=== PATIENT | female | born 1950 | race Caucasian/White ===

== ENCOUNTER 2016-07-11 14:41 | Observation (INO) | payer MEDICARE, MEDICAID, OTHER ==
[~2016-07-11] VITALS: Ht 165.1 cm; Wt 47.7 kg
[~2016-07-11 14:41] MED LIST: CALCTAB PO; CELE40TA PO; DOCU1CAP39 PO; DOXE75CA PO; FERR140T PO; NORC7.5T PO; TRAZ100 PO; VITAPOW PO; [UNRECOGNIZED DRUG - CODE] PO; [UNRECOGNIZED DRUG - CODE] XX
[2016-07-11 14:44] VITALS: BP 100/47; PULSE 84; RESP 12; TEMP 98.3; O2SAT 96
[2016-07-11] MEDS ORDERED: SODIUM CHLORIDE 0.9% FLUSH 5 ML FLUSH IVF PRN (18:45)
--- NOTE | 2016-07-11 18:57 | PD ---
HPI Chief Complaint: Fall Time Seen by Provider: 18:30 Travel History International Travel<30 days: No Contact w/Intl Traveler<30days: No Traveled to known affect area: No History of Present Illness HPI Patient is a 65-year-old female presenting with dizziness. She states today at noon she was walking and had been walking for 3 hours to go to the bank which she usually does the beginning of the month and she became dizzy and fell. She states that she did not lose consciousness but she did hit her head on the road. She felt as if she needed to eat so she went to [employer] and had a soda and ate taco and began walking again and within a few minutes she got lightheaded again and fell. She struck her head. She again denies loss of consciousness. She denies any headache, neck pain, dizziness at rest, as well as of breath, chest pain, palpitations, tachycardia, fevers, cough. She denies a history of CAD and CVA. She states that if she attempts to stand up she will get lightheaded. She denies any difficulty forming speech. She denies any facial numbness or weakness. She denies any paresthesias or numbness or weakness in her extremities. She denies any daily aspirin or anticoagulant use. PFSH Past Medical History Arthritis: Yes Blood Disorders: No Bipolar Disorder: Yes Anxiety: Yes Depression: Yes Cancer: No Cardiovascular Problems: No Diabetes: No Diminished Hearing: No Endocrine: No Gastrointestinal Disorders: No Glaucoma: No Genitourinary: Yes (SELF CATH, BLADDER AUGMENTATION) Hepatitis: No Hiatal Hernia: No Hypertension: No Immune Disorder: No Implanted Vascular Access Dvce: No Medical other: Yes (IRON DEFICIENCY, SELF CATHERIZES FOR URINE) Musculoskeletal: Yes (chronic back pain.) Neurologic: No Psychiatric: Yes (DEPRESSION) Reproductive: No Respiratory: No Thyroid Disease: No Tetanus Vaccination: > 5 Years Influenza Vaccination: Yes ?: Not Menopausal: Yes Past Surgical History Genitourinary Surgery: Yes (BLADDER AUGMENTATION AGE 48) Gynecologic Surgery: Yes (HYSTERCTOMY-15 YRS AGO) Hysterectomy: Yes Pacemaker: No Thoracic Surgery: Yes (BREAST AUGMENTATION & BREAST IMPLANT REMOVAL) Tonsillectomy: Yes Other Surgery: Yes (breast aug/MASTECTOMY) Social History Alcohol Use: No Tobacco Use: No Substance Use: No Allergies-Medications (Allergen,Severity, Reaction): Coded Allergies: Sulfa (Verified Allergy, Intermediate, "BLOOD COUNT DROPS", 07/11/16) Codeine (Verified Adverse Reaction, Unknown, ITCHING, 07/11/16) Reported Meds & Prescriptions Reported Meds & Active Scripts Active Cathete1 100 U XX 10 Days Refill catheters. 30 Day supply. Diagnosis 788.30 Review of Systems Except as stated in HPI: all other systems reviewed are Neg Physical Exam Narrative GENERAL: Well-developed and well-nourished adult female in no acute distress. SKIN: Warm and dry. Good turgor without tenting. HEAD: Normocephalic and atraumatic. No abrasions or hematomas. No tenderness, crepitus or step-off to palpation of the skull. EYES: PERRL bilaterally, 5mm. EOMI bilaterally. No injection or icterus present. No proptosis. Lids without edema or erythema. ENT: Buccal mucosa pink and moist. Oropharynx free of erythema, tonsillar hypertrophy, masses, swelling, asymmetry and exudates. Uvula midline and airway patent. NECK: Supple, no midline tenderness, crepitus or step-offs. Trachea midline, no JVD. No cervical or facial lymphadenopathy. CARDIOVASCULAR: Regular rate and rhythm without murmurs, rubs, clicks or gallops. Radial and posterior tibial pulses 2+ bilaterally. No pedal edema. RESPIRATORY: Clear to auscultation bilaterally with symmetrical rise and fall, no distress or use of accessory muscles. GASTROINTESTINAL: Non-tender, non-distended. Normal bowel sounds all 4 quadrants. No masses or organomegaly present. MUSCULOSKELETAL: Left elbow has a subcentimeter laceration with hemostasis achieved on the posterior elbow, no bone or contaminants visible. Elbow has no tenderness or loss of range of motion. Patient freely moving all four extremities spontaneously. Extremities without clubbing, cyanosis, or edema. No obvious deformities. NEUROLOGIC: Patient has some minor deviation of the tongue to the right and facial asymmetry with smiling but not rai facial droop. Awake and alert. Negative pronator drift. Jorgensen and accurate finger to nose testing bilaterally. Strength 5/5 bilateral shoulder flexion, shoulder extension, shoulder abduction, shoulder adduction, elbow flexion, elbow extension. Sensation intact and strength 5/5 over radial, median, and ulnar nerve distributions bilaterally.Sensation intact L2-S2 bilaterally. Strength 5/5 in hip flexion, hip extension, knee flexion, knee extension, plantar flexion, dorsiflexion bilaterally. Bilateral biceps, brachioradialis, patellar and Achilles DTRs 2+. Downgoing Babinskis bilaterally. Normal speech. PSYCHIATRIC: Appropriate mood and affect; insight and judgment normal. Data Data Last Documented VS Vital Signs Date Time Temp Pulse Resp B/P Pulse Ox O2 Delivery O2 Flow Rate FiO2 07/11/16 22:41 78 18 121/58 80 18 123/61 81 18 112/57 07/11/16 22:30 98 Room Air 07/11/16 14:44 98.3 Orders Electrocardiogram (07/11/16 14:51) Ua Includes Microscopic (07/11/16 18:34) Prothrombin Time / Inr (Pt) (07/11/16 18:34) Act Partial Throm Time (Ptt) (07/11/16 18:34) Complete Blood Count With Diff (07/11/16 18:34) Comprehensive Metabolic Panel (07/11/16 18:34) Drug Screen, Random Urine (07/11/16 18:34) Troponin I (07/11/16 18:34) Ct Brain W/O Iv Contrast(Rout) (07/11/16 18:34) Chest, Single Ap (07/11/16 18:34) Ecg Monitoring (07/11/16 18:34) Iv Access Insert/Monitor (07/11/16 18:34) Oximetry (07/11/16 18:34) Blood Glucose (07/11/16 18:34) Sodium Chloride 0.9% Flush (Ns Flush) (07/11/16 18:45) Tetanus/Diphtheria Tox Adult (Tetanus/Di (07/11/16 19:00) Elbow, Complete (4 Vws) (07/11/16 18:57) Lidocai-Epi 1%-1:100,000 Inj (Xylocaine- (07/11/16 19:00) Orthostatic Vital Signs (07/11/16 19:07) Mri Brain W&W/O Contrast (07/11/16 ) Mra Carotids W Contrast (07/11/16 ) Mra Brain W/O Contrast (Cow) (07/11/16 ) Sodium Chlor 0.9% 1000 Ml Inj (Ns 1000 M (07/11/16 20:43) Gadodiamide Pf Inj (Omniscan Pf Inj) (07/11/16 20:58) Clindamycin Inj (Cleocin Inj) (07/11/16 21:30) Admit Order (Ed Use Only) (07/11/16 23:25) Consult Neurology (07/11/16 ) Labs Laboratory Tests Test 07/11/16 20:00 White Blood Count 8.8 TH/MM3 Red Blood Count 4.68 MIL/MM3 Hemoglobin 14.1 GM/DL Hematocrit 41.7 % Mean Corpuscular Volume 89.1 FL Mean Corpuscular Hemoglobin 30.1 PG Mean Corpuscular Hemoglobin 33.8 % Concent Red Cell Distribution Width 13.7 % Platelet Count 137 TH/MM3 Mean Platelet Volume 9.5 FL Neutrophils (%) (Auto) 67.1 % Lymphocytes (%) (Auto) 19.6 % Monocytes (%) (Auto) 12.2 % Eosinophils (%) (Auto) 0.6 % Basophils (%) (Auto) 0.5 % Neutrophils # (Auto) 5.9 TH/MM3 Lymphocytes # (Auto) 1.7 TH/MM3 Monocytes # (Auto) 1.1 TH/MM3 Eosinophils # (Auto) 0.1 TH/MM3 Basophils # (Auto) 0.0 TH/MM3 CBC Comment DIFF FINAL Differential Comment Prothrombin Time 10.4 SEC Prothromb Time International 0.9 RATIO Ratio Activated Partial 24.9 SEC Thromboplast Time Sodium Level 136 MEQ/L Potassium Level 3.6 MEQ/L Chloride Level 98 MEQ/L Carbon Dioxide Level 29.7 MEQ/L Anion Gap 8 MEQ/L Blood Urea Nitrogen 22 MG/DL Creatinine 1.14 MG/DL Estimat Glomerular Filtration 48 ML/MIN Rate Random Glucose 104 MG/DL Calcium Level 9.1 MG/DL Total Bilirubin 0.4 MG/DL Aspartate Amino Transf 10 U/L (AST/SGOT) Alanine Aminotransferase 15 U/L (ALT/SGPT) Alkaline Phosphatase 95 U/L Troponin I LESS THAN 0.02 NG/ML Total Protein 7.5 GM/DL Albumin 3.8 GM/DL MDM Medical Decision Making Medical Screen Exam Complete: Yes Emergency Medical Condition: Yes Interpretation(s) Laboratory Tests Test 07/11/16 20:00 White Blood Count 8.8 TH/MM3 (4.0-11.0) Red Blood Count 4.68 MIL/MM3 (4.00-5.30) Hemoglobin 14.1 GM/DL (11.6-15.3) Hematocrit 41.7 % (35.0-46.0) Mean Corpuscular Volume 89.1 FL (80.0-100.0) Mean Corpuscular Hemoglobin 30.1 PG (27.0-34.0) Mean Corpuscular Hemoglobin 33.8 % Concent (32.0-36.0) Red Cell Distribution Width 13.7 % (11.6-17.2) Platelet Count 137 TH/MM3 (150-450) Mean Platelet Volume 9.5 FL (7.0-11.0) Neutrophils (%) (Auto) 67.1 % (16.0-70.0) Lymphocytes (%) (Auto) 19.6 % (9.0-44.0) Monocytes (%) (Auto) 12.2 % (0.0-8.0) Eosinophils (%) (Auto) 0.6 % (0.0-4.0) Basophils (%) (Auto) 0.5 % (0.0-2.0) Neutrophils # (Auto) 5.9 TH/MM3 (1.8-7.7) Lymphocytes # (Auto) 1.7 TH/MM3 (1.0-4.8) Monocytes # (Auto) 1.1 TH/MM3 (0-0.9) Eosinophils # (Auto) 0.1 TH/MM3 (0-0.4) Basophils # (Auto) 0.0 TH/MM3 (0-0.2) CBC Comment DIFF FINAL Differential Comment Prothrombin Time 10.4 SEC (9.8-11.6) Prothromb Time International 0.9 RATIO Ratio Activated Partial 24.9 SEC Thromboplast Time (24.3-30.1) Sodium Level 136 MEQ/L (136-145) Potassium Level 3.6 MEQ/L (3.5-5.1) Chloride Level 98 MEQ/L (98-107) Carbon Dioxide Level 29.7 MEQ/L (21.0-32.0) Anion Gap 8 MEQ/L (5-15) Blood Urea Nitrogen 22 MG/DL (7-18) Creatinine 1.14 MG/DL (0.50-1.00) Estimat Glomerular Filtration 48 ML/MIN (>89) Rate Random Glucose 104 MG/DL (74-106) Calcium Level 9.1 MG/DL (8.5-10.1) Total Bilirubin 0.4 MG/DL (0.2-1.0) Aspartate Amino Transf 10 U/L (15-37) (AST/SGOT) Alanine Aminotransferase 15 U/L (10-53) (ALT/SGPT) Alkaline Phosphatase 95 U/L (45-117) Troponin I LESS THAN 0.02 NG/ML (0.02-0.05) Total Protein 7.5 GM/DL (6.4-8.2) Albumin 3.8 GM/DL (3.4-5.0) Differential Diagnosis CVA vs TIA versus dehydration versus hypoglycemia versus arrhythmia versus ACS versus vertigo vs orthostatic hypotension Narrative Course Patient is a 65-year-old female presenting with chief complaint of fall and hitting her head twice on the street today while walking and becoming dizzy. She states she is currently asymptomatic but if she attempts to stand she becomes dizzy. The other episodes were not related to positioning but she had been walking for several hours and is concerned that she was dehydrated or hypoglycemic. Other than dizziness she denies any cardiopulmonary or neurologic complaints however on exam she does have some asymmetry with smiling and mild deviation to the right. I spoke with Dr. Chacko who also evaluated the patient and agrees there is some asymmetry but there is no ataxia or other deficit. She is a little unsteady with her gait but more pre-syncopal and lightheaded. Call was placed to Dr. Hines and ordered CT head, cxr, ekg, labs. EKG shows no arrhythmias or signs of ischemia. Chest x-ray and CT head showed no acute process. 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 CBC showed platelet count 137. INR 0.9. Metabolic panel shows BUN 22, creatinine 1.14, minimally from 0.82 previously. Troponin less than 0.02. MRI of the brain shows cranial cyst with no abnormalities. MRI of the brain was normal. MRA of the neck showed only minimal narrowing of the lumens of the bilateral ICA's. Dr. Howard placed call to Dr. Hines who wanted patient admitted with neurology consult in the morning. Orthostatics were negative. Patient was given 1 L normal saline bolus and she had some mild kidney insufficiency likely from being out and walking for several hours when not drinking fluids. Additionally her family arrived during the MRI and discussing the patient her daughter states that she's been having some dental difficulties for the last 2 days in the left lower gums. She didn't having some swelling and tenderness in the region told her daughter she thinks is infected. The patient denies any trauma to the area, bleeding or discharge. On reexam there is mild edema of the gingiva which is tender but there is no induration or fluctuance. She has severe degeneration of the teeth and multiple caries below the gumline in this region I do believe a periapical abscess could be possible, was given clindamycin IV. I do not believe this is the etiology for her neuro symptoms or the facial asymmetry however as the edema is minimal. Laceration repaired per attached procedure narrative. Patient to be admitted with neuro consult tomorrow morning. Dr. Nicole Dubois is her PCP although she has not seen her yet. Report was given to Dr. Ballesteros after the Residents(Dr. Alegria) declined to see this patient given she has no PCP visits since [address] Dubois does not see patients in the office. Procedures Procedure Narrative LACERATION LOCATION: Left elbow LENGTH: 7 mm SHAPE: Linear NUMBER OF STITCHES/PHUONG: 1 REPAIR: The area of the laceration was prepped with Betadine and sterilely draped. The laceration was infiltrated with 0.75 cc of percent lidocaine with epi. The wound was copiously irrigated and explored without evidence of foreign body, tendon injury or neurovascular injury. The wound was closed using 4-0 Ethilon. This was a single layer repair. A sterile dressing was applied. The patient was advised to keep the dressing clean and dry. Patient tolerated the procedure well. Diagnosis Primary Impression: Dizziness Additional Impressions: Falls Qualified Code: W19.XXXA - Falls, initial encounter Dehydration Elbow laceration Qualified Code: S51.012A - Elbow laceration, left, initial encounter Periapical abscess Admitting Information Admitting Physician Requests: Admit Condition: Stable Leonard Monroe III Jul 11, 2016 18:57 Falls Qualified Code: W19.XXXA - Falls, initial encounter Dehydration Elbow laceration Qualified Code: S51.012A - Elbow laceration, left, initial encounter Periapical abscess Admitting Information Admitting Physician Requests: Admit Condition: Stable Leonard Monroe III Jul 11, 2016 18:57
[2016-07-11 19:00] VITALS: BP 122/53; PULSE 78; RESP 18; O2SAT 96
[2016-07-11] MEDS ORDERED: TETANUS/DIPHTHERIA TOXOID ADULT 0.5 ML VIAL IM ONE (19:00)
[2016-07-11] MEDS ORDERED: LIDOCAINE 1%/EPINEPHrine 1:100,000 SOLN 20 ML VIAL INFIL ONE (19:00)
--- NOTE | 2016-07-11 19:27 | RADRPT ---
EXAM DATE/TIME: 07/11/2016 18:46 [facility] COMPARISON: No previous studies available for comparison. INDICATIONS : Short of breath MEDICAL HISTORY : Cardiovascular disease. SURGICAL HISTORY : None. ENCOUNTER: Initial ACUITY: 1 day PAIN SCORE: 0/10 LOCATION: Bilateral chest FINDINGS: A single view of the chest demonstrates the lungs to be symmetrically aerated without evidence of mas s, infiltrate or effusion. The cardiomediastinal contours are unremarkable. Osseous structures are intact. CONCLUSION: No evidence of acute cardiopulmonary disease. Leonard Cespedes MD on July 11, 2016 at 19:25 Board Certified Radiologist. This report was verified electronically.
--- NOTE | 2016-07-11 19:34 | RADRPT ---
EXAM DATE/TIME: 07/11/2016 19:16 [facility] COMPARISON: CT BRAIN W/O CONTRAST, May 12, 2009, 1:29. INDICATIONS : Altered mental status. RADIATION DOSE: 38.73 CTDIvol (mGy) MEDICAL HISTORY : None SURGICAL HISTORY : None. ENCOUNTER: Initial ACUITY: 1 day PAIN SCALE: 1/10 LOCATION: cranial TECHNIQUE: Multiple contiguous axial images were obtained of the head. Using automated exposure control and adj ustment of the mA and/or kV according to patient size, radiation dose was kept as low as reasonably a chievable to obtain optimal diagnostic quality images. FINDINGS: CEREBRUM: The ventricles are normal for age. No evidence of midline shift, mass lesion, hemorrhage or acute in farction. No extra-axial fluid collections are seen. Cortical atrophy again noted. Unchanged pineal cyst, measures about 11 mm in size. POSTERIOR FOSSA: The cerebellum and brainstem are intact. The 4th ventricle is midline. The cerebellopontine angle i s unremarkable. EXTRACRANIAL: The visualized portion of the orbits is intact. SKULL: The calvaria is intact. No evidence of skull fracture. CONCLUSION: No acute intracranial abnormality. Unchanged atrophy and pineal cyst. Leonard Cespedes MD on July 11, 2016 at 19:31 Board Certified Radiologist. This report was verified electronically.
--- NOTE | 2016-07-11 19:45 | PD ---
Data Data Last Documented VS Vital Signs Date Time Temp Pulse Resp B/P Pulse Ox O2 Delivery O2 Flow Rate FiO2 07/11/16 14:44 98.3 84 12 100/47 96 Room Air Orders Electrocardiogram (07/11/16 14:51) Electrocardiogram (07/11/16 20:51) Ua Includes Microscopic (07/11/16 18:34) Prothrombin Time / Inr (Pt) (07/11/16 18:34) Act Partial Throm Time (Ptt) (07/11/16 18:34) Complete Blood Count With Diff (07/11/16 18:34) Comprehensive Metabolic Panel (07/11/16 18:34) Drug Screen, Random Urine (07/11/16 18:34) Troponin I (07/11/16 18:34) Ct Brain W/O Iv Contrast(Rout) (07/11/16 18:34) Chest, Single Ap (07/11/16 18:34) Ecg Monitoring (07/11/16 18:34) Iv Access Insert/Monitor (07/11/16 18:34) Oximetry (07/11/16 18:34) Blood Glucose (07/11/16 18:34) Sodium Chloride 0.9% Flush (Ns Flush) (07/11/16 18:45) Tetanus/Diphtheria Tox Adult (Tetanus/Di (07/11/16 19:00) Elbow, Complete (4 Vws) (07/11/16 18:57) Lidocai-Epi 1%-1:100,000 Inj (Xylocaine- (07/11/16 19:00) Orthostatic Vital Signs (07/11/16 19:07) Mri Brain W&W/O Contrast (07/11/16 ) Mra Carotids W Contrast (07/11/16 ) Mra Brain W/O Contrast (Cow) (07/11/16 ) MDM Supervised Visit with DAVID: Yes Narrative Course The history, exam, and medical decision-making in the associated midlevel provider note were completed with my assistance. I reviewed and agree with the findings presented. I attest that I had a [id number] encounter with the patient on the same day, and personally performed and documented my assessment and findings in the medical record. *My assessment and Findings: Is a 65-year-old female who presents to the emergency department having had 2 discrete episodes of dizziness earlier today with some difficulty walking and falls. On exam the patient has some facial asymmetry and appears to have some tongue deviation to the right. Otherwise I don't appreciate any ataxia. When I walked her she had some gait instability but it seemed more like she was presyncopal. I spoke to Dr. Hines because her symptoms are at least 6 hours in onset, and minimal so I don't think the patient would be at TPA candidate. We agreed to obtain a stat MRI given if she does have a brainstem lesion she may still be a candidate for some intervention. Ruby Chacko MD Jul 11, 2016 19:45
--- NOTE | 2016-07-11 20:10 | RADRPT ---
EXAM DATE/TIME: 07/11/2016 19:21 [facility] COMPARISON: No previous studies available for comparison. INDICATIONS : Left elbow pain after fall today. MEDICAL HISTORY : None. SURGICAL HISTORY : None. ENCOUNTER: Initial ACUITY: 1 day PAIN SCORE: 5/10 LOCATION: Left elbow. FINDINGS: Multiple view examination of the left elbow demonstrates no soft tissue swelling, joint effusion, or fracture. The osseous structures are in normal alignment. Bony mineralization is normal. CONCLUSION: Intact left elbow. Leonard Cespedes MD on July 11, 2016 at 20:09 Board Certified Radiologist. This report was verified electronically.
[2016-07-11 20:20] LABS: AUTOMATED NEUTROPHIL # 5.9 TH/MM3 (1.8-7.7); BASOPHIL % 0.5 % (0.0-2.0); EOSINOPHIL # 0.1 TH/MM3 (0-0.4); EOSINOPHIL % 0.6 % (0.0-4.0); HEMATOCRIT 41.7 % (35.0-46.0); HEMO FLAGS DIFF FINAL; LYMPH % 19.6 % (9.0-44.0); LYMPHOCYTE # 1.7 TH/MM3 (1.0-4.8); MEAN CELL VOLUME 89.1 FL (80.0-100.0); MEAN CORPUSCULAR HEMOGLOBIN 30.1 PG (27.0-34.0); MEAN CORPUSCULAR HGB CONC 33.8 % (32.0-36.0); MONO % 12.2 % (0.0-8.0); NEUT % 67.1 % (16.0-70.0); PLATELET COUNT 137 TH/MM3 (150-450); RED BLOOD COUNT 4.68 MIL/MM3 (4.00-5.30); RED CELL DISTRIBUTION WIDTH 13.7 % (11.6-17.2); WHITE BLOOD COUNT 8.8 TH/MM3 (4.0-11.0)
[2016-07-11 20:21] LABS: APTT (PATIENT) 24.9 SEC (24.3-30.1); INTERNATIONAL NORMALIZED RATIO 0.9 RATIO; PROTHROMBIN TIME - PATIENT 10.4 SEC (9.8-11.6)
[2016-07-11 20:30] LABS: ANION GAP 8 MEQ/L (5-15); AST (GOT) 10 U/L (15-37); BICARBONATE 29.7 MEQ/L (21.0-32.0); BLOOD UREA NITROGEN 22 MG/DL (7-18); CHLORIDE 98 MEQ/L (98-107); GLOMERULAR FILTRATION RATE 48 ML/MIN (>89); POTASSIUM 3.6 MEQ/L (3.5-5.1); SODIUM (NA) 136 MEQ/L (136-145)
[2016-07-11 20:36] LABS: ALKALINE PHOSPHATASE 95 U/L (45-117); ALT (GPT) 15 U/L (10-53); TOTAL BILIRUBIN ADULT 0.4 MG/DL (0.2-1.0)
[2016-07-11] MEDS ORDERED: SODIUM CHLOR 0.9% 1000 ML INJ 1,000 ML IV SCH (20:43)
[2016-07-11] MEDS ORDERED: GADODIAMIDE PF 287 MG/ML 20 ML VIAL (for RAD MRI) IV ONE (20:58)
--- NOTE | 2016-07-11 21:00 | RADRPT ---
EXAM DATE/TIME: 07/11/2016 20:08 [facility] COMPARISON: CT BRAIN W/O CONTRAST, May 12, 2009, 1:29. CT BRAIN W/O CONTRAST, July 11, 2016, 19:16. INDICATIONS : Vertigo. CONTRAST: 20 cc Omniscan (gadodiamide) IV MEDICAL HISTORY : None. SURGICAL HISTORY : Mastectomy, bilateral. Hysterectomy. ENCOUNTER: Initial ACUITY: 1 day PAIN SCORE: 0/10 LOCATION: Head TECHNIQUE: Multiplanar, multisequence MRI of the brain was performed both prior to and following the administrat ion of paramagnetic contrast. FINDINGS: CEREBRUM: The ventricles are normal for age. No evidence of midline shift, solid mass lesion, hemorrhage or ac [place] infarction. 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 No extraaxial fluid collections are seen. The p ituitary gland and suprasellar cistern are normal in configuration. WHITE MATTER: No significant signal abnormalities are seen in the white matter. POSTERIOR FOSSA: The cerebellum and brainstem are intact. The 4th ventricle is midline. The cerebellopontine angle is unremarkable. The cerebellar tonsils are normal in position. DIFFUSION IMAGING: No focal areas of restricted diffusion are seen. No evidence of acute infarction. EXTRACRANIAL: Hyperostosis frontalis incidentally noted. POST-CONTRAST: No abnormal areas of parenchymal or dural enhancement. No evidence of blood-brain barrier breakdown. No enhancing mass. CONCLUSION: 1. No acute intracranial abnormality. 2. 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 Leonard Cespedes MD on July 11, 2016 at 20:58 Board Certified Radiologist. This report was verified electronically.
--- NOTE | 2016-07-11 21:02 | RADRPT ---
EXAM DATE/TIME: 07/11/2016 20:08 [facility] COMPARISON: MRI BRAIN W & W/O CONTRAST, July 11, 2016, 20:08. INDICATIONS : Vertigo. MEDICAL HISTORY : None. SURGICAL HISTORY : Hysterectomy. Mastectomy, bilateral. ENCOUNTER: Initial ACUITY: 1 day PAIN SCORE: 0/10 LOCATION: head Please note a normal MRA of the brain does not entirely exclude the possibility of a small aneurysm, nor the possibility of distal intracranial vessel disease. TECHNIQUE: 3D time of flight MRA was performed. Source images, multiplanar STS MIP, and 3D volume MIP reconstru ctions were reviewed. FINDINGS: There is excellent visualization of the major intracranial arteries out to the second-order branch ve ssels. There is no evidence for aneurysm, vessel truncation or stenosis, and no evidence for vascula r malformation. CONCLUSION: Normal intracranial arteries. Leonard Cespedes MD on July 11, 2016 at 21:00 Board Certified Radiologist. This report was verified electronically.
[2016-07-11] MEDS ORDERED: CLINDAMYCIN INJ 600 MG in SODIUM CHLORIDE 0.9% INJ 100 ML IV ONE (21:30)
--- NOTE | 2016-07-11 21:58 | RADRPT ---
EXAM DATE/TIME: 07/11/2016 20:08 [facility] COMPARISON: No previous studies available for comparison. INDICATIONS : Vertigo. CONTRAST: 20 cc Omniscan (gadodiamide) IV MEDICAL HISTORY : None. SURGICAL HISTORY : Mastectomy, bilateral. Hysterectomy. ENCOUNTER: Initial ACUITY: 1 day PAIN SCORE: 0/10 LOCATION: neck Percent stenosis is calculated using the diameter of the stenotic region over the diameter of the nor mal distal internal carotid artery. TECHNIQUE: Bolus infused MRA of the extracranial circulation was performed using a neurovascular coil. Post pro cessing was performed including rotationg subvolume maximum intensity projections of each carotid art bruce, rotating full volume maximum intensity projections of both carotid arteries, sagittal and will l sliding thin slab reformations of each carotid artery, and left oblique sliding thin slab reformati on through the aortic arch to include the origin of the arch branch vessels. FINDINGS: AORTIC ARCH: There is a three vessel origin of the great vessels from the aorta. No evidence of ostial narrowing. RIGHT CAROTID: The common carotid artery is intact. The carotid bulb has a normal configuration without ulceration or narrowing. There is mild luminal irregularity of the proximal and mid portions of the right technology development intern al carotid artery. The external carotid artery is intact. LEFT CAROTID: The common carotid artery is intact. The carotid bulb has a normal configuration without ulceration or narrowing. There is mild luminal irregularity of the proximal and mid portions of the left interna l carotid artery. The external carotid artery is intact. VERTEBRALS: Smooth narrowing of the upper portions of the right vertebral artery, most likely congenital or devel opmental. Basilar artery fills normally. CONCLUSION: Mild atherosclerosis related luminal irregularity of the bilateral internal carotid arteries. Leonard Cespedes MD on July 11, 2016 at 21:54 Board Certified Radiologist. This report was verified electronically.
[2016-07-11 22:30] VITALS: BP 121/58; PULSE 78; RESP 18; O2SAT 98
[2016-07-11 22:41] VITALS: BP_SYST 112; BP_SYST 121; BP_SYST 123; BP_DIAS 57; BP_DIAS 58; BP_DIAS 61; RESP 18
[2016-07-11] MEDS ORDERED: SODIUM CHLORIDE 0.9% FLUSH 5 ML FLUSH FLUSH PRN (23:30)
[2016-07-11] MEDS ORDERED: NALOXONE HCL 0.4 MG/ML AMP IV PRN (23:30)
[2016-07-12] VITALS (8 sets, daily range): BP systolic 103–135; BP diastolic 50–67; PULSE 67–74; RESP 18–21; TEMP 97.6–98.9; O2SAT 98–99
[2016-07-12] MEDS ORDERED: TRAZ100T5 PO (01:26)
[2016-07-12] MEDS ORDERED: DOXE75CA2 PO (01:27)
[2016-07-12] MEDS ORDERED: VITAMIN PO (01:29)
[2016-07-12] MEDS ORDERED: HYDR-3580 PO (01:30)
[2016-07-12] MEDS ORDERED: FERR325T PO (01:31)
[2016-07-12] MEDS ORDERED: DOCU100C PO (01:32)
[2016-07-12] MEDS ORDERED: CLINDAMYCIN INJ 900 MG in SODIUM CHLORIDE 0.9% INJ 100 ML IV SCH (04:00)
[2016-07-12 04:25] LABS: AUTOMATED NEUTROPHIL # 3.3 TH/MM3 (1.8-7.7); BASOPHIL % 0.6 % (0.0-2.0); EOSINOPHIL # 0.1 TH/MM3 (0-0.4); EOSINOPHIL % 1.4 % (0.0-4.0); HEMATOCRIT 38.1 % (35.0-46.0); HEMO FLAGS DIFF FINAL; LYMPH % 25.5 % (9.0-44.0); LYMPHOCYTE # 1.4 TH/MM3 (1.0-4.8); MEAN CELL VOLUME 89.6 FL (80.0-100.0); MEAN CORPUSCULAR HEMOGLOBIN 30.3 PG (27.0-34.0); MEAN CORPUSCULAR HGB CONC 33.8 % (32.0-36.0); MONO % 14.8 % (0.0-8.0); NEUT % 57.7 % (16.0-70.0); PLATELET COUNT 113 TH/MM3 (150-450); RED BLOOD COUNT 4.26 MIL/MM3 (4.00-5.30); RED CELL DISTRIBUTION WIDTH 13.7 % (11.6-17.2); WHITE BLOOD COUNT 5.7 TH/MM3 (4.0-11.0)
[2016-07-12 04:49] LABS: ALKALINE PHOSPHATASE 78 U/L (45-117); ALT (GPT) 14 U/L (10-53); ANION GAP 8 MEQ/L (5-15); AST (GOT) 9 U/L (15-37); BICARBONATE 27.8 MEQ/L (21.0-32.0); BLOOD UREA NITROGEN 17 MG/DL (7-18); CHLORIDE 104 MEQ/L (98-107); GLOMERULAR FILTRATION RATE 71 ML/MIN (>89); POTASSIUM 3.2 MEQ/L (3.5-5.1); SODIUM (NA) 140 MEQ/L (136-145); TOTAL BILIRUBIN ADULT 0.4 MG/DL (0.2-1.0)
[2016-07-12] MEDS ORDERED: POTASSIUM CHLORIDE 20 MEQ CONTROLLED RELEASE TAB PO ONE (07:30)
[2016-07-12] MEDS: LACTOBACILLUS ACIDOPHILUS TAB PO SCH ×3 (08:37→17:31)
[2016-07-12] MEDS: SODIUM CHLORIDE 0.9% FLUSH 5 ML FLUSH FLUSH SCH ×2 (08:37→23:11)
[2016-07-12] MEDS: ENOXAPARIN SODIUM 40 MG/0.4 ML SYRINGE SQ SCH (08:37)
[2016-07-12] MEDS ORDERED: BUPR150XL PO (08:52)
[2016-07-12] MEDS ORDERED: CELE1CAP8 PO (08:52)
--- NOTE | 2016-07-12 10:30 | HHI.HP ---
[facility] Service [facility] Primary Care Physician Physician [facility] Admission Diagnosis Dizziness, multiple falls Diagnoses: Chief Complaint: Dizziness and fall Travel History International Travel<30 Days: No Contact w/Intl Traveler <30 Da: No Traveled to Known Affected Are: No History of Present Illness 65-year-old female with a past medical history of depression/insomnia and incontinence who presented with dizziness and fall 2 yesterday. The patient states that in the beginning of the month she normally walks 4 miles to the [employer] office to get her check and takes the bus back. Otherwise normally she doesn't do this much activity on a normal basis. She states that during the walk she became dizzy and fell to her knees. It was about noon, so she had lunch at [employer], and then started walking again. About 2 hours after the first fall she had another episode of dizziness and fall. She reports that she felt off balance and unsteady on her feet. She denies any sensation like the room was spinning or lightheadedness. She denies any loss of consciousness. She denies any vision changes or focal weakness. She continues to report feeling dizzy whenever she stands up. She denies any recent medication changes. She denies any nausea, vomiting, chest pain, shortness breath, paresthesias, headache, dysuria, cough, sore throat. She has said she's felt cold recently. She also reports having a sore tooth, and plans to see a dentist. Review of Systems Other 10 point review of systems performed and was negative except as stated in the history of present illness. Past Family Social History Past Medical History Incontinence and bladder reconstruction Insomnia/depression Past history of JESSICA, saw hematology in the past and taken off of iron pills Past Surgical History Bladder reconstruction Hysterectomy Reported Medications Celecoxib 200 Mg Cap 200 Mg PO HS Wellbutrin Xl 24 HR (Bupropion HCl) 150 Mg Tab 150 Mg PO DAILY Doxepin (Doxepin HCl) 75 Mg Cap 75 Mg PO HS Trazodone HCl 100 Mg Tab 50 Mg PO HS Allergies: Coded Allergies: Sulfa (Verified Allergy, Intermediate, "BLOOD COUNT DROPS", 07/11/16) Codeine (Verified Adverse Reaction, Unknown, ITCHING, 07/11/16) Active Ordered Medications Current Medications Medications (Trade) Dose Ordered Sig/Jennifer Route Start Time Stop Time Status Last Admin (NS Flush) 2 ml UNSCH PRN FLUSH 07/11/16 23:30 (NS Flush) 2 ml BID FLUSH 07/12/16 09:00 07/12/16 08:37 (Lovenox Inj) 40 mg Q24H SQ 07/12/16 09:00 07/12/16 08:37 Naloxone HCl 0.4 mg 0.4 mg UNSCH PRN IV 07/11/16 23:30 (Cleocin Inj/NS Inj) 106 ml @ 212 mls/hr Q6H IV 07/12/16 04:00 07/12/16 04:21 (Lactinex) 1 tab TID PO 07/12/16 09:00 07/12/16 08:37 (Wellbutrin Sr) 150 mg DAILY PO 07/13/16 09:00 (CeleBREX) 200 mg HS PO 07/12/16 21:00 (SINEquan) 75 mg HS PO 07/12/16 21:00 (Desyrel) 50 mg HS PO 07/12/16 21:00 (Aspirin Chew) 81 mg DAILY CHEW 07/12/16 10:45 Family History Father at age 56 of lung cancer Social History Quit smoking 15 years ago, 40 pack years prior to that Denies any alcohol or drug use Physical Exam Vital Signs Vital Signs Date Time Temp Pulse Resp B/P Pulse Ox O2 Delivery O2 Flow Rate FiO2 07/12/16 04:35 98.1 67 21 108/67 99 07/12/16 01:07 71 07/12/16 00:56 98.9 74 18 135/58 98 07/11/16 22:41 78 18 121/58 80 18 123/61 81 18 112/57 07/11/16 22:30 78 18 121/58 98 Room Air 07/11/16 19:00 78 18 122/53 96 Room Air 07/11/16 14:44 98.3 84 12 100/47 96 Room Air Physical Exam GENERAL: Well-developed well-nourished. In no acute distress. SKIN: Warm and dry. Abrasion on the left elbow HEENT: Normocephalic. Pupils equal and round. Mucous membranes pink and moist. CARDIOVASCULAR: Regular rate and rhythm. No murmur appreciated. RESPIRATORY: No accessory muscle use. Clear to auscultation. Breath sounds equal bilaterally. GASTROINTESTINAL: Abdomen soft, non-tender, nondistended. Bowel sounds x4. MUSCULOSKELETAL: No obvious deformities. No clubbing or cyanosis. No edema. NEUROLOGICAL: Awake and alert. Slight left lower facial droop noted, but otherwise no focal neurological deficits. Moves upper and lower extremities spontaneously. Normal speech. No pronator drift. PSYCHIATRIC: Appropriate mood and affect; insight and judgment normal. Laboratory Laboratory Tests Test 07/11/16 07/12/16 20:00 04:01 White Blood Count 8.8 5.7 Red Blood Count 4.68 4.26 Hemoglobin 14.1 12.9 Hematocrit 41.7 38.1 Mean Corpuscular Volume 89.1 89.6 Mean Corpuscular Hemoglobin 30.1 30.3 Mean Corpuscular Hemoglobin 33.8 33.8 Concent Red Cell Distribution Width 13.7 13.7 Platelet Count 137 113 Mean Platelet Volume 9.5 9.1 Neutrophils (%) (Auto) 67.1 57.7 Lymphocytes (%) (Auto) 19.6 25.5 Monocytes (%) (Auto) 12.2 14.8 Eosinophils (%) (Auto) 0.6 1.4 Basophils (%) (Auto) 0.5 0.6 Neutrophils # (Auto) 5.9 3.3 Lymphocytes # (Auto) 1.7 1.4 Monocytes # (Auto) 1.1 0.8 Eosinophils # (Auto) 0.1 0.1 Basophils # (Auto) 0.0 0.0 CBC Comment DIFF FINAL DIFF FINAL Differential Comment Prothrombin Time 10.4 Prothromb Time International 0.9 Ratio Activated Partial 24.9 Thromboplast Time Sodium Level 136 140 Potassium Level 3.6 3.2 Chloride Level 98 104 Carbon Dioxide Level 29.7 27.8 Anion Gap 8 8 Blood Urea Nitrogen 22 17 Creatinine 1.14 0.81 Estimat Glomerular Filtration 48 71 Rate Random Glucose 104 92 Calcium Level 9.1 8.2 Total Bilirubin 0.4 0.4 Aspartate Amino Transf 10 9 (AST/SGOT) Alanine Aminotransferase 15 14 (ALT/SGPT) Alkaline Phosphatase 95 78 Troponin I LESS THAN 0.02 Total Protein 7.5 6.5 Albumin 3.8 3.3 Result Diagram: 07/12/16 0401 07/12/16 0401 Imaging Last Impressions Elbow X-Ray 07/11/16 1857 Signed Impressions: Service Date/Time: Monday, July 11, 2016 19:21 - CONCLUSION: Intact left elbow. Leonard Cespedes MD Head CT 07/11/16 1834 Signed Impressions: Service Date/Time: Monday, July 11, 2016 19:16 - CONCLUSION: No acute intracranial abnormality. Unchanged atrophy and pineal cyst. Leonard Cespedes MD Chest X-Ray 07/11/16 1834 Signed Impressions: Service Date/Time: Monday, July 11, 2016 18:46 - CONCLUSION: No evidence of acute cardiopulmonary disease. Leonard Cespedes MD Neck Magnetic Resonance Angiography 07/11/16 0000 Signed Impressions: Service Date/Time: Monday, July 11, 2016 20:08 - CONCLUSION: Mild atherosclerosis related luminal irregularity of the bilateral internal carotid arteries. Leonard Cespedes MD Head Magnetic Resonance Angiography 07/11/16 0000 Signed Impressions: Service Date/Time: Monday, July 11, 2016 20:08 - CONCLUSION: Normal intracranial arteries. Leonard Cespedes MD Brain MRI 07/11/16 0000 Signed Impressions: Service Date/Time: Monday, July 11, 2016 20:08 - CONCLUSION: 1. No acute intracranial abnormality. 2. 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 Leonard Cespedes MD Assessment and Plan Problem List: (1) Dehydration ICD Code: E86.0 Status: Acute (2) Falls ICD Code: W19.XXXA Status: Acute (3) Dizziness ICD Code: R42 Status: Acute Assessment and Plan 65-year-old female with a past medical history of depression/insomnia and incontinence who presented with dizziness and fall 2 Dizziness and fall: Possibly secondary to dehydration, see GER as below. Slight left facial drooping was noted in the ED, and imaging was obtained including head CT, brain MRI, head MRA, neck MRA which showed no acute stroke, and mild atherosclerosis bilaterally in the internal carotids. Non- orthostatic. Check B12 and TSH. Start on baby aspirin. Neurology consulted, discussed with Dr. Rodarte, recommended cardiac workup with echocardiogram and outpatient Holter. Telemetry monitoring. PT eval. Acute kidney injury: Mild. Presented with creatinine 1.14, previously 0.82 on 06/14/16. Creatinine improved to 0.81 with IVF overnight. Monitor BMP. Hypokalemia: Potassium 3.2, replace orally. Check magnesium. Dental caries with possible dental abscess: Started on IV clindamycin. Afebrile with no leukocytosis. Change clindamycin to oral. Follow-up with dentist. Depression/insomnia: Chronic, stable. Continue home medications. DVT prophylaxis: Lovenox Written by Fili Marroquin, acting as scribe for Dr. Pollock on 07/12/16 at 10:29. Discussed Condition With Patient, neurology Attending Statement The documentation accurately reflects the work performed [id number] by me, Dr. Pollock on 07/12/16 at 10:29. Problem Qualifiers (1) Falls: Qualified Code: W19.XXXA - Falls, initial encounter Fili Marroquin Jul 12, 2016 10:30 Brandon Pollock MD Jul 13, 2016 02:30
--- NOTE | 2016-07-12 11:34 | MB ---
cc: SARITHA BERNAL M.D. DATE OF CONSULTATION 07/12/2016 DATE OF 1950 REASON FOR CONSULTATION Dizziness and a fall. HISTORY The patient is a 65-year-old woman in her usual state of health. Yesterday while she was walking to the bank, she usually walks once a month four miles, she became dizzy, lightheaded, fell down. She had two events where she fell, but did not lose consciousness. There was no incontinence or tongue biting, hence a passer by, a earnest carrera, saw this and had EVAC called. She still states she feels dizzy when she sits up, but no spinning sensation. No weakness in her arms or legs. No new medications. ALLERGIES She is ALLERGIC TO SULFA AND CODEINE. MEDICATIONS She is on: 1. Trazodone 200 mg at night 2. Doxepin I believe she stated 50 mg at bedtime for insomnia. SOCIAL HISTORY She used to smoke, quit many years ago a pack a day. No alcohol. FAMILY HISTORY Parents were alcoholics SOCIAL HISTORY Lives alone as stated. She smokes. She does not drink. She has a roommate who is [id number]. Note, by the way yesterday she did go her primary care office just for an eval and she was not feeling lightheaded or dizzy at that point. PHYSICAL EXAM VITAL SIGNS: Temperature is 97.7, pulse 68, respiratory rate 20, blood pressure 110/51 supine. They did orthostatics yesterday evening supine and standing. She had a supine 121/58, standing 112/57. NECK: Supple. No bruits. HEART: Regular. NEUROLOGIC: She is awake, alert, she is oriented and fluent. Pupils reactive. Visual mcclure full. Face symmetrical. Tongue midline. Motor, no drift. No leg lag. Cerebellar testing is normal. Both toes are downgoing. Reflexes intact. Sensory is normal. Gait is withheld for PT. LABS Reviewed. Her platelet count is 113,000. Chemistries, potassium 3.2, a GFR 71, calcium 8.2, albumin 3.3, TSH 0.480, B12 is pending. Coag panel was normal. She did have an MRI of the brain that did not show anything acute, just a stable pineal cyst of 11 mm. MRA [place] was unremarkable. Carotids show mild arthrosclerosis in both carotids, but no high-grade stenosis. IMPRESSION Dizziness and fall. At this point, it is unknown why. Certainly, in a 65-year-old woman cardiac etiology is a possibility. She may have been dehydrated, however, yesterday when she came in her BUN and creatinine were slightly elevated. Also cardiac dysrhythmia can not be disregarded. Would recommend at this point getting an echo and an outpatient Holter, getting her out of bed, hydrating her, seeing how she does with physical therapy. Keep her on telemetry and further recommendations will be made accordingly. MD VALARIE Cavazos/OLGA /10:59 AM /11:25 AM
[2016-07-12] MEDS: ASPIRIN 81 MG CHEW TAB CHEW SCH (11:57)
[2016-07-12] MEDS: CLINDAMYCIN 150 MG CAP PO SCH ×3 (12:01→23:12)
--- NOTE | 2016-07-12 15:50 | EC ---
Study Study Date:07/12/2016 STUDY CONCLUSIONS SUMMARY - Left ventricle: The cavity size was normal. Systolic function was normal. The estimated ejection fraction was in the range of 55% to 60%. - Mitral valve: Normal-sized, mildly calcified annulus. If LV function is below 40, please consider prescribing an ACEI or ARB or document rationale for non-use. PROCEDURE DATA STUDY STATUS: Elective. Procedure: Transthoracic echocardiography. Image quality was good. Scanning was performed from the parasternal, apical, and subcostal acoustic windows. Study completion: The patient tolerated the procedure well. Transthoracic echocardiography. M-mode, complete 2D, complete spectral Doppler, and color Doppler. Patient status: Inpatient. CARDIAC ANATOMY LEFT VENTRICLE: The cavity size was normal. Systolic function was normal. The estimated ejection fraction was in the range of 55% to 60%. AORTIC VALVE: Probably trileaflet. Doppler: There was no stenosis. No significant regurgitation. MITRAL VALVE: Normal-sized, mildly calcified annulus. Doppler: There was no evidence for stenosis. No significant regurgitation. LEFT ATRIUM: The atrium was normal in size. RIGHT VENTRICLE: The cavity size was normal. Wall thickness was normal. Systolic function was normal. PULMONIC VALVE: Not well visualized. Doppler: There was no evidence for stenosis. No significant regurgitation. TRICUSPID VALVE: The valve appears to be grossly normal. Doppler: There was no evidence for stenosis. Trace regurgitation. Prepared and signed by Prakash Enciso [id number]
[2016-07-12] MEDS ORDERED: CLIN150 PO (16:02)
[2016-07-12] MEDS ORDERED: CALCIUM CARBONATE 500 MG CHEWABLE TAB CHEW PRN (21:00)
[2016-07-12] MEDS ORDERED: DOCUSATE SODIUM 100 MG CAP PO PRN (21:00)
[2016-07-12] MEDS ORDERED: traZODone HCL 50 MG TAB PO SCH (21:00)
[2016-07-12] MEDS ORDERED: ONDANSETRON HCL 4 MG/2 ML VIAL IV PRN (21:00)
[2016-07-12] MEDS ORDERED: MAGNESIUM HYDROXIDE SUSP 30 ML CUP PO PRN (21:00)
[2016-07-12] MEDS ORDERED: ACETAMINOPHEN 325 MG TAB PO PRN (21:00)
[2016-07-12] MEDS ORDERED: ALUMINUM/MAGNESIUM/SIMETH 30 ML CUP PO PRN (21:00)
[2016-07-12] MEDS ORDERED: DOCUSATE SODIUM 50 MG/SENNA 8.6 MG TAB PO PRN (21:00)
[2016-07-12] MEDS ORDERED: CELECOXIB 200 MG CAP PO SCH (21:00)
[2016-07-12] MEDS ORDERED: DOXEPIN HCL 25 MG CAP PO SCH (21:00)
[2016-07-12 22:49] LABS: AMPHETAMINE, URINE NEG (NEG); BARBITURATES, URINE NEG (NEG); COCAINE, URINE NEG (NEG)
[2016-07-12 23:10] LABS: BACTERIA, URINE MANY /hpf; BLOOD, URINE MOD (NEG); GLUCOSE,URINE NEG (NEG); HYALINE CAST, URINE 1 /lpf (RARE); KETONE, URINE NEG (NEG); MUCUS URINE FEW /lpf (OCC); NITRITE,URINE NEG (NEG); SQUAMOUS EPITHELIAL CELL URINE 1 /hpf (0-5); URINE COLOR YELLOW (YELLW/STRAW)
--- NOTE | 2016-07-12 23:54 | EKG ---
Date Performed: 07/11/2016 Time Performed: 18:04:24 PTAGE: 65 years EKG: Sinus rhythm MODERATE T-WAVE ABNORMALITY, CONSIDER ANTERIOR ISCHEMIA ABNORMAL ECG PREVIOUS TRACING : 09/22/2014 17.07 DOCTOR: Enoch Cooley Interpretating Date/Time 07/12/2016 23:47:33
[2016-07-13 00:27] VITALS: BP 130/60; PULSE 67; RESP 18; TEMP 98; O2SAT 98
[2016-07-13 03:39] VITALS: BP 107/53; PULSE 67; RESP 17; TEMP 98; O2SAT 97
[2016-07-13] MEDS: CLINDAMYCIN 150 MG CAP PO SCH ×2 (05:08→12:38)
[2016-07-13 05:42] LABS: BICARBONATE 27.8 MEQ/L (21.0-32.0); MAGNESIUM 2.3 MG/DL (1.5-2.5); POTASSIUM 3.8 MEQ/L (3.5-5.1)
[2016-07-13 07:53] VITALS: BP 111/52; PULSE 79; RESP 18; TEMP 97.8; O2SAT 98
[2016-07-13] MEDS: ENOXAPARIN SODIUM 40 MG/0.4 ML SYRINGE SQ SCH (08:32)
[2016-07-13] MEDS: LACTOBACILLUS ACIDOPHILUS TAB PO SCH ×2 (08:32→12:37)
[2016-07-13] MEDS: ASPIRIN 81 MG CHEW TAB CHEW SCH (08:33)
[2016-07-13] MEDS: SODIUM CHLORIDE 0.9% FLUSH 5 ML FLUSH FLUSH SCH (08:33)
[2016-07-13] MEDS ORDERED: buPROPion HCL 150 MG SUSTAINED RELEASE TAB PO SCH (09:00)
[2016-07-13 09:08] VITALS: BP 152/83; PULSE 73; RESP 18; TEMP 97.6; O2SAT 96
[2016-07-13] MEDS ORDERED: THERTAB27 PO (11:30)
[2016-07-13] MEDS ORDERED: VITA10002 PO (11:30)
[2016-07-13 11:35] VITALS: BP 113/62; PULSE 60; TEMP 98; O2SAT 100
--- NOTE | 2016-07-17 17:46 | HM ---
Date Performed: 07/13/2016 Time Performed: 08:19:00 HOOKUP DATE: 07/13/16 08:19:00 AM Wed ANALYSIS START TIME: 07/13/2016 8:24:00 AM ANALYSIS END TIME: 07/14/2016 8:28:00 AM PATIENT AGE: 65 PATIENT HEIGHT: 65 PATIENT WEIGHT: 105 DRUG LIST PATIENT DIAGNOSIS: DIZZINESS MULTIPLE FALLS TEST NARRATIVE: The patient's average heart rate was 73 BPM. No episodes of tachycardia wer e noted. No episodes of bradycardia were noted. No pauses exceeding 2.0 seconds were noted. No ventricular ectopics were noted. No supraventricular ectopics were noted. No episodes of S T depression (defined as -1.0 mm or more) were noted in channel 1. No episodes of ST depression (def ined as -1.0 mm or more) were noted in channel 2. No episodes of ST depression (defined as -1.0 mm o r more) were noted in channel 3. No diary events were reported by the patient. TEST INTERPRETATION: 1) Baseline Sinus rhythm with minimal sinus tachycardia and bradycardia 2) No PVC/PACs 3) No ST depressions/elevations 4) No diary returned 5) Essentially normal holter monitor Signed by : Prakash Enciso
--- NOTE | 2016-07-18 12:11 | HHI.PR ---
Subjective Remarks date of service. 07/13/15. pt says she feels well, is walking all over unit. says she wants to go home. denies ever having any chest pains or palpitations. denies any LOC or near LOC. Objective Objective Remarks GENERAL: walkging in unit. AAOx3. reviewed entire 24 h of telemetry. only a single couplet. some artifactual (false) vtach only in a single lead. SKIN: Warm and dry. HEAD: Normocephalic. EYES: No scleral icterus. No injection or drainage. NECK: Supple, trachea midline. No JVD or lymphadenopathy. CARDIOVASCULAR: Regular rate and rhythm without murmurs, gallops, or rubs. RESPIRATORY: Breath sounds equal bilaterally. No accessory muscle use. GASTROINTESTINAL: Abdomen soft, non-tender, nondistended. MUSCULOSKELETAL: No cyanosis, or edema. BACK: Nontender without obvious deformity. No CVA tenderness. A/P Assessment and Plan 65-year-old female with a past medical history of depression/insomnia and incontinence who presented with dizziness and fall 2 //Dizziness and fall: Possibly secondary to dehydration, see GER as below. Slight left facial drooping was noted in the ED, and imaging was obtained including head CT, brain MRI, head MRA, neck MRA which showed no acute stroke, and mild atherosclerosis bilaterally in the internal carotids. Non- orthostatic. Check B12 and TSH. Start on baby aspirin. Neurology consulted, discussed with Dr. Rodarte, recommended cardiac workup with echocardiogram and outpatient Holter. -Telemetry reviewed. No concerning episodes on telemetry. PT evaluation appreciated. Home with no PT recommended. //B12 deficiency. Borderline low B12. Start on by mouth replacement. //Acute kidney injury: Mild. Resolved. Presented with creatinine 1.14, previously 0.82 on 06/14/16. Creatinine improved to 0.81 with IVF overnight. Monitor BMP. //Hypokalemia: Potassium 3.2, replace orally. Magnesium normal. Resolved after replacement. //Dental caries with possible dental abscess: Started on IV clindamycin. Afebrile with no leukocytosis. Change clindamycin to oral. Follow-up with dentist. Depression/insomnia: Chronic, stable. Continue home medications. DVT prophylaxis: Lovenox Discharge Planning Discharge home. Brandon Pollock MD Jul 18, 2016 12:11
== END 2016-07-13 13:15 | disposition home or self-care (01) ==
LOC: NEPC 14:41 → NEDA 23:27 → INTOOBSV 23:27 → NEPFCDU 07-12 00:52
PROVIDERS: ADMIT Internal Medicine; ATTEND Internal Medicine
DX: R42 Dizziness and giddiness (principal); S51.012A Laceration without foreign body of left elbow, initial encounter; W18.39XA Other fall on same level, initial encounter; E86.0 Dehydration; Z91.81 History of falling; Z23 Encounter for immunization; M19.90 Unspecified osteoarthritis, unspecified site; F31.9 Bipolar disorder, unspecified; E61.1 Iron deficiency; M54.9 Dorsalgia, unspecified; G89.29 Other chronic pain; K04.7 Periapical abscess without sinus; R29.6 Repeated falls; N17.9 Acute kidney failure, unspecified; E87.6 Hypokalemia; K02.9 Dental caries, unspecified; G47.00 Insomnia, unspecified; R94.31 Abnormal electrocardiogram [ECG] [EKG]
CPT/HCPCS: 12002; 70450; 70544; 70548; 70553; 71010; 73080; 80048; 80053; 80307; 81001; 82607; 83735; 84443; 84484; 85025; 85610; 85730; 90471; 90714; 93005; 93225; 93226; 93306; 96374; 97110; 97116; 97162; 99285; A9579; G0378; G8987; G8988; J1650; J7030

== ENCOUNTER 2016-07-20 08:07 | Emergency (ER) | payer MEDICARE, OTHER ==
[~2016-07-20] VITALS: Ht 165.1 cm; Wt 50.0 kg
[~2016-07-20 08:07] MED LIST changes: +BUPR150XL PO; -CALCTAB PO; +CELE1CAP8 PO; -CELE40TA PO; +CLIN150 PO; -DOCU1CAP39 PO; -DOXE75CA PO; +DOXE75CA2 PO; -FERR140T PO; -NORC7.5T PO; +THERTAB27 PO; -TRAZ100 PO; +TRAZ100T5 PO; +VITA10002 PO; -VITAPOW PO; -[UNRECOGNIZED DRUG - CODE] PO
[2016-07-20 08:11] VITALS: BP 136/62; PULSE 90; RESP 18; TEMP 97.8; O2SAT 98
--- NOTE | 2016-07-20 08:21 | PD ---
HPI Chief Complaint: Wound/Suture/Staple Re-Check Time Seen by Provider: 08:19 Travel History International Travel<30 days: No Contact w/Intl Traveler<30days: No Traveled to known affect area: No History of Present Illness HPI 65-year-old woman, here for suture removal 9 days after fall. Looks well. No complaints. PFSH Past Medical History Arthritis: Yes Blood Disorders: No Bipolar Disorder: Yes Anxiety: Yes Depression: Yes Cancer: No Cardiovascular Problems: No Diabetes: No Diminished Hearing: No Endocrine: No Gastrointestinal Disorders: Yes (LGIB) Glaucoma: No Genitourinary: Yes (SELF CATH, BLADDER AUGMENTATION) Hepatitis: No Hiatal Hernia: No Hypertension: No Immune Disorder: No Implanted Vascular Access Dvce: No Medical other: Yes (IRON DEFICIENCY, SELF CATHERIZES FOR URINE) Musculoskeletal: Yes (chronic back pain.) Neurologic: No Psychiatric: Yes (DEPRESSION) Reproductive: No Respiratory: No Thyroid Disease: No Menopausal: Yes Past Surgical History Genitourinary Surgery: Yes (BLADDER AUGMENTATION AGE 48) Gynecologic Surgery: Yes (HYSTERCTOMY-15 YRS AGO) Hysterectomy: Yes Pacemaker: No Thoracic Surgery: Yes (BREAST AUGMENTATION & BREAST IMPLANT REMOVAL) Tonsillectomy: Yes Other Surgery: Yes (breast aug/MASTECTOMY) Social History Alcohol Use: No Tobacco Use: No Substance Use: No Allergies-Medications (Allergen,Severity, Reaction): Coded Allergies: Sulfa (Verified Allergy, Intermediate, "BLOOD COUNT DROPS", 07/11/16) Codeine (Verified Adverse Reaction, Unknown, ITCHING, 07/11/16) Reported Meds & Prescriptions Reported Meds & Active Scripts Active Vitamin B-12 (Cyanocobalamin) 1,000 Mcg Tab 1,000 Mcg PO DAILY Theragran-M (Multiple Vitamins W/ Minerals) 1 Tab 1 Tab PO DAILY 30 Days Cleocin (Clindamycin HCl) 150 Mg Cap 300 Mg PO Q6HR 7 Days Reported Celecoxib 200 Mg Cap 200 Mg PO HS Wellbutrin Xl 24 HR (Bupropion HCl) 150 Mg Tab 150 Mg PO DAILY Doxepin (Doxepin HCl) 75 Mg Cap 75 Mg PO HS Trazodone HCl 100 Mg Tab 50 Mg PO HS Review of Systems Musculoskeletal: No: Myalgias, Arthralgias Skin: No Rash, No Itching Physical Exam Narrative Gen.: Well-appearing 65-year-old woman Muscle skeletal: Left elbow with well-healed laceration. One suture in place. Data Data Last Documented VS Vital Signs Date Time Temp Pulse Resp B/P Pulse Ox O2 Delivery O2 Flow Rate FiO2 07/20/16 08:11 97.8 90 18 136/62 98 MDM Medical Decision Making Medical Screen Exam Complete: Yes Emergency Medical Condition: Yes Differential Diagnosis Laceration Narrative Course 65-year-old with laceration, one suture removed. Diagnosis Primary Impression: Elbow laceration Qualified Code: S51.012D - Elbow laceration, left, subsequent encounter Additional Instructions: Follow-up with her primary doctor in 2-4 days. Return to the emergency department for any new or worsening symptoms. Med/Other Pt SpecificInfo: No Change to Meds Disposition: 01 DISCHARGE HOME Condition: Stable Bony Villa MD Jul 20, 2016 08:21
== END 2016-07-20 08:30 | disposition home or self-care (01) ==
LOC: NED 08:07
DX: Z48.02 Encounter for removal of sutures (principal)
CPT/HCPCS: 99281

== ENCOUNTER 2016-11-28 09:22 | Inpatient (IN) | payer MEDICARE, OTHER ==
[2016-11-28] VITALS (11 sets, daily range): BP systolic 132–147; BP diastolic 60–68; PULSE 77–93; RESP 15–26; TEMP 97.7–98.8; O2SAT 91–100
[~2016-11-28] VITALS: Ht 165.1 cm; Wt 48.6 kg
[~2016-11-28 09:22] MED LIST changes: -[UNRECOGNIZED DRUG - CODE] XX
--- NOTE | 2016-11-28 09:54 | PD ---
HPI Chief Complaint: Syncope/Near-Syncope Time Seen by Provider: 09:53 Travel History International Travel<30 days: No Contact w/Intl Traveler<30days: No Traveled to known affect area: No History of Present Illness HPI 66-year-old female came to the emergency room with history of a fall from being dizzy she said. She denies any loss of consciousness but she fell and hit the back of her head which caused laceration and bleed. Patient says that she has been dizzy on and off in the past but never fallen like this. Her last tetanus shot was last year she said. Patient says she was on her way to [facility] when this happened. She is complaining of some headache. She is otherwise awake and answering questions appropriately. Vital signs were stable in triage. [facility] Past Medical History Narrative Medical List of her past medical, surgical, social and family history was reviewed from the nursing note. Arthritis: Yes Blood Disorders: No Bipolar Disorder: Yes Anxiety: Yes Depression: Yes Cancer: No Cardiovascular Problems: No Diabetes: No Diminished Hearing: No Endocrine: No Gastrointestinal Disorders: Yes (LGIB) Glaucoma: No Genitourinary: Yes (SELF CATH, BLADDER AUGMENTATION) Hepatitis: No Hiatal Hernia: No Hypertension: No Immune Disorder: No Implanted Vascular Access Dvce: No Medical other: Yes (IRON DEFICIENCY, SELF CATHERIZES FOR URINE) Musculoskeletal: Yes (chronic back pain.) Neurologic: No Psychiatric: Yes (DEPRESSION) Reproductive: No Respiratory: No Thyroid Disease: No Menopausal: Yes Past Surgical History Genitourinary Surgery: Yes (BLADDER AUGMENTATION AGE 48) Gynecologic Surgery: Yes (HYSTERCTOMY-15 YRS AGO) Hysterectomy: Yes Pacemaker: No Thoracic Surgery: Yes (BREAST AUGMENTATION & BREAST IMPLANT REMOVAL) Tonsillectomy: Yes Other Surgery: Yes (breast aug/MASTECTOMY) Social History Alcohol Use: No Tobacco Use: No (QUIT) Substance Use: No Allergies-Medications (Allergen,Severity, Reaction): Coded Allergies: Sulfa (Verified Allergy, Intermediate, "BLOOD COUNT DROPS", 07/11/16) Codeine (Verified Adverse Reaction, Unknown, ITCHING, 07/11/16) Comments This of her allergies reviewed from the nursing note. Reported Meds & Prescriptions Reported Meds & Active Scripts Active Theragran-M (Multiple Vitamins W/ Minerals) 1 Tab 1 Tab PO DAILY 30 Days Reported Trazodone HCl 100 Mg Tab 100 Mg PO HS Narrative Medication List of home medications reviewed from the nursing note. Review of Systems Except as stated in HPI: all other systems reviewed are Neg Physical Exam Narrative GENERAL: Awake, alert, anxious, moderate distress SKIN: Focused skin assessment warm/dry. HEAD: Laceration 2.5 cm with bleeding controlled. EYES: Pupils equal and round. No scleral icterus. No injection or drainage. ENT: No nasal bleeding or discharge. Mucous membranes pink and moist. NECK: Trachea midline. No JVD. CARDIOVASCULAR: Regular rate and rhythm. No murmur appreciated. RESPIRATORY: No accessory muscle use. Clear to auscultation. Breath sounds equal bilaterally. GASTROINTESTINAL: Abdomen soft, non-tender, nondistended. Hepatic and splenic margins not palpable. MUSCULOSKELETAL: No obvious deformities. No clubbing. No cyanosis. No edema. NEUROLOGICAL: Awake and alert. No obvious cranial nerve deficits. Motor grossly within normal limits. Normal speech. PSYCHIATRIC: Appropriate mood and affect; insight and judgment normal. Data Data Last Documented VS Vital Signs Date Time Temp Pulse Resp B/P Pulse Ox O2 Delivery O2 Flow Rate FiO2 11/28/16 09:33 95 Nasal Cannula 2 11/28/16 09:33 92 17 11/28/16 09:22 98.6 132/60 Orders Electrocardiogram (11/28/16 09:58) Prothrombin Time / Inr (Pt) (11/28/16 09:58) Complete Blood Count With Diff (11/28/16 09:58) Basic Metabolic Panel (Bmp) (11/28/16 09:58) Creatine Kinase (Cpk) (11/28/16 09:58) Drug Screen, Random Urine (11/28/16 09:58) Troponin I (11/28/16 09:58) Urinalysis - C+S If Indicated (11/28/16 09:58) Ct Brain W/O Iv Contrast(Rout) (11/28/16 09:58) Chest, Single Ap (11/28/16 09:58) Ecg Monitoring (11/28/16 09:58) Iv Access Insert/Monitor (11/28/16 09:58) Oximetry (11/28/16 09:58) Sodium Chloride 0.9% Flush (Ns Flush) (11/28/16 10:00) ^ Irrigate (11/28/16 09:58) Cbc No Diff, Includes Plts (11/29/16 05:00) Cbc No Diff, Includes Plts (11/30/16 05:00) Cbc No Diff, Includes Plts (12/01/16 05:00) Basic Metabolic Panel (Bmp) (11/29/16 05:00) Basic Metabolic Panel (Bmp) (11/30/16 05:00) Basic Metabolic Panel (Bmp) (12/01/16 05:00) Resp Ezpap/Pep Therapy (11/28/16 11:59) Resp Acapella/Pep/Chest Vibra (11/28/16 11:59) Resp Incentive Spirometry (11/28/16 11:59) Inpatient Certification (11/28/16 11:59) Magnesium Oxide (Mag-Ox) (11/28/16 12:00) Magnesium Sulfate Inj (Magnesium Sulfate (11/28/16 12:00) Magnesium Sulfate Inj (Magnesium Sulfate (11/28/16 12:00) Potassium Chlor 20 Meq Premix (Kcl 20 Me (11/28/16 12:00) Potassium Chlor 20 Meq Premix (Kcl 20 Me (11/28/16 12:00) Potassium Chlor 40 Meq Premix (Kcl 40 Me (11/28/16 12:00) Potassium Chlor 40 Meq Premix (Kcl 40 Me (11/28/16 12:00) Potassium Phosphate (K-Phos) (11/28/16 12:00) Potassium Phosphate (K-Phos) (11/28/16 12:00) Sodium Phosphate Inj (Sodium Phosphate I (11/28/16 12:00) ^ Medication Admin Instruction (11/28/16 11:59) Notify Dr: Other (11/28/16 11:59) Nursing Bedside Swallow Assess .ONCE (11/28/16 11:59) ^ Other Nursing Orders (11/28/16 11:59) ^ Other Nursing Orders (11/28/16 11:59) ^ Other Nursing Orders (11/28/16 11:59) Bedside Glucose ROSA ISELA.AC&HS&03 (11/28/16 11:59) Blood Glucose Goal (Criteria) (11/28/16 11:59) Hypoglycemia 51 - 69 Mg/Dl (11/28/16 11:59) Hypoglycemia 50 Mg/Dl Or < (11/28/16 11:59) Notify Dr: Other (11/28/16 11:59) Dextrose 50% In Gasper (Vial) Inj (D50w (Vi (11/28/16 12:00) Insulin Human Reg Supp Scale (Novolin R (11/28/16 16:00) Neuro Checks ROSA ISELA.Q1H (11/28/16 11:59) Ct Brain W/O Iv Contrast(Rout) (11/29/16 06:00) Code Status (11/28/16 12:05) Activity Bed Rest (11/28/16 12:05) ^ Elevate Head Of Bed (11/28/16 12:05) Oxycodone-Acetamin 5-325 Mg (Percocet (11/28/16 12:15) Famotidine (Pepcid) (11/28/16 21:00) Ondansetron Inj (Zofran Inj) (11/28/16 12:15) Docusate Sodium-Senna (Rossy-Colace) (11/28/16 21:00) Albuterol-Ipratropium Neb (Duoneb Neb) (11/28/16 12:15) Scd Bilateral/Knee High ROSA ISELA.BID (11/28/16 12:05) Pharmacologic Contraindication (11/28/16 12:05) ^ Initiate Protocol (11/28/16 12:05) ^ Instruction (11/28/16 12:05) [facility] Nursing Information (11/28/16 12:15) Chlorhexidine 2% Cloth (Chlorhexidine 2% (11/29/16 04:00) Chlorhexidine 2% Cloth (Chlorhexidine 2% (11/28/16 12:15) Admit Order (Ed Use Only) (11/28/16 12:13) Labs Laboratory Tests Test 11/28/16 11/28/16 10:30 12:10 Sodium Level 141 MEQ/L Potassium Level 3.9 MEQ/L Chloride Level 107 MEQ/L Carbon Dioxide Level 28.2 MEQ/L Anion Gap 6 MEQ/L Blood Urea Nitrogen 19 MG/DL Creatinine 1.13 MG/DL Estimat Glomerular Filtration 48 ML/MIN Rate Random Glucose 111 MG/DL Calcium Level 9.1 MG/DL Total Creatine Kinase 48 U/L Troponin I LESS THAN 0.02 NG/ML White Blood Count 10.4 TH/MM3 Red Blood Count 5.16 MIL/MM3 Hemoglobin 15.1 GM/DL Hematocrit 46.6 % Mean Corpuscular Volume 90.3 FL Mean Corpuscular Hemoglobin 29.3 PG Mean Corpuscular Hemoglobin 32.5 % Concent Red Cell Distribution Width 13.5 % Platelet Count 158 TH/MM3 Mean Platelet Volume 8.7 FL Neutrophils (%) (Auto) 87.1 % Lymphocytes (%) (Auto) 5.8 % Monocytes (%) (Auto) 6.6 % Eosinophils (%) (Auto) 0.2 % Basophils (%) (Auto) 0.3 % Neutrophils # (Auto) 9.1 TH/MM3 Lymphocytes # (Auto) 0.6 TH/MM3 Monocytes # (Auto) 0.7 TH/MM3 Eosinophils # (Auto) 0.0 TH/MM3 Basophils # (Auto) 0.0 TH/MM3 CBC Comment DIFF FINAL Differential Comment Prothrombin Time 10.0 SEC Prothromb Time International 0.9 RATIO Ratio MDM Medical Decision Making Medical Screen Exam Complete: Yes Emergency Medical Condition: Yes Medical Record Reviewed: Yes Interpretation(s) Twelve-lead EKG was reviewed by me. Normal sinus rhythm, normal axis, nonspecific ST-T wave changes. Heart rate of 93 bpm. Differential Diagnosis Head injury, intracranial bleed, scalp laceration Narrative Course 11:48 AM blood test results of back and within normal limit. CAT scan of her head a is read as a small subarachnoid hemorrhage in the frontal area. I discussed the case with Abbi who is the PA for Dr. Norris. There recommendation is to admit the patient to [facility] for observation and repeat CAT scan in 24 hours. Awaiting for the cooker pie filling to call back. The wound will be repaired. Please for to my procedure note. Procedures Procedure Narrative LACERATION LOCATION: Scalp on the occipital area LENGTH: 2.5 cm NUMBER OF STITCHES/JENNY: 3 jenny REPAIR: The area of the laceration was prepped with Betadine and sterilely draped. The wound was copiously irrigated and explored without evidence of foreign body, tendon injury or neurovascular injury. The wound was closed using jenny. This was a single layer repair. A sterile dressing was applied. The patient was advised to keep the dressing clean and dry. Patient tolerated the procedure well. EKG Prior to Arrival: No Physician Communication Physician Communication Dr. TavarezDr. Myrna chandler's PA Diagnosis Primary Impression: Head injury Qualified Code: S09.90XA - Head injury, initial encounter Additional Impressions: Fall Qualified Code: W19.XXXA - Fall, initial encounter Intracranial bleed Admitting Information Admitting Physician Requests: Admit Scripts Doxepin 25 Mg Cap25 Mg PO HS #30 CAP Ref 0 Prov:Basilio Ricks MD 12/01/16 Francisco Montiel MD November 28, 2016 09:54 Intracranial bleed Admitting Information Admitting Physician Requests: Admit Francisco Montiel MD November 28, 2016 09:54
[2016-11-28] MEDS ORDERED: SODIUM CHLORIDE 0.9% FLUSH 10 ML FLUSH IVF PRN (10:00)
--- NOTE | 2016-11-28 10:40 | RADRPT ---
EXAM DATE/TIME: 11/28/2016 10:00 [facility] COMPARISON: CHEST SINGLE AP, July 11, 2016, 18:46. INDICATIONS : Fell today, short of breath, possible CVA per request MEDICAL HISTORY : Cardiovascular disease. SURGICAL HISTORY : None. ENCOUNTER: Initial ACUITY: 1 day PAIN SCORE: 2/10 LOCATION: Bilateral chest FINDINGS: A single view of the chest demonstrates the lungs to be symmetrically aerated without evidence of mas s, infiltrate or effusion. The cardiomediastinal contours are unremarkable. Previous ORIF left proxi mal humerus.. CONCLUSION: No acute disease Leonard Gamez MD on November 28, 2016 at 10:37 Board Certified Radiologist. This report was verified electronically.
[2016-11-28 10:48] LABS: AUTOMATED NEUTROPHIL # 9.1 TH/MM3 (1.8-7.7); BASOPHIL % 0.3 % (0.0-2.0); EOSINOPHIL % 0.2 % (0.0-4.0); HEMATOCRIT 46.6 % (35.0-46.0); HEMO FLAGS DIFF FINAL; LYMPH % 5.8 % (9.0-44.0); LYMPHOCYTE # 0.6 TH/MM3 (1.0-4.8); MEAN CELL VOLUME 90.3 FL (80.0-100.0); MEAN CORPUSCULAR HEMOGLOBIN 29.3 PG (27.0-34.0); MEAN CORPUSCULAR HGB CONC 32.5 % (32.0-36.0); MONO % 6.6 % (0.0-8.0); NEUT % 87.1 % (16.0-70.0); PLATELET COUNT 158 TH/MM3 (150-450); RED BLOOD COUNT 5.16 MIL/MM3 (4.00-5.30); RED CELL DISTRIBUTION WIDTH 13.5 % (11.6-17.2); WHITE BLOOD COUNT 10.4 TH/MM3 (4.0-11.0)
[2016-11-28 11:04] LABS: ANION GAP 6 MEQ/L (5-15); BICARBONATE 28.2 MEQ/L (21.0-32.0); BLOOD UREA NITROGEN 19 MG/DL (7-18); CHLORIDE 107 MEQ/L (98-107); GLOMERULAR FILTRATION RATE 48 ML/MIN (>89); POTASSIUM 3.9 MEQ/L (3.5-5.1); SODIUM (NA) 141 MEQ/L (136-145)
[2016-11-28 11:15] LABS: CREATINE KINASE 48 U/L (26-192)
--- NOTE | 2016-11-28 11:22 | RADRPT ---
EXAM DATE/TIME: 11/28/2016 11:09 [facility] COMPARISON: CT BRAIN W/O CONTRAST, July 11, 2016, 19:16. INDICATIONS : Patient dizzy, fell hitting back of head. RADIATION DOSE: 56.35 CTDIvol (mGy) MEDICAL HISTORY : None SURGICAL HISTORY : None. ENCOUNTER: Initial ACUITY: 1 day PAIN SCALE: 5/10 LOCATION: Bilateral cranial TECHNIQUE: Multiple contiguous axial images were obtained of the head. Using automated exposure control and adj ustment of the mA and/or kV according to patient size, radiation dose was kept as low as reasonably a chievable to obtain optimal diagnostic quality images. FINDINGS: There is slight spontaneous hyperdensity along the cortical surface in the left frontopolar region wh ich is likely minimal posttraumatic subarachnoid blood. There is moderate symmetric cortical atrophy noted. The ventricles are symmetric and stable. There is no drainable hemorrhagic collection identifi ed. No evidence of intracranial mass. There is nothing to suggest acute infarction. The extracranial structures are benign and intact. CONCLUSION: Mild cortical surface subarachnoid blood in the left frontopolar region Leonard Gamez MD on November 28, 2016 at 11:17 Board Certified Radiologist. This report was verified electronically.
[2016-11-28] MEDS ORDERED: POTASSIUM CHLOR 40 MEQ PREMIX 100 ML IV PRN ×2 (12:00)
[2016-11-28] MEDS ORDERED: SODIUM PHOSPHATE INJ 30 MMOL in SODIUM CHLOR 0.9% 250 ML INJ 240 ML IV PRN (12:00)
[2016-11-28] MEDS ORDERED: MAGNESIUM SULFATE INJ 4 GM in SODIUM CHLORIDE 0.9% INJ 92 ML IV PRN (12:00)
[2016-11-28] MEDS ORDERED: MAGNESIUM OXIDE 400 MG TAB PO PRN (12:00)
[2016-11-28] MEDS ORDERED: DEXTROSE 50% IN WATER 50 ML VIAL(D50) IV PUSH PRN (12:00)
[2016-11-28] MEDS ORDERED: POTASSIUM PHOSPHATE MONOBASIC 500 MG TAB PO PRN (12:00)
[2016-11-28] MEDS ORDERED: POTASSIUM PHOSPHATE MONOBASIC 500 MG TAB PO/TUBE PRN (12:00)
[2016-11-28] MEDS ORDERED: MAGNESIUM SULFATE INJ 2 GM in SODIUM CHLORIDE 0.9% INJ 96 ML IV PRN (12:00)
[2016-11-28] MEDS ORDERED: POTASSIUM CHLOR 20 MEQ PREMIX 100 ML IV PRN ×2 (12:00)
[2016-11-28] MEDS ORDERED: ONDANSETRON HCL 4 MG/2 ML VIAL IV PRN (12:15)
[2016-11-28] MEDS ORDERED: CHLORHEXIDINE GLUCONATE 2 % 1 PACK (2 CLOTHS) TOP PRN (12:15)
[2016-11-28] MEDS ORDERED: RESP: ALBUTEROL 2.5 MG/IPRATROPIUM 0.5 MG NEB (PRN) INH (12:15)
[2016-11-28] MEDS ORDERED: MISCELLANEOUS NURSING INFORMATION XX SCH (12:15)
[2016-11-28] MEDS ORDERED: oxyCODONE/ACETAMINOPHEN 5 MG/325 MG TAB PO PRN (12:15)
--- NOTE | 2016-11-28 12:16 | HHI.HP ---
[facility] Service Critical Care Medicine Primary Care Physician Danny Zhang M.d. Admission Diagnosis Diagnosis: Chief Complaint: mechanical fall Travel History International Travel<30 Days: No Contact w/Intl Traveler <30 Da: No Traveled to Known Affected Are: No History of Present Illness This is a 66yF with an unremarkable past medical history who presents after mechanical fall where she sustained a laceration to her head and by CT head a very small frontal traumatic intraparenchymal hemorrhage. patient states she stood up quickly, felt a little dizzy, and then fell. denies loss of consciousness. she states she had a similar fall without any complications a few months ago and was worked up thoroughly in the hospital where they didn't find anything. She denies anticoagulation use. she denies any additional symptoms. she only complains of headache around the area of her scalp laceration. Critical care medicine is consulted to evaluate and manage her medical care in the setting of traumatic intraparenchymal hemorrhage. Review of Systems Constitutional: COMPLAINS OF: Dizziness, DENIES: Fatigue, Fever, Chills Eyes: DENIES: Blurred vision, Eye pain, Vision loss, Photosensitivity, Double Vision Ears, nose, mouth, throat: DENIES: Tinnitus, Hearing loss, Vertigo Respiratory: DENIES: Cough, Wheezing, Shortness of breath Cardiovascular: DENIES: Chest pain, Palpitations, Syncope, Dyspnea on Exertion (a) Gastrointestinal: DENIES: Abdominal pain, Constipation, Diarrhea, Nausea, Vomiting Neurologic: COMPLAINS OF: Headache, DENIES: Abnormal gait, Localized weakness , Paresthesias, Seizures Past Family Social History Allergies: Coded Allergies: Sulfa (Verified Allergy, Intermediate, "BLOOD COUNT DROPS", 07/11/16) Codeine (Verified Adverse Reaction, Unknown, ITCHING, 07/11/16) Past Medical History none Past Surgical History hysterectomy mastectomy bladder augmentation Reported Medications tylenol for sleep Active Ordered Medications See MAR Family History no family history of heart or brain problems. both parents with alcohol dependence. Social History quit smoking > 15 years ago. denies etoh. denies other drugs of abuse. Physical Exam Vital Signs Vital Signs Date Time Temp Pulse Resp B/P Pulse Ox O2 Delivery O2 Flow Rate FiO2 11/28/16 09:33 95 Nasal Cannula 2 11/28/16 09:33 92 17 97 Nasal Cannula 11/28/16 09:22 98.6 93 17 132/60 91 Physical Exam gen: elderly female, lying in bed, no acute distress. heent: pupils 3mm, equal, round, conjugate. laceration to posterior cranium. mucous membranes moist. neck: no jvd. trachea midline. chest: unlabored respirations. equal chest rise. cv: normal rate, regular rhythm. sinus by telemetry. abd: soft, nontender, nondistended. no guarding. extr: no peripheral edema. 2+ pulses distally. neuro: RASS 0. CAM -. GCS 15. no gross focal motor/sensory deficits. Laboratory Laboratory Tests Test 11/28/16 10:30 White Blood Count 10.4 Red Blood Count 5.16 Hemoglobin 15.1 Hematocrit 46.6 Mean Corpuscular Volume 90.3 Mean Corpuscular Hemoglobin 29.3 Mean Corpuscular Hemoglobin 32.5 Concent Red Cell Distribution Width 13.5 Platelet Count 158 Mean Platelet Volume 8.7 Neutrophils (%) (Auto) 87.1 Lymphocytes (%) (Auto) 5.8 Monocytes (%) (Auto) 6.6 Eosinophils (%) (Auto) 0.2 Basophils (%) (Auto) 0.3 Neutrophils # (Auto) 9.1 Lymphocytes # (Auto) 0.6 Monocytes # (Auto) 0.7 Eosinophils # (Auto) 0.0 Basophils # (Auto) 0.0 CBC Comment DIFF FINAL Differential Comment Sodium Level 141 Potassium Level 3.9 Chloride Level 107 Carbon Dioxide Level 28.2 Anion Gap 6 Blood Urea Nitrogen 19 Creatinine 1.13 Estimat Glomerular Filtration 48 Rate Random Glucose 111 Calcium Level 9.1 Total Creatine Kinase 48 Troponin I LESS THAN 0.02 Result Diagram: 11/28/16 1030 11/28/16 1030 Imaging Last Impressions Head CT 11/28/16957 Signed Impressions: Service Date/Time: Monday, November 28, 2016 11:09 - CONCLUSION: Mild cortical surface subarachnoid blood in the left frontopolar region Leonard Gamez MD Chest X-Ray 11/28/16957 Signed Impressions: Service Date/Time: Monday, November 28, 2016 10:00 - CONCLUSION: No acute disease Leonard Gamez MD Assessment and Plan Assessment and Plan Assessment: 66yF s/p mechanical fall with small left frontal traumatic intraparenchymal hemorrhage. she will be admitted for frequent neuro checks, repeat imaging. Plan: 1. Left frontal traumatic intraparenchymal hemorrhage -- frequent neuro checks -- repeat head CT in 24h -- no anticoagulation -- nursing bedside swallow eval, advance diet if passes -- bedrest today, liberalize tomorrow if stable -- neurosurgery consult: Dr. Norris -- sbp goal < 160. 2. Dizziness -- full thorough workup on prior admission in july, felt to be secondary to dehydration with slight acute kidney injury. She again has acute kidney injury with elevated Cr above baseline. -- will check to see if patient got halter monitor -- monitor on tele. 3. Acute Kidney Injury -- NS @ 75cc/hr. -- daily BMP advance diet after swallow eval SCDs no anticoagulation. Dispo: admit to ICU. if she remains stable with interval head CT no change, will transfer to floor in the morning. Code Status Full Code Jaime Tavarez MD November 28, 2016 12:16
[2016-11-28 12:36] LABS: INTERNATIONAL NORMALIZED RATIO 0.9 RATIO
--- NOTE | 2016-11-28 13:55 | PD.CONS ---
[facility] Service Neurosurgery Consult Requested By Dr Montiel Reason for Consult Subaracnoid hemorrhage Primary Care Physician Danny Zhang M.d. History of Present Illness This is a 66 female with previously healthy who presents to [place] emergency room after a fall. She sustained a laceration to her head She states she stood up quickly, felt dizzy, and then fell down. She denies loss of consciousness. No seizure activity reported. No tongue biting. No incontinence of stool or urine She states she had a similar fall without any complications a few months ago and was worked up thoroughly in the hospital, and apparently they didn't find anything. She denies anticoagulation use. she denies any additional symptoms. she only complains of headache around the area of her scalp laceration. CT head small frontal traumatic intraparenchymal hemorrhage. Neurosurgical consultation was requested Review of Systems Constitutional: COMPLAINS OF: Dizziness, DENIES: Fatigue, Fever, Chills Eyes: DENIES: Blurred vision, Eye pain, Vision loss, Photosensitivity, Double Vision Ears, nose, mouth, throat: DENIES: Tinnitus, Hearing loss, Vertigo Respiratory: DENIES: Cough, Wheezing, Shortness of breath Cardiovascular: DENIES: Chest pain, Palpitations, Syncope, Dyspnea on Exertion (a) Gastrointestinal: DENIES: Abdominal pain, Constipation, Diarrhea, Nausea, Vomiting Neurologic: COMPLAINS OF: Headache, DENIES: Abnormal gait, Localized weakness , Paresthesias, Seizures Past Family Social History Allergies: Coded Allergies: Sulfa (Verified Allergy, Intermediate, "BLOOD COUNT DROPS", 07/11/16) Codeine (Verified Adverse Reaction, Unknown, ITCHING, 07/11/16) Past Medical History none Past Surgical History hysterectomy mastectomy bladder augmentation Reported Medications tylenol Active Ordered Medications Current Medications Sodium Chloride (NS Flush) 2 ml UNSCH PRN IVF FLUSH AFTER USING IV ACCESS; Start 11/28/16 at 10:00 Magnesium Oxide 800 mg 800 mg UNSCH PRN PO For Magnesium 1.2 - 1.6 mg/dL; Start 11/28/16 at 12:00 Magnesium Sulfate 4 gm/Sodium Chloride 100 ml @ 50 mls/hr UNSCH PRN IV For Magnesium 0.9 - 1.1 mg/dL; Start 11/28/16 at 12:00 Magnesium Sulfate 2 gm/Sodium Chloride 100 ml @ 50 mls/hr UNSCH PRN IV For Magnesium 1.2 - 1.6 mg/dL; Start 11/28/16 at 12:00 Potassium Chloride 100 ml @ 50 mls/hr Q2H PRN IV For Potassium 2.8 - 3.2 mEq/L ; Start 11/28/16 at 12:00 Potassium Chloride 100 ml @ 50 mls/hr Q2H PRN IV For Potassium 3.3 - 3.5 mEq/L ; Start 11/28/16 at 12:00 Potassium Chloride 100 ml @ 50 mls/hr Q2H PRN IV For Potassium 2.8 - 3.2 mEq/L ; Start 11/28/16 at 12:00 Potassium Chloride (KCl 40 Meq Premix Inj) 100 ml @ 25 mls/hr UNSCH PRN IV For Potassium 3.3 - 3.5 mEq/L; Start 11/28/16 at 12:00 Potassium Phosphate (K-Phos) 2,000 mg Q4H PRN PO For Phosphorus < 2.5 mg/dL; Start 11/28/16 at 12:00 Potassium Phosphate 2000 mg 2,000 mg UNSCH PRN PO/TUBE SEE LABEL COMMENTS; Start 11/28/16 at 12:00 Sodium Phosphate/ Sodium Chloride (Sodium Phosphate Inj/NS 250 ml Inj) 250 ml @ 42 mls/hr UNSCH PRN IV For Phosphorus < 2.5 mg/dL; Start 11/28/16 at 12:00 Dextrose (D50w (Vial) Inj) 25 ml UNSCH PRN IV PUSH HYPOGLYCEMIA-SEE COMMENTS; Start 11/28/16 at 12:00 Insulin Human Regular (NovoLIN R SUPPLEMENTAL SCALE) 1 ACHS AND 3AM SQ ; Start 11/28/16 at 16:00 Oxycodone/ Acetaminophen (Percocet 5-325 Mg) 1 tab Q4H PRN PO PAIN SCALE 1 TO 5; Start 11/28/16 at 12:15 Famotidine (Pepcid) 20 mg Q12HR PO ; Start 11/28/16 at 21:00 Ondansetron HCl (Zofran Inj) 4 mg Q6H PRN IV NAUSEA OR VOMITING; Start at 12:15 Senna/Docusate Sodium (Rossy-Colace) 2 tab BID PO ; Start 11/28/16 at 21:00 Albuterol/ Ipratropium (Duoneb Neb) 1 ampule Q2HR NEB PRN INH WHEEZING; Start 11/28/16 at 12:15 Miscellaneous Information 1 Q361D XX ; Start 11/28/16 at 12:15 Chlorhexidine Gluconate (Chlorhexidine 2% Cloth) 3 pack Taper DAILY@04 TOP ; Start 11/29/16 at 04:00; Stop 11/25/17 at 03:59 Chlorhexidine Gluconate (Chlorhexidine 2% Cloth) 3 pack UNSCH PRN TOP HYGIENIC CARE; Start 11/28/16 at 12:15 Levetriacetam (Keppra) 500 mg Q12HR PO ; Start 11/28/16 at 21:00; Stop 12/12/16 at 20:59 Family History no family history of heart or brain problems. both parents with alcohol dependence. Social History She quit smoking 15 years ago. She denies etoh abuse. She denies drugs abuse. Physical Exam Vital Signs Vital Signs Date Time Temp Pulse Resp B/P Pulse Ox O2 Delivery O2 Flow Rate FiO2 11/28/16 12:20 88 15 138/68 99 Room Air 11/28/16 09:33 95 Nasal Cannula 2 11/28/16 09:33 92 17 97 Nasal Cannula 11/28/16 09:22 98.6 93 17 132/60 91 Physical Exam She is alert, awake and oriented to time, place and person. Speech is fluent. There is a moderate laceration to posterior cranium, repaired Cranial nerve examination demonstrates the pupils to be equal, round, and reactive to light. Extra-ocular movements are intact. Facial motor and sensory function are normal and symmetrical. Gross hearing is intact, bilaterally. The uvula is midline and elevates symmetrically with the soft palate. Sternocleidomastoid and trapezius muscles have normal and symmetrical strength. Other cranial nerves are intact. Neck is soft and supple. Cervical spine has a full range of motion in anterior flexion, extension, lateral bending, and rotation without pain. There is no tenderness to palpation to the spinous processes or paraspinal muscles. Muscle testing reveals normal bulk and tone overall without rigidity, spasticity , fasciculations, or atrophy. Muscle strength is 5/5 in all muscle groups of both upper extremities including deltoid, biceps, triceps, brachioradialis, wrist extension and management expert. In the lower extremities, strength is 5/5 in both iliopsoas, quadriceps, hamstrings, plantar flexion, dorsiflexion, and extensor hallicus longus. Sensory examination is intact to light touch and sharp/dull discrimination in both the upper and lower extremities, symmetrically. Deep tendon reflexes are 2+ and symmetrical in the biceps, triceps, and brachioradialis, bilaterally, in the upper extremities. In the lower extremities , the patellar and Achilles are 2+, bilaterally. There is a bilateral plantar flexion response. Hoffmanns sign is negative. There is no clonus or other abnormal reflexes noted. Cerebellar examination is intact to [id number] test, rapid rhythmic alternating motion. There is no dysmetria, dysdiadochokinesia, truncal ataxia, or tremor. Laboratory Laboratory Tests Test 11/28/16 11/28/16 10:30 12:10 White Blood Count 10.4 Red Blood Count 5.16 Hemoglobin 15.1 Hematocrit 46.6 Mean Corpuscular Volume 90.3 Mean Corpuscular Hemoglobin 29.3 Mean Corpuscular Hemoglobin 32.5 Concent Red Cell Distribution Width 13.5 Platelet Count 158 Mean Platelet Volume 8.7 Neutrophils (%) (Auto) 87.1 Lymphocytes (%) (Auto) 5.8 Monocytes (%) (Auto) 6.6 Eosinophils (%) (Auto) 0.2 Basophils (%) (Auto) 0.3 Neutrophils # (Auto) 9.1 Lymphocytes # (Auto) 0.6 Monocytes # (Auto) 0.7 Eosinophils # (Auto) 0.0 Basophils # (Auto) 0.0 CBC Comment DIFF FINAL Differential Comment Sodium Level 141 Potassium Level 3.9 Chloride Level 107 Carbon Dioxide Level 28.2 Anion Gap 6 Blood Urea Nitrogen 19 Creatinine 1.13 Estimat Glomerular Filtration 48 Rate Random Glucose 111 Calcium Level 9.1 Total Creatine Kinase 48 Troponin I LESS THAN 0.02 Prothrombin Time 10.0 Prothromb Time International 0.9 Ratio Result Diagram: 11/28/16 1030 11/28/16 1030 Imaging Last Impressions Head CT 11/28/16 6386 Signed Impressions: Service Date/Time: Monday, November 28, 2016 11:09 - CONCLUSION: Mild cortical surface subarachnoid blood in the left frontopolar region Leonard Gamez MD Chest X-Ray 11/28/16 0958 Signed Impressions: Service Date/Time: Monday, November 28, 2016 10:00 - CONCLUSION: No acute disease Leonard Gamez MD Assessment and Plan Assessment and Plan Assessment: 66yF s/p fall with small left frontal traumatic intraparenchymal hemorrhage. she will be admitted for frequent neuro checks, repeat imaging. Attending Statement Left frontal traumatic intraparenchymal hemorrhage. neuro checks in a serial fashion. A follow-up CT of the head will be obtained in 24 hours. no anticoagulation, please Syncope felt to be secondary to dehydration We will defer full workup to a neurologist. May need echocardiogram, carotid Duplex, EEG, and Holter PT and OT evaluation Nutrition. diet Renal. monitor closely urine output, BUN and creatinine Endocrine. Monitor serial Acu checks and SSI as needed in detail ID monitor for signs of infection Renal. slight acute kidney injury. She again has acute kidney injury with elevated Cr above baseline.. Monitor urine output BUN and creatinine and creatinine Protonix for stress ulcer prophylaxis Roe hosgeraldine and SCD's for DVT prophylaxis Jerman Norris MD November 28, 2016 13:55
[2016-11-28 14:19] LABS: BACTERIA, URINE MOD /hpf; BLOOD, URINE TRACE (NEG); COMMENT (UR) CATH-CULTURE IND; CULTURE IF INDICATED CATH CULTURE IND; GLUCOSE,URINE NEG (NEG); KETONE, URINE NEG (NEG); NITRITE,URINE NEG (NEG); TRANSITIONAL EPI CELLS, URINE <1 /hpf; URINE COLOR YELLOW (YELLW/STRAW)
[2016-11-28 14:31] LABS: AMPHETAMINE, URINE NEG (NEG); BARBITURATES, URINE NEG (NEG); COCAINE, URINE NEG (NEG)
[2016-11-28] MEDS: SODIUM CHLOR 0.9% 1000 ML INJ 1,000 ML IV SCH (15:37)
[2016-11-28] MEDS: INSULIN NovoLIN REGULAR SUPPLEMENTAL SCALE SQ SCH ×2 (16:01→21:00)
[2016-11-28] MEDS: FAMOTIDINE 20 MG TAB PO SCH (22:00)
[2016-11-28] MEDS: DOCUSATE SODIUM 50 MG/SENNA 8.6 MG TAB PO SCH (22:00)
[2016-11-28] MEDS: levETIRAcetam 500 MG TAB PO SCH (22:00)
[2016-11-29] VITALS (12 sets, daily range): BP systolic 109–152; BP diastolic 59–69; PULSE 66–81; RESP 15–22; TEMP 97.6–98; O2SAT 94–98
[2016-11-29] MEDS: INSULIN NovoLIN REGULAR SUPPLEMENTAL SCALE SQ SCH ×5 (03:00→20:27)
[2016-11-29] MEDS: CHLORHEXIDINE GLUCONATE 2 % 1 PACK (2 CLOTHS) TOP SCH (04:00)
[2016-11-29] MEDS: SODIUM CHLOR 0.9% 1000 ML INJ 1,000 ML IV SCH (05:20)
--- NOTE | 2016-11-29 05:36 | RADRPT ---
EXAM DATE/TIME: 11/29/2016 05:25 [facility] COMPARISON: MRI BRAIN W & W/O CONTRAST, July 11, 2016, 20:08. CT BRAIN W/O CONTRAST, November 28, 2016, 11:09. INDICATIONS : Follow up bleed. RADIATION DOSE: 40.58 CTDIvol (mGy) MEDICAL HISTORY : None SURGICAL HISTORY : None. ENCOUNTER: Subsequent ACUITY: 1 day PAIN SCALE: Non-responsive LOCATION: cranial TECHNIQUE: Multiple contiguous axial images were obtained of the head. Using automated exposure control and adj ustment of the mA and/or kV according to patient size, radiation dose was kept as low as reasonably a chievable to obtain optimal diagnostic quality images. FINDINGS: There is no evidence for intracranial hemorrhage, mass effect, mass lesions, edema, or extra-axial fl uid collections. The visualized bony structures appear intact. The ventricles are normal size for t he patient's age. There are no signs of acute infarction for technique. Slight degree of brain atrop hy is seen. CONCLUSION: Previously seen left frontal hemorrhage has resolved. Hilary Woods MD on November 29, 2016 at 5:33 Board Certified Radiologist. This report was verified electronically.
[2016-11-29 05:52] LABS: HEMATOCRIT 39.5 % (35.0-46.0); MEAN CELL VOLUME 89.2 FL (80.0-100.0); MEAN CORPUSCULAR HEMOGLOBIN 30.6 PG (27.0-34.0); MEAN CORPUSCULAR HGB CONC 34.3 % (32.0-36.0); PLATELET COUNT 147 TH/MM3 (150-450); RED BLOOD COUNT 4.43 MIL/MM3 (4.00-5.30); RED CELL DISTRIBUTION WIDTH 13.3 % (11.6-17.2); REVIEW FLAG FINAL; WHITE BLOOD COUNT 8.7 TH/MM3 (4.0-11.0)
[2016-11-29 06:13] LABS: BICARBONATE 27.6 MEQ/L (21.0-32.0); POTASSIUM 3.9 MEQ/L (3.5-5.1)
[2016-11-29] MEDS: DOCUSATE SODIUM 50 MG/SENNA 8.6 MG TAB PO SCH ×2 (09:28→20:20)
[2016-11-29] MEDS: FAMOTIDINE 20 MG TAB PO SCH ×2 (09:28→20:20)
[2016-11-29] MEDS: levETIRAcetam 500 MG TAB PO SCH ×2 (09:28→20:20)
--- NOTE | 2016-11-29 11:25 | HHI.PR ---
Subjective Remarks Patient is requesting to go home. Has not been out of bed yet. Denies dizziness. No chest pain or SOB. Objective Vitals Vital Signs Date Time Temp Pulse Resp B/P Pulse Ox O2 Delivery O2 Flow Rate FiO2 11/29/16 10:00 81 11/29/16 08:00 98.0 71 22 144/64 97 11/29/16 08:00 71 11/29/16 07:00 100 Room Air 11/29/16 06:00 69 11/29/16 04:00 97.8 76 18 152/68 97 11/29/16 04:00 76 11/29/16 02:00 66 11/29/16 00:00 98.0 76 20 145/66 98 11/29/16 00:00 76 11/28/16 22:00 77 11/28/16 21:36 100 21 11/28/16 20:00 85 11/28/16 20:00 97.7 85 22 147/68 98 11/28/16 19:00 Room Air 11/28/16 18:00 82 11/28/16 17:18 100 Nasal Cannula 2.00 11/28/16 16:00 98.8 80 26 145/64 100 11/28/16 16:00 80 11/28/16 14:30 82 11/28/16 14:00 80 21 137/63 100 Room Air 11/28/16 12:20 88 15 138/68 99 Room Air I/O 11/28/16 11/28/16 11/28/16 11/29/16 11/29/16 11/29/16 06:59 14:59 22:59 06:59 14:59 22:59 Intake Total 360 ml 937 ml 1009 ml Output Total 350 ml 425 ml 300 ml Balance 10 ml 512 ml 709 ml Intake Oral 360 ml 360 ml 480 ml IV Total 577 ml 529 ml Output Urine Total 350 ml 425 ml 300 ml Result Diagram: 11/29/1651811/29/16518 Imaging Last Impressions Head CT 11/29/16 06 Signed Impressions: Service Date/Time: Tuesday, November 29, 2016 05:25 - CONCLUSION: Previously seen left frontal hemorrhage has resolved. Hilary Woods MD Chest X-Ray 11/28/16 0958 Signed Impressions: Service Date/Time: Monday, November 28, 2016 10:00 - CONCLUSION: No acute disease Leonard Gamez MD Objective Remarks GENERAL: This is a well-nourished, well-developed patient, in no apparent distress. CARDIOVASCULAR: Normal rate and regular rhythm without murmurs, gallops, or rubs. RESPIRATORY: Good respiratory efforts. Breath sounds equal and clear to auscultation bilaterally. GASTROINTESTINAL: Abdomen soft, non-tender, non-distended. Normal active bowel sounds MUSCULOSKELETAL: Extremities without cyanosis, or edema. NEURO: Alert & Oriented x4 to person, place, time, situation. Moves all ext x4 PSYCH: Appropriate mood and affect. A/P Assessment and Plan 66-year-old female status post fall with left frontal traumatic intraparenchymal hemorrhage. Repeat head CT this morning with resolution of the hemorrhage. Left frontal traumatic intraparenchymal hemorrhage. Resolved --Appreciate neurosurgery consult. No anticoagulation. Repeat head CT shows resolution. Advance activity. Physical therapy consult. Dizziness. Patient reports feeling dizzy after getting up quickly. She attributed that to her fall. --She has had a complete workup in July for the same, She was seen by Neurology and had extensive Cardiac monitoring. Likely vasovagal. -- Advise outpatient follow-up with neurology and PCP. Acute Kidney Injury: Likely secondary to dehydration --Resolved with IV fluid. Discontinue IV fluid Transfer to floor today. PT. Monitor for another 24 hours with plan to DC in AM to follow up outpatient for further workup with PCP. Discharge Planning Plan to discharge in a.m. if remains stable. Basilio Ricks MD November 29, 2016 11:25
--- NOTE | 2016-11-29 15:56 | EKG ---
Date Performed: 11/28/2016 Time Performed: 09:32:43 PTAGE: 66 years EKG: Sinus rhythm When compared to previous tracing, no significant change. NORMAL ECG PREVIOUS TRACING : 07/11/2016 18.04 DOCTOR: Mendoza Braxton Interpretating Date/Time 11/29/2016 15:55:51
--- NOTE | 2016-11-29 16:59 | RADRPT ---
EXAM DATE/TIME: 11/29/2016 16:42 [facility] COMPARISON: MRI BRAIN W & W/O CONTRAST, July 11, 2016, 20:08. CT BRAIN W/O CONTRAST, November 28, 2016, 11:09. C T BRAIN W/O CONTRAST, November 29, 2016, 5:25. INDICATIONS : Altered mental status. RADIATION DOSE: 38.28 CTDIvol (mGy) MEDICAL HISTORY : None SURGICAL HISTORY : None. ENCOUNTER: Initial ACUITY: 1 day PAIN SCALE: 0/10 LOCATION: cranial TECHNIQUE: Multiple contiguous axial images were obtained of the head. Using automated exposure control and adj ustment of the mA and/or kV according to patient size, radiation dose was kept as low as reasonably a chievable to obtain optimal diagnostic quality images. FINDINGS: There is moderate generalized atrophy, most prominent in the frontal lobes bilaterally. Ventricles ar e normal in size and stable given the degree of atrophy present. 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 No midline shift or hernia is present. No blood products or ma ss is seen. There are no findings to indicate infarct. Skin jenny are present on the midline machine hose cutter ior scalp. CONCLUSION: 1. Stable noncontrast head CT. No acute finding is visualized. 2. 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 Leonard Shankar MD on November 29, 2016 at 16:53 Board Certified Radiologist. This report was verified electronically.
--- NOTE | 2016-11-29 17:01 | HHI.NSPN ---
Note Status Status: Progress Note Interval History Interval History This is a 66 female with previously healthy who presents to [place] emergency room after a fall. She sustained a laceration to her head She states she stood up quickly, felt dizzy, and then fell down. She denies loss of consciousness. No seizure activity reported. No tongue biting. No incontinence of stool or urine She states she had a similar fall without any complications a few months ago and was worked up thoroughly in the hospital, and apparently they didn't find anything. She denies anticoagulation use. she denies any additional symptoms. she only complains of headache around the area of her scalp laceration. CT head small frontal traumatic intraparenchymal hemorrhage. Neurosurgical consultation was requested 11/29: pt seen during am rounds. doing well, denies headaches, focal weakness, nausea, vomiting, seizures. f/u CT Head completed. Labs, Micro, & Vital Signs Results Date Time Temp Pulse Resp B/P Pulse Ox O2 Delivery O2 Flow Rate FiO2 11/29/16 16:00 97.9 72 15 141/65 95 11/29/16 16:00 72 11/29/16 14:00 73 11/29/16 12:00 69 11/29/16 12:00 97.6 68 20 139/69 98 11/29/16 10:00 81 11/29/16 08:00 98.0 71 22 144/64 97 11/29/16 08:00 71 11/29/16 07:00 100 Room Air 11/29/16 06:00 69 11/29/16 04:00 97.8 76 18 152/68 97 11/29/16 04:00 76 11/29/16 02:00 66 11/29/16 00:00 98.0 76 20 145/66 98 11/29/16 00:00 76 11/28/16 22:00 77 11/28/16 21:36 100 21 11/28/16 20:00 85 11/28/16 20:00 97.7 85 22 147/68 98 11/28/16 19:00 Room Air 11/28/16 18:00 82 11/28/16 17:18 100 Nasal Cannula 2.00 11/29/16 06:59 Intake Total 2306 ml Output Total 1075 ml Balance 1231 ml Constitutional Vital Signs Date Time Temp Pulse Resp B/P Pulse Ox O2 Delivery O2 Flow Rate FiO2 11/29/16 16:00 97.9 72 15 141/65 95 11/29/16 16:00 72 11/29/16 14:00 73 11/29/16 12:00 69 11/29/16 12:00 97.6 68 20 139/69 98 11/29/16 10:00 81 11/29/16 08:00 98.0 71 22 144/64 97 11/29/16 08:00 71 11/29/16 07:00 100 Room Air 11/29/16 06:00 69 11/29/16 04:00 97.8 76 18 152/68 97 11/29/16 04:00 76 11/29/16 02:00 66 11/29/16 00:00 98.0 76 20 145/66 98 11/29/16 00:00 76 11/28/16 22:00 77 11/28/16 21:36 100 21 11/28/16 20:00 85 11/28/16 20:00 97.7 85 22 147/68 98 11/28/16 19:00 Room Air 11/28/16 18:00 82 11/28/16 17:18 100 Nasal Cannula 2.00 11/29/16 06:59 Intake Total 2306 ml Output Total 1075 ml Balance 1231 ml Review of Systems/Exam Exam Ms. Benito is alert. Speech is fluent. Follows commands well. Cranial nerve examination demonstrates the pupils to be equal, round, and reactive to light. Extra-ocular movements are intact. Facial motor are normal and symmetrical. Neck is soft and supple. Motor: moves all four extremities symmetrically and with good strength Sensory examination is intact to light touch in both the upper and lower extremities, symmetrically. There is a bilateral plantar flexion response. Cerebellar examination is intact to [id number] test Medications Current Medications Current Medications Medications (Trade) Dose Ordered Sig/Jennifer Route PRN Reason Start Time Stop Time Status Last Admin Dose Admin Sodium Chloride (NS Flush) 2 ml UNSCH PRN IVF FLUSH AFTER USING IV ACCESS 11/28/16 10:00 Magnesium Oxide 800 mg 800 mg UNSCH PRN PO For Magnesium 1.2 - 1.6 mg/dL 11/28/16 12:00 Magnesium Sulfate 4 gm/Sodium Chloride 100 ml @ 50 mls/hr UNSCH PRN IV For Magnesium 0.9 - 1.1 mg/dL 11/28/16 12:00 Magnesium Sulfate 2 gm/Sodium Chloride 100 ml @ 50 mls/hr UNSCH PRN IV For Magnesium 1.2 - 1.6 mg/dL 11/28/16 12:00 Potassium Chloride 100 ml @ 50 mls/hr Q2H PRN IV For Potassium 2.8 - 3.2 mEq/L 11/28/16 12:00 Potassium Chloride 100 ml @ 50 mls/hr Q2H PRN IV For Potassium 3.3 - 3.5 mEq/L 11/28/16 12:00 Potassium Chloride 100 ml @ 50 mls/hr Q2H PRN IV For Potassium 2.8 - 3.2 mEq/L 11/28/16 12:00 Potassium Chloride (KCl 40 Meq Premix Inj) 100 ml @ 25 mls/hr UNSCH PRN IV For Potassium 3.3 - 3.5 mEq/L 11/28/16 12:00 Potassium Phosphate (K-Phos) 2,000 mg Q4H PRN PO For Phosphorus < 2.5 mg/dL 11/28/16 12:00 Potassium Phosphate 2000 mg 2,000 mg UNSCH PRN PO/TUBE SEE LABEL COMMENTS 11/28/16 12:00 Sodium Phosphate/ Sodium Chloride (Sodium Phosphate Inj/NS 250 ml Inj) 250 ml @ 42 mls/hr UNSCH PRN IV For Phosphorus < 2.5 mg/dL 11/28/16 12:00 Dextrose (D50w (Vial) Inj) 25 ml UNSCH PRN IV PUSH HYPOGLYCEMIA-SEE COMMENTS 11/28/16 12:00 Oxycodone/ Acetaminophen (Percocet 5-325 Mg) 1 tab Q4H PRN PO PAIN SCALE 1 TO 5 11/28/16 12:15 Famotidine (Pepcid) 20 mg Q12HR PO 11/28/16 21:00 11/29/16 09:28 Ondansetron HCl (Zofran Inj) 4 mg Q6H PRN IV NAUSEA OR VOMITING 11/28/16 12:15 Senna/Docusate Sodium (Rossy-Colace) 2 tab BID PO 11/28/16 21:00 11/29/16 09:28 Miscellaneous Information 1 Q361D XX 11/28/16 12:15 11/28/16 12:15 Chlorhexidine Gluconate (Chlorhexidine 2% Cloth) 3 pack Taper DAILY@04 TOP 11/29/16 04:00 11/25/17 03:59 11/29/16 04:00 Chlorhexidine Gluconate (Chlorhexidine 2% Cloth) 3 pack UNSCH PRN TOP HYGIENIC CARE 11/28/16 12:15 Levetriacetam 500 mg 500 mg Q12HR PO 11/28/16 21:00 12/12/16 20:59 11/29/16 09:28 Sodium Chloride 1,000 ml @ 75 mls/hr [id number] IV 11/28/16 16:00 11/29/16 05:20 Ceftriaxone Sodium/Sodium Chloride (Rocephin Inj/NS Inj) 100 ml @ 200 mls/hr Q24H IV 11/29/16 16:00 Medical Decision Making MDM Remarks 66 y/o female with mild TBI following dizzy spell and fell. repeat CT Head shows resolved ICH. nonfocal exam Plan Plan Remarks f/u CT Head resolved ICH, cont non-op mgt cont medical mgt morel for dizziness ok to transfer out of unit from N[facility] standpoint Nereida Scott November 29, 2016 17:01
[2016-11-29] MEDS: cefTRIAXone INJ 1,000 MG in SODIUM CHLORIDE 0.9% INJ 100 ML IV SCH (17:07)
--- NOTE | 2016-11-29 20:33 | RADRPT ---
EXAM DATE/TIME: 11/29/2016 19:23 [facility] COMPARISON: No previous studies available for comparison. INDICATIONS : Syncope. MEDICAL HISTORY : Arthritis. Renal disease. Bipolar disorder. Measles. SURGICAL HISTORY : Tonsillectomy. Hysterectomy. Breast augmentation. Breast implant removal. Mastectomy. ENCOUNTER: Initial ACUITY: 2 days PAIN SCORE: 0/10 LOCATION: Bilateral neck PEAK SYSTOLIC VELOCITIES (cm/sec): ICA/CCA RATIO: Right: 1.1 Left: 0.9 ICA: Right: 68 Left: 70 CCA: Right: 62 Left: 75 ECA: Right: 53 Left: 93 VERTEBRAL: Right: 60 antegrade Left: 38 antegrade Elevated flow velocities and ICA/CCA ratios have been found to correlate with increased degrees of vessel stenosis, calculated as percentage of diameter relative to a normal segment of distal ICA/CCA FINDINGS: RIGHT CAROTID: No significant stenosis is visualized. Calcified plaque is noted in the right mid common carotid stan ry and bulb. The waveforms are within normal limits. LEFT CAROTID: No significant stenosis is visualized. Ossified plaque is present in The waveforms are within normal limits. VERTEBRAL ARTERIES: Antegrade flow is seen in both vertebral arteries. MISCELLANEOUS: None. CONCLUSION: Bilateral plaquing with no significant stenosis. Vipin Jasso MD on November 29, 2016 at 20:30 Board Certified Radiologist. This report was verified electronically.
[2016-11-30] VITALS (12 sets, daily range): BP systolic 115–167; BP diastolic 57–70; PULSE 68–86; RESP 19–21; TEMP 98–98.6; O2SAT 94–99
[2016-11-30] MEDS: INSULIN NovoLIN REGULAR SUPPLEMENTAL SCALE SQ SCH ×5 (03:00→21:00)
[2016-11-30] MEDS: CHLORHEXIDINE GLUCONATE 2 % 1 PACK (2 CLOTHS) TOP SCH (03:06)
[2016-11-30 04:16] LABS: HEMATOCRIT 39.6 % (35.0-46.0); MEAN CELL VOLUME 88.5 FL (80.0-100.0); MEAN CORPUSCULAR HEMOGLOBIN 30.5 PG (27.0-34.0); MEAN CORPUSCULAR HGB CONC 34.4 % (32.0-36.0); PLATELET COUNT 144 TH/MM3 (150-450); RED BLOOD COUNT 4.48 MIL/MM3 (4.00-5.30); RED CELL DISTRIBUTION WIDTH 13.6 % (11.6-17.2); REVIEW FLAG FINAL; WHITE BLOOD COUNT 6.2 TH/MM3 (4.0-11.0)
[2016-11-30 04:46] LABS: BICARBONATE 26.9 MEQ/L (21.0-32.0); POTASSIUM 3.9 MEQ/L (3.5-5.1)
[2016-11-30] MEDS: levETIRAcetam 500 MG TAB PO SCH ×2 (09:29→21:14)
[2016-11-30] MEDS: DOCUSATE SODIUM 50 MG/SENNA 8.6 MG TAB PO SCH ×2 (09:29→21:00)
[2016-11-30] MEDS: FAMOTIDINE 20 MG TAB PO SCH ×2 (09:29→21:14)
--- NOTE | 2016-11-30 11:01 | HHI.NSPN ---
(Nereida Scott) Note Status Status: Progress Note (Nereida Scott) Interval History Interval History This is a 66 female with previously healthy who presents to [facility] emergency room after a fall. She sustained a laceration to her head She states she stood up quickly, felt dizzy, and then fell down. She denies loss of consciousness. No seizure activity reported. No tongue biting. No incontinence of stool or urine She states she had a similar fall without any complications a few months ago and was worked up thoroughly in the hospital, and apparently they didn't find anything. She denies anticoagulation use. she denies any additional symptoms. she only complains of headache around the area of her scalp laceration. CT head small frontal traumatic intraparenchymal hemorrhage. Neurosurgical consultation was requested 11/29: pt seen during am rounds. doing well, denies headaches, focal weakness, nausea, vomiting, seizures. f/u CT Head completed. 11/30: Alert and oriented x 3, reports ambulated yesterday without episode of dizziness. No new neuro complaints. eager to go home. (Nereida Scott) Labs, Micro, & Vital Signs Results Date Time Temp Pulse Resp B/P Pulse Ox O2 Delivery O2 Flow Rate FiO2 11/30/16 08:00 86 11/30/16 07:00 99 Room Air 11/30/16 06:00 73 11/30/16 04:00 71 11/30/16 04:00 98.2 76 20 149/67 96 11/30/16 02:00 76 11/30/16 00:00 98.0 73 20 115/57 94 11/30/16 00:00 73 11/29/16 22:00 72 11/29/16 20:00 78 11/29/16 20:00 97.9 73 21 109/59 94 11/29/16 19:00 100 Room Air 11/29/16 18:00 79 11/29/16 16:00 97.9 72 15 141/65 95 11/29/16 16:00 72 11/29/16 14:00 73 11/29/16 12:00 69 11/29/16 12:00 97.6 68 20 139/69 98 11/30/16 07:00 Intake Total 1711 ml Output Total 3300 ml Balance -1589 ml Constitutional Vital Signs Date Time Temp Pulse Resp B/P Pulse Ox O2 Delivery O2 Flow Rate FiO2 11/30/16 08:00 86 11/30/16 07:00 99 Room Air 11/30/16 06:00 73 11/30/16 04:00 71 11/30/16 04:00 98.2 76 20 149/67 96 11/30/16 02:00 76 11/30/16 00:00 98.0 73 20 115/57 94 11/30/16 00:00 73 11/29/16 22:00 72 11/29/16 20:00 78 11/29/16 20:00 97.9 73 21 109/59 94 11/29/16 19:00 100 Room Air 11/29/16 18:00 79 11/29/16 16:00 97.9 72 15 141/65 95 11/29/16 16:00 72 11/29/16 14:00 73 11/29/16 12:00 69 11/29/16 12:00 97.6 68 20 139/69 98 11/30/16 07:00 Intake Total 1711 ml Output Total 3300 ml Balance -1589 ml (Neredia Scott) Review of Systems/Exam Exam Ms. Benito is alert. Speech is fluent. Follows commands well. Cranial nerve examination demonstrates the pupils to be equal, round, and reactive to light. Extra-ocular movements are intact. Facial motor are normal and symmetrical. Neck is soft and supple. Motor: moves all four extremities symmetrically and with good strength Sensory examination is intact to light touch in both the upper and lower extremities, symmetrically. There is a bilateral plantar flexion response. Cerebellar examination is intact to [id number] test (Nereida Scott) Medications Current Medications Current Medications Medications (Trade) Dose Ordered Sig/Jennifre Route PRN Reason Start Time Stop Time Status Last Admin Dose Admin Sodium Chloride (NS Flush) 2 ml UNSCH PRN IVF FLUSH AFTER USING IV ACCESS 11/28/16 10:00 Magnesium Oxide 800 mg 800 mg UNSCH PRN PO For Magnesium 1.2 - 1.6 mg/dL 11/28/16 12:00 Magnesium Sulfate 4 gm/Sodium Chloride 100 ml @ 50 mls/hr UNSCH PRN IV For Magnesium 0.9 - 1.1 mg/dL 11/28/16 12:00 Magnesium Sulfate 2 gm/Sodium Chloride 100 ml @ 50 mls/hr UNSCH PRN IV For Magnesium 1.2 - 1.6 mg/dL 11/28/16 12:00 Potassium Chloride 100 ml @ 50 mls/hr Q2H PRN IV For Potassium 2.8 - 3.2 mEq/L 11/28/16 12:00 Potassium Chloride 100 ml @ 50 mls/hr Q2H PRN IV For Potassium 3.3 - 3.5 mEq/L 11/28/16 12:00 Potassium Chloride 100 ml @ 50 mls/hr Q2H PRN IV For Potassium 2.8 - 3.2 mEq/L 11/28/16 12:00 Potassium Chloride (KCl 40 Meq Premix Inj) 100 ml @ 25 mls/hr UNSCH PRN IV For Potassium 3.3 - 3.5 mEq/L 11/28/16 12:00 Potassium Phosphate (K-Phos) 2,000 mg Q4H PRN PO For Phosphorus < 2.5 mg/dL 11/28/16 12:00 Potassium Phosphate 2000 mg 2,000 mg UNSCH PRN PO/TUBE SEE LABEL COMMENTS 11/28/16 12:00 Sodium Phosphate/ Sodium Chloride (Sodium Phosphate Inj/NS 250 ml Inj) 250 ml @ 42 mls/hr UNSCH PRN IV For Phosphorus < 2.5 mg/dL 11/28/16 12:00 Dextrose (D50w (Vial) Inj) 25 ml UNSCH PRN IV PUSH HYPOGLYCEMIA-SEE COMMENTS 11/28/16 12:00 Oxycodone/ Acetaminophen (Percocet 5-325 Mg) 1 tab Q4H PRN PO PAIN SCALE 1 TO 5 11/28/16 12:15 Famotidine (Pepcid) 20 mg Q12HR PO 11/28/16 21:00 11/30/16 09:29 Ondansetron HCl (Zofran Inj) 4 mg Q6H PRN IV NAUSEA OR VOMITING 11/28/16 12:15 Senna/Docusate Sodium (Rossy-Colace) 2 tab BID PO 11/28/16 21:00 11/30/16 09:29 Miscellaneous Information 1 Q361D XX 11/28/16 12:15 11/28/16 12:15 Chlorhexidine Gluconate (Chlorhexidine 2% Cloth) 3 pack Taper DAILY@04 TOP 11/29/16 04:00 11/25/17 03:59 11/30/16 03:06 Chlorhexidine Gluconate (Chlorhexidine 2% Cloth) 3 pack UNSCH PRN TOP HYGIENIC CARE 11/28/16 12:15 Levetriacetam 500 mg 500 mg Q12HR PO 11/28/16 21:00 12/12/16 20:59 11/30/16 09:29 Sodium Chloride 1,000 ml @ 75 mls/hr [id number] IV 11/28/16 16:00 11/29/16 05:20 Ceftriaxone Sodium/Sodium Chloride (Rocephin Inj/NS Inj) 100 ml @ 200 mls/hr Q24H IV 11/29/16 16:00 11/29/16 17:07 (Nereida Scott) Medical Decision Making MDM Remarks 66 y/o female with mild TBI following dizzy spell and fell. repeat CT Head shows resolved ICH. nonfocal exam, neuro exam stable. (Nereida Scott) Plan Plan Remarks f/u CT Head 11/29/16 with resolved ICH, cont non-op mgt clear to dc home from NRS standpoint, dw pt to avoid falls and further head trauma (Nereida Scott) Attending Statement The exam, history, and the medical decision-making described in the above note were completed with the assistance of the mid-level provider. I reviewed and agree with the findings presented. I attest that I had a [id number] encounter with the patient on the same day, and personally performed and documented my assessment and findings in the medical record. (Jerman Norris MD) Nereida Scott November 30, 2016 11:01 Jerman Norris MD December 05, 2016 12:37
--- NOTE | 2016-11-30 11:04 | HHI.PR ---
Subjective Remarks Patient does not remember the episode of confusion yesterday afternoon. She told me today that she normally takes 100 mg of trazodone and 50 mg of Doxepin for sleep. Patient seems more appropriate today. No new episodes of confusions. Objective Vitals Vital Signs Date Time Temp Pulse Resp B/P Pulse Ox O2 Delivery O2 Flow Rate FiO2 11/30/16 08:00 86 11/30/16 07:00 99 Room Air 11/30/16 06:00 73 11/30/16 04:00 71 11/30/16 04:00 98.2 76 20 149/67 96 11/30/16 02:00 76 11/30/16 00:00 98.0 73 20 115/57 94 11/30/16 00:00 73 11/29/16 22:00 72 11/29/16 20:00 78 11/29/16 20:00 97.9 73 21 109/59 94 11/29/16 19:00 100 Room Air 11/29/16 18:00 79 11/29/16 16:00 97.9 72 15 141/65 95 11/29/16 16:00 72 11/29/16 14:00 73 11/29/16 12:00 69 11/29/16 12:00 97.6 68 20 139/69 98 I/O 11/29/16 11/29/16 11/29/16 11/30/16 11/30/16 11/30/16 07:00 15:00 23:00 07:00 15:00 23:00 Intake Total 1009 ml 1111 ml 360 ml 240 ml Output Total 300 ml 1300 ml 800 ml 1200 ml Balance 709 ml -189 ml -440 ml -960 ml Intake Oral 480 ml 820 ml 360 ml 240 ml IV Total 529 ml 291 ml Output Urine Total 300 ml 1300 ml 800 ml 1200 ml # Bowel Movements 1 0 0 Result Diagram: 11/30/16 0326 11/30/16 0326 Objective Remarks GENERAL: This is a well-nourished, well-developed patient, in no apparent distress. CARDIOVASCULAR: Normal rate and regular rhythm without murmurs, gallops, or rubs. RESPIRATORY: Good respiratory efforts. Breath sounds equal and clear to auscultation bilaterally. GASTROINTESTINAL: Abdomen soft, non-tender, non-distended. Normal active bowel sounds MUSCULOSKELETAL: Extremities without cyanosis, or edema. NEURO: Alert & Oriented x4 to person, place, time, situation. Moves all ext x4 PSYCH: Appropriate mood and affect. A/P Assessment and Plan 66-year-old female status post fall with left frontal traumatic intraparenchymal hemorrhage. Repeat head CT this morning with resolution of the hemorrhage. Left frontal traumatic intraparenchymal hemorrhage. Resolved --Appreciate neurosurgery consult. No anticoagulation. Repeat head CT shows resolution. Advance activity. Physical therapy consult. Encephalopathy: - Brief episode of confusion reported yesterday. Repeat CT stable. Resolved Neurology was consulted Dizziness. Patient reports feeling dizzy after getting up quickly. She attributed that to her fall. --She has had a complete workup in July for the same, She was seen by Neurology and had extensive Cardiac monitoring. Likely vasovagal. -- Advise outpatient follow-up with neurology and PCP. - Also noting the patient is on 100 mg of trazodone and 50 mg of doxepin. These medications can contribute to dizziness. She is asking to restart these medications. She reports that she has been taking the same dose for the past 10 + years. Will restart at much lower dose to be used at night only. Acute Kidney Injury: Likely secondary to dehydration --Resolved with IV fluid. IV fluid previously discontinued Monitor for another 24 hours with plan to DC in AM to follow up outpatient for further workup with PCP. Discharge Planning Plan to discharge in a.m. if remains stable. Basilio Ricks MD November 30, 2016 11:04
[2016-11-30] MEDS: cefTRIAXone INJ 1,000 MG in SODIUM CHLORIDE 0.9% INJ 100 ML IV SCH (16:00)
--- NOTE | 2016-11-30 20:03 | MB ---
cc: [facility]BY [facility] M.D. DATE OF CONSULTATION 11/30/2016 REASON FOR CONSULTATION Cerebral hemorrhage and falls. HISTORY OF PRESENT ILLNESS Ms. Benito is a 66-year-old woman who states that she was walking [place] [employer] and tripped over something and fell striking her head. There was no loss of consciousness. She had felt dizzy. She presented to the ER where a CT of the brain showed a very small intraparenchymal hemorrhage located in the left frontal area. The patient denies any dizziness or lightheadedness. Denies any walking difficulty. She states when she fell she tripped over something. PAST MEDICAL HISTORY 1. Hysterectomy. 2. Mastectomy. MEDICATIONS Current medications are: 1. Doxepin. 2. Trazodone. 3. Ceftriaxone. 4. Pepcid. 5. Rossy-Colace. 6. Keppra 500 mg b.i.d. 7. Oxycodone. 8. Zofran p.r.n. NEUROLOGIC EXAMINATION VITAL SIGNS: Blood pressure is 149/67, pulse 71, respiratory rate is 20, temperature 98 degrees. Higher cortical functions normal. Cranial nerves II-XII are normal. Motor exam shows 5/5 strength of all groups in both upper and lower extremities. There is no drift. Fine motor skills within normal limits. Cerebellar testing is normal with no dysmetria. Reflexes 2+ symmetric with no Babinski sign present. IMAGING Carotid ultrasound unremarkable for any significant stenosis. Repeat head CT scan yesterday shows that the hemorrhage has completely resolved. LABORATORY DATA White count 6200, hemoglobin 13.7, hematocrit 39%, platelet count is 144,000. PT 10, INR 0.9. Sodium is 144, potassium 3.9, chloride 110, CO2 26.9. The BUN is 10, creatinine 0.57, GFR is 105, glucose is 83, calcium is 8.9. IMPRESSION Based on the patient's history, the fall appeared to be due to her tripping over something. She denies any difficulty that would suggest ataxia. She does relate some mild vertigo at the present time which may be on the basis of a mild concussion or post concussive syndrome. RECOMMENDATIONS Rule out any other potential causes of her unsteadiness. We will obtain an MRI brain. MD COLLEEN Prabhakar/JOSE /3:34 PM /7:51 PM
[2016-11-30] MEDS ORDERED: traZODone HCL 50 MG TAB PO SCH (21:00)
[2016-11-30] MEDS ORDERED: DOXEPIN HCL 10 MG CAP PO SCH (21:00)
[2016-12-01] VITALS: BP 136/65; PULSE 76; RESP 18; TEMP 97.9; O2SAT 96
[2016-12-01 02:00] VITALS: PULSE 74
[2016-12-01] MEDS: INSULIN NovoLIN REGULAR SUPPLEMENTAL SCALE SQ SCH ×2 (03:00→06:37)
[2016-12-01] MEDS: SODIUM CHLOR 0.9% 1000 ML INJ 1,000 ML IV SCH (03:22)
[2016-12-01] MEDS: CHLORHEXIDINE GLUCONATE 2 % 1 PACK (2 CLOTHS) TOP SCH (03:23)
[2016-12-01 04:00] VITALS: BP 121/56; PULSE 70; RESP 15; TEMP 97.6; O2SAT 93
[2016-12-01 04:37] LABS: HEMATOCRIT 41.2 % (35.0-46.0); MEAN CELL VOLUME 89.9 FL (80.0-100.0); MEAN CORPUSCULAR HEMOGLOBIN 29.4 PG (27.0-34.0); MEAN CORPUSCULAR HGB CONC 32.7 % (32.0-36.0); PLATELET COUNT 134 TH/MM3 (150-450); RED BLOOD COUNT 4.59 MIL/MM3 (4.00-5.30); RED CELL DISTRIBUTION WIDTH 13.4 % (11.6-17.2); REVIEW FLAG FINAL; WHITE BLOOD COUNT 5.3 TH/MM3 (4.0-11.0)
[2016-12-01 04:49] LABS: BICARBONATE 27.3 MEQ/L (21.0-32.0); POTASSIUM 3.4 MEQ/L (3.5-5.1)
[2016-12-01 06:00] VITALS: PULSE 74
[2016-12-01 08:00] VITALS: PULSE 70
[2016-12-01] MEDS ORDERED: GADODIAMIDE PF 287 MG/ML 10 ML VIAL (for RAD MRI) IV ONE (09:04)
--- NOTE | 2016-12-01 09:54 | RADRPT ---
EXAM DATE/TIME: 12/01/2016 08:52 [facility] COMPARISON: No previous studies available for comparison. INDICATIONS : Vertigo. Dizziness. Fall with scalp laceration. CONTRAST: 10 cc Omniscan (gadodiamide) IV MEDICAL HISTORY : None. SURGICAL HISTORY : Mastectomy, bilateral. Hysterectomy. Bladder. Shoulder. ENCOUNTER: Subsequent ACUITY: 3 day PAIN SCORE: 5/10 LOCATION: cranial TECHNIQUE: Multiplanar, multisequence MRI of the brain was performed both prior to and following the administrat ion of paramagnetic contrast. FINDINGS: CEREBRUM: The ventricles are normal for age. No evidence of midline shift, mass lesion, hemorrhage or acute in farction. No extraaxial fluid collections are seen. The pituitary gland and suprasellar cistern are normal in configuration. Stable 1 cm pineal cyst WHITE MATTER: Mild signal abnormalities are seen in the white matter. POSTERIOR FOSSA: The cerebellum and brainstem are intact. The 4th ventricle is midline. The cerebellopontine angle is unremarkable. The cerebellar tonsils are normal in position. DIFFUSION IMAGING: No focal areas of restricted diffusion are seen. No evidence of acute infarction. EXTRACRANIAL: The visualized portions of the orbits and paranasal sinuses are unremarkable. POST-CONTRAST: No abnormal areas of parenchymal or dural enhancement. No evidence of blood-brain barrier breakdown. CONCLUSION: 1. No acute findings. No recent infarct. No abnormal enhancement. 2. Stable 1 cm pineal cyst. Lisandro Hyman MD on December 01, 2016 at 9:46 Board Certified Radiologist. This report was verified electronically.
[2016-12-01 10:00] VITALS: PULSE 68
[2016-12-01] MEDS ORDERED: DOXE25CA2 PO (10:37)
--- NOTE | 2016-12-01 10:38 | HHI.DCPOC ---
Discharge Care Plan Diagnosis: (1) Fall (2) Head injury (3) Intracranial bleed (4) Dizziness (5) H/O urinary retention Goals to Promote Your Health * To prevent worsening of your condition and complications * To maintain your health at the optimal level Directions to Meet Your Goals Take your medications as prescribed Follow your dietary instruction Follow activity as directed Keep your appointments as scheduled Take your immunizations and boosters as scheduled If your symptoms worsen call your PCP, if no PCP go to Urgent Care Center or Emergency Room Smoking is Dangerous to Your Health. Avoid second hand smoke Call the 24-hour hour crisis hotline for domestic abuse at Basilio Ricks MD December 01, 2016 10:38
--- NOTE | 2016-12-01 10:43 | HHI.DS ---
Discharge Summary Admission Date November 28, 2016 at 12:15 Discharge Date: December 01, 2016 Admitting Diagnosis (1) Fall ICD Code: W19.XXXA (2) Intracranial bleed ICD Code: I62.9 (3) Dizziness ICD Code: R42 (4) Dehydration ICD Code: E86.0 (5) Retention of urine, unspecified ICD Code: R33.9 Procedures None Brief History - From Admission This is a 66yF with an unremarkable past medical history who presents after mechanical fall where she sustained a laceration to her head and by CT head a very small frontal traumatic intraparenchymal hemorrhage. patient states she stood up quickly, felt a little dizzy, and then fell. denies loss of consciousness. she states she had a similar fall without any complications a few months ago and was worked up thoroughly in the hospital where they didn't find anything. She denies anticoagulation use. she denies any additional symptoms. she only complains of headache around the area of her scalp laceration. Critical care medicine is consulted to evaluate and manage her medical care in the setting of traumatic intraparenchymal hemorrhage. CBC/BMP: 12/01/16 0319 12/01/16 0319 Significant Findings Laboratory Tests Test 11/28/16 11/29/16 11/30/16 12/01/16 13:50 05:19 03:26 03:19 Urine Turbidity CLOUDY (CLEAR) Urine Protein 30 mg/dL (NEG-TRACE) Urine Occult Blood TRACE (NEG) Urine Leukocyte Esterase MOD (NEG) Urine WBC 11 /hpf (0-5) Urine Bacteria MOD /hpf (NONE) Platelet Count 147 TH/MM3 144 TH/MM3 134 TH/MM3 (150-450) (150-450) (150-450) Chloride Level 110 MEQ/L 110 MEQ/L 111 MEQ/L (98-107) (98-107) (98-107) Sodium Level 146 MEQ/L (136-145) Potassium Level 3.4 MEQ/L (3.5-5.1) Calcium Level 8.4 MG/DL (8.5-10.1) Imaging Last Impressions Brain MRI 12/01/16 0000 Signed Impressions: Service Date/Time: November 08:52 - CONCLUSION: 1. No acute findings. No recent infarct. No abnormal enhancement. 2. Stable 1 cm pineal cyst. Lisandro Hyman MD Head CT 11/29/16 0600 Signed Impressions: Service Date/Time: Tuesday, November 29, 2016 05:25 - CONCLUSION: Previously seen left frontal hemorrhage has resolved. Hilary Woods MD Carotid Artery Ultrasound 11/29/16 0000 Signed Impressions: Service Date/Time: Tuesday, November 29, 2016 19:23 - CONCLUSION: Bilateral plaquing with no significant stenosis. Vipin Jasso MD Chest X-Ray 11/28/16 0958 Signed Impressions: Service Date/Time: Monday, November 28, 2016 10:00 - CONCLUSION: No acute disease Leonard Gamez MD PE at Discharge GENERAL: This is a well-nourished, well-developed patient, in no apparent distress. CARDIOVASCULAR: Normal rate and regular rhythm without murmurs, gallops, or rubs. RESPIRATORY: Good respiratory efforts. Breath sounds equal and clear to auscultation bilaterally. GASTROINTESTINAL: Abdomen soft, non-tender, non-distended. Normal active bowel sounds MUSCULOSKELETAL: Extremities without cyanosis, or edema. NEURO: Alert & Oriented x4 to person, place, time, situation. Moves all ext x4 PSYCH: Appropriate mood and affect. Pt update on day of discharge Patient reports she is feeling great. She requested to go home. No dizziness. She agreed to cut down her sleeping medications by half. Hospital Course 66-year-old female status post fall with left frontal traumatic intraparenchymal hemorrhage. Repeat head CT with resolution of the hemorrhage. Patient had periods of confusions which resolved. She has been on sleeping medications at home which could have contributed to loss of balance and fall. Evaluation and treatment course detailed below: Left frontal traumatic intraparenchymal hemorrhage. Resolved --Appreciate neurosurgery consult. No anticoagulation. Repeat head CT shows resolution. Advance activity. Patient at baseline on discharge Encephalopathy: - Brief episode of confusion reported yesterday. Repeat CT stable. Resolved Neurology was consulted, MRI unremarkable. Dizziness. Patient reports feeling dizzy after getting up quickly. She attributed that to her fall. --She has had a complete workup in July for the same, She was seen by Neurology and had extensive Cardiac monitoring. Likely vasovagal. -- Advise outpatient follow-up with neurology and PCP. - Also noting the patient is on 100 mg of trazodone and 50 mg of doxepin. These medications can contribute to dizziness. She reports that she has been taking the same dose for the past 10+ years. Will restart at much lower dose to be used at night only. Patient advise to cut the dose in half and follow up with PCP Acute Kidney Injury: Likely secondary to dehydration --Resolved with IV fluid. IV fluid previously discontinued Pt Condition on Discharge: Good Discharge Disposition: Discharge Home Discharge Time: <= 30 minutes Discharge Instructions DIET: Follow Instructions for: Heart Healthy Diet Activities you can perform: Regular-No Restrictions Follow up Referrals: PCP Follow-up - 1 Week Changed Medications: Doxepin (Doxepin) 25 Mg Cap 25 MG PO HS #30 Ref 0 CAP (Changed from: Doxepin 75 Mg Cap 50 Mg PO HS Ref 0) Continued Medications: Multiple Vitamins W/ Minerals (Theragran-M) 1 Tab 1 TAB PO DAILY Nutritional Supplement Days 30 Ref 0 TAB Trazodone HCl (Trazodone HCl) 100 Mg Tab 100 MG PO HS Insomnia Basilio Ricks MD December 01, 2016 10:43
== END 2016-12-01 12:23 | disposition home or self-care (01) | DRG 85 ==
LOC: NEPC 09:22 → NEDA 12:15 → N03B 14:20
PROVIDERS: ADMIT Family Medicine; ATTEND Family Medicine
PROC: 0HQ0XZZ Repair Scalp Skin, External Approach (ICD-10-PCS; principal; 2016-11-28)
DX: S06.6X0A Traumatic subarachnoid hemorrhage without loss of consciousness, initial encounter (principal); G93.40 Encephalopathy, unspecified; N17.9 Acute kidney failure, unspecified; E61.1 Iron deficiency; S01.01XA Laceration without foreign body of scalp, initial encounter; W01.0XXA Fall on same level from slipping, tripping and stumbling without subsequent striking against object, initial encounter; F32.9 Major depressive disorder, single episode, unspecified; E86.0 Dehydration; R33.9 Retention of urine, unspecified; Z87.891 Personal history of nicotine dependence
CPT/HCPCS: 12001; 70450; 70553; 71010; 80048; 80307; 81001; 82550; 82948; 84484; 85025; 85027; 85610; 87077; 87086; 87186; 93005; 93880; 94150; 94640; 94667; 94668; A9579; J0696; J7030

== ENCOUNTER 2016-12-29 11:32 | Emergency (ER) | payer MEDICARE, OTHER ==
[~2016-12-29 11:32] MED LIST changes: -BUPR150XL PO; -CELE1CAP8 PO; -CLIN150 PO; +DOXE25CA2 PO; -DOXE75CA2 PO; -VITA10002 PO
[2016-12-29] MEDS ORDERED: SODIUM CHLOR 0.9% 1000 ML INJ 1,000 ML IV ONE (11:46)
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
[2016-12-29] MEDS ORDERED: SODIUM CHLORIDE 0.9% FLUSH 10 ML FLUSH IVF PRN (12:00)
[2016-12-29 12:07] VITALS: BP 110/53; PULSE 78; RESP 17; TEMP 98.4; O2SAT 97
[2016-12-29 12:08] VITALS: RESP 17; O2SAT 97
[2016-12-29 12:35] LABS: AUTOMATED NEUTROPHIL # 5.4 TH/MM3 (1.8-7.7); BASOPHIL % 0.2 % (0.0-2.0); EOSINOPHIL % 0.2 % (0.0-4.0); HEMO FLAGS DIFF FINAL; LYMPH % 9.3 % (9.0-44.0); LYMPHOCYTE # 0.6 TH/MM3 (1.0-4.8); MEAN CELL VOLUME 90.4 FL (80.0-100.0); MEAN CORPUSCULAR HEMOGLOBIN 29.5 PG (27.0-34.0); MEAN CORPUSCULAR HGB CONC 32.6 % (32.0-36.0); MONO % 7.9 % (0.0-8.0); NEUT % 82.4 % (16.0-70.0); PLATELET COUNT 144 TH/MM3 (150-450); RED BLOOD COUNT 4.53 MIL/MM3 (4.00-5.30); RED CELL DISTRIBUTION WIDTH 13.9 % (11.6-17.2); WHITE BLOOD COUNT 6.5 TH/MM3 (4.0-11.0)
--- NOTE | 2016-12-29 12:53 | RADRPT ---
EXAM DATE/TIME: 12/29/2016 12:29 [facility] COMPARISON: CHEST SINGLE AP, November 28, 2016, 10:00. INDICATIONS : Chest pain. MEDICAL HISTORY : Cardiovascular disease. SURGICAL HISTORY : None. ENCOUNTER: Initial ACUITY: 1 day PAIN SCORE: 5/10 LOCATION: Bilateral chest FINDINGS: Portable AP view of the chest demonstrates a normal-sized cardiac silhouette. No effusion, consolidat ion, or pneumothorax is identified. The bones and soft tissues demonstrate no acute finding. CONCLUSION: No acute cardiopulmonary abnormality is identified. Leonard Shankar MD on December 29, 2016 at 12:48 Board Certified Radiologist. This report was verified electronically.
[2016-12-29 12:58] LABS: ALKALINE PHOSPHATASE 92 U/L (45-117); TOTAL BILIRUBIN ADULT 0.4 MG/DL (0.2-1.0)
[2016-12-29 13:01] LABS: BACTERIA, URINE FEW /hpf; BLOOD, URINE SMALL (NEG); COMMENT (UR) CULTURE INDICATED; CULTURE IF INDICATED CULTURE INDICATED; GLUCOSE,URINE NEG (NEG); KETONE, URINE NEG (NEG); MUCUS URINE FEW /lpf (OCC); NITRITE,URINE NEG (NEG); SQUAMOUS EPITHELIAL CELL URINE <1 /hpf (0-5); TRIPLE PHOSPHATE CRYSTAL,URINE MANY /hpf; URINE COLOR YELLOW (YELLW/STRAW)
--- NOTE | 2016-12-29 13:06 | RADRPT ---
EXAM DATE/TIME: 12/29/2016 12:32 [facility] COMPARISON: ELBOW LEFT COMPLETE (4 VWS), July 11, 2016, 19:21. INDICATIONS : Left elbow pain, fall. MEDICAL HISTORY : None. SURGICAL HISTORY : None. ENCOUNTER: Initial ACUITY: 1 day PAIN SCORE: 10/10 LOCATION: Left posterior elbow FINDINGS: Four views of the left elbow demonstrate no fracture or dislocation. No joint effusion is visualized. No soft tissue abnormality or radiopaque foreign body is identified. CONCLUSION: No acute abnormality is identified. Leonard Shankar MD on December 29, 2016 at 13:01 Board Certified Radiologist. This report was verified electronically.
[2016-12-29] MEDS ORDERED: cefTRIAXone INJ 1,000 MG in SODIUM CHLORIDE 0.9% INJ 100 ML IV ONE (13:15)
[2016-12-29 13:20] LABS: ALT (GPT) 13 U/L (10-53); ANION GAP 10 MEQ/L (5-15); AST (GOT) 14 U/L (15-37); BICARBONATE 24.4 MEQ/L (21.0-32.0); BLOOD UREA NITROGEN 16 MG/DL (7-18); CHLORIDE 111 MEQ/L (98-107); GLOMERULAR FILTRATION RATE 67 ML/MIN (>89); POTASSIUM 3.6 MEQ/L (3.5-5.1); SODIUM (NA) 145 MEQ/L (136-145)
--- NOTE | 2016-12-29 13:20 | RADRPT ---
EXAM DATE/TIME: 12/29/2016 12:36 [facility] COMPARISON: CT BRAIN W/O CONTRAST, November 29, 2016, 16:42. INDICATIONS : Fall today. RADIATION DOSE: 36.07 CTDIvol (mGy) MEDICAL HISTORY : Carcinoma, breast. SURGICAL HISTORY : None. ENCOUNTER: Initial ACUITY: 1 day PAIN SCALE: 4/10 LOCATION: cranial TECHNIQUE: Multiple contiguous axial images were obtained of the head. Using automated exposure control and adj ustment of the mA and/or kV according to patient size, radiation dose was kept as low as reasonably a chievable to obtain optimal diagnostic quality images. FINDINGS: CEREBRUM: The ventricles are normal for age. No evidence of midline shift, mass lesion, hemorrhage or acute in farction. No extra-axial fluid collections are seen. POSTERIOR FOSSA: The cerebellum and brainstem are intact. The 4th ventricle is midline. The cerebellopontine angle i s unremarkable. EXTRACRANIAL: The visualized portion of the orbits is intact. SKULL: The calvaria is intact. No evidence of skull fracture. CONCLUSION: 1. No acute intracranial abnormality. Primo Sierra MD on December 29, 2016 at 13:11 Board Certified Radiologist. This report was verified electronically.
[2016-12-29] MEDS ORDERED: CEPH-460 PO (13:53)
[2016-12-29 14:20] VITALS: BP 127/56; PULSE 79; RESP 17; O2SAT 95
[2016-12-29] MEDS ORDERED: TRAZ100T6 PO (16:28)
[2016-12-29] MEDS ORDERED: THERTAB17 PO (16:28)
--- NOTE | 2016-12-30 16:40 | EKG ---
Date Performed: 12/29/2016 Time Performed: 12:15:07 PTAGE: 66 years EKG: Sinus rhythm NORMAL ECG PREVIOUS TRACING : 11/28/2016 09.32 Compared to prior tracing no significant change DOCTOR: Mendoza Braxton Interpretating Date/Time 12/30/2016 16:40:14
== END 2016-12-29 18:20 | disposition home or self-care (01) ==
LOC: NEPE 11:32
DX: N39.0 Urinary tract infection, site not specified (principal); T83.511A Infection and inflammatory reaction due to indwelling urethral catheter, initial encounter; R42 Dizziness and giddiness; B96.20 Unspecified Escherichia coli [E. coli] as the cause of diseases classified elsewhere; W18.30XA Fall on same level, unspecified, initial encounter; Y93.01 Activity, walking, marching and hiking; Y92.524 Gas station as the place of occurrence of the external cause; Y99.8 Other external cause status
CPT/HCPCS: 70450; 71010; 73080; 80053; 81001; 85025; 87077; 87086; 87186; 93005; 96361; 96365; 99285; J0696; J7030

== ENCOUNTER 2017-01-17 07:44 | Inpatient (IN) | payer OTHER, MEDICARE ==
[2017-01-17] VITALS (17 sets, daily range): BP systolic 102–137; BP diastolic 50–73; PULSE 96–114; RESP 16–17; TEMP 97.5–97.8; O2SAT 95–100
[~2017-01-17] VITALS: Ht 157.5 cm; Wt 52.5 kg
[~2017-01-17 07:44] MED LIST changes: +CEPH-460 PO; +THERTAB17 PO; -THERTAB27 PO; -TRAZ100T5 PO; +TRAZ100T6 PO
[2017-01-17] MEDS ORDERED: MIDAZOLAM HCL 5 MG/ML VIAL (1 ML) ONE (07:47)
[2017-01-17] MEDS ORDERED: ceFAZolin INJ 1,000 MG VIAL ONE (07:52)
[2017-01-17] MEDS ORDERED: ceFAZolin 2 GM PREMIX 50 ML ONE (07:52)
[2017-01-17] MEDS ORDERED: PHENYLEPHRINE HCL 10 MG/ML VIAL ONE (07:53)
[2017-01-17] MEDS ORDERED: SODIUM BICARBONATE 8.4% INJ 50 ML ONE (08:15)
[2017-01-17 08:17] LABS: AUTOMATED NEUTROPHIL # 7.6 TH/MM3 (1.8-7.7); BASOPHIL # 0.1 TH/MM3 (0-0.2); BASOPHIL % 0.5 % (0.0-2.0); EOSINOPHIL % 0.4 % (0.0-4.0); HEMATOCRIT 40.2 % (35.0-46.0); HEMO FLAGS DIFF FINAL; LYMPH % 29.9 % (9.0-44.0); LYMPHOCYTE # 3.4 TH/MM3 (1.0-4.8); MEAN CELL VOLUME 93.3 FL (80.0-100.0); MEAN CORPUSCULAR HEMOGLOBIN 29.2 PG (27.0-34.0); MEAN CORPUSCULAR HGB CONC 31.3 % (32.0-36.0); MONO % 2.9 % (0.0-8.0); NEUT % 66.3 % (16.0-70.0); PLATELET COUNT 200 TH/MM3 (150-450); RED BLOOD COUNT 4.31 MIL/MM3 (4.00-5.30); RED CELL DISTRIBUTION WIDTH 14.5 % (11.6-17.2); WHITE BLOOD COUNT 11.4 TH/MM3 (4.0-11.0)
[2017-01-17 08:18] LABS: BLOOD GAS BASE EXCESS -14.5 mmol/L (-2-2); BLOOD GAS CARBOXYHEMOGLOBIN 1.4 % (0-4); BLOOD GAS HCO3 12 mmol/L (22-26); BLOOD GAS METHEMOGLOBIN 0.6 % (0-2); BLOOD GAS O2 HGB SATURATION 98 % (90-100); BLOOD GAS OXYGEN CONTENT 21.8 Vol % (12.0-20.0); BLOOD GAS PCO2 35 mmHg (38-42); BLOOD GAS PO2 449 mmHG (61-120); TEMP CORR TO 98.6
[2017-01-17 08:19] LABS: I-STAT POTASSIUM 3.9 MMOL/L (3.5-4.9)
[2017-01-17 08:20] LABS: CRITICAL VALUE YES; DRAW SITE ARTLINE; FIO2 100 %; LITER FLOW 15 L/M; OXYGEN DEVICE AMBU; STAT YES
[2017-01-17 08:24] LABS: APTT (PATIENT) 21.5 SEC (24.3-30.1); PROTHROMBIN TIME - PATIENT 11.2 SEC (9.8-11.6)
[2017-01-17] MEDS ORDERED: ceFAZolin INJ 1,000 MG VIAL IV ONE (08:28)
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
[2017-01-17] MEDS ORDERED: SUCCINYLCHOLINE CHLORIDE 200 MG/10 ML VIAL ONE ×2 (09:07)
[2017-01-17] MEDS ORDERED: ETOMIDATE 20 MG/10 ML VIAL ONE (09:07)
[2017-01-17 09:14] LABS: BLOOD GAS BASE EXCESS -2.3 mmol/L (-2-2); BLOOD GAS CARBOXYHEMOGLOBIN 1.9 % (0-4); BLOOD GAS HCO3 23 mmol/L (22-26); BLOOD GAS METHEMOGLOBIN 0.9 % (0-2); BLOOD GAS O2 HGB SATURATION 96 % (90-100); BLOOD GAS OXYGEN CONTENT 12.9 Vol % (12.0-20.0); BLOOD GAS PCO2 48 mmHg (38-42); BLOOD GAS PO2 142 mmHg (61-120); BLOOD GAS TOTAL HGB 9.3 G/DL (12.0-16.0); CRITICAL VALUE NO; TEMP CORR TO 98.6
[2017-01-17 09:15] LABS: DRAW SITE ART LINE; FIO2 50 %; OXYGEN DEVICE SEE OR; STAT YES
[2017-01-17] MEDS ORDERED: SENNOSIDES 8.6 MG TAB PO PRN (10:15)
[2017-01-17] MEDS ORDERED: SODIUM CHLORIDE 0.9% FLUSH 10 ML FLUSH IV FLUSH PRN (10:15)
[2017-01-17] MEDS ORDERED: CHLORHEXIDINE GLUCONATE 2 % 1 PACK (2 CLOTHS) TOP PRN (10:15)
[2017-01-17] MEDS ORDERED: MAGNESIUM HYDROXIDE SUSP 30 ML CUP PO PRN (10:15)
[2017-01-17] MEDS ORDERED: LACTULOSE SYRUP 20 GM/30 ML CUP PO PRN (10:15)
[2017-01-17] MEDS ORDERED: MISCELLANEOUS NURSING INFORMATION XX SCH (10:15)
[2017-01-17] MEDS ORDERED: BISACODYL 10 MG SUPP RECTAL PRN (10:15)
[2017-01-17] MEDS ORDERED: IOHEXOL 350 MG/ML 10 ML VIAL (for RAD DIAG) IV ONE (10:22)
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
[2017-01-17 10:57] LABS: AUTOMATED NEUTROPHIL # 8.7 TH/MM3 (1.8-7.7); BASOPHIL % 0.3 % (0.0-2.0); EOSINOPHIL % 0.1 % (0.0-4.0); HEMATOCRIT 21.5 % (35.0-46.0); HEMO FLAGS DIFF FINAL; LYMPH % 5.6 % (9.0-44.0); LYMPHOCYTE # 0.5 TH/MM3 (1.0-4.8); MEAN CELL VOLUME 86.1 FL (80.0-100.0); MEAN CORPUSCULAR HEMOGLOBIN 29.7 PG (27.0-34.0); MEAN CORPUSCULAR HGB CONC 34.5 % (32.0-36.0); MONO % 2.6 % (0.0-8.0); NEUT % 91.4 % (16.0-70.0); PLATELET COUNT 118 TH/MM3 (150-450); RED BLOOD COUNT 2.49 MIL/MM3 (4.00-5.30); RED CELL DISTRIBUTION WIDTH 15.3 % (11.6-17.2); WHITE BLOOD COUNT 9.5 TH/MM3 (4.0-11.0)
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
[2017-01-17 11:06] LABS: APTT (PATIENT) 36.6 SEC (24.3-30.1); INTERNATIONAL NORMALIZED RATIO 1.3 RATIO; PROTHROMBIN TIME - PATIENT 14.7 SEC (9.8-11.6)
[2017-01-17] MEDS ORDERED: PROPOFOL 200 MG/20 ML AMP IV ONE (11:07)
[2017-01-17] MEDS ORDERED: NORMOSOL R INJ 3,000 ML IV ONE (11:07)
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
[2017-01-17] MEDS ORDERED: fentaNYL CITRATE 250 MCG/5 ML AMP ONE (11:13)
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
[2017-01-17] MEDS: fentaNYL DRIP 250 ML IV SCH (11:48)
[2017-01-17] MEDS: PROPOFOL 1000 MG/100 ML INJ 100 ML IV SCH (11:48)
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
[2017-01-17] MEDS: BACITRACIN TOP OINT 15 GM TUBE TOPICAL SCH (13:00)
[2017-01-17] MEDS: SODIUM CHLOR 0.9% 1000 ML INJ 1,000 ML IV SCH (13:07)
[2017-01-17 13:20] LABS: BLOOD GAS BASE EXCESS 0.8 mmol/L (-2-2); BLOOD GAS CARBOXYHEMOGLOBIN 1.7 % (0-4); BLOOD GAS HCO3 26 mmol/L (22-26); BLOOD GAS O2 HGB SATURATION 91 % (90-100); BLOOD GAS OXYGEN CONTENT 10.4 Vol % (12.0-20.0); BLOOD GAS PCO2 47 mmHg (38-42); BLOOD GAS PO2 66 mmHg (61-120); CRITICAL VALUE NO; OXYGEN DEVICE VENTILATOR; TEMP CORR TO 98.6
[2017-01-17 13:21] LABS: DRAW SITE LT BRACHIAL; FIO2 50 %; NUMBER OF ARTERIAL PUNCTURES 1; STAT NO; ULNAR PULSE PRESENT
[2017-01-17] MEDS ORDERED: SODIUM CHLOR 0.9% 1000 ML INJ 1,000 ML IV ONE (13:30)
[2017-01-17] MEDS ORDERED: SODIUM CHLOR 0.9% 250 ML INJ 250 ML IV ONE (14:15)
[2017-01-17 14:19] LABS: HEMATOCRIT 26.5 % (35.0-46.0); MEAN CELL VOLUME 86.8 FL (80.0-100.0); MEAN CORPUSCULAR HEMOGLOBIN 28.4 PG (27.0-34.0); MEAN CORPUSCULAR HGB CONC 32.7 % (32.0-36.0); PLATELET COUNT 109 TH/MM3 (150-450); RED BLOOD COUNT 3.06 MIL/MM3 (4.00-5.30); RED CELL DISTRIBUTION WIDTH 15.4 % (11.6-17.2); REVIEW FLAG FINAL; WHITE BLOOD COUNT 19.7 TH/MM3 (4.0-11.0)
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
--- NOTE | 2017-01-17 15:12 | HHI.HP ---
History of Present Illness Primary Care Physician Admission Diagnosis flail chest,pelvic fx,multitrauma Diagnoses: History of Present Illness 66-year-old female was brought here essentially in extremis palpable carotid pulses but not measurable BP by EMS. On arrival patient's GCS is 14, she her initial blood pressure was palpable systolic 80, she is tachycardic, she has a flail chest on the left side, she was orotracheally intubated by anesthesia, left chest tube thoracostomy was performed, right femoral Cordis was placed, rapid transfusion was started with the [place], chest x-ray shows multiple rib fractures on the left side, multiple pelvic fractures, has a large degloving for left thigh, large open wound of her left thorax, open wound of her right scalp, she responded with better blood pressure 4 units of RBC, and Harman- Synephrine bolus given by the anesthesiologist, she has positive FAST performed by the ER attending-this finding on a hemodynamically labile patient in extremis decision was taking to proceed with exploratory laparotomy in the OR. Review of Systems ROS Limitations: Clinical Condition, Intubated, Altered Mental Status cannot bet obtained secondary to intubation Past Family Social History Allergies: Coded Allergies: UNOBTAINABLE (Unverified , 01/17/17) Past Medical History cannot be obtained Past Surgical History cannot be obtained Reported Medications cannot be obtained Active Ordered Medications cannot be obtained Family History cannot be obtained Social History cannot be obtained Physical Exam Vital Signs Vital Signs Date Time Temp Pulse Resp B/P Pulse Ox O2 Delivery O2 Flow Rate FiO2 01/17/17 13:24 97 50 01/17/17 12:52 97 50 01/17/17 10:59 99 50 01/17/17 09:58 100 15.00 100 01/17/17 08:10 100 100 Physical Exam GENERAL: This is a well-nourished, well-developed patient, in extremis SKIN: cold clammy multiple open wounds HEAD: open right scalp wound 6 cm EYES: Pupils equal round and reactive. Extraocular motions intact.. No injection or drainage. ENT: Nose without bleeding, purulent drainage , Airway patent. NECK: Trachea midline. No JVD or lymphadenopathy. Supple,. CARDIOVASCULAR: Regular rate with ST and rhythm without murmurs, gallops, or rubs. RESPIRATORY: Clear to auscultation right,reduced BS left,crepitus left chest open wound left chest back 7x6cm GASTROINTESTINAL: Abdomen soft, distended multiple abrasions MUSCULOSKELETAL: deformities both ankles,large open wound left thigh 10x 10 cm NEUROLOGICAL: GCS 14 initially Laboratory Laboratory Tests Test 01/17/17 01/17/17 01/17/17 01/17/17 07:59 08:14 08:29 08:46 White Blood Count 11.4 Red Blood Count 4.31 Hemoglobin 12.6 Bedside Hemoglobin 14.3 Hematocrit 40.2 Bedside Hematocrit 42.0 Mean Corpuscular Volume 93.3 Mean Corpuscular Hemoglobin 29.2 Mean Corpuscular Hemoglobin 31.3 Concent Red Cell Distribution Width 14.5 Platelet Count 200 Mean Platelet Volume 8.9 Neutrophils (%) (Auto) 66.3 Lymphocytes (%) (Auto) 29.9 Monocytes (%) (Auto) 2.9 Eosinophils (%) (Auto) 0.4 Basophils (%) (Auto) 0.5 Neutrophils # (Auto) 7.6 Lymphocytes # (Auto) 3.4 Monocytes # (Auto) 0.3 Eosinophils # (Auto) 0.0 Basophils # (Auto) 0.1 CBC Comment DIFF FINAL Differential Comment Prothrombin Time 11.2 Prothromb Time International 1.0 Ratio Activated Partial 21.5 Thromboplast Time Bedside Sodium 146 Bedside Potassium 3.9 Bedside Chloride 111 Bedside Blood Urea Nitrogen 18 Bedside Creatinine 1.0 Bedside Glucose 149 Blood Type AB POSITIVE Antibody Screen NEGATIVE Crossmatch Leukocyte-Reduced Red Blood Cells Blood Bank Comment Blood Gas Puncture Site ARTLINE ART LINE Blood Gas Patient Temperature 98.6 98.6 Blood Gas HCO3 12 23 Blood Gas Base Excess -14.5 -2.3 Blood Gas Oxygen Saturation 98 96 Arterial Blood pH 7.17 7.31 Arterial Blood Partial 35 48 Pressure CO2 Arterial Blood Partial 449 142 Pressure O2 Arterial Blood Oxygen Content 21.8 12.9 Arterial Blood 1.4 1.9 Carboxyhemoglobin Arterial Blood Methemoglobin 0.6 0.9 Blood Gas Hemoglobin 15.0 9.3 Oxygen Delivery Device AMBU SEE OR Blood Gas Liter Flow 15 Blood Gas Inspired Oxygen 100 50 Test 01/17/17 01/17/17 01/17/17 01/17/17 08:48 10:30 13:15 13:48 Blood Bank Comment White Blood Count 9.5 19.7 Red Blood Count 2.49 3.06 Hemoglobin 7.4 8.7 Hematocrit 21.5 26.5 Mean Corpuscular Volume 86.1 86.8 Mean Corpuscular Hemoglobin 29.7 28.4 Mean Corpuscular Hemoglobin 34.5 32.7 Concent Red Cell Distribution Width 15.3 15.4 Platelet Count 118 109 Mean Platelet Volume 7.7 8.0 Neutrophils (%) (Auto) 91.4 Lymphocytes (%) (Auto) 5.6 Monocytes (%) (Auto) 2.6 Eosinophils (%) (Auto) 0.1 Basophils (%) (Auto) 0.3 Neutrophils # (Auto) 8.7 Lymphocytes # (Auto) 0.5 Monocytes # (Auto) 0.2 Eosinophils # (Auto) 0.0 Basophils # (Auto) 0.0 CBC Comment DIFF FINAL Differential Comment Prothrombin Time 14.7 Prothromb Time International 1.3 Ratio Activated Partial 36.6 Thromboplast Time Blood Gas Puncture Site LT BRACHIAL Blood Gas Patient Temperature 98.6 Blood Gas HCO3 26 Blood Gas Base Excess 0.8 Blood Gas Oxygen Saturation 91 Arterial Blood pH 7.35 Arterial Blood Partial 47 Pressure CO2 Arterial Blood Partial 66 Pressure O2 Arterial Blood Oxygen Content 10.4 Arterial Blood 1.7 Carboxyhemoglobin Arterial Blood Methemoglobin 1.0 Blood Gas Hemoglobin 8.0 Oxygen Delivery Device VENTILATOR Blood Gas Ventilator Setting Blood Gas Inspired Oxygen 50 Result Diagram: 01/17/17 1348 Imaging Last Impressions Pelvis X-Ray 01/17/17744 Signed Impressions: Service Date/Time: Tuesday, January 17, 2017 07:38 - CONCLUSION: 1. Multiple pelvic fractures, as above. Hermann Arnold MD Chest X-Ray 01/17/1745 Signed Impressions: Service Date/Time: Tuesday, January 17, 2017 07:38 - CONCLUSION: 1. Comminuted fracture of the left scapula. 2. Fractures of the left third, fourth and fifth lateral ribs. 3. Mildly displaced fractures of the fifth through seventh lateral to the right. 4. Parenchymal contusion within the left lung. 5. ET tube and chest tube in good position. 6. There some loss of height of the superior endplate of the T11 vertebral body. Mild compression fracture of the superior endplate of T11 is not excluded. Primo Sierra MD Tibia/Fibula X-Ray 01/17/17 0000 Signed Impressions: Service Date/Time: Tuesday, January 17, 2017 07:38 - CONCLUSION: No acute fracture identified. Limited single view is provided. Primo Sierra MD Thoracic Spine CT 01/17/17 Signed Impressions: Service Date/Time: Tuesday, January 17, 2017 10:19 - CONCLUSION: Rib fractures, compression fracture of L1 vertebra, transverse fractures of lumbar spine discussed on the patient's prior CT examinations and the thoracic spine appears intact except for scattered degenerative changes. Hilary Woods MD Lumbar Spine CT 01/17/17 Signed Impressions: Service Date/Time: Tuesday, January 17, 2017 10:19 - CONCLUSION: 1. Compression fracture of mid body L1 with approximate 58%% reduction in height. 2. Multiple transverse process fractures, fractures of the sacrum and presacral hematoma discussed on the patient's prior CT pelvis. 3. No appreciable thecal sac stenosis is seen. Hilary Woods MD Head CT 01/17/17 Signed Impressions: Service Date/Time: Tuesday, January 17, 2017 10:19 - CONCLUSION: 1. Abnormal examination with small subarachnoid hemorrhage primarily along the vertex on the left. 2. Suspected left maxillary wall fractures. The maxillary sinus is not completely imaged on this exam. Further evaluation may be performed with maxillofacial CT exam. Hermann Arnold MD Chest CT 01/17/17 Signed Impressions: Service Date/Time: Tuesday, January 17, 2017 10:22 - CONCLUSION: 1. Bilateral rib fractures, left scapular fractures and tiny bilateral pneumothoraces. 2. Bilateral lung contusions and areas of consolidation right lower lung. Hilary Woods MD Cervical Spine CT 01/17/17 Signed Impressions: Service Date/Time: Tuesday, January 17, 2017 10:21 - CONCLUSION: Fracture of vertebral body of C6 with extension into the right foramen transversarium without any significant compromise to the thecal sac or the exiting nerve roots. Hilray Woods MD Abdomen/Pelvis CT 01/17/17 Signed Impressions: Service Date/Time: Tuesday, January 17, 2017 10:22 - CONCLUSION: 1. There is nonspecific free fluid within the abdomen and pelvis. No active arterial bleeding is identified. 2. There is a comminuted fracture of L1 which appears to represent a fairly severe compression fracture or possible burst fracture. The lamina and pedicle appear intact. There is no significant bony retropulsion. 3. Mild compression of the superior endplate of T12. 4. Fracture of both sacral ala. 5. Fracture of the anterior aspect of the right iliac wing. 6. Fracture of the superior and inferior sacral ala on the left. 7. Multiple lower rib fractures bilaterally. These will be more definitively assessed on CT imaging through the thorax. 8. Chest tube in place on the left with minimal residual pneumothorax. 9. Minimal pneumothorax on the right. 10. Consolidation/ contusion in both lower lobes. 11. Punctate collections of free air from the patient's laparotomy. Primo Sierra MD Assessment and Plan Assessment and Plan Multitrauma Multiple left rib fractures with flail Multiple rib fractures right Bilateral pneumothoraces Small subarachnoidal bleeding C6 fracture open wound-with degloving left thigh Open wound left chest wall open wound right scalp positive FAST scan -performed by ER attending pelvic fractures Traumatic shock Orotracheal intubation Chest tube thoracostomy left Insertion of Cordis right femoral vein Massive transfusion protocol TXA OR for exploratory laparotomy to rule out intra-abdominal bleeding Pelvic binder Fabi Martin MD Jan 17, 2017 15:12
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
--- NOTE | 2017-01-17 16:53 | RADRPT ---
EXAM DATE/TIME: 01/17/2017 15:20 [facility] COMPARISON: No previous studies available for comparison. INDICATIONS : Right foot pain, Patient fall trauma alert. MEDICAL HISTORY : None. SURGICAL HISTORY : None. ENCOUNTER: Initial ACUITY: 1 day PAIN SCORE: 0/10 LOCATION: Right foot FINDINGS: No definite fractures, or dislocations are identified. No definite lytic or sclerotic lesion is seen . Soft tissue swelling is identified behind the calcaneus with indistinctness of the fat planes at th is site. There are degenerative changes within multiple joints mainly the interphalangeal joints and the first metatarsophalangeal joint. CONCLUSION: No definite fracture is seen for techniqueBetito Woods MD on January 17, 2017 at 16:51 Board Certified Radiologist. This report was verified electronically.
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
[2017-01-17] MEDS ORDERED: ALBUMIN HUMAN 5% 25 GM/500 ML BOTTLE IV ONE (19:30)
[2017-01-17 20:01] LABS: HEMATOCRIT 41.7 % (35.0-46.0); MEAN CELL VOLUME 84.6 FL (80.0-100.0); MEAN CORPUSCULAR HEMOGLOBIN 28.7 PG (27.0-34.0); MEAN CORPUSCULAR HGB CONC 33.9 % (32.0-36.0); PLATELET COUNT 68 TH/MM3 (150-450); RED BLOOD COUNT 4.93 MIL/MM3 (4.00-5.30); RED CELL DISTRIBUTION WIDTH 15.2 % (11.6-17.2); WHITE BLOOD COUNT 21.5 TH/MM3 (4.0-11.0)
[2017-01-17 20:06] LABS: APTT (PATIENT) 26.2 SEC (24.3-30.1); INTERNATIONAL NORMALIZED RATIO 1.1 RATIO; PROTHROMBIN TIME - PATIENT 12.4 SEC (9.8-11.6)
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
[2017-01-17] MEDS: CHLORHEXIDINE 0.12% (ORAL KIT) 15 ML CUP MT SCH (20:27)
[2017-01-17 20:29] LABS: BICARBONATE 24.4 MEQ/L (21.0-32.0); POTASSIUM 3.1 MEQ/L (3.5-5.1)
[2017-01-17 20:30] LABS: TOTAL BILIRUBIN ADULT 1.2 MG/DL (0.2-1.0)
[2017-01-17 20:32] LABS: CALCIUM-PROTEIN CORRECTED 7.4 MG/DL (8.5-10.1)
[2017-01-17 20:33] LABS: REVIEW FLAG FINAL
[2017-01-17 21:00] LABS: BLOOD GAS BASE EXCESS -1.9 mmol/L (-2-2); BLOOD GAS CARBOXYHEMOGLOBIN 1.6 % (0-4); BLOOD GAS HCO3 22 mmol/L (22-26); BLOOD GAS O2 HGB SATURATION 93 % (90-100); BLOOD GAS OXYGEN CONTENT 15.7 Vol % (12.0-20.0); BLOOD GAS PCO2 35 mmHg (38-42); BLOOD GAS PO2 73 mmHg (61-120); BLOOD GAS TOTAL HGB 11.9 G/DL (12.0-16.0); CRITICAL VALUE NO; DRAW SITE ART LINE; FIO2 50 %; OXYGEN DEVICE PRVC/AC; STAT NO; TEMP CORR TO 98.6
[2017-01-17] MEDS: DOCUSATE SODIUM 50 MG/SENNA 8.6 MG TAB PO SCH (21:00)
[2017-01-17 23:58] LABS: AUTOMATED NEUTROPHIL # 14.6 TH/MM3 (1.8-7.7); BASOPHIL % 0.2 % (0.0-2.0); HEMATOCRIT 29.7 % (35.0-46.0); LYMPH % 6.6 % (9.0-44.0); LYMPHOCYTE # 1.1 TH/MM3 (1.0-4.8); MEAN CELL VOLUME 83.2 FL (80.0-100.0); MEAN CORPUSCULAR HEMOGLOBIN 28.9 PG (27.0-34.0); MEAN CORPUSCULAR HGB CONC 34.7 % (32.0-36.0); MONO % 5.6 % (0.0-8.0); NEUT % 87.6 % (16.0-70.0); PLATELET COUNT 44 TH/MM3 (150-450); RED BLOOD COUNT 3.57 MIL/MM3 (4.00-5.30); RED CELL DISTRIBUTION WIDTH 15.2 % (11.6-17.2); WHITE BLOOD COUNT 16.6 TH/MM3 (4.0-11.0)
[2017-01-17 23:59] LABS: HEMO FLAGS AUTO DIFF
[2017-01-18] VITALS (19 sets, daily range): BP systolic 106–156; BP diastolic 50–76; PULSE 84–95; RESP 16–22; TEMP 94–100.2; O2SAT 0–97
[2017-01-18] MEDS: SODIUM CHLORIDE 0.9% FLUSH 10 ML FLUSH SCH ×3 (00:57→21:00)
[2017-01-18] MEDS: BACITRACIN TOP OINT 15 GM TUBE TOPICAL SCH ×3 (00:57→22:05)
[2017-01-18 01:28] LABS: BANDS 26 % (0-6); METAMYELOCYTES 9 % (0-1); NEUTROPHIL # MANUAL DIFF 14.8 TH/MM3 (1.8-7.7); PLATELET ESTIMATE SMEAR LOW (NORMAL); PLATELET MORPHOLOGY NORMAL (NORMAL); POLYS (SEG NEUTROPHILS) 54 % (16-70); SCAN/DIFF FINAL DIFF MANUAL; WBC DIFF SAMPLE 100
[2017-01-18 03:30] LABS: AUTOMATED NEUTROPHIL # 14.3 TH/MM3 (1.8-7.7); BASOPHIL % 0.2 % (0.0-2.0); LYMPH % 7.6 % (9.0-44.0); LYMPHOCYTE # 1.3 TH/MM3 (1.0-4.8); MEAN CELL VOLUME 83.3 FL (80.0-100.0); MEAN CORPUSCULAR HEMOGLOBIN 29.2 PG (27.0-34.0); MEAN CORPUSCULAR HGB CONC 35.1 % (32.0-36.0); MONO % 6.5 % (0.0-8.0); NEUT % 85.7 % (16.0-70.0); PLATELET COUNT 41 TH/MM3 (150-450); RED BLOOD COUNT 3.48 MIL/MM3 (4.00-5.30); WHITE BLOOD COUNT 16.8 TH/MM3 (4.0-11.0)
[2017-01-18 03:36] LABS: HEMO FLAGS AUTO DIFF
[2017-01-18 03:55] LABS: BICARBONATE 25.2 MEQ/L (21.0-32.0); MAGNESIUM 1.5 MG/DL (1.5-2.5); POTASSIUM 3.3 MEQ/L (3.5-5.1); TOTAL BILIRUBIN ADULT 0.8 MG/DL (0.2-1.0)
--- NOTE | 2017-01-18 04:01 | RADRPT ---
EXAM DATE/TIME: 01/18/2017 03:19 [facility] COMPARISON: CT THORAX W CONTRAST, January 17, 2017, 10:22. INDICATIONS : Shortness of breath. MEDICAL HISTORY : Non-responsive SURGICAL HISTORY : Non-responsive ENCOUNTER: Subsequent ACUITY: 2 days PAIN SCORE: Non-responsive. LOCATION: Bilateral chest FINDINGS: Multiple left rib fractures are again noted. Left chest tube remains in place. No perceptible pneumot horax. Small left chest wall emphysema noted, not significantly changed from the CT. An area of dense consolidation again seen in the right lower lobe, probably unchanged. A small right pleural effusion is possibly developing. Endotracheal tube tip is at the level of the thoracic inlet. There is a nasogastric tube with tip in the stomach. There is a left subclavian central venous catheter with tip in the left brachiocephalic vein near its junction with the SVC. CONCLUSION: 1. No definite change from the posttrauma CT. Lines and tubes as above including a left chest tube. N o perceptible pneumothorax. There is right lower lobe consolidation again noted and potentially a dev eloping right pleural effusion. 2. Multiple left rib fractures are again seen. Leonard Cespedes MD on January 18, 2017 at 3:57 Board Certified Radiologist. This report was verified electronically.
[2017-01-18 04:06] LABS: CALCIUM-PROTEIN CORRECTED 7.3 MG/DL (8.5-10.1)
[2017-01-18] MEDS ORDERED: SODIUM PHOSPHATE INJ 30 MMOL in SODIUM CHLOR 0.9% 250 ML INJ 240 ML IV PRN (04:45)
[2017-01-18] MEDS ORDERED: MAGNESIUM OXIDE 400 MG TAB PO PRN (04:45)
[2017-01-18] MEDS ORDERED: POTASSIUM CHLOR 20 MEQ PREMIX 100 ML IV PRN (04:45)
[2017-01-18] MEDS ORDERED: POTASSIUM PHOSPHATE MONOBASIC 500 MG TAB PO PRN (04:45)
[2017-01-18] MEDS ORDERED: POTASSIUM PHOSPHATE MONOBASIC 500 MG TAB PO/TUBE PRN (04:45)
[2017-01-18] MEDS ORDERED: POTASSIUM CHLORIDE 25 MEQ EFFERVESCENT TAB PO PRN (04:45)
[2017-01-18] MEDS ORDERED: POTASSIUM PHOSPHATE INJ 30 MMOL in SODIUM CHLOR 0.9% 250 ML INJ 250 ML IV PRN (04:45)
[2017-01-18] MEDS ORDERED: MAGNESIUM SULFATE INJ 4 GM in SODIUM CHLORIDE 0.9% INJ 92 ML IV PRN (04:45)
[2017-01-18] MEDS ORDERED: CALCIUM GLUCONATE INJ 2 GM in SODIUM CHLORIDE 0.9% INJ 100 ML IV ONE (05:00)
[2017-01-18] MEDS: CHLORHEXIDINE GLUCONATE 2 % 1 PACK (2 CLOTHS) TOP SCH (05:01)
[2017-01-18] MEDS: POTASSIUM CHLOR 40 MEQ PREMIX 100 ML IV PRN (05:04)
[2017-01-18 05:13] LABS: BLOOD GAS BASE EXCESS -0.5 mmol/L (-2-2); BLOOD GAS CARBOXYHEMOGLOBIN 1.4 % (0-4); BLOOD GAS HCO3 23 mmol/L (22-26); BLOOD GAS METHEMOGLOBIN 0.8 % (0-2); BLOOD GAS O2 HGB SATURATION 91 % (90-100); BLOOD GAS OXYGEN CONTENT 12.7 Vol % (12.0-20.0); BLOOD GAS PCO2 32 mmHg (38-42); BLOOD GAS PO2 60 mmHg (61-120); BLOOD GAS TOTAL HGB 9.9 G/DL (12.0-16.0); CRITICAL VALUE NO; DRAW SITE ART LINE; FIO2 50 %; OXYGEN DEVICE VENTILATOR; STAT NO; TEMP CORR TO 98.6; VENT SETTINGS PRVC/AC
[2017-01-18 06:17] LABS: BANDS 33 % (0-6); METAMYELOCYTES 8 % (0-1); NEUTROPHIL # MANUAL DIFF 14.8 TH/MM3 (1.8-7.7); POLYS (SEG NEUTROPHILS) 47 % (16-70); SCAN/DIFF FINAL DIFF MANUAL; WBC DIFF SAMPLE 100
[2017-01-18 06:19] LABS: DOHLE BODIES PRESENT (NONE SEEN); PLATELET ESTIMATE SMEAR LOW (NORMAL); PLATELET MORPHOLOGY NORMAL (NORMAL)
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
[2017-01-18] MEDS: CHLORHEXIDINE 0.12% (ORAL KIT) 15 ML CUP MT SCH ×2 (08:06→22:06)
[2017-01-18] MEDS: PANTOPRAZOLE SODIUM 40 MG VIAL IV SCH (08:06)
[2017-01-18] MEDS: DOCUSATE SODIUM 50 MG/SENNA 8.6 MG TAB PO SCH ×2 (08:06→21:00)
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
[2017-01-18] MEDS: SODIUM CHLOR 0.9% 1000 ML INJ 1,000 ML IV SCH (09:07)
[2017-01-18] MEDS ORDERED: LACTATED RINGER'S 1000 ML INJ 1,000 ML IV ONE ×3 (09:30→19:00)
[2017-01-18] MEDS: fentaNYL DRIP 250 ML IV SCH (09:37)
[2017-01-18] MEDS: MAGNESIUM SULFATE INJ 2 GM in SODIUM CHLORIDE 0.9% INJ 96 ML IV PRN (09:57)
[2017-01-18] MEDS: LACTATED RINGER'S 1000 ML INJ 1,000 ML IV SCH ×2 (10:02→22:46)
[2017-01-18] MEDS ORDERED: SODIUM CHLOR 0.9% 250 ML INJ 250 ML IV ONE (11:00)
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
[2017-01-18] MEDS ORDERED: IOHEXOL 350 MG/ML 10 ML VIAL (for RAD DIAG) IV ONE (11:03)
[2017-01-18] MEDS ORDERED: SODIUM BICARBONATE 8.4% INJ 50 MEQ/50 ML SYR IV ONE (11:23)
[2017-01-18] MEDS ORDERED: CALCIUM CHLORIDE 10% SOLN 1 GRAM/10 ML SYR IV ONE (11:23)
[2017-01-18] MEDS ORDERED: PHENYLEPH/NS 1000 MCG/10 ML SYR IV ONE (11:23)
[2017-01-18] MEDS ORDERED: NORMOSOL R INJ 1,000 ML IV ONE (11:23)
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
[2017-01-18] MEDS: LIDOCAINE HCL 5% PATCH T-DERMAL SCH (12:07)
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
[2017-01-18 14:15] LABS: HEMATOCRIT 27.8 % (35.0-46.0); MEAN CELL VOLUME 84.2 FL (80.0-100.0); MEAN CORPUSCULAR HEMOGLOBIN 28.9 PG (27.0-34.0); MEAN CORPUSCULAR HGB CONC 34.3 % (32.0-36.0); PLATELET COUNT 90 TH/MM3 (150-450); RED CELL DISTRIBUTION WIDTH 15.9 % (11.6-17.2); WHITE BLOOD COUNT 17.3 TH/MM3 (4.0-11.0)
[2017-01-18 14:17] LABS: REVIEW FLAG FINAL
[2017-01-18 14:43] LABS: BICARBONATE 25.2 MEQ/L (21.0-32.0); MAGNESIUM 2.8 MG/DL (1.5-2.5); POTASSIUM 3.8 MEQ/L (3.5-5.1)
--- NOTE | 2017-01-18 15:02 | RADRPT ---
EXAM DATE/TIME: 01/18/2017 14:09 [place] COMPARISON: No previous studies available for comparison. INDICATIONS : Fracture. MEDICAL HISTORY : Non-responsive.Trauma. SURGICAL HISTORY : Non-responsive. ENCOUNTER: Initial ACUITY: 1 day PAIN SCORE: Non-responsive. LOCATION: Left Knee. FINDINGS: 4 views of the left knee reveal acute fracture through the lateral tibial plateau with depression. De pression measures approximately 6 mm. A portion of the fracture line extends towards the medial plate au where it extends through the articular surface of the most lateral portion of the medial plateau. No depression of the medial plateau. Moderate size joint effusion. CONCLUSION: Acute fracture involving the proximal tibia with moderate size joint effusion. Details given above. Avinash Santana Jr., MD on January 18, 2017 at 14:58 Board Certified Radiologist. This report was verified electronically.
[2017-01-18 15:08] LABS: CALCIUM-PROTEIN CORRECTED 8.2 MG/DL (8.5-10.1)
--- NOTE | 2017-01-18 15:48 | HHI.PR ---
Progress Notes/Response to Tx Progress Note Narrative Dr. Turk for Dr. Lorenzo: Patient intubated and sedated. Will evaluate when there is congregational of alertness. Gloria Turk PhD Jan 18, 2017 15:48
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
[2017-01-18] MEDS ORDERED: TERBUTALINE INJ 1 MG/ML AMP SQ PRN (18:30)
[2017-01-18] MEDS ORDERED: ALBUMIN HUMAN 5% 25 GM/500 ML BOTTLE IV ONE (18:30)
[2017-01-18 18:36] LABS: HEMATOCRIT 23.1 % (35.0-46.0); MEAN CELL VOLUME 86.2 FL (80.0-100.0); MEAN CORPUSCULAR HEMOGLOBIN 27.7 PG (27.0-34.0); MEAN CORPUSCULAR HGB CONC 32.1 % (32.0-36.0); PLATELET COUNT 71 TH/MM3 (150-450); RED BLOOD COUNT 2.68 MIL/MM3 (4.00-5.30); RED CELL DISTRIBUTION WIDTH 15.9 % (11.6-17.2); WHITE BLOOD COUNT 12.3 TH/MM3 (4.0-11.0)
[2017-01-18] MEDS: NOREPINEPHRINE-DEXTROSE DRIP 250 ML IV SCH (18:36)
[2017-01-18 18:38] LABS: REVIEW FLAG FINAL
[2017-01-18] MEDS ORDERED: VASOPRESSIN 20 UNITS/ML VIAL (IVTITR) ONE (18:46)
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
[2017-01-18 19:33] LABS: BLOOD GAS BASE EXCESS -17.5 mmol/L (-2-2); BLOOD GAS CARBOXYHEMOGLOBIN 1.5 % (0-4); BLOOD GAS HCO3 11 mmol/L (22-26); BLOOD GAS METHEMOGLOBIN 1.6 % (0-2); BLOOD GAS O2 HGB SATURATION 96 % (90-100); BLOOD GAS OXYGEN CONTENT 8.5 Vol % (12.0-20.0); BLOOD GAS PCO2 44 mmHg (38-42); BLOOD GAS PO2 210 mmHg (61-120); BLOOD GAS TOTAL HGB 5.9 G/DL (12.0-16.0); TEMP CORR TO 98.6
[2017-01-18 19:36] LABS: CRITICAL VALUE YES
[2017-01-18] MEDS ORDERED: GELFOAM SIZE 100 TOPICAL ONE (19:38)
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
[2017-01-18 21:00] LABS: BLOOD GAS BASE EXCESS -5.7 mmol/L (-2-2); BLOOD GAS CARBOXYHEMOGLOBIN 1.1 % (0-4); BLOOD GAS HCO3 18 mmol/L (22-26); BLOOD GAS METHEMOGLOBIN 0.7 % (0-2); BLOOD GAS O2 HGB SATURATION 98 % (90-100); BLOOD GAS OXYGEN CONTENT 19.2 Vol % (12.0-20.0); BLOOD GAS PCO2 29 mmHg (38-42); BLOOD GAS PO2 305 mmHG (61-120); BLOOD GAS TOTAL HGB 13.4 G/DL (12.0-16.0); CRITICAL VALUE NO; DRAW SITE ART LINE; FIO2 100 %; OXYGEN DEVICE VENTILATOR; STAT YES; TEMP CORR TO 98.6; VENT SETTINGS PRVC/AC
--- NOTE | 2017-01-18 21:10 | RADRPT ---
EXAM DATE/TIME: 01/18/2017 20:57 [facility] COMPARISON: FEMUR LEFT (AP & LAT/2VWS), January 17, 2017, 15:29. KNEE LEFT COMPLETE (4VWS), January 18, 2017, 14:09. INDICATIONS : Unable to obtain instrument count in operating room for open left femur. MEDICAL HISTORY : None. SURGICAL HISTORY : None. ENCOUNTER: Subsequent ACUITY: 2 days PAIN SCORE: Non-responsive. LOCATION: Left femur. FINDINGS: Multiple radiopaque foreign objects are seen in the operative site. There are no retained surgical i nstruments. CONCLUSION: Negative for retained surgical isthmus. Other communicated to the operating room. Marques Sierra MD FACR on January 18, 2017 at 21:05 Board Certified Radiologist. This report was verified electronically.
--- NOTE | 2017-01-18 21:21 | RADRPT ---
EXAM DATE/TIME: 01/18/2017 20:54 [facility] COMPARISON: CHEST SINGLE AP, January 18, 2017, 3:19. INDICATIONS : Trauma, evaluate lung status. MEDICAL HISTORY : None. SURGICAL HISTORY : None. ENCOUNTER: Subsequent ACUITY: 2 days PAIN SCORE: Non-responsive. LOCATION: Chest FINDINGS: ET tube, nasogastric tube, introducing catheter and left chest tube are in good positio n. Subcutaneous emphysema is present on the left chest wall. Left rib fractures are noted. Nasogas tric tube is across the GE junction. CONCLUSION: Stable appearance to the chest with support apparatus in good position. Marques Sierra MD FACR on January 18, 2017 at 21:12 Board Certified Radiologist. This report was verified electronically.
[2017-01-18 21:59] LABS: BICARBONATE 19.9 MEQ/L (21.0-32.0); MAGNESIUM 1.9 MG/DL (1.5-2.5); TOTAL BILIRUBIN ADULT 1.1 MG/DL (0.2-1.0)
[2017-01-18] MEDS: FREE WATER G-TUBE SCH (22:00)
[2017-01-18 22:03] LABS: POTASSIUM 3.9 MEQ/L (3.5-5.1)
[2017-01-18 22:04] LABS: CALCIUM-PROTEIN CORRECTED 7.3 MG/DL (8.5-10.1)
[2017-01-18] MEDS: PROPOFOL 1000 MG/100 ML INJ 100 ML IV SCH (22:05)
[2017-01-18 22:25] LABS: HEMATOCRIT 46.7 % (35.0-46.0); MEAN CELL VOLUME 83.3 FL (80.0-100.0); MEAN CORPUSCULAR HEMOGLOBIN 28.6 PG (27.0-34.0); MEAN CORPUSCULAR HGB CONC 34.4 % (32.0-36.0); PLATELET COUNT 24 TH/MM3 (150-450); RED BLOOD COUNT 5.61 MIL/MM3 (4.00-5.30); RED CELL DISTRIBUTION WIDTH 16.8 % (11.6-17.2); WHITE BLOOD COUNT 9.6 TH/MM3 (4.0-11.0)
[2017-01-18 22:31] LABS: REVIEW FLAG FINAL
[2017-01-18 22:36] LABS: APTT (PATIENT) 43.7 SEC (24.3-30.1); INTERNATIONAL NORMALIZED RATIO 1.2 RATIO; PROTHROMBIN TIME - PATIENT 13.6 SEC (9.8-11.6)
[2017-01-19] VITALS (16 sets, daily range): BP systolic 109–130; BP diastolic 60–70; PULSE 78–100; RESP 16; TEMP 96.6–100.2; O2SAT 91–100
[2017-01-19] MEDS ORDERED: CALCIUM GLUCONATE INJ 2 GM in SODIUM CHLORIDE 0.9% INJ 100 ML IV ONE (01:15)
--- NOTE | 2017-01-19 03:42 | RADRPT ---
EXAM DATE/TIME: 01/19/2017 02:28 [facility] COMPARISON: CHEST SINGLE AP, January 18, 2017, 20:54. INDICATIONS : Respiratory distress. MEDICAL HISTORY : Carcinoma, breast. SURGICAL HISTORY : Hysterectomy. Mastectomy, bilateral ENCOUNTER: Subsequent ACUITY: 3 days PAIN SCORE: Non-responsive. LOCATION: Bilateral chest FINDINGS: Single AP view of the chest. Endotracheal tube, nasogastric tube, and left subclavian central venous catheter remain in place. Left-sided chest tube remains in place. Hazy opacity in the right lung unch anged. No evidence of pneumothorax. CONCLUSION: No significant interval change. Left-sided chest tube remains in place. No evidence of pneumothorax. Sg Nobles MD on January 19, 2017 at 3:40 Board Certified Radiologist. This report was verified electronically.
[2017-01-19] MEDS: CHLORHEXIDINE GLUCONATE 2 % 1 PACK (2 CLOTHS) TOP SCH (04:00)
--- NOTE | 2017-01-19 04:53 | RADRPT ---
EXAM DATE/TIME: 01/19/2017 04:24 [facility] COMPARISON: CT BRAIN W/O CONTRAST, January 18, 2017, 10:50. INDICATIONS : Follow up hemorrhage. RADIATION DOSE: 64.12 CTDIvol (mGy) MEDICAL HISTORY : Non-responsive. SURGICAL HISTORY : Non-responsive. ENCOUNTER: Subsequent ACUITY: 1 day PAIN SCALE: Non-responsive LOCATION: cranial TECHNIQUE: Multiple contiguous axial images were obtained of the head. Using automated exposure control and adj ustment of the mA and/or kV according to patient size, radiation dose was kept as low as reasonably a chievable to obtain optimal diagnostic quality images. DICOM format image data is available electro nically for review and comparison. FINDINGS: CEREBRUM: Scattered areas of subarachnoid hemorrhage in the frontoparietal sulci unchanged from most recent com parison stimulation of 01/18/2017. Small amount of hemorrhage in the dependent portions of the lateral ventricles unchanged. No mass effect or midline shift. POSTERIOR FOSSA: The cerebellum and brainstem are intact. The 4th ventricle is midline. The cerebellopontine angle i s unremarkable. EXTRACRANIAL: Facial bones fractures again noted. Prominent amount of hemorrhagic material in the left maxillary si nus. CONCLUSION: No change in scattered subarachnoid hemorrhage and intraventricular hemorrhage. Sg Nobles MD on January 19, 2017 at 4:48 Board Certified Radiologist. This report was verified electronically.
--- NOTE | 2017-01-19 04:58 | RADRPT ---
EXAM DATE/TIME: 01/19/2017 04:26 [facility] COMPARISON: KNEE LEFT COMPLETE (4VWS), January 18, 2017, 14:09. INDICATIONS : Evaluate fracture. RADIATION DOSE: 7.29 CTDIvol (mGy) MEDICAL HISTORY : Non-responsive. SURGICAL HISTORY : Non-responsive. ENCOUNTER: Initial ACUITY: 1 day PAIN SCALE: Non-responsive LOCATION: Left knee TECHNIQUE: Volumetric scanning of the knee was performed. Using automated exposure control and adjustment of th e mA and/or kV according to patient size, radiation dose was kept as low as reasonably achievable to obtain optimal diagnostic quality images. DICOM format image data is available electronically for re view and comparison. FINDINGS: BONES: Comminuted fracture of the tibial plateau involving the lateral tibial condyle and intercondylar ashutosh on with small area of involvement of the posterior aspect of the medial tibial condyle. Depressed lat eral tibial condyle fragment measures 2.5 cm in anterior to posterior dimension and 2.1 cm in medial lateral dimension with 2 mm step-off at the articular cortex. Articular cortex gap of the lateral tib ial condyle measures up to 4 mm in width. Central intercondylar bone fragment measures 1.6 x 2.7 cm. JOINTS: Large joint effusion with likely hemarthrosis SOFT TISSUES: Muscles, tendons and neurovascular structures are grossly unremarkable. No evidence of mass, organize d fluid collection, or foreign body. CONCLUSION: 1. Comminuted intra-articular fracture of the proximal tibia involving the lateral tibial condyle and intercondylar regions. 2. Lipo hemarthrosis. Sg Nobles MD on January 19, 2017 at 4:51 Board Certified Radiologist. This report was verified electronically.
[2017-01-19] MEDS: SODIUM CHLOR 0.9% 1000 ML INJ 1,000 ML IV SCH ×2 (05:07→23:02)
[2017-01-19 05:37] LABS: BLOOD GAS BASE EXCESS -0.4 mmol/L (-2-2); BLOOD GAS CARBOXYHEMOGLOBIN 1.1 % (0-4); BLOOD GAS HCO3 24 mmol/L (22-26); BLOOD GAS O2 HGB SATURATION 97 % (90-100); BLOOD GAS OXYGEN CONTENT 18.9 Vol % (12.0-20.0); BLOOD GAS PCO2 38 mmHg (38-42); BLOOD GAS PO2 122 mmHg (61-120); BLOOD GAS TOTAL HGB 13.8 G/DL (12.0-16.0); TEMP CORR TO 98.6
[2017-01-19 05:38] LABS: CRITICAL VALUE NO; DRAW SITE ART LINE; FIO2 70 %; OXYGEN DEVICE VENTILATOR; STAT NO
[2017-01-19] MEDS: FREE WATER G-TUBE SCH ×3 (06:00→22:14)
[2017-01-19 06:44] LABS: AUTOMATED NEUTROPHIL # 7.1 TH/MM3 (1.8-7.7); BASOPHIL % 0.3 % (0.0-2.0); EOSINOPHIL % 0.1 % (0.0-4.0); HEMATOCRIT 38.1 % (35.0-46.0); LYMPH % 9.3 % (9.0-44.0); LYMPHOCYTE # 0.8 TH/MM3 (1.0-4.8); MEAN CELL VOLUME 81.1 FL (80.0-100.0); MEAN CORPUSCULAR HEMOGLOBIN 28.9 PG (27.0-34.0); MEAN CORPUSCULAR HGB CONC 35.6 % (32.0-36.0); MONO % 9.4 % (0.0-8.0); NEUT % 80.9 % (16.0-70.0); PLATELET COUNT 155 TH/MM3 (150-450); RED CELL DISTRIBUTION WIDTH 17.1 % (11.6-17.2); WHITE BLOOD COUNT 8.8 TH/MM3 (4.0-11.0)
[2017-01-19 06:50] LABS: HEMO FLAGS AUTO DIFF
[2017-01-19 07:06] LABS: BICARBONATE 26.5 MEQ/L (21.0-32.0); CALCIUM-PROTEIN CORRECTED 8.3 MG/DL (8.5-10.1); POTASSIUM 3.8 MEQ/L (3.5-5.1); TOTAL BILIRUBIN ADULT 1.2 MG/DL (0.2-1.0)
[2017-01-19] MEDS: CHLORHEXIDINE 0.12% (ORAL KIT) 15 ML CUP MT SCH ×2 (08:00→20:15)
[2017-01-19 08:09] LABS: BANDS 46 % (0-6); CORRECTED NUCLEATED RBC 5 /100 WBC (0-0); DOHLE BODIES PRESENT (NONE SEEN); METAMYELOCYTES 14 % (0-1); NEUTROPHIL # MANUAL DIFF 7.6 TH/MM3 (1.8-7.7); POLYS (SEG NEUTROPHILS) 26 % (16-70); WBC DIFF SAMPLE 100
[2017-01-19 08:10] LABS: BURR CELLS 1+ (NORMAL); OVALOCYTES 1+ (NORMAL)
[2017-01-19 08:11] LABS: PLATELET ESTIMATE SMEAR NORMAL (NORMAL); PLATELET MORPHOLOGY NORMAL (NORMAL); SCAN/DIFF FINAL DIFF MANUAL
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
[2017-01-19] MEDS: SODIUM CHLORIDE 0.9% FLUSH 10 ML FLUSH SCH ×2 (08:55→20:15)
[2017-01-19] MEDS: PIPERACIL-TAZO 4.5 GM PREMIX 100 ML IV SCH ×3 (08:56→22:08)
[2017-01-19] MEDS: DOCUSATE SODIUM 50 MG/SENNA 8.6 MG TAB PO SCH ×2 (08:56→22:14)
[2017-01-19] MEDS: PANTOPRAZOLE SODIUM 40 MG VIAL IV SCH (08:56)
[2017-01-19] MEDS: BACITRACIN TOP OINT 15 GM TUBE TOPICAL SCH ×2 (08:58→22:15)
[2017-01-19] MEDS: LIDOCAINE HCL 5% PATCH T-DERMAL SCH (09:00)
[2017-01-19] MEDS: REMOVE OLD LIDOCAINE PATCH T-DERMAL SCH (09:00)
[2017-01-19] MEDS ORDERED: LACTATED RINGER'S 1000 ML INJ 1,000 ML IV ONE (09:15)
[2017-01-19] MEDS: HEPARIN SODIUM - SQ 10,000 UNITS/ML VIAL SQ SCH ×3 (10:00→22:14)
[2017-01-19 10:14] LABS: BACTERIA, URINE OCC /hpf; BLOOD, URINE MOD (NEG); GLUCOSE,URINE NEG (NEG); KETONE, URINE NEG (NEG); MUCUS URINE FEW /lpf (OCC); NITRITE,URINE NEG (NEG); SQUAMOUS EPITHELIAL CELL URINE <1 /hpf (0-5); URINE COLOR YELLOW (YELLW/STRAW)
[2017-01-19 10:15] LABS: COMMENT (UR) CATH-CULTURE IND; CULTURE IF INDICATED CATH CULTURE IND
[2017-01-19] MEDS: RESP: ALBUTEROL 2.5 MG/IPRATROPIUM 0.5 MG NEB (SCH) NEB ×4 (11:47→23:15)
[2017-01-19] MEDS: LACTATED RINGER'S 1000 ML INJ 1,000 ML IV SCH (12:10)
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
[2017-01-19] MEDS: PROPOFOL 1000 MG/100 ML INJ 100 ML IV SCH ×2 (15:23→22:20)
[2017-01-19 17:08] LABS: HEMATOCRIT 33.1 % (35.0-46.0); MEAN CELL VOLUME 81.3 FL (80.0-100.0); MEAN CORPUSCULAR HEMOGLOBIN 29.1 PG (27.0-34.0); MEAN CORPUSCULAR HGB CONC 35.8 % (32.0-36.0); PLATELET COUNT 99 TH/MM3 (150-450); RED BLOOD COUNT 4.07 MIL/MM3 (4.00-5.30); RED CELL DISTRIBUTION WIDTH 17.4 % (11.6-17.2); WHITE BLOOD COUNT 8.4 TH/MM3 (4.0-11.0)
[2017-01-19 17:15] LABS: REVIEW FLAG FINAL
--- NOTE | 2017-01-19 17:23 | HHI.PR ---
Progress Notes/Response to Tx Progress Note Narrative Patient intubated and sedated. No remarkable change and neurocognitive status. Gloria Turk PhD Jan 19, 2017 17:23
[2017-01-19 17:31] LABS: BICARBONATE 25.3 MEQ/L (21.0-32.0); POTASSIUM 3.5 MEQ/L (3.5-5.1)
--- NOTE | 2017-01-19 17:46 | HHI.NSPN ---
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 Urobilinogen LESS THAN 2.0 MG/DL Urine Leukocyte Esterase NEG Urine RBC 71 /hpf Urine WBC 7 /hpf Urine Squamous Epithelial <1 /hpf Cells Urine Bacteria OCC /hpf Urine Mucus FEW /lpf Microscopic Urinalysis Comment CATH-CULTURE IND Vital Signs Date Time Temp Pulse Resp B/P Pulse Ox O2 Delivery O2 Flow Rate FiO2 01/19/17 16:00 82 01/19/17 16:00 98.6 82 16 126/62 96 01/19/17 16:00 50 01/19/17 14:00 88 01/19/17 12:00 99.0 88 16 114/70 92 01/19/17 12:00 88 01/19/17 12:00 50 01/19/17 11:32 91 50 01/19/17 10:00 80 01/19/17 08:00 98.2 82 16 130/60 98 01/19/17 08:00 50 01/19/17 08:00 81 01/19/17 07:43 98 50 01/19/17 07:00 Mechanical Ventilator 15.00 70 01/19/17 04:15 100 100 01/19/17 04:02 96 70 01/19/17 04:00 98.2 82 16 120/66 96 01/19/17 04:00 70 01/19/17 01:02 97 70 01/19/17 00:00 75 01/19/17 00:00 96.6 78 16 123/66 98 119/68 01/18/17 21:01 0 75 01/18/17 20:00 94.0 84 16 156/76 92 122/71 01/18/17 20:00 Mechanical Ventilator 15.00 100 01/18/17 19:01 0 100 01/18/17 18:00 84 01/18/17 16:00 90 01/18/17 16:00 98.4 92 17 136/60 96 01/18/17 16:00 55 01/18/17 15:22 97 55 01/18/17 14:00 85 01/18/17 13:47 95 55 01/18/17 12:00 99.1 90 22 122/60 93 01/18/17 12:00 50 01/18/17 12:00 90 01/18/17 10:34 97 01/18/17 10:00 93 01/18/17 08:00 40 01/18/17 08:00 99.4 94 16 122/56 94 01/18/17 08:00 94 01/18/17 07:39 92 50 01/18/17 07:39 94 40 01/18/17 07:00 94 Mechanical Ventilator 40 01/18/17 06:00 90 01/18/17 04:00 100.2 94 16 122/54 96 01/18/17 04:00 94 01/18/17 04:00 50 01/18/17 03:20 94 50 01/18/17 02:00 94 01/18/17 00:04 96 50 01/18/17 00:00 94 01/18/17 00:00 99.1 90 16 106/50 96 01/18/17 00:00 50 01/17/17 22:00 96 01/17/17 21:12 97.8 99 17 136/63 99 01/17/17 20:50 97.8 98 16 130/60 98 01/17/17 20:00 101 01/17/17 20:00 50 01/17/17 20:00 97.8 102 16 103/58 99 01/17/17 19:43 100 50 01/17/17 19:00 100 Mechanical Ventilator 50 01/17/17 18:00 99 01/17/17 16:20 97.5 101 16 136/73 98 01/17/17 16:00 50 01/17/17 16:00 97.5 105 16 137/64 98 01/17/17 16:00 105 01/17/17 15:58 100 50 01/17/17 14:45 97.8 102 16 133/58 99 01/17/17 14:00 112 01/17/17 13:24 97 50 01/17/17 12:52 97 50 01/17/17 12:00 97.5 114 16 102/50 95 01/17/17 12:00 114 01/17/17 12:00 50 01/17/17 10:59 99 50 01/17/17 09:58 100 15.00 100 01/17/17 08:10 100 100 ([place]) Medical Decision Making Impression and Plan Impression: 1. Mild traumatic brain injury with cerebral contusion without significant edema or mass effect. 2. C6 vertebral body injury without significant distraction or subluxation, no significant canal or foraminal compromise. This appears to be primarily an oblique posterior vertebral fracture which does involve the left C6 pedicle. However it is likely that the ligamentous structures are intact, and there is no definite significant posterior column injury. 3. L1 compression fracture approximately 50%. To some extent, this appears to be chronic. There is bridging osteophyte at the T12-L1 facet with probable spontaneous fusion. Also more chronic appearing mild superior endplate and vertebral compression fractures at T11 and T12 level. No significant L1 retropulsion. 4. Positive sacral fractures CT brain demonstrates new tiny bilateral IVH and worsening of the bilateral SAH w/o any mass effect CT brain w/o any change to the SAH or IVH Sodium 151 Hypermagnesemia, resolved (2.8=>2.0) Decreased renal function Leukocytosis, resolved (17.3=>8.4) Thrombocytopenia, essentially stable (90=>99) Patient with decreased neurological response secondary to sedation Plan: Discussed plan of care with Nursing. Maintain cervical collar MRI cervical spine & lumbar spine w/o contrast when patient is stable Further management dependent upon MRI results ([place]) Attending Statement I have personally seen and examined the patient on the date of this note. Pertinent documentation and study results have been reviewed by the undersigned. I have personally developed the treatment plan and performed medical decision making. Agree with findings, exam, and treatment plan as noted above. Moderate spontaneous eye opening on exam. Not tracking with eyes or following commands in the extremities, but has mild bilateral hand grasp and moves lower extremities mild spontaneously and intermittent. CT scan head 01/19/17 images reviewed by the undersigned. No progression of small contusions-subarachnoid hemorrhage. May begin heparin from a neurosurgery standpoint May elevate head of bed to 30. We will wait to the patient is more stable to proceed with further spinal imaging studies. (Mikal Palomares MD) [place] Jan 19, 2017 17:46 Mikal Palomares MD Jan 19, 2017 20:22
[2017-01-19 17:54] LABS: CALCIUM-PROTEIN CORRECTED 8.5 MG/DL (8.5-10.1)
[2017-01-19] MEDS: fentaNYL DRIP 250 ML IV SCH (22:11)
[2017-01-20] VITALS (16 sets, daily range): BP systolic 91–109; BP diastolic 47–53; PULSE 52–96; RESP 16; TEMP 96.1–99.1; O2SAT 92–100
[2017-01-20] MEDS: LACTATED RINGER'S 1000 ML INJ 1,000 ML IV SCH ×3 (02:33→17:58)
[2017-01-20] MEDS: PIPERACIL-TAZO 4.5 GM PREMIX 100 ML IV SCH ×5 (02:35→21:07)
[2017-01-20] MEDS: CHLORHEXIDINE GLUCONATE 2 % 1 PACK (2 CLOTHS) TOP SCH (02:39)
[2017-01-20] MEDS: RESP: ALBUTEROL 2.5 MG/IPRATROPIUM 0.5 MG NEB (SCH) NEB ×5 (03:35→20:14)
[2017-01-20 04:45] LABS: AUTOMATED NEUTROPHIL # 6.9 TH/MM3 (1.8-7.7); BASOPHIL % 0.2 % (0.0-2.0); EOSINOPHIL # 0.1 TH/MM3 (0-0.4); EOSINOPHIL % 1.4 % (0.0-4.0); HEMATOCRIT 30.7 % (35.0-46.0); LYMPH % 9.4 % (9.0-44.0); LYMPHOCYTE # 0.8 TH/MM3 (1.0-4.8); MEAN CELL VOLUME 82.7 FL (80.0-100.0); MEAN CORPUSCULAR HEMOGLOBIN 28.4 PG (27.0-34.0); MEAN CORPUSCULAR HGB CONC 34.3 % (32.0-36.0); MONO % 4.4 % (0.0-8.0); NEUT % 84.6 % (16.0-70.0); PLATELET COUNT 59 TH/MM3 (150-450); RED BLOOD COUNT 3.72 MIL/MM3 (4.00-5.30); RED CELL DISTRIBUTION WIDTH 17.5 % (11.6-17.2); WHITE BLOOD COUNT 8.1 TH/MM3 (4.0-11.0)
--- NOTE | 2017-01-20 04:48 | RADRPT ---
EXAM DATE/TIME: 01/20/2017 03:11 [facility] COMPARISON: CHEST SINGLE AP, December 29, 2016, 12:29. INDICATIONS : Trauma. MEDICAL HISTORY : None. SURGICAL HISTORY : None. ENCOUNTER: Initial ACUITY: 1 day PAIN SCORE: Non-responsive. LOCATION: Chest FINDINGS: There is subcutaneous emphysema left chest with a left-sided chest tube in place and multiple left-si ded rib fractures including the left third through 10th ribs. There is a small left apical pneumothor ax. Left subclavian central venous catheter introducer sheath overlies the left brachiocephalic vein region. Endotracheal tube tip at the inferior margin of the clavicles. Enteric tube tip left upper qu adrant. There is hazy increased density overlying the right lung base suspect for consolidation or th is may also be related to overlying soft tissues. CONCLUSION: 1. Small left apical pneumothorax suspected with chest tube in place. 2. Numerous left-sided rib fractures and subcutaneous emphysema. 3. Density overlying the right chest may be related to airspace disease or effusion versus artifact r elated to overlying soft tissues. Elvis Sexton MD on January 20, 2017 at 4:45 Board Certified Radiologist. This report was verified electronically.
[2017-01-20 04:51] LABS: HEMO FLAGS AUTO DIFF
[2017-01-20 05:10] LABS: BICARBONATE 25.7 MEQ/L (21.0-32.0); CALCIUM-PROTEIN CORRECTED 8.8 MG/DL (8.5-10.1); POTASSIUM 3.2 MEQ/L (3.5-5.1); TOTAL BILIRUBIN ADULT 0.9 MG/DL (0.2-1.0)
[2017-01-20] MEDS: POTASSIUM CHLOR 40 MEQ PREMIX 100 ML IV PRN ×2 (05:30→09:57)
[2017-01-20] MEDS: FREE WATER G-TUBE SCH ×3 (05:31→21:07)
[2017-01-20 05:38] LABS: BANDS 40 % (0-6); EOSINOPHILS 1 % (0-4); METAMYELOCYTES 1 % (0-1); NEUTROPHIL # MANUAL DIFF 7.7 TH/MM3 (1.8-7.7); POLYS (SEG NEUTROPHILS) 54 % (16-70); WBC DIFF SAMPLE 100
[2017-01-20 05:39] LABS: PLATELET ESTIMATE SMEAR LOW (NORMAL); PLATELET MORPHOLOGY NORMAL (NORMAL); SCAN/DIFF FINAL DIFF MANUAL
[2017-01-20 06:08] LABS: BLOOD GAS BASE EXCESS 1.3 mmol/L (-2-2); BLOOD GAS CARBOXYHEMOGLOBIN 1.2 % (0-4); BLOOD GAS HCO3 25 mmol/L (22-26); BLOOD GAS METHEMOGLOBIN 1.1 % (0-2); BLOOD GAS O2 HGB SATURATION 95 % (90-100); BLOOD GAS OXYGEN CONTENT 14.7 Vol % (12.0-20.0); BLOOD GAS PCO2 33 mmHg (38-42); BLOOD GAS PO2 86 mmHg (61-120); BLOOD GAS TOTAL HGB 10.9 G/DL (12.0-16.0); CRITICAL VALUE NO; OXYGEN DEVICE VENTILATOR; TEMP CORR TO 98.6; VENT SETTINGS PRVC
[2017-01-20 06:09] LABS: DRAW SITE RT RADIAL; FIO2 40 %; NUMBER OF ARTERIAL PUNCTURES 1; STAT NO; ULNAR PULSE PRESENT
[2017-01-20] MEDS: PROPOFOL 1000 MG/100 ML INJ 100 ML IV SCH ×4 (06:41→21:04)
[2017-01-20] MEDS: fentaNYL DRIP 250 ML IV SCH ×2 (06:41→21:06)
[2017-01-20] MEDS: CHLORHEXIDINE 0.12% (ORAL KIT) 15 ML CUP MT SCH ×2 (08:00→20:14)
[2017-01-20] MEDS: SODIUM CHLORIDE 0.9% FLUSH 10 ML FLUSH SCH ×2 (08:32→20:14)
[2017-01-20] MEDS: PANTOPRAZOLE SODIUM 40 MG VIAL IV SCH (08:32)
[2017-01-20] MEDS: DOCUSATE SODIUM 50 MG/SENNA 8.6 MG TAB PO SCH ×2 (08:33→21:07)
[2017-01-20] MEDS: LIDOCAINE HCL 5% PATCH T-DERMAL SCH (08:33)
[2017-01-20] MEDS: BACITRACIN TOP OINT 15 GM TUBE TOPICAL SCH ×2 (08:33→21:07)
[2017-01-20] MEDS: REMOVE OLD LIDOCAINE PATCH T-DERMAL SCH (08:33)
[2017-01-20] MEDS ORDERED: ALBUMIN HUMAN 5% 25 GM/500 ML BOTTLE IV ONE (09:15)
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
[2017-01-20] MEDS ORDERED: LACTATED RINGER'S 1000 ML INJ 1,000 ML IV ONE (12:29)
--- NOTE | 2017-01-20 13:27 | ECHRPT ---
Indication: HEART FAILURE CONCLUSIONS This was an extremely difficult study on a trauma patient. There were subcostals obtained. Unable to assess cardiac structure with uimages obtained. Study must be repeated. BP: 120 / 66 HR: 82 Rhythm: Sinus MEASUREMENTS (Male / Female) Normal Values Technical Quality:Very technically difficult study M-MODE LV Diastolic Diameter MM 2.9 cm 4.2 - 5.9 / 3.9 - 5.3 cm LV Systolic Diameter MM 2.0 cm LV Ejection Fraction MM Teich 60.8 % IVS Diastolic Thickness MM 1.1 cm 0.6 - 1.0 / 0.6 - 0.9 cm LVPW Diastolic Thickness MM 1.1 cm 0.6 - 1.0 / 0.6 - 0.9 cm LV Relative Wall Thickness MM 0.7 0.24 - 0.42 / 0.22 - 0.42 RV Diastolic Diameter MM 1.6 cm Jn Goldberg MD (Electronically Signed) Final Date:20 January 2017 13:26
[2017-01-20] MEDS ORDERED: ceFAZolin INJ 1,000 MG VIAL TOPICAL ONE (14:00)
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
--- NOTE | 2017-01-20 17:13 | PD.RAD ---
Post Procedure Progress Note Pre Procedure Diagnosis: (1) Head injury (2) Pelvic fracture Post Procedure Diagnosis: (1) Head injury (2) Pelvic fracture Procedure Date: Jan 20, 2017 Supervising Radiologist: Avinash Santana JR Proceduralist/Assist: Solange Onofre, RT(R)(), Mercedes Wu, RT(R) Anesthesia: Local Plan of Activity Patient to Unit: Critical Care Patient Condition: Fair See PACS Report for procedural detail/treatment Vascular-Venous Procedure Procedure 1 Procedure(s): Retrievable IVC Filter Access Access Site(s): Right Femoral Vein Findings: A retrievable IVC filter was deployed. This can be removed up to 1 year from today's date. Plan Retrieval of IVC filter within 1 year if clinically appropriate Jr. Max,Avinash Desai MD Jan 20, 2017 17:13
[2017-01-20] MEDS ORDERED: IOHEXOL 350 MG/ML 50 ML BTL (for RAD DIAG) IV ONE (17:21)
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
[2017-01-20 20:35] LABS: POTASSIUM 3.7 MEQ/L (3.5-5.1)
[2017-01-21] VITALS (16 sets, daily range): BP systolic 95–117; BP diastolic 46–53; PULSE 70–89; RESP 16; TEMP 98.8–100.2; O2SAT 95–100
[2017-01-21] MEDS: RESP: ALBUTEROL 2.5 MG/IPRATROPIUM 0.5 MG NEB (SCH) NEB ×6 (00:08→19:34)
[2017-01-21] MEDS: PIPERACIL-TAZO 4.5 GM PREMIX 100 ML IV SCH ×4 (02:52→20:44)
[2017-01-21] MEDS: LACTATED RINGER'S 1000 ML INJ 1,000 ML IV SCH ×4 (02:52→22:19)
[2017-01-21] MEDS: CHLORHEXIDINE GLUCONATE 2 % 1 PACK (2 CLOTHS) TOP SCH (04:00)
[2017-01-21 04:46] LABS: BLOOD GAS BASE EXCESS 0.5 mmol/L (-2-2); BLOOD GAS CARBOXYHEMOGLOBIN 1.2 % (0-4); BLOOD GAS HCO3 24 mmol/L (22-26); BLOOD GAS METHEMOGLOBIN 1.1 % (0-2); BLOOD GAS O2 HGB SATURATION 97 % (90-100); BLOOD GAS OXYGEN CONTENT 15.6 Vol % (12.0-20.0); BLOOD GAS PCO2 31 mmHg (38-42); BLOOD GAS PO2 140 mmHg (61-120); BLOOD GAS TOTAL HGB 11.3 G/DL (12.0-16.0); CRITICAL VALUE NO; DRAW SITE LT RADIAL; FIO2 45 %; NUMBER OF ARTERIAL PUNCTURES 1; OXYGEN DEVICE VENTILATOR; STAT NO; TEMP CORR TO 98.6; ULNAR PULSE PRESENT; VENT SETTINGS PRVC/AC
--- NOTE | 2017-01-21 04:46 | RADRPT ---
EXAM DATE/TIME: 01/21/2017 04:03 [place] COMPARISON: CHEST SINGLE AP, January 20, 2017, 3:11. INDICATIONS : Shortness of breath, possible pulmonary disease. MEDICAL HISTORY : Carcinoma, breast. SURGICAL HISTORY : Mastectomy, bilateral. Hysterectomy. ENCOUNTER: Subsequent ACUITY: 2 days PAIN SCORE: Non-responsive. LOCATION: Bilateral chest FINDINGS: Plate and screws fixation of left proximal humerus again noted. Left-sided rib fractures are again se en, left scapular fracture and skin jenny identified. There is hazy opacity overlying the right hem ithorax and a layering effusion versus overlying soft tissues can have this appearance. Overall this is stable. Left sided chest tube, endotracheal tube and enteric tube again noted. CONCLUSION: No significant change has occurred. Elvis Sexton MD on January 21, 2017 at 4:44 Board Certified Radiologist. This report was verified electronically.
[2017-01-21] MEDS: FREE WATER G-TUBE SCH ×3 (05:27→22:18)
[2017-01-21 05:28] LABS: AUTOMATED NEUTROPHIL # 3.9 TH/MM3 (1.8-7.7); BASOPHIL % 0.3 % (0.0-2.0); EOSINOPHIL # 0.2 TH/MM3 (0-0.4); EOSINOPHIL % 3.5 % (0.0-4.0); HEMATOCRIT 25.5 % (35.0-46.0); LYMPH % 14.7 % (9.0-44.0); LYMPHOCYTE # 0.7 TH/MM3 (1.0-4.8); MEAN CELL VOLUME 84.3 FL (80.0-100.0); MEAN CORPUSCULAR HEMOGLOBIN 29.2 PG (27.0-34.0); MEAN CORPUSCULAR HGB CONC 34.6 % (32.0-36.0); MONO % 5.2 % (0.0-8.0); NEUT % 76.3 % (16.0-70.0); PLATELET COUNT 46 TH/MM3 (150-450); RED BLOOD COUNT 3.02 MIL/MM3 (4.00-5.30); RED CELL DISTRIBUTION WIDTH 17.6 % (11.6-17.2); WHITE BLOOD COUNT 5.1 TH/MM3 (4.0-11.0)
[2017-01-21 05:37] LABS: HEMO FLAGS AUTO DIFF
[2017-01-21 06:31] LABS: BICARBONATE 25.6 MEQ/L (21.0-32.0); CALCIUM-PROTEIN CORRECTED 8.4 MG/DL (8.5-10.1); MAGNESIUM 1.8 MG/DL (1.5-2.5); POTASSIUM 3.4 MEQ/L (3.5-5.1); TOTAL BILIRUBIN ADULT 1.2 MG/DL (0.2-1.0)
[2017-01-21 07:19] LABS: BANDS 24 % (0-6); CORRECTED NUCLEATED RBC 4 /100 WBC (0-0); EOSINOPHILS 6 % (0-4); NEUTROPHIL # MANUAL DIFF 3.8 TH/MM3 (1.8-7.7); PLATELET ESTIMATE SMEAR LOW (NORMAL); PLATELET MORPHOLOGY NORMAL (NORMAL); POLYS (SEG NEUTROPHILS) 51 % (16-70); SCAN/DIFF FINAL DIFF MANUAL; WBC DIFF SAMPLE 100
[2017-01-21 07:20] LABS: DOHLE BODIES PRESENT (NONE SEEN)
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
[2017-01-21] MEDS: CHLORHEXIDINE 0.12% (ORAL KIT) 15 ML CUP MT SCH ×2 (08:00→20:43)
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
[2017-01-21] MEDS: REMOVE OLD LIDOCAINE PATCH T-DERMAL SCH (08:13)
[2017-01-21] MEDS: PANTOPRAZOLE SODIUM 40 MG VIAL IV SCH (08:13)
[2017-01-21] MEDS: BACITRACIN TOP OINT 15 GM TUBE TOPICAL SCH ×2 (08:13→21:10)
[2017-01-21] MEDS: DOCUSATE SODIUM 50 MG/SENNA 8.6 MG TAB PO SCH ×2 (08:13→20:44)
[2017-01-21] MEDS: SODIUM CHLORIDE 0.9% FLUSH 10 ML FLUSH SCH ×2 (08:13→20:43)
[2017-01-21] MEDS: LIDOCAINE HCL 5% PATCH T-DERMAL SCH (08:13)
[2017-01-21] MEDS: POTASSIUM CHLOR 40 MEQ PREMIX 100 ML IV PRN (08:14)
[2017-01-21] MEDS: PROPOFOL 1000 MG/100 ML INJ 100 ML IV SCH ×2 (08:14→16:56)
[2017-01-21] MEDS: fentaNYL DRIP 250 ML IV SCH ×2 (08:14→16:56)
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
[2017-01-21 13:09] LABS: HEPARIN AB OD 0.098 O.D. (0.000-0.300); HEPARIN INDUCED PLATELET AB NEGATIVE (NEGATIVE)
[2017-01-21 15:04] LABS: HEMATOCRIT 27.2 % (35.0-46.0)
[2017-01-21 15:09] LABS: REVIEW FLAG FINAL
[2017-01-21] MEDS: HEPARIN SODIUM - SQ 10,000 UNITS/ML VIAL SQ SCH (22:18)
[2017-01-22] VITALS (19 sets, daily range): BP systolic 94–133; BP diastolic 46–83; PULSE 80–95; RESP 14–16; TEMP 98.1–101.5; O2SAT 94–98
[2017-01-22] MEDS: RESP: ALBUTEROL 2.5 MG/IPRATROPIUM 0.5 MG NEB (SCH) NEB ×7 (00:27→23:51)
[2017-01-22] MEDS: PIPERACIL-TAZO 4.5 GM PREMIX 100 ML IV SCH ×3 (03:10→15:19)
[2017-01-22] MEDS: PROPOFOL 1000 MG/100 ML INJ 100 ML IV SCH ×4 (03:10→17:05)
[2017-01-22] MEDS: CHLORHEXIDINE GLUCONATE 2 % 1 PACK (2 CLOTHS) TOP SCH (04:00)
[2017-01-22 04:16] LABS: AUTOMATED NEUTROPHIL # 3.4 TH/MM3 (1.8-7.7); BASOPHIL % 0.2 % (0.0-2.0); EOSINOPHIL # 0.2 TH/MM3 (0-0.4); EOSINOPHIL % 5.1 % (0.0-4.0); HEMATOCRIT 25.4 % (35.0-46.0); LYMPH % 14.4 % (9.0-44.0); LYMPHOCYTE # 0.7 TH/MM3 (1.0-4.8); MEAN CELL VOLUME 85.2 FL (80.0-100.0); MEAN CORPUSCULAR HEMOGLOBIN 29.3 PG (27.0-34.0); MEAN CORPUSCULAR HGB CONC 34.5 % (32.0-36.0); MONO % 6.5 % (0.0-8.0); NEUT % 73.8 % (16.0-70.0); PLATELET COUNT 33 TH/MM3 (150-450); RED BLOOD COUNT 2.98 MIL/MM3 (4.00-5.30); RED CELL DISTRIBUTION WIDTH 17.3 % (11.6-17.2); WHITE BLOOD COUNT 4.5 TH/MM3 (4.0-11.0)
[2017-01-22 04:17] LABS: HEMO FLAGS AUTO DIFF
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
[2017-01-22 04:39] LABS: BICARBONATE 25.8 MEQ/L (21.0-32.0); MAGNESIUM 1.6 MG/DL (1.5-2.5); POTASSIUM 3.5 MEQ/L (3.5-5.1)
[2017-01-22 04:41] LABS: BANDS 12 % (0-6); CORRECTED NUCLEATED RBC 1 /100 WBC (0-0); EOSINOPHILS 2 % (0-4); NEUTROPHIL # MANUAL DIFF 3.6 TH/MM3 (1.8-7.7); POLYS (SEG NEUTROPHILS) 69 % (16-70); WBC DIFF SAMPLE 100
[2017-01-22 04:42] LABS: PLATELET ESTIMATE SMEAR LOW (NORMAL); PLATELET MORPHOLOGY ENLARGED (NORMAL); SCAN/DIFF FINAL DIFF MANUAL
[2017-01-22 04:48] LABS: CALCIUM-PROTEIN CORRECTED 8.7 MG/DL (8.5-10.1)
[2017-01-22 04:57] LABS: BLOOD GAS CARBOXYHEMOGLOBIN 1.5 % (0-4); BLOOD GAS HCO3 24 mmol/L (22-26); BLOOD GAS O2 HGB SATURATION 92 % (90-100); BLOOD GAS OXYGEN CONTENT 14.7 Vol % (12.0-20.0); BLOOD GAS PCO2 39 mmHg (38-42); BLOOD GAS PO2 74 mmHg (61-120); BLOOD GAS TOTAL HGB 11.3 G/DL (12.0-16.0); CRITICAL VALUE NO; DRAW SITE LT RADIAL; FIO2 40 %; NUMBER OF ARTERIAL PUNCTURES 1; OXYGEN DEVICE VENTILATOR; STAT NO; TEMP CORR TO 98.6; ULNAR PULSE PRESENT; VENT SETTINGS PRVC16/500/0.8/+5
[2017-01-22] MEDS: FREE WATER G-TUBE SCH ×3 (06:27→21:17)
[2017-01-22] MEDS: POTASSIUM CHLOR 40 MEQ PREMIX 100 ML IV PRN (06:27)
[2017-01-22] MEDS: MAGNESIUM SULFATE INJ 2 GM in SODIUM CHLORIDE 0.9% INJ 96 ML IV PRN (06:53)
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
[2017-01-22] MEDS: SODIUM CHLORIDE 0.9% FLUSH 10 ML FLUSH SCH ×2 (07:54→21:17)
[2017-01-22] MEDS: LACTATED RINGER'S 1000 ML INJ 1,000 ML IV SCH (07:54)
[2017-01-22] MEDS: CHLORHEXIDINE 0.12% (ORAL KIT) 15 ML CUP MT SCH ×2 (07:54→19:48)
[2017-01-22] MEDS: fentaNYL DRIP 250 ML IV SCH ×2 (07:54→16:08)
[2017-01-22] MEDS: PANTOPRAZOLE SODIUM 40 MG VIAL IV SCH (08:35)
[2017-01-22] MEDS: REMOVE OLD LIDOCAINE PATCH T-DERMAL SCH (08:36)
[2017-01-22] MEDS: LIDOCAINE HCL 5% PATCH T-DERMAL SCH (08:36)
[2017-01-22] MEDS: BACITRACIN TOP OINT 15 GM TUBE TOPICAL SCH ×2 (08:37→21:17)
[2017-01-22] MEDS: DOCUSATE SODIUM 50 MG/SENNA 8.6 MG TAB PO SCH ×2 (08:37→21:16)
[2017-01-22] MEDS: ACETAMINOPHEN 325 MG TAB PO PRN ×2 (08:53→19:05)
[2017-01-22] MEDS ORDERED: BISACODYL 10 MG SUPP RECTAL ONE (11:00)
[2017-01-22] MEDS: LINEZOLID 600 MG PREMIX 300 ML IV SCH ×2 (11:24→22:17)
[2017-01-22 12:09] LABS: BACTERIA, URINE OCC /hpf; BLOOD, URINE MOD (NEG); GLUCOSE,URINE NEG (NEG); KETONE, URINE NEG (NEG); MUCUS URINE FEW /lpf (OCC); NITRITE,URINE NEG (NEG); SQUAMOUS EPITHELIAL CELL URINE 7 /hpf (0-5); URINE COLOR YELLOW (YELLW/STRAW)
[2017-01-22 12:10] LABS: COMMENT (UR) CATH-CULTURE IND; CULTURE IF INDICATED CATH CULTURE IND
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
[2017-01-22] MEDS: LEVOFLOXACIN 750 MG PREMIX INJ 150 ML IV SCH (13:00)
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
--- NOTE | 2017-01-22 15:56 | RADRPT ---
EXAM DATE/TIME: 01/22/2017 15:13 [place] COMPARISON: CHEST SINGLE AP, January 22, 2017, 3:26. INDICATIONS : Central line placement. MEDICAL HISTORY : Carcinoma, breast. SURGICAL HISTORY : Mastectomy, bilateral. Hysterectomy. ENCOUNTER: Subsequent ACUITY: 4 - 6 days PAIN SCORE: 0/10 LOCATION: Bilateral chest FINDINGS: Right subclavian line is present with tip overlapping the expected region of the SVC. Chest tube is p resent on the left side. ET tube is present with tip overlapping approximately 5 cm above the keshawn. NG tube is present with tip in the stomach. Multiple rib fractures are again seen on the left. There is slight pulmonary edema not present previously. Left lung base consolidation is also new. No defin ite pneumothorax is seen for technique. The rest of the examination has not significantly changed. CONCLUSION: Interval development of pulmonary edema and left lung base consolidation. Hilary Woods MD on January 22, 2017 at 15:53 Board Certified Radiologist. This report was verified electronically.
[2017-01-22] MEDS ORDERED: FUROSEMIDE 40 MG/4 ML VIAL IV PUSH ONE (17:00)
--- NOTE | 2017-01-22 17:45 | PD.ID.CON ---
History of Present Illness Service ID Consult Requested By Dr Valle Reason for Consult bacteremia Acinetobacter Sternotroph VRE in urine Primary Care Physician Diagnoses: History of Present Illness Chart was reviewed pt unable to give hx 66-year-old female with multiple med problems was brought in on 01/17 by EMS with GCS is 14, she her initial blood pressure was palpable systolic 80, she is tachycardic, she has a flail chest on the left side, she was orotracheally intubated by anesthesia,sp left chest tube thoracostomy was performed, Her evaluation revealed multiple rib fractures on the left side, multiple pelvic fractures, has a large degloving for left thigh, large open wound of her left thorax, open wound of her right scalp, she remains on vent, FiO2 40% ETT secretions are thick esquivel moderate amount off pressors x 3 days she is making urine Febrile with temp max 101.5 Tolerates tube feeds at goal Tomorrow she is going back to OR to manage her L thigh wound which bleeds easily with manipulation Review of Systems ROS Limitations: Clinical Condition, Intubated, Altered Mental Status, Unresponsive Past Family Social History Allergies: Coded Allergies: Sulfa (Verified Allergy, Intermediate, "BLOOD COUNT DROPS", 12/29/16) *MDRO Multi-Drug Resistant Organism (Verified Adverse Reaction, Unknown, ) VRE (urine) 01/19/17 Codeine (Verified Adverse Reaction, Unknown, ITCHING, 12/29/16) Past Medical History Bipolar disorder Arthritis in hands History of lower GI bleed Urinary retention, self-caths Syncope, possibly due to dehydration Frequent falls Depression Past Surgical History Mastectomy Breast augmentation and subsequent removal of implants Hysterectomy at age 38 Bladder augmentation Active Ordered Medications Medications where reviewed in EMR Antibiotics Include: levaquine zosyn Family History Family history of ETOH dependence. Father of emphysema. - pre records Social History unable to obtain Physical Exam Vital Signs Vital Signs Date Time Temp Pulse Resp B/P Pulse Ox O2 Delivery O2 Flow Rate FiO2 01/22/17 16:16 96 40 01/22/17 16:00 100.8 95 16 103/51 94 01/22/17 16:00 85 01/22/17 16:00 40 01/22/17 14:00 88 01/22/17 12:00 40 01/22/17 12:00 100.6 86 16 102/50 94 01/22/17 12:00 83 01/22/17 11:42 97 40 01/22/17 10:00 88 01/22/17 08:00 40 01/22/17 08:00 92 01/22/17 08:00 101.5 92 16 126/55 94 01/22/17 07:36 96 40 01/22/17 07:00 Mechanical Ventilator 50 01/22/17 06:00 89 01/22/17 04:45 94 Mechanical Ventilator 50 01/22/17 04:45 50 01/22/17 04:00 92 01/22/17 04:00 100.9 92 16 116/56 94 01/22/17 04:00 40 01/22/17 03:45 94 40 01/22/17 02:00 81 01/22/17 00:27 96 40 01/22/17 00:00 100.4 81 16 111/52 96 01/22/17 00:00 81 01/22/17 00:00 40 01/21/17 22:00 84 01/21/17 20:00 84 01/21/17 20:00 40 01/21/17 20:00 100.2 86 16 95/46 97 01/21/17 19:34 95 40 01/21/17 19:00 96 Mechanical Ventilator 40 01/21/17 18:00 89 Physical Exam CONSTITUTIONAL/GENERAL: This is an adequately nourished patient, in no apparent distress. TUBES/LINES/DRAINS: SKIN: No jaundice, rashes, or lesions. Ecchymoses on upper extremities. No wounds seen anteriorly. Skin temperature appropriate. Not diaphoretic. HEAD: Multiple extensive facial abrasions, scalp avulsion EYES: Pupils equal and round and reactive. No scleral icterus. No injection or drainage. Fundi not examined. ENT: Hearing not testes Nose without bleeding or purulent drainage. Orally intubated NECK: Trachea midline. Supple, nontender. CARDIOVASCULAR: Regular rate and rhythm without murmurs, gallops, or rubs. No JVD. Peripheral pulses symmetric. Brisk refill RESPIRATORY/CHEST: Symmetric, unlabored respirations. Rn=honchi b/l to auscultation. Breath sounds equal bilaterally. L sided chest tube in place with serosang d/c GASTROINTESTINAL: Abdomen soft, tender to palpation multiple abrasions, nondistended. No hepato-splenomegaly, or palpable masses. No guarding. Bowel sounds present. Midline incision with jenny in GENITOURINARY: Without palpable bladder distension. Ochoa catheter in place with clear yellow urine MUSCULOSKELETAL: Extremities without clubbing, cyanosis, + weeping edema. . No mottling or clubbing. L thigh brace, dresing in place She has huge wound from the groin down to the knee with complete skin and soft tissue loss, no odor , no pus, serous slightly sangious d/c LYMPHATICS: No palpable cervical or supraclavicular adenopathy. NEUROLOGICAL: sedated; opens eyes spontaneously intermittently PSYCHIATRIC: unable to assess Laboratory Laboratory Tests Test 01/22/17 01/22/17 01/22/17 01/22/17 03:40 04:40 11:00 12:51 White Blood Count 4.5 Red Blood Count 2.98 Hemoglobin 8.7 Hematocrit 25.4 Mean Corpuscular Volume 85.2 Mean Corpuscular Hemoglobin 29.3 Mean Corpuscular Hemoglobin 34.5 Concent Red Cell Distribution Width 17.3 Platelet Count 33 Mean Platelet Volume 10.9 Neutrophils (%) (Auto) 73.8 Lymphocytes (%) (Auto) 14.4 Monocytes (%) (Auto) 6.5 Eosinophils (%) (Auto) 5.1 Basophils (%) (Auto) 0.2 Neutrophils # (Auto) 3.4 Lymphocytes # (Auto) 0.7 Monocytes # (Auto) 0.3 Eosinophils # (Auto) 0.2 Basophils # (Auto) 0.0 CBC Comment AUTO DIFF Differential Total Cells 100 Counted Neutrophils % (Manual) 69 Band Neutrophils % 12 Lymphocytes % 11 Monocytes % 6 Eosinophils % 2 Neutrophils # (Manual) 3.6 Nucleated Red Blood Cells 1 Differential Comment FINAL DIFF MANUAL Platelet Estimate LOW Platelet Morphology Comment ENLARGED Sodium Level 148 Potassium Level 3.5 Chloride Level 114 Carbon Dioxide Level 25.8 Anion Gap 8 Blood Urea Nitrogen 16 Creatinine 0.63 Estimat Glomerular Filtration 94 Rate Random Glucose 110 Calcium Level 7.1 Protein Corrected Calcium 8.7 Phosphorus Level 3.2 Magnesium Level 1.6 Total Bilirubin 1.0 Aspartate Amino Transf 32 (AST/SGOT) Alanine Aminotransferase 23 (ALT/SGPT) Alkaline Phosphatase 85 Total Protein 4.3 Albumin 1.4 Blood Gas Puncture Site LT RADIAL Blood Gas Patient Temperature 98.6 Blood Gas HCO3 24 Blood Gas Base Excess 0.0 Blood Gas Oxygen Saturation 92 Arterial Blood pH 7.41 Arterial Blood Partial 39 Pressure CO2 Arterial Blood Partial 74 Pressure O2 Arterial Blood Oxygen Content 14.7 Arterial Blood 1.5 Carboxyhemoglobin Arterial Blood Methemoglobin 1.0 Blood Gas Hemoglobin 11.3 Oxygen Delivery Device VENTILATOR Blood Gas Ventilator Setting PRVC16/500/0.8/+5 Blood Gas Inspired Oxygen 40 Urine Color YELLOW Urine Turbidity HAZY Urine pH 8.0 Urine Specific [place] 1.020 Urine Protein 30 Urine Glucose (UA) NEG Urine Ketones NEG Urine Occult Blood MOD Urine Nitrite NEG Urine Bilirubin NEG Urine Urobilinogen LESS THAN 2.0 Urine Leukocyte Esterase NEG Urine RBC 57 Urine WBC 3 Urine Squamous Epithelial 7 Cells Urine Bacteria OCC Urine Mucus FEW Microscopic Urinalysis Comment CATH-CULTURE IND Blood Bank Comment Date/Time Procedure Status Source Growth 01/22/17 11:00 Urine Culture Received Urine Catheterized Urine Pending 01/22/17 11:00 Gram Stain Received Sputum Endotracheal Pending 01/22/17 11:00 Sputum Culture Received Sputum Endotracheal Pending 01/19/17 10:55 Aerobic Blood Culture - Final Complete Blood Peripheral Stenotrophomonas Maltophilia 01/19/17 10:55 Anaerobic Blood Culture - Final Complete Blood Peripheral QNS - SEE AEROBE REPORT 01/19/17 09:30 Urine Culture - Final Complete Urine Clean Catch Enterococcus Faecium Vre 01/19/17 09:30 Gram Stain - Final Resulted Sputum Endotracheal 01/19/17 09:30 Sputum Culture - Preliminary Resulted Enterobacter Cloacae Acinetobacter Baumannii/Haemol Result Diagram: 01/22/17 0340 01/22/17 0340 Imaging Last Impressions Chest X-Ray 01/22/17 0600 Signed Impressions: Service Date/Time: Sunday, January 22, 2017 03:26 - CONCLUSION: 1. Pneumothorax at the left base is suspected. Chest tube in place. Otherwise stable. Elvis Sexton MD IVC Filter Placement X-Ray 01/20/17 0000 Signed Impressions: Service Date/Time: Friday, January 20, 2017 16:44 - CONCLUSION: Uncomplicated inferior vena cava filter placement as above. This is a retrievable filter and can be retrieved up to one year from today's date. Avinash Santana Jr., MD Head CT 01/19/17 0600 Signed Impressions: Service Date/Time: January 04:24 - CONCLUSION: No change in scattered subarachnoid hemorrhage and intraventricular hemorrhage. Sg Nobles MD Neck CTA 01/18/17 Signed Impressions: Service Date/Time: Wednesday, January 18, 2017 10:48 - CONCLUSION: 1. Atherosclerotic plaquing but no hemodynamically significant carotid artery stenosis identified. 2. Parenchymal contusion and consolidation involving the right lung apex. 3. ET tube in satisfactory position. Primo Sierra MD Maxillofacial CT 01/18/17 Signed Impressions: Service Date/Time: Wednesday, January 18, 2017 10:48 - CONCLUSION: Left maxillary sinus fractures. K. Dipak Woods MD Lower Extremity CT 01/18/17 Signed Impressions: Service Date/Time: January 04:26 - CONCLUSION: 1. Comminuted intra-articular fracture of the proximal tibia involving the lateral tibial condyle and intercondylar regions. 2. Lipo hemarthrosis. Sg Nobles MD Knee X-Ray 01/18/17 Signed Impressions: Service Date/Time: Wednesday, January 18, 2017 14:09 - CONCLUSION: Acute fracture involving the proximal tibia with moderate size joint effusion. Details given above. Avinash Santana Jr., MD Femur X-Ray 01/18/17 Signed Impressions: Service Date/Time: Wednesday, January 18, 2017 20:57 - CONCLUSION: Negative for retained surgical isthmus. Other communicated to the operating room. Marques Sierra MD FACR Pelvis X-Ray 01/17/17 0745 Signed Impressions: Service Date/Time: Tuesday, January 17, 2017 07:38 - CONCLUSION: 1. Multiple pelvic fractures, as above. Hermann Arnold MD Upper Extremity CT 01/17/17 Signed Impressions: Service Date/Time: Tuesday, January 17, 2017 10:22 - CONCLUSION: 1. Multiple mildly displaced fractures of the left scapula. 2. Status post ORIF of the proximal left humerus 3. No evidence of fracture dislocation involving the glenohumeral joint. 4. Multiple left-sided rib fractures with associated subcutaneous emphysema. 5. No evidence of significant left-sided pneumothorax. Jayden Aviles MD Tibia/Fibula X-Ray 01/17/17 0000 Signed Impressions: Service Date/Time: Tuesday, January 17, 2017 07:38 - CONCLUSION: No acute fracture identified. Limited single view is provided. Primo Sierra MD Thoracic Spine CT 01/17/17 Signed Impressions: Service Date/Time: Tuesday, January 17, 2017 10:19 - CONCLUSION: Rib fractures, compression fracture of L1 vertebra, transverse fractures of lumbar spine discussed on the patient's prior CT examinations and the thoracic spine appears intact except for scattered degenerative changes. Hilary Woods MD Lumbar Spine CT 01/17/17 Signed Impressions: Service Date/Time: Tuesday, January 17, 2017 10:19 - CONCLUSION: 1. Compression fracture of mid body L1 with approximate 58%% reduction in height. 2. Multiple transverse process fractures, fractures of the sacrum and presacral hematoma discussed on the patient's prior CT pelvis. 3. No appreciable thecal sac stenosis is seen. Hilary Woods MD Foot X-Ray 01/17/17 Signed Impressions: Service Date/Time: Tuesday, January 17, 2017 15:20 - CONCLUSION: No definite fracture is seen for technique. Hilary Woods MD Chest CT 01/17/17 Signed Impressions: Service Date/Time: Tuesday, January 17, 2017 10:22 - CONCLUSION: 1. Bilateral rib fractures, left scapular fractures and tiny bilateral pneumothoraces. 2. Bilateral lung contusions and areas of consolidation right lower lung. Hilary Woods MD Cervical Spine CT 01/17/17 Signed Impressions: Service Date/Time: Tuesday, January 17, 2017 10:21 - CONCLUSION: Fracture of vertebral body of C6 with extension into the right foramen transversarium without any significant compromise to the thecal sac or the exiting nerve roots. Hilary Woods MD Ankle X-Ray 01/17/17 Signed Impressions: Service Date/Time: Tuesday, January 17, 2017 15:25 - CONCLUSION: Soft tissue swelling and no definite fracture for technique. Hilary Woods MD Abdomen/Pelvis CT 01/17/17 Signed Impressions: Service Date/Time: Tuesday, January 17, 2017 10:22 - CONCLUSION: 1. There is nonspecific free fluid within the abdomen and pelvis. No active arterial bleeding is identified. 2. There is a comminuted fracture of L1 which appears to represent a fairly severe compression fracture or possible burst fracture. The lamina and pedicle appear intact. There is no significant bony retropulsion. 3. Mild compression of the superior endplate of T12. 4. Fracture of both sacral ala. 5. Fracture of the anterior aspect of the right iliac wing. 6. Fracture of the superior and inferior sacral ala on the left. 7. Multiple lower rib fractures bilaterally. These will be more definitively assessed on CT imaging through the thorax. 8. Chest tube in place on the left with minimal residual pneumothorax. 9. Minimal pneumothorax on the right. 10. Consolidation/ contusion in both lower lobes. 11. Punctate collections of free air from the patient's laparotomy. Primo Sierra MD Assessment and Plan Assessment and Plan Multiti trauma LEFT SDH LEFT maxillary wall fx Head laceration LEFT scapula fx BILAT PTX LEFT rib fx (3,4,5 RIGHT rib fx (5,6,7) Bilateral lung contusion Chest degloving C6 vertebral body fx T11, compression fx T12 compression endplate fx L1 compression fx Pelvic fracture consisting of comminuted superior-inferior left ramus fracture, ala sacri fractures, right iliac crest fracture LEFT tibial plateau fx LEFT thigh extensive degloving degloving approximating about 5% total body surface area Sepsis, bacteremia Steotrophomonas Acutte VDRF Sputum with Acinetobacter Enterobacter POrt of entry could be her huge degloving injury VRE UTI cont Levaquine, high dose add Cefepime (will cover Acinetobater and Enterobacter) dc zosyn repeat blood clx cont zyvox Discussed Condition With Evelyn Nguyen MD Jan 22, 2017 17:44
[2017-01-22] MEDS: CEFEPIME INJ 2,000 MG in SODIUM CHLORIDE 0.9% INJ 100 ML IV SCH (21:17)
[2017-01-23] VITALS (18 sets, daily range): BP systolic 91–109; BP diastolic 46–54; PULSE 84–99; RESP 16–17; TEMP 100.3–101.5; O2SAT 95–97
[2017-01-23] MEDS: fentaNYL DRIP 250 ML IV SCH ×3 (00:49→22:25)
[2017-01-23] MEDS ORDERED: ALBUMIN HUMAN 5% 25 GM/500 ML BOTTLE IV ONE (01:30)
[2017-01-23] MEDS: CHLORHEXIDINE GLUCONATE 2 % 1 PACK (2 CLOTHS) TOP SCH (03:20)
[2017-01-23] MEDS: RESP: ALBUTEROL 2.5 MG/IPRATROPIUM 0.5 MG NEB (SCH) NEB ×6 (03:29→23:22)
[2017-01-23 04:39] LABS: AUTOMATED NEUTROPHIL # 4.3 TH/MM3 (1.8-7.7); BASOPHIL % 0.4 % (0.0-2.0); EOSINOPHIL # 0.2 TH/MM3 (0-0.4); EOSINOPHIL % 4.1 % (0.0-4.0); HEMATOCRIT 22.7 % (35.0-46.0); LYMPH % 14.1 % (9.0-44.0); LYMPHOCYTE # 0.8 TH/MM3 (1.0-4.8); MEAN CELL VOLUME 86.2 FL (80.0-100.0); MEAN CORPUSCULAR HEMOGLOBIN 29.1 PG (27.0-34.0); MEAN CORPUSCULAR HGB CONC 33.7 % (32.0-36.0); MONO % 6.5 % (0.0-8.0); NEUT % 74.9 % (16.0-70.0); PLATELET COUNT 41 TH/MM3 (150-450); RED BLOOD COUNT 2.63 MIL/MM3 (4.00-5.30); RED CELL DISTRIBUTION WIDTH 17.4 % (11.6-17.2); WHITE BLOOD COUNT 5.7 TH/MM3 (4.0-11.0)
[2017-01-23 04:42] LABS: HEMO FLAGS AUTO DIFF
[2017-01-23] MEDS: CEFEPIME INJ 2,000 MG in SODIUM CHLORIDE 0.9% INJ 100 ML IV SCH ×3 (04:48→19:53)
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
[2017-01-23 05:11] LABS: BICARBONATE 26.1 MEQ/L (21.0-32.0); CALCIUM-PROTEIN CORRECTED 8.6 MG/DL (8.5-10.1); MAGNESIUM 1.7 MG/DL (1.5-2.5); POTASSIUM 3.4 MEQ/L (3.5-5.1); TOTAL BILIRUBIN ADULT 1.4 MG/DL (0.2-1.0)
[2017-01-23 05:30] LABS: BANDS 38 % (0-6); DOHLE BODIES PRESENT (NONE SEEN); EOSINOPHILS 7 % (0-4); METAMYELOCYTES 1 % (0-1); MYELOCYTES 1 % (0-0); NEUTROPHIL # MANUAL DIFF 4.3 TH/MM3 (1.8-7.7); PLATELET ESTIMATE SMEAR LOW (NORMAL); PLATELET MORPHOLOGY NORMAL (NORMAL); POLYS (SEG NEUTROPHILS) 36 % (16-70); SCAN/DIFF FINAL DIFF MANUAL; WBC DIFF SAMPLE 100
[2017-01-23 05:31] LABS: TOXIC GRANULATION 1+ (NORMAL)
[2017-01-23] MEDS: PROPOFOL 1000 MG/100 ML INJ 100 ML IV SCH ×2 (05:44→08:11)
[2017-01-23] MEDS: FREE WATER G-TUBE SCH ×3 (05:44→23:14)
[2017-01-23] MEDS: POTASSIUM CHLOR 40 MEQ PREMIX 100 ML IV PRN (06:01)
[2017-01-23] MEDS: PANTOPRAZOLE SODIUM 40 MG VIAL IV SCH (08:11)
[2017-01-23] MEDS: LIDOCAINE HCL 5% PATCH T-DERMAL SCH (08:11)
[2017-01-23] MEDS: REMOVE OLD LIDOCAINE PATCH T-DERMAL SCH (08:11)
[2017-01-23] MEDS: ACETAMINOPHEN 325 MG TAB PO PRN ×2 (08:11→20:17)
[2017-01-23] MEDS: LACTULOSE SYRUP 20 GM/30 ML CUP PO SCH (08:12)
[2017-01-23] MEDS: CHLORHEXIDINE 0.12% (ORAL KIT) 15 ML CUP MT SCH ×2 (08:12→19:54)
[2017-01-23] MEDS: SODIUM CHLORIDE 0.9% FLUSH 10 ML FLUSH SCH ×2 (08:12→19:54)
[2017-01-23] MEDS: DOCUSATE SODIUM 50 MG/SENNA 8.6 MG TAB PO SCH ×2 (08:12→19:54)
[2017-01-23] MEDS: BACITRACIN TOP OINT 15 GM TUBE TOPICAL SCH ×2 (08:13→19:55)
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
[2017-01-23] MEDS: SODIUM CHLOR 0.9% 1000 ML INJ 1,000 ML IV SCH ×2 (09:58→19:54)
[2017-01-23] MEDS: ENOXAPARIN SODIUM 40 MG/0.4 ML SYRINGE SQ SCH (10:55)
[2017-01-23] MEDS: LINEZOLID 600 MG PREMIX 300 ML IV SCH ×2 (10:56→23:14)
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
--- NOTE | 2017-01-23 13:58 | HHI.PR ---
Addendum to Inpatient Note Addendum Reason: Corrected Documentation Additional Information Pt s sputum is positive for Enterobacter and Acinetobacter and sh eis growing Stenotroph in the blood - cont cefepime, leaquine - repeat blood clx might need start bactrim pt reportedly has bone marrow suppression while on bactrim but no h/o of true allergy Evelyn Moseley MD Jan 23, 2017 13:58
[2017-01-23] MEDS: LEVOFLOXACIN 750 MG PREMIX INJ 150 ML IV SCH (14:09)
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
[2017-01-23] MEDS ORDERED: LIDOCAINE HCL 1% 50 ML VIAL ONE (16:36)
[2017-01-23] MEDS ORDERED: SODIUM CHLOR 0.9% 250 ML INJ 250 ML IV ONE (17:30)
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
--- NOTE | 2017-01-23 22:18 | HHI.IDPN ---
Subjective Subjective Remarks Delayed entry pt seen earlier today artound 1300 remains on vent + low grade fever planned for surgery Antibiotics levaquine cefepime zyvox Allergies: Coded Allergies: Sulfa (Verified Allergy, Intermediate, "BLOOD COUNT DROPS", 12/29/16) *MDRO Multi-Drug Resistant Organism (Verified Adverse Reaction, Unknown, ) VRE (urine) 01/19/17 Codeine (Verified Adverse Reaction, Unknown, ITCHING, 12/29/16) Objective . Vital Signs Date Time Temp Pulse Resp B/P Pulse Ox O2 Delivery O2 Flow Rate FiO2 01/23/17 21:05 100.9 94 16 99/54 96 01/23/17 21:00 100.9 94 16 99/54 96 01/23/17 20:00 40 01/23/17 20:00 101.1 96 17 109/51 97 01/23/17 20:00 96 01/23/17 19:20 97 40 01/23/17 19:00 95 Mechanical Ventilator 40 01/23/17 18:00 89 01/23/17 16:00 40 01/23/17 16:00 100.3 94 16 94/48 95 01/23/17 16:00 95 01/23/17 15:38 96 40 01/23/17 14:00 99 01/23/17 12:00 94 01/23/17 12:00 101.3 93 16 102/51 95 01/23/17 12:00 40 01/23/17 11:54 96 40 01/23/17 10:00 96 01/23/17 08:00 98 01/23/17 08:00 101.5 93 16 103/50 95 01/23/17 08:00 40 01/23/17 07:21 96 40 01/23/17 07:00 Mechanical Ventilator 40 01/23/17 04:00 100.9 91 16 95/46 95 01/23/17 04:00 40 01/23/17 03:29 97 40 01/23/17 02:00 84 01/23/17 00:00 40 01/23/17 00:00 100.9 84 16 91/49 96 01/23/17 00:00 84 01/22/17 23:52 96 40 01/22/17 01/22/17 01/23/17 15:00 23:00 07:00 Intake Total 1798 ml 1285 ml 998 ml Output Total 975 ml 3290 ml 1140 ml Balance 823 ml -2005 ml -142 ml Intake IV Total 955 ml 723 ml 713 ml Tube Feeding 361 ml 362 ml 85 ml Platelets 282 ml Other 200 ml 200 ml 200 ml Output Urine Total 700 ml 2850 ml 800 ml Chest Tube Drainage Total 50 ml 90 ml 40 ml Drainage Total 225 ml 350 ml 300 ml # Bowel Movements 0 0 . Laboratory Tests Test 01/22/17 01/23/17 03:40 04:25 White Blood Count 4.5 TH/MM3 5.7 TH/MM3 Red Blood Count 2.98 MIL/MM3 2.63 MIL/MM3 Hemoglobin 8.7 GM/DL 7.6 GM/DL Hematocrit 25.4 % 22.7 % Mean Corpuscular Volume 85.2 FL 86.2 FL Mean Corpuscular Hemoglobin 29.3 PG 29.1 PG Mean Corpuscular Hemoglobin 34.5 % 33.7 % Concent Red Cell Distribution Width 17.3 % 17.4 % Platelet Count 33 TH/MM3 41 TH/MM3 Mean Platelet Volume 10.9 FL 9.6 FL Neutrophils (%) (Auto) 73.8 % 74.9 % Lymphocytes (%) (Auto) 14.4 % 14.1 % Monocytes (%) (Auto) 6.5 % 6.5 % Eosinophils (%) (Auto) 5.1 % 4.1 % Basophils (%) (Auto) 0.2 % 0.4 % Neutrophils # (Auto) 3.4 TH/MM3 4.3 TH/MM3 Lymphocytes # (Auto) 0.7 TH/MM3 0.8 TH/MM3 Monocytes # (Auto) 0.3 TH/MM3 0.4 TH/MM3 Eosinophils # (Auto) 0.2 TH/MM3 0.2 TH/MM3 Basophils # (Auto) 0.0 TH/MM3 0.0 TH/MM3 CBC Comment AUTO DIFF AUTO DIFF Differential Total Cells 100 100 Counted Neutrophils % (Manual) 69 % 36 % Band Neutrophils % 12 % 38 % Lymphocytes % 11 % 12 % Monocytes % 6 % 5 % Eosinophils % 2 % 7 % Neutrophils # (Manual) 3.6 TH/MM3 4.3 TH/MM3 Nucleated Red Blood Cells 1 /100 WBC Differential Comment FINAL DIFF FINAL DIFF MANUAL MANUAL Platelet Estimate LOW LOW Platelet Morphology Comment ENLARGED NORMAL Metamyelocytes 1 % Myelocytes 1 % Toxic Granulation 1+ Dohle Bodies PRESENT Laboratory Tests Test 01/22/17 01/23/17 03:40 04:25 Sodium Level 148 MEQ/L 144 MEQ/L Potassium Level 3.5 MEQ/L 3.4 MEQ/L Chloride Level 114 MEQ/L 110 MEQ/L Carbon Dioxide Level 25.8 MEQ/L 26.1 MEQ/L Anion Gap 8 MEQ/L 8 MEQ/L Blood Urea Nitrogen 16 MG/DL 16 MG/DL Creatinine 0.63 MG/DL 0.72 MG/DL Estimat Glomerular Filtration 94 ML/MIN 81 ML/MIN Rate Random Glucose 110 MG/DL 112 MG/DL Calcium Level 7.1 MG/DL 7.3 MG/DL Protein Corrected Calcium 8.7 MG/DL 8.6 MG/DL Phosphorus Level 3.2 MG/DL Magnesium Level 1.6 MG/DL 1.7 MG/DL Total Bilirubin 1.0 MG/DL 1.4 MG/DL Aspartate Amino Transf 32 U/L 25 U/L (AST/SGOT) Alanine Aminotransferase 23 U/L 20 U/L (ALT/SGPT) Alkaline Phosphatase 85 U/L 72 U/L Total Protein 4.3 GM/DL 4.8 GM/DL Albumin 1.4 GM/DL 1.9 GM/DL Microbiology Date/Time Procedure Status Source Growth 01/22/17 11:00 Gram Stain - Final Resulted Sputum Endotracheal 01/22/17 11:00 Sputum Culture - Preliminary Resulted Sputum Endotracheal LIGHT GROWTH NORMAL RESPIRATORY HARJEET... 01/22/17 11:00 Urine Culture - Preliminary Resulted Urine Catheterized Urine NO GROWTH IN 24 HOURS. 01/22/17 20:46 Aerobic Blood Culture - Preliminary Resulted Blood Peripheral NO GROWTH IN 1 DAY 01/22/17 20:46 Anaerobic Blood Culture - Preliminary Resulted Blood Peripheral NO GROWTH IN 1 DAY 01/22/17 21:11 Aerobic Blood Culture - Preliminary Resulted Blood Peripheral NO GROWTH IN 1 DAY 01/22/17 21:11 Anaerobic Blood Culture - Preliminary Resulted Blood Peripheral NO GROWTH IN 1 DAY Imaging Last Impressions Chest X-Ray 01/23/17 0600 Signed Impressions: Service Date/Time: Monday, January 23, 2017 03:26 - CONCLUSION: 1. Haziness over the right lung suggestive of a pleural effusion. 2. No significant change in the interstitial edema. 3. No evidence of pneumothorax. Robby Zuleta MD IVC Filter Placement X-Ray 01/20/17 0000 Signed Impressions: Service Date/Time: Friday, January 20, 2017 16:44 - CONCLUSION: Uncomplicated inferior vena cava filter placement as above. This is a retrievable filter and can be retrieved up to one year from today's date. Avinash Santana Jr., MD Head CT 01/19/17 0600 Signed Impressions: Service Date/Time: January 04:24 - CONCLUSION: No change in scattered subarachnoid hemorrhage and intraventricular hemorrhage. Sg Nobles MD Neck CTA 01/18/17 0000 Signed Impressions: Service Date/Time: Wednesday, January 18, 2017 10:48 - CONCLUSION: 1. Atherosclerotic plaquing but no hemodynamically significant carotid artery stenosis identified. 2. Parenchymal contusion and consolidation involving the right lung apex. 3. ET tube in satisfactory position. Primo Sierra MD Maxillofacial CT 01/18/17 0000 Signed Impressions: Service Date/Time: Wednesday, January 18, 2017 10:48 - CONCLUSION: Left maxillary sinus fractures. KBetito Woods MD Lower Extremity CT 01/18/17 0000 Signed Impressions: Service Date/Time: January 04:26 - CONCLUSION: 1. Comminuted intra-articular fracture of the proximal tibia involving the lateral tibial condyle and intercondylar regions. 2. Lipo hemarthrosis. Sg Nobles MD Knee X-Ray 01/18/17 0000 Signed Impressions: Service Date/Time: Wednesday, January 18, 2017 14:09 - CONCLUSION: Acute fracture involving the proximal tibia with moderate size joint effusion. Details given above. Avinash Santana Jr., MD Femur X-Ray 01/18/17 0000 Signed Impressions: Service Date/Time: Wednesday, January 18, 2017 20:57 - CONCLUSION: Negative for retained surgical isthmus. Other communicated to the operating room. Marques Sierra MD FACR Pelvis X-Ray 01/17/17 0745 Signed Impressions: Service Date/Time: Tuesday, January 17, 2017 07:38 - CONCLUSION: 1. Multiple pelvic fractures, as above. Hermann Arnold MD Upper Extremity CT 01/17/17 0000 Signed Impressions: Service Date/Time: Tuesday, January 17, 2017 10:22 - CONCLUSION: 1. Multiple mildly displaced fractures of the left scapula. 2. Status post ORIF of the proximal left humerus 3. No evidence of fracture dislocation involving the glenohumeral joint. 4. Multiple left-sided rib fractures with associated subcutaneous emphysema. 5. No evidence of significant left-sided pneumothorax. Jayden Aviles MD Tibia/Fibula X-Ray 01/17/17 Signed Impressions: Service Date/Time: Tuesday, January 17, 2017 07:38 - CONCLUSION: No acute fracture identified. Limited single view is provided. Primo Sierra MD Thoracic Spine CT 01/17/17 Signed Impressions: Service Date/Time: Tuesday, January 17, 2017 10:19 - CONCLUSION: Rib fractures, compression fracture of L1 vertebra, transverse fractures of lumbar spine discussed on the patient's prior CT examinations and the thoracic spine appears intact except for scattered degenerative changes. Hilary Woods MD Lumbar Spine CT 01/17/17 Signed Impressions: Service Date/Time: Tuesday, January 17, 2017 10:19 - CONCLUSION: 1. Compression fracture of mid body L1 with approximate 58%% reduction in height. 2. Multiple transverse process fractures, fractures of the sacrum and presacral hematoma discussed on the patient's prior CT pelvis. 3. No appreciable thecal sac stenosis is seen. Hilary Woods MD Foot X-Ray 01/17/17 Signed Impressions: Service Date/Time: Tuesday, January 17, 2017 15:20 - CONCLUSION: No definite fracture is seen for technique. Hilary Woods MD Chest CT 01/17/17 Signed Impressions: Service Date/Time: Tuesday, January 17, 2017 10:22 - CONCLUSION: 1. Bilateral rib fractures, left scapular fractures and tiny bilateral pneumothoraces. 2. Bilateral lung contusions and areas of consolidation right lower lung. Hilary Woods MD Cervical Spine CT 01/17/17 0000 Signed Impressions: Service Date/Time: Tuesday, January 17, 2017 10:21 - CONCLUSION: Fracture of vertebral body of C6 with extension into the right foramen transversarium without any significant compromise to the thecal sac or the exiting nerve roots. Hilary Woods MD Ankle X-Ray 01/17/17 0000 Signed Impressions: Service Date/Time: Tuesday, January 17, 2017 15:25 - CONCLUSION: Soft tissue swelling and no definite fracture for technique. Hilary Woods MD Abdomen/Pelvis CT 01/17/17 0000 Signed Impressions: Service Date/Time: Tuesday, January 17, 2017 10:22 - CONCLUSION: 1. There is nonspecific free fluid within the abdomen and pelvis. No active arterial bleeding is identified. 2. There is a comminuted fracture of L1 which appears to represent a fairly severe compression fracture or possible burst fracture. The lamina and pedicle appear intact. There is no significant bony retropulsion. 3. Mild compression of the superior endplate of T12. 4. Fracture of both sacral ala. 5. Fracture of the anterior aspect of the right iliac wing. 6. Fracture of the superior and inferior sacral ala on the left. 7. Multiple lower rib fractures bilaterally. These will be more definitively assessed on CT imaging through the thorax. 8. Chest tube in place on the left with minimal residual pneumothorax. 9. Minimal pneumothorax on the right. 10. Consolidation/ contusion in both lower lobes. 11. Punctate collections of free air from the patient's laparotomy. Primo Sierra MD Physical Exam CONSTITUTIONAL/GENERAL: This is an adequately nourished patient, in no apparent distress. TUBES/LINES/DRAINS: SKIN: No jaundice, rashes, or lesions. Ecchymoses on upper extremities. No wounds seen anteriorly. Skin temperature appropriate. Not diaphoretic. HEAD: Multiple extensive facial abrasions, scalp avulsion EYES: Pupils equal and round and reactive. No scleral icterus. No injection or drainage. Fundi not examined. ENT: Hearing not tested Nose without bleeding or purulent drainage. Orally intubated NECK: Trachea midline. Supple, nontender. CARDIOVASCULAR: Regular rate and rhythm without murmurs, gallops, or rubs. No JVD. Peripheral pulses symmetric. Brisk refill RESPIRATORY/CHEST: Symmetric, unlabored respirations. Rn=honchi b/l to auscultation. Breath sounds equal bilaterally. L sided chest tube in place with serosang d/c GASTROINTESTINAL: Abdomen soft, tender to palpation multiple abrasions, nondistended. No hepato-splenomegaly, or palpable masses. No guarding. Bowel sounds present. Midline incision with jenny in GENITOURINARY: Without palpable bladder distension. Ochoa catheter in place with clear yellow urine MUSCULOSKELETAL: Extremities without clubbing, cyanosis, + weeping edema. . No mottling or clubbing. L thigh brace, dresing in place NEUROLOGICAL: sedated; opens eyes spontaneously intermittently and to voice; makes eye contact PSYCHIATRIC: appears calm Assessment & Plan Remarks Multiti trauma LEFT SDH LEFT maxillary wall fx Head laceration LEFT scapula fx BILAT PTX LEFT rib fx (3,4,5 RIGHT rib fx (5,6,7) Bilateral lung contusion Chest degloving C6 vertebral body fx T11, compression fx T12 compression endplate fx L1 compression fx Pelvic fracture consisting of comminuted superior-inferior left ramus fracture, ala sacri fractures, right iliac crest fracture LEFT tibial plateau fx LEFT thigh extensive degloving degloving approximating about 5% total body surface area Sepsis, bacteremia Steotrophomonas POrt of entry could be her huge degloving injury Pneumonia Acinetobacter, Enterobacter VRE UTI cont Levaquine, high dose cont Cefepime (will cover Acinetobater and Enterobacter) fu repeat blood clx cont zyvox Evelyn Pablo RN, MD Jan 23, 2017 22:17
[2017-01-24] VITALS (17 sets, daily range): BP systolic 91–144; BP diastolic 44–64; PULSE 85–105; RESP 14–19; TEMP 99.5–100.9; O2SAT 93–100
[2017-01-24] MEDS: PROPOFOL 1000 MG/100 ML INJ 100 ML IV SCH (03:06)
[2017-01-24] MEDS: CHLORHEXIDINE GLUCONATE 2 % 1 PACK (2 CLOTHS) TOP SCH (04:00)
[2017-01-24] MEDS: RESP: ALBUTEROL 2.5 MG/IPRATROPIUM 0.5 MG NEB (SCH) NEB ×5 (04:15→19:40)
[2017-01-24 04:54] LABS: AUTOMATED NEUTROPHIL # 6.7 TH/MM3 (1.8-7.7); BASOPHIL % 0.4 % (0.0-2.0); EOSINOPHIL # 0.2 TH/MM3 (0-0.4); EOSINOPHIL % 2.6 % (0.0-4.0); HEMATOCRIT 30.8 % (35.0-46.0); LYMPH % 6.5 % (9.0-44.0); LYMPHOCYTE # 0.5 TH/MM3 (1.0-4.8); MEAN CELL VOLUME 85.6 FL (80.0-100.0); MEAN CORPUSCULAR HEMOGLOBIN 28.8 PG (27.0-34.0); MEAN CORPUSCULAR HGB CONC 33.6 % (32.0-36.0); MONO % 5.3 % (0.0-8.0); NEUT % 85.2 % (16.0-70.0); PLATELET COUNT 85 TH/MM3 (150-450); RED BLOOD COUNT 3.59 MIL/MM3 (4.00-5.30); RED CELL DISTRIBUTION WIDTH 16.8 % (11.6-17.2); WHITE BLOOD COUNT 7.8 TH/MM3 (4.0-11.0)
[2017-01-24 04:57] LABS: HEMO FLAGS AUTO DIFF
[2017-01-24] MEDS: CEFEPIME INJ 2,000 MG in SODIUM CHLORIDE 0.9% INJ 100 ML IV SCH ×4 (05:05→20:59)
[2017-01-24 05:26] LABS: ANION GAP 10 MEQ/L (5-15); AST (GOT) 43 U/L (15-37); BICARBONATE 20.9 MEQ/L (21.0-32.0); BLOOD UREA NITROGEN 15 MG/DL (7-18); CHLORIDE 112 MEQ/L (98-107); GLOMERULAR FILTRATION RATE 115 ML/MIN (>89); POTASSIUM 3.4 MEQ/L (3.5-5.1); SODIUM (NA) 143 MEQ/L (136-145)
[2017-01-24 05:29] LABS: ALKALINE PHOSPHATASE 78 U/L (45-117); ALT (GPT) 22 U/L (10-53); TOTAL BILIRUBIN ADULT 1.2 MG/DL (0.2-1.0)
[2017-01-24 05:33] LABS: BLOOD GAS BASE EXCESS -4.7 mmol/L (-2-2); BLOOD GAS HCO3 19 mmol/L (22-26); BLOOD GAS O2 HGB SATURATION 94 % (90-100); BLOOD GAS OXYGEN CONTENT 14.5 Vol % (12.0-20.0); BLOOD GAS PCO2 29 mmHg (38-42); BLOOD GAS PO2 83 mmHg (61-120); TEMP CORR TO 98.6
[2017-01-24 05:34] LABS: CRITICAL VALUE NO; OXYGEN DEVICE VENTILATOR
[2017-01-24 05:36] LABS: FIO2 40 %; VENT SETTINGS PRVC/AC
[2017-01-24 05:37] LABS: DRAW SITE LEFT PEDAL; NUMBER OF ARTERIAL PUNCTURES 1; STAT NO
[2017-01-24] MEDS: POTASSIUM CHLOR 40 MEQ PREMIX 100 ML IV PRN (05:44)
--- NOTE | 2017-01-24 05:54 | RADRPT ---
EXAM DATE/TIME: 01/24/2017 04:33 [facility] COMPARISON: CHEST SINGLE AP, January 23, 2017, 3:26. INDICATIONS : Shortness of breath. MEDICAL HISTORY : Carcinoma, breast. SURGICAL HISTORY : Mastectomy, bilateral. ENCOUNTER: Subsequent ACUITY: 4 - 6 days PAIN SCORE: 0/10 LOCATION: Bilateral chest FINDINGS: The support devices remain in place. There is no evidence of pneumothorax. There is mild improved aer ation of the right lung compared to the prior exam. Some infiltrates in both lung bases. The heart si ze is stable. No other significant changes compared to the prior study. CONCLUSION: Improving aeration of the right lung compared to the prior exam. Otherwise, no significant change. Robby Zuleta MD on January 24, 2017 at 5:51 Board Certified Radiologist. This report was verified electronically.
[2017-01-24] MEDS: FREE WATER G-TUBE SCH ×3 (06:00→22:00)
[2017-01-24] MEDS: SODIUM CHLOR 0.9% 1000 ML INJ 1,000 ML IV SCH ×2 (06:00→14:49)
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
[2017-01-24] MEDS ORDERED: SODIUM CHLOR 0.9% 250 ML INJ 250 ML IV ONE (07:00)
[2017-01-24 07:02] LABS: BANDS 28 % (0-6); EOSINOPHILS 3 % (0-4); NEUTROPHIL # MANUAL DIFF 6.9 TH/MM3 (1.8-7.7); POLYS (SEG NEUTROPHILS) 61 % (16-70); WBC DIFF SAMPLE 100
[2017-01-24 07:03] LABS: PLATELET ESTIMATE SMEAR LOW (NORMAL); PLATELET MORPHOLOGY ENLARGED (NORMAL); SCAN/DIFF FINAL DIFF MANUAL
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
[2017-01-24] MEDS: PANTOPRAZOLE SODIUM 40 MG VIAL IV SCH (08:21)
[2017-01-24] MEDS: CHLORHEXIDINE 0.12% (ORAL KIT) 15 ML CUP MT SCH ×2 (08:21→20:00)
[2017-01-24] MEDS: SODIUM CHLORIDE 0.9% FLUSH 10 ML FLUSH SCH ×2 (08:21→20:59)
[2017-01-24] MEDS: LACTULOSE SYRUP 20 GM/30 ML CUP PO SCH (08:21)
[2017-01-24] MEDS: DOCUSATE SODIUM 50 MG/SENNA 8.6 MG TAB PO SCH ×2 (08:21→20:59)
[2017-01-24] MEDS: BACITRACIN TOP OINT 15 GM TUBE TOPICAL SCH ×2 (08:22→20:59)
[2017-01-24] MEDS: REMOVE OLD LIDOCAINE PATCH T-DERMAL SCH (08:22)
[2017-01-24] MEDS: LIDOCAINE HCL 5% PATCH T-DERMAL SCH ×2 (08:22→09:00)
[2017-01-24] MEDS: fentaNYL DRIP 250 ML IV SCH (08:26)
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
[2017-01-24] MEDS ORDERED: ceFAZolin INJ 1,000 MG VIAL ONE (10:25)
[2017-01-24] MEDS ORDERED: VANCOMYCIN HCL 1000 MG VIAL ONE (10:25)
[2017-01-24] MEDS ORDERED: GENTAMICIN SULFATE 80 MG/2 ML VIAL ONE (10:25)
[2017-01-24] MEDS: LINEZOLID 600 MG PREMIX 300 ML IV SCH ×2 (10:41→23:00)
--- NOTE | 2017-01-24 10:59 | HHI.PR ---
Neuropsych Emotional Emotional: UnabletoAssess: Emotional, Anxious/Fearful, Depressed/Sad, Hostile/ Resentful, Irritable/Angry/Frustrate, Labile, Constricted/Blunted Behavior Behavior: Unable to Asses: Behavior, Coping/Acceptance, Cooperative w/ Treatment, Motivation, Frustration Tolerance/[place], Impulsive/Agitated, Suicidal/ Homicidal Risk Cognitive Cognitive: Unable to Asses: Cognitive, Attention/Concentration, Confused/ Orientation, Insight/Awareness, Judgement/Problem-Solving, Memory Progress Notes/Response to Tx Contents of Sessions: Adjustment, Level of Consciousness Time with Patient: 15 minutes Premorbid psychological status Premorbid Cognitive, Emotional and Behavioral Status: Unable to Assess. The patient is unable to provide information concerning her social history and there is no family present. Behavioral Reactions of Patient and Family/Support System: Unable to Assess. No family present. Emotional/Behavioral Status of Patient and Family/Support System: Unable to Assess. Pertinent issues, if appropriate to this patients clinical care, are described in detail above. Maximizing acute care outcome It is recommended that the patient be monitored for emergent behavioral impulsivity as the medical condition evolves. This patients neuropathological challenges may limit their rehabilitation potential going forward, and these challenges will require specialized therapeutic skills to maximize outcome. Anticipated Problems Ongoing areas of concern will include behavioral impulsivity, lack of insight and judgment, which is expected to improve with time and treatment. Presently , the patient intubated and sedated. Treatment Plan This clinician will continue to follow with you throughout the course of this patients acute care treatment, and I will be available to meet with the patient s family/support system to facilitate their understanding and the ongoing care of their family member. The goals of neuropsychological intervention shall be both educational and supportive to the family/support system as is deemed clinically appropriate. Impression This 66 year old woman suffered a moderately severe traumatic brain injury, with the resulting eventual sequelae exacerbated by her age. She is expected to have residual neurocognitive disorder 2T TBI. Diagnosis: (1) Major neurocognitive disorder as late effect of traumatic brain injury without behavioral disturbance Status: Acute Progress Note Narrative Ongoing follow-up of patient seen during daily trauma rounds. This is day 7 post injury. The patient is stable, tracks, follows and is breathing over her vent. Otherwise, no neurobehavioral improvements, and no issues of agitation presently. She remains a Rancho III with localized responding. I will continue to follow. Vargas Lorenzo PhD Jan 24, 2017 10:59
[2017-01-24] MEDS: LEVOFLOXACIN 750 MG PREMIX INJ 150 ML IV SCH ×2 (11:50→13:00)
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
[2017-01-24] MEDS ORDERED: PHENYLEPH/NS 1000 MCG/10 ML SYR IV ONE (12:42)
[2017-01-24] MEDS ORDERED: LACTATED RINGER'S 1000 ML INJ 1,000 ML IV ONE ×2 (12:42→21:45)
[2017-01-24] MEDS ORDERED: MIDAZOLAM HCL 2 MG/2 ML VIAL ONE (13:35)
[2017-01-24] MEDS ORDERED: fentaNYL CITRATE 250 MCG/5 ML AMP ONE (13:35)
--- NOTE | 2017-01-24 14:16 | HHI.PR ---
Addendum to Inpatient Note Additional Information Attempted to see the pt Pt is in OR + low grade fever and still marked bandemia, though improved Growing GNB in the sputum, bl clx are negative cont curretsydnee abx will see pt tomorrow Evelyn Moseley MD Jan 24, 2017 14:15
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
[2017-01-24] MEDS ORDERED: MIDAZOLAM HCL 2 MG/2 ML VIAL IV PUSH PRN (21:45)
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
[2017-01-24] MEDS ORDERED: HYDROmorphone HCL PF 1 MG/ML VIAL IV PUSH PRN ×2 (22:00)
[2017-01-25] VITALS (18 sets, daily range): BP systolic 86–128; BP diastolic 40–52; PULSE 96–110; RESP 14–18; TEMP 99.4–100.9; O2SAT 94–99
[2017-01-25] MEDS: RESP: ALBUTEROL 2.5 MG/IPRATROPIUM 0.5 MG NEB (SCH) NEB ×7 (00:17→23:50)
[2017-01-25] MEDS: CEFEPIME INJ 2,000 MG in SODIUM CHLORIDE 0.9% INJ 100 ML IV SCH ×3 (04:00→19:58)
[2017-01-25] MEDS: CHLORHEXIDINE GLUCONATE 2 % 1 PACK (2 CLOTHS) TOP SCH (04:00)
--- NOTE | 2017-01-25 04:24 | RADRPT ---
EXAM DATE/TIME: 01/25/2017 03:48 [facility] COMPARISON: CHEST SINGLE AP, January 24, 2017, 4:33. INDICATIONS : Shortness of breath. MEDICAL HISTORY : Carcinoma, breast. SURGICAL HISTORY : Mastectomy, bilateral. ENCOUNTER: Subsequent ACUITY: 1 week PAIN SCORE: 0/10 LOCATION: Bilateral chest FINDINGS: A single view of the chest demonstrates the support devices remain in place. No pneumothorax. Improvi ng aeration of the lung bases compared to the prior study. Heart size is stable. Stable left-sided ri b fractures. CONCLUSION: 1. Improving aeration of the lung bases compared to the prior study 2. No evidence of pneumothorax. Robby Zuleta MD on January 25, 2017 at 4:21 Board Certified Radiologist. This report was verified electronically.
[2017-01-25] MEDS ORDERED: LACTATED RINGER'S 1000 ML INJ 1,000 ML IV ONE (05:00)
[2017-01-25 05:20] LABS: BLOOD GAS BASE EXCESS -6.8 mmol/L (-2-2); BLOOD GAS CARBOXYHEMOGLOBIN 1.6 % (0-4); BLOOD GAS HCO3 17 mmol/L (22-26); BLOOD GAS METHEMOGLOBIN 0.9 % (0-2); BLOOD GAS O2 HGB SATURATION 96 % (90-100); BLOOD GAS OXYGEN CONTENT 13.5 Vol % (12.0-20.0); BLOOD GAS PCO2 28 mmHg (38-42); BLOOD GAS PO2 101 mmHg (61-120); BLOOD GAS TOTAL HGB 9.9 G/DL (12.0-16.0); CRITICAL VALUE NO; OXYGEN DEVICE VENTILATOR; TEMP CORR TO 98.6
[2017-01-25 05:21] LABS: DRAW SITE ART LINE; FIO2 40 %; STAT NO; VENT SETTINGS PRVC/AC
[2017-01-25] MEDS: PROPOFOL 1000 MG/100 ML INJ 100 ML IV SCH ×2 (05:43→19:59)
[2017-01-25 05:45] LABS: AUTOMATED NEUTROPHIL # 10.4 TH/MM3 (1.8-7.7); BASOPHIL % 0.3 % (0.0-2.0); EOSINOPHIL # 0.1 TH/MM3 (0-0.4); EOSINOPHIL % 0.8 % (0.0-4.0); HEMATOCRIT 27.9 % (35.0-46.0); LYMPH % 6.6 % (9.0-44.0); LYMPHOCYTE # 0.8 TH/MM3 (1.0-4.8); MEAN CELL VOLUME 85.8 FL (80.0-100.0); MEAN CORPUSCULAR HGB CONC 33.8 % (32.0-36.0); MONO % 4.9 % (0.0-8.0); NEUT % 87.4 % (16.0-70.0); PLATELET COUNT 92 TH/MM3 (150-450); RED BLOOD COUNT 3.25 MIL/MM3 (4.00-5.30); RED CELL DISTRIBUTION WIDTH 16.9 % (11.6-17.2); WHITE BLOOD COUNT 11.9 TH/MM3 (4.0-11.0)
[2017-01-25 05:54] LABS: HEMO FLAGS AUTO DIFF
[2017-01-25] MEDS: FREE WATER G-TUBE SCH ×3 (06:00→21:29)
[2017-01-25 06:04] LABS: BICARBONATE 18.6 MEQ/L (21.0-32.0); POTASSIUM 3.5 MEQ/L (3.5-5.1)
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
[2017-01-25 08:49] LABS: CALCIUM-PROTEIN CORRECTED 9.1 MG/DL (8.5-10.1)
[2017-01-25] MEDS: REMOVE OLD LIDOCAINE PATCH T-DERMAL SCH (09:00)
[2017-01-25] MEDS: LACTULOSE SYRUP 20 GM/30 ML CUP PO SCH (09:00)
[2017-01-25] MEDS: PANTOPRAZOLE SODIUM 40 MG VIAL IV SCH (09:34)
[2017-01-25] MEDS: DOCUSATE SODIUM 50 MG/SENNA 8.6 MG TAB PO SCH ×2 (09:34→20:00)
[2017-01-25] MEDS: LINEZOLID 600 MG PREMIX 300 ML IV SCH ×2 (09:35→22:32)
[2017-01-25] MEDS: BACITRACIN TOP OINT 15 GM TUBE TOPICAL SCH ×2 (09:35→20:00)
[2017-01-25] MEDS: LIDOCAINE HCL 5% PATCH T-DERMAL SCH (09:36)
[2017-01-25] MEDS: CHLORHEXIDINE 0.12% (ORAL KIT) 15 ML CUP MT SCH ×2 (09:36→20:00)
[2017-01-25] MEDS: SODIUM CHLORIDE 0.9% FLUSH 10 ML FLUSH SCH ×2 (09:36→20:00)
[2017-01-25] MEDS: SODIUM CHLOR 0.9% 1000 ML INJ 1,000 ML IV SCH ×2 (09:37→18:56)
[2017-01-25 09:49] LABS: BANDS 20 % (0-6); CORRECTED NUCLEATED RBC 1 /100 WBC (0-0); EOSINOPHILS 1 % (0-4); METAMYELOCYTES 1 % (0-1); NEUTROPHIL # MANUAL DIFF 10.1 TH/MM3 (1.8-7.7); PLATELET ESTIMATE SMEAR LOW (NORMAL); PLATELET MORPHOLOGY NORMAL (NORMAL); POLYS (SEG NEUTROPHILS) 64 % (16-70); SCAN/DIFF FINAL DIFF MANUAL; WBC DIFF SAMPLE 100
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
[2017-01-25] MEDS: ENOXAPARIN SODIUM 40 MG/0.4 ML SYRINGE SQ SCH (11:19)
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
[2017-01-25 12:28] LABS: STAT YES
[2017-01-25] MEDS: LEVOFLOXACIN 750 MG PREMIX INJ 150 ML IV SCH (12:59)
--- NOTE | 2017-01-25 15:15 | PD.CONS ---
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 tube placement. Irrigation and debridement of left leg, application of wound VAC dressing. * 01/20/17: Debridement open complex wound left thigh,washout excisional debridement open wound left chest wall, washout open wound right abdominal wall Application of wound VAC left chest wall wound ,right abdominal wall wound * 01/18/17: Exploration of large left thigh wound with active bleeding, bleeding control, wide excision of necrotic skin * 01/17/17: Exploratory laparotomy, washout of multiple open wounds, closure right scalp wound. Left chest tube thoracostomy, insertion of right Cordis . (Glenna Anderson) Patient/Family Conference Present at Family Conference: Marisol Valdivia Family Conference Time (mins): 45 Family Conference Location: Bedside (Met with marisol Valdivia) Issues Discussed: * Palliative care role, purpose, approach * Additional medical, psychosocial, and spiritual history * Patients general health, functional status, and cognitive changes in the months leading up to the current hospitalization * Patient/family understanding of the current medical problems * Patient/family understanding of prognosis * Patients goals of care as best understood from advance directives and/or conversations and/or values * Current medical treatment options and benefits/burdens of those options * Likely scenarios comparing ongoing aggressive care with a transition to comfort measures only * Questions answered to the best of my ability * Palliative care contact information provided (Glenna Anderson) Assessment and Plan Disease Oriented Problem List: (1) Intracranial bleed (2) Traumatic hemorrhagic shock (3) Traumatic brain injury (4) Closed flail chest Symptom Scale: (1) Pain 0-10 Scale: Unable to quantify (2) Dyspnea 0-10 Scale: Unable to quantify Pertinent Non-Medical Issues Psychosocial: Patient is with two adult children. Spiritual: Unknown Legal:Patient is incapacitated and not likely to regain capacity. Per [place] Statutes, healthcare proxy falls to her two children. Ethical issues impacting care: Patient is incapacitated and not likely to regain capacity. Important Contacts Daughter Shea Ramos: [phone], or [phone] Son-in-law Jc Ramos: [phone] Son: Ryan Palacios: [phone] Prognosis Patient has many injuries that increase her risk of further decline, infections or even . . Code Status: Full Code Plan * Patient is incapacitated to make her own healthcare decisions, uncertain if she will regain capacity. Patient is . According to [place] statutes health care proxy decision-making falls to the majority of adult children. Patient's daughter wishes to participate in health care proxy decision-making. Left message for patient's son, awaiting return call to determine if he wishes to participate. * FULL CODE daughter is considering alternate code status. Also waiting determination if patient son wants to participate in decision-making. * Palliative care met with patient's daughter at bedside. Medical update provided. Daughter seems to understand current medical condition and high risk for further decline, infection or even secondary to her many traumatic injuries. She has some medical background in rehabilitation. Reports patient with trajectory of decline prior to hospitalization. Provided patient's written , notarized last will indicating that she did not want any chemotherapy, dialysis or any other thing to keep her alive. Stating when her time calms she' s ready to go. Daughter is considering alternate code status. Understands we' re waiting to determine whether or not her brother wishes to participate in proxy decision-making. * SYMPTOMS: Pain: secondary to various traumatic injuries, multiple tubes/lines/ drains. Currently sedated with fentanyl and propofol, appears relatively comfortable during my visit today. Dyspnea: sedated on mechanical ventilation. No new medication recommendations at this time. Patient will likely need pain medication once Fentanyl and propofol or weaned given multiple injuries. Palliative care will continue to follow to make additional recommendations at that time. * Palliative care number provided. * Palliative care will continue to follow throughout hospital course to assist with symptom management and clarification of goals as needed. . (Glenna Anderson) Thank you for the opportunity to participate in the care of Ms. Benito. (Glenna Anderson) Attestation To help prompt me to consider important information that might be impacting today's encounter and assessment, information from prior notes written by myself or my colleagues may have been "brought forward" into today's note. My signature on this note, however, is an attestation that I personally performed the exam, history, and/or decision-making noted today, and, unless otherwise indicated, the interactions with patient, family, and staff as well as the review of records all occurred today. I also attest that the listed assessment and stated plan reflect my best clinical judgment today based on the combination of historical information, prior notes, and today's exam/ interactions. When time spent is documented, it refers only to time spent today by the signer, or if indicated, combined time spent today by collaborating physician/nurse practitioner. (Glenna Anderson) Collaborating MD Comments Chart reviewed. Case discussed with palliative care [employer]. Above [employer] note reviewed and I concur. . (Isidro Nye MD) Glenna Anderson Jan 25, 2017 15:15 Isidro Nye MD Apr 15, 2017 16:21
[2017-01-25] MEDS: NOREPINEPHRINE-DEXTROSE DRIP 250 ML IV SCH (19:59)
[2017-01-25] MEDS: fentaNYL DRIP 250 ML IV SCH (19:59)
[2017-01-25] MEDS: ACETAMINOPHEN 325 MG TAB PO PRN (20:31)
[2017-01-26] VITALS (17 sets, daily range): BP systolic 115–150; BP diastolic 44–49; PULSE 89–107; RESP 14–26; TEMP 98.2–99.8; O2SAT 94–100
[2017-01-26] MEDS: RESP: ALBUTEROL 2.5 MG/IPRATROPIUM 0.5 MG NEB (SCH) NEB ×3 (03:08→11:09)
[2017-01-26] MEDS: CEFEPIME INJ 2,000 MG in SODIUM CHLORIDE 0.9% INJ 100 ML IV SCH ×3 (03:21→20:35)
[2017-01-26] MEDS: CHLORHEXIDINE GLUCONATE 2 % 1 PACK (2 CLOTHS) TOP SCH (04:00)
[2017-01-26 05:13] LABS: AUTOMATED NEUTROPHIL # 8.3 TH/MM3 (1.8-7.7); BASOPHIL % 0.2 % (0.0-2.0); EOSINOPHIL # 0.3 TH/MM3 (0-0.4); HEMATOCRIT 25.9 % (35.0-46.0); HEMO FLAGS DIFF FINAL; LYMPH % 5.7 % (9.0-44.0); LYMPHOCYTE # 0.6 TH/MM3 (1.0-4.8); MEAN CELL VOLUME 85.2 FL (80.0-100.0); MEAN CORPUSCULAR HEMOGLOBIN 29.8 PG (27.0-34.0); MONO % 6.5 % (0.0-8.0); NEUT % 84.6 % (16.0-70.0); PLATELET COUNT 114 TH/MM3 (150-450); RED BLOOD COUNT 3.04 MIL/MM3 (4.00-5.30); RED CELL DISTRIBUTION WIDTH 16.6 % (11.6-17.2); WHITE BLOOD COUNT 9.8 TH/MM3 (4.0-11.0)
[2017-01-26] MEDS: FREE WATER G-TUBE SCH ×3 (05:26→20:35)
[2017-01-26 05:33] LABS: BLOOD GAS CARBOXYHEMOGLOBIN 1.9 % (0-4); BLOOD GAS HCO3 21 mmol/L (22-26); BLOOD GAS METHEMOGLOBIN 0.9 % (0-2); BLOOD GAS O2 HGB SATURATION 96 % (90-100); BLOOD GAS OXYGEN CONTENT 11.7 Vol % (12.0-20.0); BLOOD GAS PCO2 32 mmHg (38-42); BLOOD GAS PO2 103 mmHg (61-120); BLOOD GAS TOTAL HGB 8.6 G/DL (12.0-16.0); CRITICAL VALUE NO; OXYGEN DEVICE VENTILATOR; TEMP CORR TO 98.6
[2017-01-26 05:34] LABS: DRAW SITE ART LINE; FIO2 40 %; STAT NO; ULNAR PULSE PRESENT; VENT SETTINGS PRVC14/500/+5
[2017-01-26 06:14] LABS: BICARBONATE 22.8 MEQ/L (21.0-32.0); CALCIUM-PROTEIN CORRECTED 8.8 MG/DL (8.5-10.1); TOTAL BILIRUBIN ADULT 0.9 MG/DL (0.2-1.0)
[2017-01-26] MEDS: SODIUM CHLOR 0.9% 1000 ML INJ 1,000 ML IV SCH ×2 (06:21→08:52)
[2017-01-26 06:25] LABS: POTASSIUM 2.7 MEQ/L (3.5-5.1)
[2017-01-26] MEDS: POTASSIUM CHLOR 40 MEQ PREMIX 100 ML IV PRN (06:29)
--- NOTE | 2017-01-26 06:37 | RADRPT ---
EXAM DATE/TIME: 01/26/2017 06:10 [facility] COMPARISON: CHEST SINGLE AP, January 25, 2017, 3:48. INDICATIONS : Short of breath. MEDICAL HISTORY : Carcinoma, breast. SURGICAL HISTORY : Mastectomy, bilateral. ENCOUNTER: Subsequent ACUITY: 1 week PAIN SCORE: Non-responsive. LOCATION: Bilateral chest FINDINGS: The support devices remain in place. No evidence of pneumothorax. Lung mcclure are grossly clear. Ther e is improved atelectasis in the right perihilar area. The heart size is within normal limits and sta ble. Multiple stable bilateral rib fractures. CONCLUSION: No evidence of pneumothorax. The lungs are grossly clear. Robby Zuleta MD on January 26, 2017 at 6:34 Board Certified Radiologist. This report was verified electronically.
[2017-01-26] MEDS: DOCUSATE SODIUM 50 MG/SENNA 8.6 MG TAB PO SCH ×2 (08:51→20:35)
[2017-01-26] MEDS: PROPOFOL 1000 MG/100 ML INJ 100 ML IV SCH ×2 (08:51→19:51)
[2017-01-26] MEDS: PANTOPRAZOLE SODIUM 40 MG VIAL IV SCH (08:51)
[2017-01-26] MEDS: LIDOCAINE HCL 5% PATCH T-DERMAL SCH (08:52)
[2017-01-26] MEDS: fentaNYL DRIP 250 ML IV SCH ×2 (08:52→19:51)
[2017-01-26] MEDS: REMOVE OLD LIDOCAINE PATCH T-DERMAL SCH (08:53)
[2017-01-26] MEDS: LACTULOSE SYRUP 20 GM/30 ML CUP PO SCH (08:53)
[2017-01-26] MEDS: BACITRACIN TOP OINT 15 GM TUBE TOPICAL SCH ×2 (08:53→20:35)
[2017-01-26] MEDS: SODIUM CHLORIDE 0.9% FLUSH 10 ML FLUSH SCH ×2 (08:53→20:36)
[2017-01-26] MEDS: CHLORHEXIDINE 0.12% (ORAL KIT) 15 ML CUP MT SCH ×2 (08:53→20:36)
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
[2017-01-26] MEDS ORDERED: VALPROIC ACID 250 MG CAP PO SCH (09:15)
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
--- NOTE | 2017-01-26 10:11 | HHI.HCPN ---
No return call from son yesterday. Attempted to call son Ryan Wagner again. No answer. Left message requesting call back. Emilee Santana LEAD [employer] MEDICINE TECHNOLOGIST, [employer] CONSULTANT Jan 26, 2017 10:11
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
[2017-01-26] MEDS: ENOXAPARIN SODIUM 40 MG/0.4 ML SYRINGE SQ SCH (11:00)
--- NOTE | 2017-01-26 11:02 | HHI.PR ---
Neuropsych Emotional Emotional: UnabletoAssess: Emotional, Anxious/Fearful, Depressed/Sad, Hostile/ Resentful, Irritable/Angry/Frustrate, Labile, Constricted/Blunted Behavior Behavior: Unable to Asses: Behavior, Coping/Acceptance, Cooperative w/ Treatment, Motivation, Frustration Tolerance/[place], Impulsive/Agitated, Suicidal/ Homicidal Risk Cognitive Cognitive: Unable to Asses: Cognitive, Attention/Concentration, Confused/ Orientation, Insight/Awareness, Judgement/Problem-Solving, Memory Psychosocial Psychosocial: Unable to Asses: Psychosocial, Family/Other Adjustment, Realistic Expectation, Self-Esteem/Confidence Progress Notes/Response to Tx Contents of Sessions: Adjustment, Level of Consciousness Time with Patient: 15 minutes Premorbid psychological status Premorbid Cognitive, Emotional and Behavioral Status: Unable to Assess. The patient is unable to provide information concerning her social history and there is no family present. Behavioral Reactions of Patient and Family/Support System: Unable to Assess. No family present. Emotional/Behavioral Status of Patient and Family/Support System: Unable to Assess. Pertinent issues, if appropriate to this patients clinical care, are described in detail above. Maximizing acute care outcome It is recommended that the patient be monitored for emergent behavioral impulsivity as the medical condition evolves. This patients neuropathological challenges may limit their rehabilitation potential going forward, and these challenges will require specialized therapeutic skills to maximize outcome. Anticipated Problems Ongoing areas of concern will include behavioral impulsivity, lack of insight and judgment, which is expected to improve with time and treatment. Presently , the patient intubated and sedated. Treatment Plan This clinician will continue to follow with you throughout the course of this patients acute care treatment, and I will be available to meet with the patient s family/support system to facilitate their understanding and the ongoing care of their family member. The goals of neuropsychological intervention shall be both educational and supportive to the family/support system as is deemed clinically appropriate. [facility] Level: III:Localized response-total assist Impression This 66 year old woman suffered a moderately severe traumatic brain injury, with the resulting eventual sequelae exacerbated by her age. She is expected to have residual neurocognitive disorder 2T TBI. Diagnosis: (1) Major neurocognitive disorder as late effect of traumatic brain injury without behavioral disturbance Status: Acute Progress Note Narrative Ongoing follow-up of patient seen during daily trauma rounds. This is day 9 post injury. The patient is observed to be restlessness, but not agitated, with a significant component of her issues presumed to be oversedation. Trauma team consensus is to monitor sedation medication levels during the rest of her ICU stay and make titration changes downward as clinically indicated. As she is a Rancho III, emerging Rancho IV save the sedating medication, trauma team consensus is to start Valproic Acid 250 BID to help manage the expected increases in restlessness expected with lowered sedating medications. I will continue to follow. Vargas Lorenzo PhD Jan 26, 2017 11:02 am
[2017-01-26] MEDS ORDERED: ALTEPLASE RECOMBINANT 2 MG VIAL INTRACATH ONE (12:15)
[2017-01-26] MEDS: LEVOFLOXACIN 750 MG PREMIX INJ 150 ML IV SCH (12:19)
[2017-01-26] MEDS: LINEZOLID 600 MG PREMIX 300 ML IV SCH ×2 (12:19→23:14)
[2017-01-26] MEDS: VALPROIC ACID SYRUP 250 MG/5 ML UDC PO SCH ×2 (14:03→20:35)
--- NOTE | 2017-01-26 15:28 | HHI.HCPN ---
Reason for visit a. To assist with evaluation and management of symptoms including: pain, dyspnea b. To assist medical decision maker(s) with: better understanding of current medical conditions; weighing benefits/burdens of medical treatment options; making medical treatment decisions. (Glenna Anderson) Subjective/Interval History Ms. Benito is a 66 year old female with past medical history per daughters report of dementia, bipolar/ depression, arthritis, malnutrition and frequent falls. Patient was admitted to [facility] in November 2016 S/P fall and SDH. 01/17/17: ex lap, There were no major organ injuries or bleeding found. 01/19/17: emergently taken to the OR for hemorrhagic shock injury of the profunda femoris artery and exploratory surgery for her wound and bleeding repair. 01/21/17 She had an IVC filter placed. Driver Utility Worker notes indicate that patient has remained somewhat stable for the past few days. 01/26/17: Patient is alert and awake. She remains mechanically intubated. She nods her head "yes" when asked if she is comfortable. She as able to weakly follow commands with bilateral upper extremities. Per conversation with Dr. Bolden, patient has remained intubated due to multiple trips to OR for debridement and wound vac changes. Discussed with Dr. Lema regarding current status. Patient may likely be medically extubated in the next few days. Patient awaiting MRI for possible halo placement. . Family/friend interactions No family available. DARIUS Wright, attempted to call daughter to discuss code status. . (Glenna Anderson) Advance Directives Living Will: Never completed Health Care Surrogate: Never completed Durable Power of [place]aler: Never completed (Glenna Anderson) Advance Directive Specifics Health Care Surrogate(s): Patient is incapacitated, uncertain if she will regain capacity. Per [place] Statutes, Healthcare Proxy falls to her two children. Daughter Shea Ramos: [phone], or [phone] Son-in-law Jc Ramos: [phone] Son: Ryan Palacios: [phone] Documented care wishes: 08/05/13 Patient hand written, notarized note stating this is her last will that includes " I don't want any chemotherapy, or any dialysis or any other thing to keep me alive when my time comes I am ready to go." . (Glenna Anderson) Objective ABG Test 01/26/17 05:21 Blood Gas HCO3 21 L mmol/L Blood Gas Base Excess -2.0 mmol/L Blood Gas Oxygen Saturation 96 % Arterial Blood pH 7.45 H Arterial Blood Partial 32 L mmHg Pressure CO2 Arterial Blood Partial 103 mmHg Pressure O2 Arterial Blood Oxygen Content 11.7 L Vol % Arterial Blood 1.9 % Carboxyhemoglobin Arterial Blood Methemoglobin 0.9 % Blood Gas Hemoglobin 8.6 L G/DL Oxygen Delivery Device VENTILATOR Blood Gas Ventilator Setting PRVC14/500/+5 Blood Gas Inspired Oxygen 40 % Vital Signs Date Time Temp Pulse Resp B/P Pulse Ox O2 Delivery O2 Flow Rate FiO2 01/26/17 14:05 100 40 01/26/17 12:00 40 01/26/17 11:09 99 40 01/26/17 10:00 40 01/26/17 09:40 96 40 01/26/17 09:40 40 01/26/17 08:00 40 01/26/17 07:28 96 40 01/26/17 07:00 95 Mechanical Ventilator 40 01/26/17 06:00 90 01/26/17 04:02 99 40 01/26/17 04:00 40 01/26/17 04:00 92 01/26/17 04:00 99.8 92 14 145/46 100 01/26/17 02:00 89 01/26/17 01:03 97 40 01/26/17 00:00 98.8 105 26 115/45 96 01/26/17 00:00 40 01/26/17 00:00 105 01/25/17 22:00 98 01/25/17 21:04 97 40 01/25/17 20:00 40 01/25/17 20:00 98 01/25/17 20:00 100.9 98 16 112/46 97 01/25/17 19:00 97 Mechanical Ventilator 40 01/25/17 18:00 100 01/25/17 16:00 40 01/25/17 16:00 99.4 102 18 104/42 97 01/25/17 16:00 98 01/25/17 15:40 97 40 Intake & Output 01/26/17 01/26/17 07:00 19:00 Intake Total 3209 ml Output Total 3500 ml Balance -291 ml Intake IV Total 2311 ml Tube Feeding 438 ml Other 460 ml Output Urine Total 2850 ml Chest Tube Drainage Total 300 ml Drainage Total 350 ml # Bowel Movements 1 Physical Exam CONSTITUTIONAL/GENERAL: This is an adequately nourished patient, in no apparent distress. TUBES/LINES/DRAINS: ETT, OGT, bilateral chest tubes, right flank and left groin/ thigh wound vacs, right subclavian TLC, left radial arterial line, Somerset J collar, Ochoa catheter. SKIN: Right lateral head avulsion with dressing intact. Left eye laceration. Abrasions on chin lips, bilateral lower extremities lower abdomen, right shoulder. Puncture wound right upper chest/ breast area and right foot. Midline abdominal incision with jenny intact. Wound vac to leftt groin/ thigh area. Wound vac to right flank area. LLE with oozing puncture site. Bilateral hands and feet edematous. Skin is cool and dry. No diaphoresis. HEAD: Normocephalic. Multiple abrasion, Somerset J collar in place. Right head avulsion to skull, may likely need rotational flap. EYES: Pupils equal and round slow to react at 3mm bilaterally. Extraocular motions intact. No scleral icterus. No injection or drainage. Fundi not examined. Bilateral periorbital ecchymosis and abrasions. ENT: Nose without bleeding or purulent drainage. Unable to visualize throat due to ETT and OGT NECK: Somerset J not removed for inspection. CARDIOVASCULAR: Regular rate and rhythm without murmurs, gallops, or rubs. No JVD. Peripheral pulses palpable. RESPIRATORY/CHEST: Symmetric, unlabored respirations. Scattered rhonchi in bilateral bases. Breath sounds equal bilaterally. Bilateral chest tubes. GASTROINTESTINAL: Abdomen soft, non-tender, nondistended. No hepato-splenomegaly , or palpable masses. No guarding. Bowel sounds present. Midline incision healing. GENITOURINARY: Without palpable bladder distension. Ochoa catheter in place. MUSCULOSKELETAL: Extremities without clubbing, cyanosis. No mottling or clubbing. Foot drop bilaterally. 2+ edema on bilateral hands and feet. LYMPHATICS: No palpable cervical or supraclavicular adenopathy. NEUROLOGICAL: Rouses to voice. Follows simple commands with RUE (gives thumbs up ). Tracks with eyes. Does not follow commands with BLE or LUE. PSYCHIATRIC: Intubated. . (Glenna Anderson) Diagnostic Tests Laboratory Laboratory Tests Test 01/23/17 01/23/17 01/24/17 01/24/17 17:26 18:07 04:40 05:18 Blood Type AB POSITIVE Antibody Screen NEGATIVE Crossmatch Leukocyte-Reduced Red Blood Cells Blood Bank Comment White Blood Count 7.8 TH/MM3 (4.0-11.0) Red Blood Count 3.59 MIL/MM3 (4.00-5.30) Hemoglobin 10.3 GM/DL (11.6-15.3) Hematocrit 30.8 % (35.0-46.0) Mean Corpuscular Volume 85.6 FL (80.0-100.0) Mean Corpuscular Hemoglobin 28.8 PG (27.0-34.0) Mean Corpuscular Hemoglobin 33.6 % Concent (32.0-36.0) Red Cell Distribution Width 16.8 % (11.6-17.2) Platelet Count 85 TH/MM3 (150-450) Mean Platelet Volume 9.5 FL (7.0-11.0) Neutrophils (%) (Auto) 85.2 % (16.0-70.0) Lymphocytes (%) (Auto) 6.5 % (9.0-44.0) Monocytes (%) (Auto) 5.3 % (0.0-8.0) Eosinophils (%) (Auto) 2.6 % (0.0-4.0) Basophils (%) (Auto) 0.4 % (0.0-2.0) Neutrophils # (Auto) 6.7 TH/MM3 (1.8-7.7) Lymphocytes # (Auto) 0.5 TH/MM3 (1.0-4.8) Monocytes # (Auto) 0.4 TH/MM3 (0-0.9) Eosinophils # (Auto) 0.2 TH/MM3 (0-0.4) Basophils # (Auto) 0.0 TH/MM3 (0-0.2) CBC Comment AUTO DIFF Differential Total Cells 100 Counted Neutrophils % (Manual) 61 % (16-70) Band Neutrophils % 28 % (0-6) Lymphocytes % 3 % (9-44) Monocytes % 5 % (0-8) Eosinophils % 3 % (0-4) Neutrophils # (Manual) 6.9 TH/MM3 (1.8-7.7) Differential Comment FINAL DIFF MANUAL Platelet Estimate LOW (NORMAL) Platelet Morphology Comment ENLARGED (NORMAL) Sodium Level 143 MEQ/L (136-145) Potassium Level 3.4 MEQ/L (3.5-5.1) Chloride Level 112 MEQ/L (98-107) Carbon Dioxide Level 20.9 MEQ/L (21.0-32.0) Anion Gap 10 MEQ/L (5-15) Blood Urea Nitrogen 15 MG/DL (7-18) Creatinine 0.53 MG/DL (0.50-1.00) Estimat Glomerular Filtration 115 ML/MIN Rate (>89) Random Glucose 78 MG/DL (74-106) Calcium Level 7.5 MG/DL (8.5-10.1) Total Bilirubin 1.2 MG/DL (0.2-1.0) Aspartate Amino Transf 43 U/L (15-37) (AST/SGOT) Alanine Aminotransferase 22 U/L (10-53) (ALT/SGPT) Alkaline Phosphatase 78 U/L (45-117) Total Protein 5.2 GM/DL (6.4-8.2) Albumin 1.8 GM/DL (3.4-5.0) Blood Gas Puncture Site LEFT PEDAL Blood Gas Patient Temperature 98.6 Blood Gas HCO3 19 mmol/L (22-26) Blood Gas Base Excess -4.7 mmol/L (-2-2) Blood Gas Oxygen Saturation 94 % (90-100) Arterial Blood pH 7.43 (7.380-7.420) Arterial Blood Partial 29 mmHg (38-42) Pressure CO2 Arterial Blood Partial 83 mmHg Pressure O2 (61-120) Arterial Blood Oxygen Content 14.5 Vol % (12.0-20.0) Arterial Blood 2.0 % (0-4) Carboxyhemoglobin Arterial Blood Methemoglobin 1.0 % (0-2) Blood Gas Hemoglobin 11.0 G/DL (12.0-16.0) Oxygen Delivery Device VENTILATOR Blood Gas Ventilator Setting PRVC/AC Blood Gas Inspired Oxygen 40 % Test 01/24/17 01/24/17 01/25/17 01/25/17 06:46 10:28 04:00 05:00 Blood Bank Comment Blood Type AB POSITIVE Crossmatch Leukocyte-Reduced Red Blood Cells White Blood Count 11.9 TH/MM3 (4.0-11.0) Red Blood Count 3.25 MIL/MM3 (4.00-5.30) Hemoglobin 9.4 GM/DL (11.6-15.3) Hematocrit 27.9 % (35.0-46.0) Mean Corpuscular Volume 85.8 FL (80.0-100.0) Mean Corpuscular Hemoglobin 29.0 PG (27.0-34.0) Mean Corpuscular Hemoglobin 33.8 % Concent (32.0-36.0) Red Cell Distribution Width 16.9 % (11.6-17.2) Platelet Count 92 TH/MM3 (150-450) Mean Platelet Volume 10.7 FL (7.0-11.0) Neutrophils (%) (Auto) 87.4 % (16.0-70.0) Lymphocytes (%) (Auto) 6.6 % (9.0-44.0) Monocytes (%) (Auto) 4.9 % (0.0-8.0) Eosinophils (%) (Auto) 0.8 % (0.0-4.0) Basophils (%) (Auto) 0.3 % (0.0-2.0) Neutrophils # (Auto) 10.4 TH/MM3 (1.8-7.7) Lymphocytes # (Auto) 0.8 TH/MM3 (1.0-4.8) Monocytes # (Auto) 0.6 TH/MM3 (0-0.9) Eosinophils # (Auto) 0.1 TH/MM3 (0-0.4) Basophils # (Auto) 0.0 TH/MM3 (0-0.2) CBC Comment AUTO DIFF Differential Total Cells 100 Counted Neutrophils % (Manual) 64 % (16-70) Band Neutrophils % 20 % (0-6) Lymphocytes % 9 % (9-44) Monocytes % 5 % (0-8) Eosinophils % 1 % (0-4) Neutrophils # (Manual) 10.1 TH/MM3 (1.8-7.7) Metamyelocytes 1 % (0-1) Nucleated Red Blood Cells 1 /100 WBC (0-0) Differential Comment FINAL DIFF MANUAL Platelet Estimate LOW (NORMAL) Platelet Morphology Comment NORMAL (NORMAL) Sodium Level 143 MEQ/L (136-145) Potassium Level 3.5 MEQ/L (3.5-5.1) Chloride Level 113 MEQ/L (98-107) Carbon Dioxide Level 18.6 MEQ/L (21.0-32.0) Anion Gap 11 MEQ/L (5-15) Blood Urea Nitrogen 14 MG/DL (7-18) Creatinine 0.47 MG/DL (0.50-1.00) Estimat Glomerular Filtration 132 ML/MIN Rate (>89) Random Glucose 82 MG/DL (74-106) Calcium Level 7.6 MG/DL (8.5-10.1) Protein Corrected Calcium 9.1 MG/DL (8.5-10.1) Total Bilirubin 1.0 MG/DL (0.2-1.0) Aspartate Amino Transf 40 U/L (15-37) (AST/SGOT) Alanine Aminotransferase 22 U/L (10-53) (ALT/SGPT) Alkaline Phosphatase 75 U/L (45-117) Total Protein 4.6 GM/DL (6.4-8.2) Albumin 1.4 GM/DL (3.4-5.0) Blood Gas Puncture Site ART LINE Blood Gas Patient Temperature 98.6 Blood Gas HCO3 17 mmol/L (22-26) Blood Gas Base Excess -6.8 mmol/L (-2-2) Blood Gas Oxygen Saturation 96 % (90-100) Arterial Blood pH 7.40 (7.380-7.420) Arterial Blood Partial 28 mmHg (38-42) Pressure CO2 Arterial Blood Partial 101 mmHg Pressure O2 (61-120) Arterial Blood Oxygen Content 13.5 Vol % (12.0-20.0) Arterial Blood 1.6 % (0-4) Carboxyhemoglobin Arterial Blood Methemoglobin 0.9 % (0-2) Blood Gas Hemoglobin 9.9 G/DL (12.0-16.0) Oxygen Delivery Device VENTILATOR Blood Gas Ventilator Setting [facility]/ Blood Gas Inspired Oxygen 40 % Test 01/26/17 01/26/17 04:35 05:21 White Blood Count 9.8 TH/MM3 (4.0-11.0) Red Blood Count 3.04 MIL/MM3 (4.00-5.30) Hemoglobin 9.1 GM/DL (11.6-15.3) Hematocrit 25.9 % (35.0-46.0) Mean Corpuscular Volume 85.2 FL (80.0-100.0) Mean Corpuscular Hemoglobin 29.8 PG (27.0-34.0) Mean Corpuscular Hemoglobin 35.0 % Concent (32.0-36.0) Red Cell Distribution Width 16.6 % (11.6-17.2) Platelet Count 114 TH/MM3 (150-450) Mean Platelet Volume 10.2 FL (7.0-11.0) Neutrophils (%) (Auto) 84.6 % (16.0-70.0) Lymphocytes (%) (Auto) 5.7 % (9.0-44.0) Monocytes (%) (Auto) 6.5 % (0.0-8.0) Eosinophils (%) (Auto) 3.0 % (0.0-4.0) Basophils (%) (Auto) 0.2 % (0.0-2.0) Neutrophils # (Auto) 8.3 TH/MM3 (1.8-7.7) Lymphocytes # (Auto) 0.6 TH/MM3 (1.0-4.8) Monocytes # (Auto) 0.6 TH/MM3 (0-0.9) Eosinophils # (Auto) 0.3 TH/MM3 (0-0.4) Basophils # (Auto) 0.0 TH/MM3 (0-0.2) CBC Comment DIFF FINAL Differential Comment Sodium Level 144 MEQ/L (136-145) Potassium Level 2.7 MEQ/L (3.5-5.1) Chloride Level 113 MEQ/L (98-107) Carbon Dioxide Level 22.8 MEQ/L (21.0-32.0) Anion Gap 8 MEQ/L (5-15) Blood Urea Nitrogen 14 MG/DL (7-18) Creatinine 0.45 MG/DL (0.50-1.00) Estimat Glomerular Filtration 139 ML/MIN Rate (>89) Random Glucose 142 MG/DL (74-106) Calcium Level 7.3 MG/DL (8.5-10.1) Protein Corrected Calcium 8.8 MG/DL (8.5-10.1) Total Bilirubin 0.9 MG/DL (0.2-1.0) Aspartate Amino Transf 44 U/L (15-37) (AST/SGOT) Alanine Aminotransferase 25 U/L (10-53) (ALT/SGPT) Alkaline Phosphatase 127 U/L (45-117) Total Protein 4.5 GM/DL (6.4-8.2) Albumin 1.3 GM/DL (3.4-5.0) Blood Gas Puncture Site ART LINE Blood Gas Patient Temperature 98.6 Blood Gas HCO3 21 mmol/L (22-26) Blood Gas Base Excess -2.0 mmol/L (-2-2) Blood Gas Oxygen Saturation 96 % (90-100) Arterial Blood pH 7.45 (7.380-7.420) Arterial Blood Partial 32 mmHg (38-42) Pressure CO2 Arterial Blood Partial 103 mmHg Pressure O2 (61-120) Arterial Blood Oxygen Content 11.7 Vol % (12.0-20.0) Arterial Blood 1.9 % (0-4) Carboxyhemoglobin Arterial Blood Methemoglobin 0.9 % (0-2) Blood Gas Hemoglobin 8.6 G/DL (12.0-16.0) Oxygen Delivery Device VENTILATOR Blood Gas Ventilator Setting PRVC14/500/+5 Blood Gas Inspired Oxygen 40 % (Glenna Anderson) Result Diagram: 01/26/17 0435 01/26/17 0435 Microbiology Microbiology Date/Time Procedure Status Source Growth 01/22/17 21:11 Aerobic Blood Culture - Preliminary Resulted Blood Peripheral NO GROWTH IN 4 DAYS 01/22/17 21:11 Anaerobic Blood Culture - Preliminary Resulted Blood Peripheral NO GROWTH IN 4 DAYS 01/22/17 11:00 Urine Culture - Final Complete Urine Catheterized Urine NO GROWTH IN 48 HOURS. 01/22/17 11:00 Gram Stain - Final Complete Sputum Endotracheal 01/22/17 11:00 Sputum Culture - Final Complete Stenotrophomonas Maltophilia Imaging Last Impressions Chest X-Ray 01/26/17 0600 Signed Impressions: Service Date/Time: January 06:10 - CONCLUSION: No evidence of pneumothorax. The lungs are grossly clear. Robby Zuleta MD IVC Filter Placement X-Ray 01/20/17 0000 Signed Impressions: Service Date/Time: Friday, January 20, 2017 16:44 - CONCLUSION: Uncomplicated inferior vena cava filter placement as above. This is a retrievable filter and can be retrieved up to one year from today's date. Avinash Santana Jr., MD Head CT 01/19/17 0600 Signed Impressions: Service Date/Time: January 04:24 - CONCLUSION: No change in scattered subarachnoid hemorrhage and intraventricular hemorrhage. Sg Nobles MD Neck CTA 01/18/17 0000 Signed Impressions: Service Date/Time: Wednesday, January 18, 2017 10:48 - CONCLUSION: 1. Atherosclerotic plaquing but no hemodynamically significant carotid artery stenosis identified. 2. Parenchymal contusion and consolidation involving the right lung apex. 3. ET tube in satisfactory position. Primo Sierra MD Maxillofacial CT 01/18/17 0000 Signed Impressions: Service Date/Time: Wednesday, January 18, 2017 10:48 - CONCLUSION: Left maxillary sinus fractures. Hilary Woods MD Lower Extremity CT 01/18/17 0000 Signed Impressions: Service Date/Time: January 04:26 - CONCLUSION: 1. Comminuted intra-articular fracture of the proximal tibia involving the lateral tibial condyle and intercondylar regions. 2. Lipo hemarthrosis. Sg Nobles MD Knee X-Ray 01/18/17 0000 Signed Impressions: Service Date/Time: Wednesday, January 18, 2017 14:09 - CONCLUSION: Acute fracture involving the proximal tibia with moderate size joint effusion. Details given above. Avinash Santana Jr., MD Femur X-Ray 01/18/17 0000 Signed Impressions: Service Date/Time: Wednesday, January 18, 2017 20:57 - CONCLUSION: Negative for retained surgical isthmus. Other communicated to the operating room. Marques Sierra MD FACR Pelvis X-Ray 01/17/17 0745 Signed Impressions: Service Date/Time: Tuesday, January 17, 2017 07:38 - CONCLUSION: 1. Multiple pelvic fractures, as above. Hermann Arnold MD Upper Extremity CT 01/17/17 0000 Signed Impressions: Service Date/Time: Tuesday, January 17, 2017 10:22 - CONCLUSION: 1. Multiple mildly displaced fractures of the left scapula. 2. Status post ORIF of the proximal left humerus 3. No evidence of fracture dislocation involving the glenohumeral joint. 4. Multiple left-sided rib fractures with associated subcutaneous emphysema. 5. No evidence of significant left-sided pneumothorax. Jayden Aviles MD Tibia/Fibula X-Ray 01/17/17 Signed Impressions: Service Date/Time: Tuesday, January 17, 2017 07:38 - CONCLUSION: No acute fracture identified. Limited single view is provided. Primo Sierra MD Thoracic Spine CT 01/17/17 Signed Impressions: Service Date/Time: Tuesday, January 17, 2017 10:19 - CONCLUSION: Rib fractures, compression fracture of L1 vertebra, transverse fractures of lumbar spine discussed on the patient's prior CT examinations and the thoracic spine appears intact except for scattered degenerative changes. Hilary Woods MD Lumbar Spine CT 01/17/17 Signed Impressions: Service Date/Time: Tuesday, January 17, 2017 10:19 - CONCLUSION: 1. Compression fracture of mid body L1 with approximate 58%% reduction in height. 2. Multiple transverse process fractures, fractures of the sacrum and presacral hematoma discussed on the patient's prior CT pelvis. 3. No appreciable thecal sac stenosis is seen. Hilary Woods MD Foot X-Ray 01/17/17 Signed Impressions: Service Date/Time: Tuesday, January 17, 2017 15:20 - CONCLUSION: No definite fracture is seen for technique. Hilary Woods MD Chest CT 01/17/17 Signed Impressions: Service Date/Time: Tuesday, January 17, 2017 10:22 - CONCLUSION: 1. Bilateral rib fractures, left scapular fractures and tiny bilateral pneumothoraces. 2. Bilateral lung contusions and areas of consolidation right lower lung. Hilary Woods MD Cervical Spine CT 01/17/17 Signed Impressions: Service Date/Time: Tuesday, January 17, 2017 10:21 - CONCLUSION: Fracture of vertebral body of C6 with extension into the right foramen transversarium without any significant compromise to the thecal sac or the exiting nerve roots. Hilary Woods MD Ankle X-Ray 01/17/17 Signed Impressions: Service Date/Time: Tuesday, January 17, 2017 15:25 - CONCLUSION: Soft tissue swelling and no definite fracture for technique. Hilary Woods MD Abdomen/Pelvis CT 01/17/17 Signed Impressions: Service Date/Time: Tuesday, January 17, 2017 10:22 - CONCLUSION: 1. There is nonspecific free fluid within the abdomen and pelvis. No active arterial bleeding is identified. 2. There is a comminuted fracture of L1 which appears to represent a fairly severe compression fracture or possible burst fracture. The lamina and pedicle appear intact. There is no significant bony retropulsion. 3. Mild compression of the superior endplate of T12. 4. Fracture of both sacral ala. 5. Fracture of the anterior aspect of the right iliac wing. 6. Fracture of the superior and inferior sacral ala on the left. 7. Multiple lower rib fractures bilaterally. These will be more definitively assessed on CT imaging through the thorax. 8. Chest tube in place on the left with minimal residual pneumothorax. 9. Minimal pneumothorax on the right. 10. Consolidation/ contusion in both lower lobes. 11. Punctate collections of free air from the patient's laparotomy. Primo Sierra MD Procedures * 01/24/17: Right chest tube placement. Irrigation and debridement of left leg, application of wound VAC dressing. * 01/20/17: Debridement open complex wound left thigh,washout excisional debridement open wound left chest wall, washout open wound right abdominal wall Application of wound VAC left chest wall wound ,right abdominal wall wound * 01/18/17: Exploration of large left thigh wound with active bleeding, bleeding control, wide excision of necrotic skin * 01/17/17: Exploratory laparotomy, washout of multiple open wounds, closure right scalp wound. Left chest tube thoracostomy, insertion of right Cordis . Other Tach/ PEG placement discussed with Dr. Lema, he feels that he will likely be able to medically extubate the patient. Patient is awaiting MRI for possible Halo placement. Code status to be discussed with daughter today. (Glenna Anderson) Assessment and Plan Disease Oriented Problem List: (1) Intracranial bleed (2) Traumatic hemorrhagic shock (3) Traumatic brain injury (4) Closed flail chest Symptom Scale: (1) Pain 0-10 Scale: Unable to quantify (2) Dyspnea 0-10 Scale: Unable to quantify Pertinent Non-Medical Issues Psychosocial: Patient is with two adult children. Spiritual: Unknown Legal:Patient is incapacitated and not likely to regain capacity. Per [place] Statutes, healthcare proxy falls to her two children. Ethical issues impacting care: Patient is incapacitated and not likely to regain capacity. Important Contacts Daughter Shea Ramos: [phone], or [phone] Son-in-law Jc Ramos: [phone] Son: Ryan Palacios: [phone] Prognosis Patient has many injuries that increase her risk of further decline, infections or even . . Code Status: Full Code Plan * Patient is incapacitated to make her own healthcare decisions, uncertain if she will regain capacity. Patient is . According to [place] statutes health care proxy decision-making falls to the majority of adult children. Patient's daughter wishes to participate in health care proxy decision-making. Left message x 2 for patient's son, awaiting return call to determine if he wishes to participate. Son has not returned call, not reasonably available therefore health care proxy decision making falls to daughter. * FULL CODE daughter is considering alternate code status. Also waiting determination if patient son wants to participate in decision-making. * Discussed with Dr. Palomares and Dr. Lema. * Palliative care attempted to call daughter, she had to go stating she would return call. Awaiting return call. * SYMPTOMS: Pain: secondary to various traumatic injuries, multiple tubes/lines/ drains. Currently sedated with fentanyl. Denies pain during my visit today. Dyspnea: sedated on mechanical ventilation. No new medication recommendations at this time. Patient will likely need pain medication once Fentanyl weaned given multiple injuries. Palliative care will continue to follow to make additional recommendations at that time. * Palliative care will continue to follow throughout hospital course to assist with symptom management and clarification of goals as needed. . (Glenna Anderson) Attestation To help prompt me to consider important information that might be impacting today's encounter and assessment, information from prior notes written by myself or my colleagues may have been "brought forward" into today's note. My signature on this note, however, is an attestation that I personally performed the exam, history, and/or decision-making noted today, and, unless otherwise indicated, the interactions with patient, family, and staff as well as the review of records all occurred today. I also attest that the listed assessment and stated plan reflect my best clinical judgment today based on the combination of historical information, prior notes, and today's exam/ interactions. When time spent is documented, it refers only to time spent today by the signer, or if indicated, combined time spent today by collaborating physician/nurse practitioner. (Glenna Anderson) Collaborating MD Comments Chart reviewed. Case discussed with palliative care CHURCH ADMINISTRATOR. Above note reviewed and I concur. . (Isidro Nye MD) Glenna Anderson Jan 26, 2017 15:28 Isidro Nye MD Apr 16, 2017 10:40
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
--- NOTE | 2017-01-26 18:22 | HHI.IDPN ---
Subjective Subjective Remarks doing better completely awake and following commands off pressors plans to go to OR tomorrow Antibiotics levaquine cefepime zyvox Allergies: Coded Allergies: Sulfa (Verified Allergy, Intermediate, "BLOOD COUNT DROPS", 12/29/16) *MDRO Multi-Drug Resistant Organism (Verified Adverse Reaction, Unknown, ) VRE (urine) 01/19/17 Codeine (Verified Adverse Reaction, Unknown, ITCHING, 12/29/16) Objective . Vital Signs Date Time Temp Pulse Resp B/P Pulse Ox O2 Delivery O2 Flow Rate FiO2 01/26/17 17:25 94 40 01/26/17 16:00 40 01/26/17 14:05 100 40 01/26/17 12:00 40 01/26/17 11:09 99 40 01/26/17 10:00 40 01/26/17 09:40 96 40 01/26/17 09:40 40 01/26/17 08:00 40 01/26/17 07:28 96 40 01/26/17 07:00 95 Mechanical Ventilator 40 01/26/17 06:00 90 01/26/17 04:02 99 40 01/26/17 04:00 40 01/26/17 04:00 92 01/26/17 04:00 99.8 92 14 145/46 100 01/26/17 02:00 89 01/26/17 01:03 97 40 01/26/17 00:00 98.8 105 26 115/45 96 01/26/17 00:00 40 01/26/17 00:00 105 01/25/17 22:00 98 01/25/17 21:04 97 40 01/25/17 20:00 40 01/25/17 20:00 98 01/25/17 20:00 100.9 98 16 112/46 97 01/25/17 19:00 97 Mechanical Ventilator 40 01/25/17 01/25/17 01/26/17 14:59 22:59 06:59 Intake Total 2233 ml 1539 ml 1670 ml Output Total 1405 ml 1635 ml 1865 ml Balance 828 ml -96 ml -195 ml Intake IV Total 1764 ml 1052 ml 1259 ml Tube Feeding 269 ml 227 ml 211 ml Other 200 ml 260 ml 200 ml Output Urine Total 800 ml 1275 ml 1575 ml Chest Tube Drainage Total 155 ml 160 ml 140 ml Drainage Total 450 ml 200 ml 150 ml # Bowel Movements 1 0 1 . Laboratory Tests Test 01/25/17 01/26/17 04:00 04:35 White Blood Count 11.9 TH/MM3 9.8 TH/MM3 Red Blood Count 3.25 MIL/MM3 3.04 MIL/MM3 Hemoglobin 9.4 GM/DL 9.1 GM/DL Hematocrit 27.9 % 25.9 % Mean Corpuscular Volume 85.8 FL 85.2 FL Mean Corpuscular Hemoglobin 29.0 PG 29.8 PG Mean Corpuscular Hemoglobin 33.8 % 35.0 % Concent Red Cell Distribution Width 16.9 % 16.6 % Platelet Count 92 TH/MM3 114 TH/MM3 Mean Platelet Volume 10.7 FL 10.2 FL Neutrophils (%) (Auto) 87.4 % 84.6 % Lymphocytes (%) (Auto) 6.6 % 5.7 % Monocytes (%) (Auto) 4.9 % 6.5 % Eosinophils (%) (Auto) 0.8 % 3.0 % Basophils (%) (Auto) 0.3 % 0.2 % Neutrophils # (Auto) 10.4 TH/MM3 8.3 TH/MM3 Lymphocytes # (Auto) 0.8 TH/MM3 0.6 TH/MM3 Monocytes # (Auto) 0.6 TH/MM3 0.6 TH/MM3 Eosinophils # (Auto) 0.1 TH/MM3 0.3 TH/MM3 Basophils # (Auto) 0.0 TH/MM3 0.0 TH/MM3 CBC Comment AUTO DIFF DIFF FINAL Differential Total Cells 100 Counted Neutrophils % (Manual) 64 % Band Neutrophils % 20 % Lymphocytes % 9 % Monocytes % 5 % Eosinophils % 1 % Neutrophils # (Manual) 10.1 TH/MM3 Metamyelocytes 1 % Nucleated Red Blood Cells 1 /100 WBC Differential Comment FINAL DIFF MANUAL Platelet Estimate LOW Platelet Morphology Comment NORMAL Laboratory Tests Test 01/25/17 01/26/17 04:00 04:35 Sodium Level 143 MEQ/L 144 MEQ/L Potassium Level 3.5 MEQ/L 2.7 MEQ/L Chloride Level 113 MEQ/L 113 MEQ/L Carbon Dioxide Level 18.6 MEQ/L 22.8 MEQ/L Anion Gap 11 MEQ/L 8 MEQ/L Blood Urea Nitrogen 14 MG/DL 14 MG/DL Creatinine 0.47 MG/DL 0.45 MG/DL Estimat Glomerular Filtration 132 ML/MIN 139 ML/MIN Rate Random Glucose 82 MG/DL 142 MG/DL Calcium Level 7.6 MG/DL 7.3 MG/DL Protein Corrected Calcium 9.1 MG/DL 8.8 MG/DL Total Bilirubin 1.0 MG/DL 0.9 MG/DL Aspartate Amino Transf 40 U/L 44 U/L (AST/SGOT) Alanine Aminotransferase 22 U/L 25 U/L (ALT/SGPT) Alkaline Phosphatase 75 U/L 127 U/L Total Protein 4.6 GM/DL 4.5 GM/DL Albumin 1.4 GM/DL 1.3 GM/DL Imaging Last Impressions Chest X-Ray 01/26/17 0600 Signed Impressions: Service Date/Time: January 06:10 - CONCLUSION: No evidence of pneumothorax. The lungs are grossly clear. Robby Zuleta MD IVC Filter Placement X-Ray 01/20/17 0000 Signed Impressions: Service Date/Time: Friday, January 20, 2017 16:44 - CONCLUSION: Uncomplicated inferior vena cava filter placement as above. This is a retrievable filter and can be retrieved up to one year from today's date. Avinash Santana Jr., MD Head CT 01/19/17 0600 Signed Impressions: Service Date/Time: January 04:24 - CONCLUSION: No change in scattered subarachnoid hemorrhage and intraventricular hemorrhage. Sg Nobles MD Neck CTA 01/18/17 0000 Signed Impressions: Service Date/Time: Wednesday, January 18, 2017 10:48 - CONCLUSION: 1. Atherosclerotic plaquing but no hemodynamically significant carotid artery stenosis identified. 2. Parenchymal contusion and consolidation involving the right lung apex. 3. ET tube in satisfactory position. Primo Sierra MD Maxillofacial CT 01/18/17 0000 Signed Impressions: Service Date/Time: Wednesday, January 18, 2017 10:48 - CONCLUSION: Left maxillary sinus fractures. Hilary Woods MD Lower Extremity CT 01/18/17 0000 Signed Impressions: Service Date/Time: January 04:26 - CONCLUSION: 1. Comminuted intra-articular fracture of the proximal tibia involving the lateral tibial condyle and intercondylar regions. 2. Lipo hemarthrosis. Sg Nobles MD Knee X-Ray 01/18/17 Signed Impressions: Service Date/Time: Wednesday, January 18, 2017 14:09 - CONCLUSION: Acute fracture involving the proximal tibia with moderate size joint effusion. Details given above. Avinash Santana Jr., MD Femur X-Ray 01/18/17 Signed Impressions: Service Date/Time: Wednesday, January 18, 2017 20:57 - CONCLUSION: Negative for retained surgical isthmus. Other communicated to the operating room. Marques Sierra MD FACR Pelvis X-Ray 01/17/17 0745 Signed Impressions: Service Date/Time: Tuesday, January 17, 2017 07:38 - CONCLUSION: 1. Multiple pelvic fractures, as above. Hermann Arnold MD Upper Extremity CT 01/17/17 Signed Impressions: Service Date/Time: Tuesday, January 17, 2017 10:22 - CONCLUSION: 1. Multiple mildly displaced fractures of the left scapula. 2. Status post ORIF of the proximal left humerus 3. No evidence of fracture dislocation involving the glenohumeral joint. 4. Multiple left-sided rib fractures with associated subcutaneous emphysema. 5. No evidence of significant left-sided pneumothorax. Jayden Aviles MD Tibia/Fibula X-Ray 01/17/17 Signed Impressions: Service Date/Time: Tuesday, January 17, 2017 07:38 - CONCLUSION: No acute fracture identified. Limited single view is provided. Primo Sierra MD Thoracic Spine CT 01/17/17 Signed Impressions: Service Date/Time: Tuesday, January 17, 2017 10:19 - CONCLUSION: Rib fractures, compression fracture of L1 vertebra, transverse fractures of lumbar spine discussed on the patient's prior CT examinations and the thoracic spine appears intact except for scattered degenerative changes. Hilary Woods MD Lumbar Spine CT 01/17/17 0000 Signed Impressions: Service Date/Time: Tuesday, January 17, 2017 10:19 - CONCLUSION: 1. Compression fracture of mid body L1 with approximate 58%% reduction in height. 2. Multiple transverse process fractures, fractures of the sacrum and presacral hematoma discussed on the patient's prior CT pelvis. 3. No appreciable thecal sac stenosis is seen. Hilary Woods MD Foot X-Ray 01/17/17 Signed Impressions: Service Date/Time: Tuesday, January 17, 2017 15:20 - CONCLUSION: No definite fracture is seen for technique. Hilary Woods MD Chest CT 01/17/17 Signed Impressions: Service Date/Time: Tuesday, January 17, 2017 10:22 - CONCLUSION: 1. Bilateral rib fractures, left scapular fractures and tiny bilateral pneumothoraces. 2. Bilateral lung contusions and areas of consolidation right lower lung. Hilary Woods MD Cervical Spine CT 01/17/17 Signed Impressions: Service Date/Time: Tuesday, January 17, 2017 10:21 - CONCLUSION: Fracture of vertebral body of C6 with extension into the right foramen transversarium without any significant compromise to the thecal sac or the exiting nerve roots. Hilary Woods MD Ankle X-Ray 01/17/17 Signed Impressions: Service Date/Time: Tuesday, January 17, 2017 15:25 - CONCLUSION: Soft tissue swelling and no definite fracture for technique. Hilary Woods MD Abdomen/Pelvis CT 01/17/17 Signed Impressions: Service Date/Time: Tuesday, January 17, 2017 10:22 - CONCLUSION: 1. There is nonspecific free fluid within the abdomen and pelvis. No active arterial bleeding is identified. 2. There is a comminuted fracture of L1 which appears to represent a fairly severe compression fracture or possible burst fracture. The lamina and pedicle appear intact. There is no significant bony retropulsion. 3. Mild compression of the superior endplate of T12. 4. Fracture of both sacral ala. 5. Fracture of the anterior aspect of the right iliac wing. 6. Fracture of the superior and inferior sacral ala on the left. 7. Multiple lower rib fractures bilaterally. These will be more definitively assessed on CT imaging through the thorax. 8. Chest tube in place on the left with minimal residual pneumothorax. 9. Minimal pneumothorax on the right. 10. Consolidation/ contusion in both lower lobes. 11. Punctate collections of free air from the patient's laparotomy. Primo Sierra MD Physical Exam CONSTITUTIONAL/GENERAL: This is an adequately nourished patient, in no apparent distress. TUBES/LINES/DRAINS: SKIN: No jaundice, rashes, or lesions. Ecchymoses on upper extremities. No wounds seen anteriorly. Skin temperature appropriate. Not diaphoretic. HEAD: Multiple extensive facial abrasions, scalp avulsion EYES: Pupils equal and round and reactive. No scleral icterus. No injection or drainage. Fundi not examined. ENT: Hearing not tested Nose without bleeding or purulent drainage. Orally intubated NECK: Trachea midline. Supple, nontender. CARDIOVASCULAR: Regular rate and rhythm without murmurs, gallops, or rubs. No JVD. Peripheral pulses symmetric. Brisk refill RESPIRATORY/CHEST: Symmetric, unlabored respirations. Few rhonchi to auscultation. Breath sounds equal bilaterally. B/l chest tube in place with serosang d/c GASTROINTESTINAL: Abdomen soft, tender to palpation multiple abrasions, nondistended. No hepato-splenomegaly, or palpable masses. No guarding. Bowel sounds present. Midline incision with jenny in GENITOURINARY: Without palpable bladder distension. Ochoa catheter in place with clear yellow urine MUSCULOSKELETAL: Extremities without clubbing, cyanosis, + weeping edema. . No mottling or clubbing. L thigh brace, VAC dresing in place with serosang d/c NEUROLOGICAL: awake opens eyes spontaneously intermittently and to voice; makes eye contact and follows commnds PSYCHIATRIC: appears calm Assessment & Plan Remarks Multiti trauma LEFT SDH LEFT maxillary wall fx Head laceration LEFT scapula fx BILAT PTX LEFT rib fx (3,4,5 RIGHT rib fx (5,6,7) Bilateral lung contusion Chest degloving C6 vertebral body fx T11, compression fx T12 compression endplate fx L1 compression fx Pelvic fracture consisting of comminuted superior-inferior left ramus fracture, ala sacri fractures, right iliac crest fracture LEFT tibial plateau fx LEFT thigh extensive degloving degloving approximating about 5% total body surface area Sepsis, bacteremia Stenotrophomonas POrt of entry could be her huge degloving injury or PNA Pneumonia Acinetobacter, Enterobacter in the settings of Bilateral lung contusion VRE UTI cont Levaquine, high dose cont Cefepime (will cover Acinetobater and Enterobacter) x 7 days dc zyvox after 7 days dw RN dw Evelyn Luz MD Jan 26, 2017 18:22
[2017-01-26] MEDS: POTASSIUM CHLOR 20 MEQ PREMIX 100 ML IV PRN (21:59)
[2017-01-27] VITALS (17 sets, daily range): BP systolic 124–148; BP diastolic 42–54; PULSE 95–105; RESP 14–24; TEMP 98.2–99.4; O2SAT 95–100
[2017-01-27] MEDS: ACETAMINOPHEN 325 MG TAB PO PRN (00:04)
[2017-01-27] MEDS: NOREPINEPHRINE-DEXTROSE DRIP 250 ML IV SCH ×2 (00:12→20:50)
[2017-01-27] MEDS: PROPOFOL 1000 MG/100 ML INJ 100 ML IV SCH ×3 (02:50→20:51)
[2017-01-27] MEDS: CHLORHEXIDINE GLUCONATE 2 % 1 PACK (2 CLOTHS) TOP SCH (04:28)
[2017-01-27] MEDS: CEFEPIME INJ 2,000 MG in SODIUM CHLORIDE 0.9% INJ 100 ML IV SCH ×3 (04:28→22:00)
[2017-01-27] MEDS: FREE WATER G-TUBE SCH ×5 (05:05→22:01)
[2017-01-27] MEDS: REMOVE OLD LIDOCAINE PATCH T-DERMAL SCH (08:02)
[2017-01-27] MEDS: DOCUSATE SODIUM 50 MG/SENNA 8.6 MG TAB PO SCH ×2 (08:02→21:00)
[2017-01-27] MEDS: LIDOCAINE HCL 5% PATCH T-DERMAL SCH (08:02)
[2017-01-27] MEDS: PANTOPRAZOLE SODIUM 40 MG VIAL IV SCH (08:02)
[2017-01-27] MEDS: CHLORHEXIDINE 0.12% (ORAL KIT) 15 ML CUP MT SCH ×2 (08:03→22:00)
[2017-01-27] MEDS: SODIUM CHLORIDE 0.9% FLUSH 10 ML FLUSH SCH ×2 (08:03→22:01)
[2017-01-27] MEDS: LACTULOSE SYRUP 20 GM/30 ML CUP PO SCH (08:03)
[2017-01-27] MEDS: VALPROIC ACID SYRUP 250 MG/5 ML UDC PO SCH ×2 (08:03→22:00)
[2017-01-27] MEDS: BACITRACIN TOP OINT 15 GM TUBE TOPICAL SCH ×2 (08:04→22:00)
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
[2017-01-27] MEDS ORDERED: SODIUM CHLORID 0.9% 500 ML INJ 500 ML IV SCH (09:30)
[2017-01-27] MEDS: SODIUM CHLOR 0.9% 1000 ML INJ 1,000 ML IV SCH (10:00)
[2017-01-27] MEDS: LINEZOLID 600 MG PREMIX 300 ML IV SCH (10:37)
[2017-01-27] MEDS: ENOXAPARIN SODIUM 40 MG/0.4 ML SYRINGE SQ SCH (10:38)
--- NOTE | 2017-01-27 10:46 | HHI.PR ---
Neuropsych Emotional Emotional: UnabletoAssess: Emotional, Anxious/Fearful, Depressed/Sad, Hostile/ Resentful, Irritable/Angry/Frustrate, Labile, Constricted/Blunted Behavior Behavior: Mild: Impulsive/Agitated, Unable to Asses: Behavior, Coping/ Acceptance, Cooperative w/ Treatment, Motivation, Frustration Tolerance/[place], Suicidal/Homicidal Risk Cognitive Cognitive: Unable to Asses: Cognitive, Attention/Concentration, Confused/ Orientation, Insight/Awareness, Judgement/Problem-Solving, Memory Psychosocial Psychosocial: Unable to Asses: Psychosocial, Family/Other Adjustment, Realistic Expectation, Self-Esteem/Confidence Progress Notes/Response to Tx Contents of Sessions: Adjustment, Level of Consciousness, Orientation Time with Patient: 15 minutes Premorbid psychological status Premorbid Cognitive, Emotional and Behavioral Status: Unable to Assess. The patient is unable to provide information concerning her social history and there is no family present. Behavioral Reactions of Patient and Family/Support System: Unable to Assess. No family present. Emotional/Behavioral Status of Patient and Family/Support System: Unable to Assess. Pertinent issues, if appropriate to this patients clinical care, are described in detail above. Maximizing acute care outcome It is recommended that the patient be monitored for emergent behavioral impulsivity as the medical condition evolves. This patients neuropathological challenges may limit their rehabilitation potential going forward, and these challenges will require specialized therapeutic skills to maximize outcome. Anticipated Problems Ongoing areas of concern will include behavioral impulsivity, lack of insight and judgment, which is expected to improve with time and treatment. Presently , the patient intubated and sedated. Treatment Plan This clinician will continue to follow with you throughout the course of this patients acute care treatment, and I will be available to meet with the patient s family/support system to facilitate their understanding and the ongoing care of their family member. The goals of neuropsychological intervention shall be both educational and supportive to the family/support system as is deemed clinically appropriate. [facility] Level: IV:Confused/Agitated-maximal assist Impression This 66 year old woman suffered a moderately severe traumatic brain injury, with the resulting eventual sequelae exacerbated by her age. She is expected to have residual neurocognitive disorder 2T TBI. Diagnosis: (1) Major neurocognitive disorder as late effect of traumatic brain injury without behavioral disturbance Status: Acute Progress Note Narrative Ongoing follow-up of patient seen during daily trauma rounds. This is day 10 post injury. The patient is improving, yet is still sedated, with Propofol and Fentanyl increased (rather than decreased) from ordered levels yesterday. She is moving, opens her eyes, tracks and is communication. She remains on Valproic Acid 250 BID for agitation control. She is considered an emerging [place]o IV. I will continue to follow. Vargas Lorenzo PhD Jan 27, 2017 10:46 am
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
[2017-01-27] MEDS: LEVOFLOXACIN 750 MG PREMIX INJ 150 ML IV SCH (15:10)
--- NOTE | 2017-01-27 18:24 | RADRPT ---
EXAM DATE/TIME: 01/27/2017 17:34 [facility] COMPARISON: CT BRAIN W/O CONTRAST, January 19, 2017, 4:24. MRI CERVICAL SPINE W/O CONTRAST, January 27, 2017, 17:34. INDICATIONS : TBI MEDICAL HISTORY : Carcinoma, breast. SURGICAL HISTORY : Mastectomy, bilateral. Hysterectomy. IVC Filter placement. ENCOUNTER: Initial ACUITY: 1 week PAIN SCORE: 0/10 LOCATION: cranial TECHNIQUE: Multiplanar, multisequence MRI of the brain was performed without contrast. FINDINGS: There is no evidence for acute infarction. There is diffuse volume loss. High signal along the tentor ium is noted on axial FLAIR images as well as within the cortical saw side bilaterally greatest in th e bilateral frontal regions consistent with subarachnoid hemorrhage. 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 Measured one point centimeters. Right frontal scalp laceration. A small amount of intraventric ular blood is again seen. There is mild increased T2 signal the periventricular white matter most lik nabila on the basis of chronic microvascular ischemic disease. CONCLUSION: Subarachnoid and intraventricular hemorrhage as above. Elvis Sexton MD on January 27, 2017 at 18:21 Board Certified Radiologist. This report was verified electronically.
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
[2017-01-27] MEDS: fentaNYL DRIP 250 ML IV SCH (19:10)
[2017-01-27] MEDS ORDERED: ALTEPLASE RECOMBINANT 2 MG VIAL INTRACATH SCH (23:45)
[2017-01-28] VITALS (18 sets, daily range): BP systolic 101–132; BP diastolic 48–68; PULSE 96–115; RESP 14–24; TEMP 98–100.4; O2SAT 94–99
[2017-01-28] MEDS: LINEZOLID 600 MG PREMIX 300 ML IV SCH ×3 (01:11→22:18)
[2017-01-28] MEDS: NOREPINEPHRINE-DEXTROSE DRIP 250 ML IV SCH ×2 (02:40→17:08)
[2017-01-28] MEDS: PROPOFOL 1000 MG/100 ML INJ 100 ML IV SCH (02:40)
[2017-01-28] MEDS: fentaNYL DRIP 250 ML IV SCH (02:40)
[2017-01-28] MEDS: SODIUM CHLOR 0.9% 1000 ML INJ 1,000 ML IV SCH ×3 (04:30→16:00)
[2017-01-28] MEDS: CEFEPIME INJ 2,000 MG in SODIUM CHLORIDE 0.9% INJ 100 ML IV SCH ×3 (04:30→20:14)
[2017-01-28] MEDS: CHLORHEXIDINE GLUCONATE 2 % 1 PACK (2 CLOTHS) TOP SCH (04:31)
[2017-01-28 05:02] LABS: AUTOMATED NEUTROPHIL # 8.4 TH/MM3 (1.8-7.7); BASOPHIL % 0.5 % (0.0-2.0); EOSINOPHIL # 0.4 TH/MM3 (0-0.4); EOSINOPHIL % 3.5 % (0.0-4.0); HEMATOCRIT 25.4 % (35.0-46.0); HEMO FLAGS DIFF FINAL; LYMPH % 9.7 % (9.0-44.0); MEAN CELL VOLUME 86.3 FL (80.0-100.0); MEAN CORPUSCULAR HEMOGLOBIN 29.8 PG (27.0-34.0); MEAN CORPUSCULAR HGB CONC 34.6 % (32.0-36.0); MONO % 6.5 % (0.0-8.0); NEUT % 79.8 % (16.0-70.0); PLATELET COUNT 201 TH/MM3 (150-450); RED BLOOD COUNT 2.94 MIL/MM3 (4.00-5.30); RED CELL DISTRIBUTION WIDTH 16.5 % (11.6-17.2); WHITE BLOOD COUNT 10.6 TH/MM3 (4.0-11.0)
[2017-01-28 05:36] LABS: BICARBONATE 22.5 MEQ/L (21.0-32.0)
[2017-01-28 05:45] LABS: POTASSIUM 2.9 MEQ/L (3.5-5.1)
[2017-01-28] MEDS: POTASSIUM CHLOR 40 MEQ PREMIX 100 ML IV PRN ×2 (05:50→09:27)
[2017-01-28 06:01] LABS: CALCIUM-PROTEIN CORRECTED 8.6 MG/DL (8.5-10.1)
[2017-01-28] MEDS: FREE WATER G-TUBE SCH ×3 (06:12→22:18)
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
[2017-01-28] MEDS: PANTOPRAZOLE SODIUM 40 MG VIAL IV SCH (07:42)
[2017-01-28] MEDS: CHLORHEXIDINE 0.12% (ORAL KIT) 15 ML CUP MT SCH ×2 (07:42→20:14)
[2017-01-28] MEDS: VALPROIC ACID SYRUP 250 MG/5 ML UDC PO SCH ×2 (07:42→20:14)
[2017-01-28] MEDS: DOCUSATE SODIUM 50 MG/SENNA 8.6 MG TAB PO SCH ×2 (07:43→20:14)
[2017-01-28] MEDS: LACTULOSE SYRUP 20 GM/30 ML CUP PO SCH (07:43)
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
[2017-01-28] MEDS: BACITRACIN TOP OINT 15 GM TUBE TOPICAL SCH ×2 (09:00→21:23)
[2017-01-28] MEDS: REMOVE OLD LIDOCAINE PATCH T-DERMAL SCH (09:00)
[2017-01-28] MEDS: LIDOCAINE HCL 5% PATCH T-DERMAL SCH (09:00)
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
[2017-01-28] MEDS: ENOXAPARIN SODIUM 40 MG/0.4 ML SYRINGE SQ SCH (11:00)
--- NOTE | 2017-01-28 11:38 | HHI.PR ---
Addendum to Inpatient Note Additional Information seen and examined dw Dr Hurst full note to follow Evelyn Moseley MD Jan 28, 2017 11:38
[2017-01-28] MEDS: LEVOFLOXACIN 750 MG PREMIX INJ 150 ML IV SCH (13:16)
--- NOTE | 2017-01-28 14:43 | HHI.IDPN ---
Subjective Subjective Remarks doing well on CPAP + fever, low grade up to100.0 Antibiotics levaquine cefepime zyvox iv Allergies: Coded Allergies: Sulfa (Verified Allergy, Intermediate, "BLOOD COUNT DROPS", 12/29/16) *MDRO Multi-Drug Resistant Organism (Verified Adverse Reaction, Unknown, ) VRE (urine) 01/19/17 Codeine (Verified Adverse Reaction, Unknown, ITCHING, 12/29/16) Objective . Vital Signs Date Time Temp Pulse Resp B/P Pulse Ox O2 Delivery O2 Flow Rate FiO2 01/28/17 12:00 109 01/28/17 12:00 40 01/28/17 12:00 99.9 111 24 108/52 96 01/28/17 10:00 112 01/28/17 08:00 100.0 108 15 119/54 99 Arterial Line 01/28/17 08:00 40 01/28/17 08:00 108 01/28/17 07:32 98 40 01/28/17 06:00 102 01/28/17 04:10 97 40 01/28/17 04:00 40 01/28/17 04:00 98.0 102 14 111/48 98 01/28/17 04:00 102 01/28/17 02:00 102 01/28/17 01:02 98 40 01/28/17 00:00 102 01/28/17 00:00 98.8 96 14 124/49 97 01/28/17 00:00 40 01/27/17 22:00 102 01/27/17 20:54 99 40 01/27/17 20:00 40 01/27/17 20:00 102 01/27/17 20:00 99.4 104 14 148/44 95 01/27/17 19:00 100 100 01/27/17 19:00 100 Mechanical Ventilator 40 01/27/17 16:00 98.2 102 17 132/48 97 01/27/17 16:00 40 01/27/17 01/27/17 01/28/17 15:00 23:00 07:00 Intake Total 2167 ml 1131 ml 1686 ml Output Total 680 ml 130 ml 610 ml Balance 1487 ml 1001 ml 1076 ml Intake IV Total 2167 ml 764 ml 1445 ml Tube Feeding 167 ml 241 ml Other 200 ml Output Urine Total 300 ml 450 ml Chest Tube Drainage Total 255 ml 80 ml 10 ml Drainage Total 125 ml 50 ml 150 ml # Bowel Movements 2 2 . Laboratory Tests Test 01/28/17 04:35 White Blood Count 10.6 TH/MM3 Red Blood Count 2.94 MIL/MM3 Hemoglobin 8.8 GM/DL Hematocrit 25.4 % Mean Corpuscular Volume 86.3 FL Mean Corpuscular Hemoglobin 29.8 PG Mean Corpuscular Hemoglobin 34.6 % Concent Red Cell Distribution Width 16.5 % Platelet Count 201 TH/MM3 Mean Platelet Volume 10.3 FL Neutrophils (%) (Auto) 79.8 % Lymphocytes (%) (Auto) 9.7 % Monocytes (%) (Auto) 6.5 % Eosinophils (%) (Auto) 3.5 % Basophils (%) (Auto) 0.5 % Neutrophils # (Auto) 8.4 TH/MM3 Lymphocytes # (Auto) 1.0 TH/MM3 Monocytes # (Auto) 0.7 TH/MM3 Eosinophils # (Auto) 0.4 TH/MM3 Basophils # (Auto) 0.0 TH/MM3 CBC Comment DIFF FINAL Differential Comment Laboratory Tests Test 01/26/17 01/27/17 01/28/17 20:00 08:04 04:35 Potassium Level 3.4 MEQ/L 3.3 MEQ/L 2.9 MEQ/L Sodium Level 141 MEQ/L Chloride Level 110 MEQ/L Carbon Dioxide Level 22.5 MEQ/L Anion Gap 9 MEQ/L Blood Urea Nitrogen 15 MG/DL Creatinine 0.45 MG/DL Estimat Glomerular Filtration 139 ML/MIN Rate Random Glucose 134 MG/DL Calcium Level 7.1 MG/DL Protein Corrected Calcium 8.6 MG/DL Magnesium Level 2.0 MG/DL Total Protein 4.4 GM/DL Imaging Last Impressions Lumbar Spine MRI 01/27/17 0000 Signed Impressions: Service Date/Time: Friday, January 27, 2017 17:34 - CONCLUSION: L1 compression fracture with moderate loss of vertebral body height and this is stable. This is acute with marrow edema. No associated canal compromise. Nonacute T11 and T12 superior endplate compression deformities. Bilateral hydronephrosis. Elvis Sexton MD Cervical Spine MRI 01/27/17 0000 Signed Impressions: Service Date/Time: Friday, January 27, 2017 17:34 - CONCLUSION: 1. Degenerative changes are identified. The known C6 vertebral body fracture is not well evaluated on this study. Elvis Sexton MD Brain MRI 01/27/17 0000 Signed Impressions: Service Date/Time: Friday, January 27, 2017 17:34 - CONCLUSION: Subarachnoid and intraventricular hemorrhage as above. Elvis Sexton MD Chest X-Ray 01/26/17 0600 Signed Impressions: Service Date/Time: January 06:10 - CONCLUSION: No evidence of pneumothorax. The lungs are grossly clear. Robby Zuleta MD IVC Filter Placement X-Ray 01/20/17 0000 Signed Impressions: Service Date/Time: Friday, January 20, 2017 16:44 - CONCLUSION: Uncomplicated inferior vena cava filter placement as above. This is a retrievable filter and can be retrieved up to one year from today's date. Avinash Santana Jr., MD Head CT 01/19/17 0600 Signed Impressions: Service Date/Time: January 04:24 - CONCLUSION: No change in scattered subarachnoid hemorrhage and intraventricular hemorrhage. Sg Nobles MD Neck CTA 01/18/17 0000 Signed Impressions: Service Date/Time: Wednesday, January 18, 2017 10:48 - CONCLUSION: 1. Atherosclerotic plaquing but no hemodynamically significant carotid artery stenosis identified. 2. Parenchymal contusion and consolidation involving the right lung apex. 3. ET tube in satisfactory position. Primo Sierra MD Maxillofacial CT 01/18/17 0000 Signed Impressions: Service Date/Time: Wednesday, January 18, 2017 10:48 - CONCLUSION: Left maxillary sinus fractures. KBetito Woods MD Lower Extremity CT 01/18/17 0000 Signed Impressions: Service Date/Time: January 04:26 - CONCLUSION: 1. Comminuted intra-articular fracture of the proximal tibia involving the lateral tibial condyle and intercondylar regions. 2. Lipo hemarthrosis. Sg Nobles MD Knee X-Ray 01/18/17 0000 Signed Impressions: Service Date/Time: Wednesday, January 18, 2017 14:09 - CONCLUSION: Acute fracture involving the proximal tibia with moderate size joint effusion. Details given above. Avinash Santana Jr., MD Femur X-Ray 01/18/17 0000 Signed Impressions: Service Date/Time: Wednesday, January 18, 2017 20:57 - CONCLUSION: Negative for retained surgical isthmus. Other communicated to the operating room. Marques Sierra MD FACR Pelvis X-Ray 01/17/17 0745 Signed Impressions: Service Date/Time: Tuesday, January 17, 2017 07:38 - CONCLUSION: 1. Multiple pelvic fractures, as above. Hermann Arnold MD Upper Extremity CT 01/17/17 0000 Signed Impressions: Service Date/Time: Tuesday, January 17, 2017 10:22 - CONCLUSION: 1. Multiple mildly displaced fractures of the left scapula. 2. Status post ORIF of the proximal left humerus 3. No evidence of fracture dislocation involving the glenohumeral joint. 4. Multiple left-sided rib fractures with associated subcutaneous emphysema. 5. No evidence of significant left-sided pneumothorax. Jayden Aviles MD Tibia/Fibula X-Ray 01/17/17 0000 Signed Impressions: Service Date/Time: Tuesday, January 17, 2017 07:38 - CONCLUSION: No acute fracture identified. Limited single view is provided. Primo Sierra MD Thoracic Spine CT 01/17/17 0000 Signed Impressions: Service Date/Time: Tuesday, January 17, 2017 10:19 - CONCLUSION: Rib fractures, compression fracture of L1 vertebra, transverse fractures of lumbar spine discussed on the patient's prior CT examinations and the thoracic spine appears intact except for scattered degenerative changes. Hilary Woods MD Lumbar Spine CT 01/17/17 0000 Signed Impressions: Service Date/Time: Tuesday, January 17, 2017 10:19 - CONCLUSION: 1. Compression fracture of mid body L1 with approximate 58%% reduction in height. 2. Multiple transverse process fractures, fractures of the sacrum and presacral hematoma discussed on the patient's prior CT pelvis. 3. No appreciable thecal sac stenosis is seen. Hilary Woods MD Foot X-Ray 01/17/17 0000 Signed Impressions: Service Date/Time: Tuesday, January 17, 2017 15:20 - CONCLUSION: No definite fracture is seen for technique. Hilary Woods MD Chest CT 01/17/17 0000 Signed Impressions: Service Date/Time: Tuesday, January 17, 2017 10:22 - CONCLUSION: 1. Bilateral rib fractures, left scapular fractures and tiny bilateral pneumothoraces. 2. Bilateral lung contusions and areas of consolidation right lower lung. Hilary Woods MD Cervical Spine CT 01/17/17 0000 Signed Impressions: Service Date/Time: Tuesday, January 17, 2017 10:21 - CONCLUSION: Fracture of vertebral body of C6 with extension into the right foramen transversarium without any significant compromise to the thecal sac or the exiting nerve roots. Hilary Woods MD Ankle X-Ray 01/17/17 0000 Signed Impressions: Service Date/Time: Tuesday, January 17, 2017 15:25 - CONCLUSION: Soft tissue swelling and no definite fracture for technique. Hilary Woods MD Abdomen/Pelvis CT 01/17/17 0000 Signed Impressions: Service Date/Time: Tuesday, January 17, 2017 10:22 - CONCLUSION: 1. There is nonspecific free fluid within the abdomen and pelvis. No active arterial bleeding is identified. 2. There is a comminuted fracture of L1 which appears to represent a fairly severe compression fracture or possible burst fracture. The lamina and pedicle appear intact. There is no significant bony retropulsion. 3. Mild compression of the superior endplate of T12. 4. Fracture of both sacral ala. 5. Fracture of the anterior aspect of the right iliac wing. 6. Fracture of the superior and inferior sacral ala on the left. 7. Multiple lower rib fractures bilaterally. These will be more definitively assessed on CT imaging through the thorax. 8. Chest tube in place on the left with minimal residual pneumothorax. 9. Minimal pneumothorax on the right. 10. Consolidation/ contusion in both lower lobes. 11. Punctate collections of free air from the patient's laparotomy. Primo Sierra MD Physical Exam CONSTITUTIONAL/GENERAL: This is an adequately nourished patient, in no apparent distress. TUBES/LINES/DRAINS: SKIN: No jaundice, rashes, or lesions. Ecchymoses on upper extremities. No wounds seen anteriorly. Skin temperature appropriate. Not diaphoretic. HEAD: Multiple extensive facial abrasions, healing EYES: Pupils equal and round and reactive. No scleral icterus. No injection or drainage. Fundi not examined. ENT: Hearing not tested Nose without bleeding or purulent drainage. Orally intubated NECK: Trachea midline. Supple, nontender. CARDIOVASCULAR: Regular rate and rhythm without murmurs, gallops, or rubs. No JVD. Peripheral pulses symmetric. Brisk refill RESPIRATORY/CHEST: Symmetric, unlabored respirations. B/l rhonchi to auscultation. Breath sounds equal bilaterally. B/l chest tube in place with serosang d/c GASTROINTESTINAL: Abdomen soft, tender to palpation multiple abrasions, distended. No hepato-splenomegaly, or palpable masses. No guarding. Bowel sounds present. Midline incision with jenny in GENITOURINARY: Without palpable bladder distension. Ochoa catheter in place with clear yellow urine MUSCULOSKELETAL: Extremities without clubbing, cyanosis, + improved edema. . No mottling or clubbing. L thigh brace, VAC dresing in place with serosang d/c NEUROLOGICAL: awake opens eyes spontaneously intermittently and to voice; makes eye contact and follows commnds PSYCHIATRIC: appears calm Assessment & Plan Remarks Multiti trauma LEFT SDH LEFT maxillary wall fx Head laceration LEFT scapula fx BILAT PTX LEFT rib fx (3,4,5 RIGHT rib fx (5,6,7) Bilateral lung contusion Chest degloving C6 vertebral body fx T11, compression fx T12 compression endplate fx L1 compression fx Pelvic fracture consisting of comminuted superior-inferior left ramus fracture, ala sacri fractures, right iliac crest fracture LEFT tibial plateau fx LEFT thigh extensive degloving degloving approximating about 5% total body surface area Sepsis, bacteremia Stenotrophomonas POrt of entry could be her huge degloving injury or PNA Pneumonia Acinetobacter, Enterobacter in the settings of Bilateral lung contusion VRE UTI cont Levaquine, high dose cont Cefepime (will cover Acinetobater and Enterobacter) x 7 days chk blood clx if spikes rechk sputum clx dc zyvox today dw RN dw Evelyn Luz MD Jan 28, 2017 14:43
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
[2017-01-28] MEDS ORDERED: ALBUMIN HUMAN 5% 25 GM/500 ML BOTTLE IV ONE (15:15)
[2017-01-28] MEDS: SODIUM CHLORIDE 0.9% FLUSH 10 ML FLUSH SCH ×2 (17:08→20:14)
[2017-01-28] MEDS: MORPHINE SULFATE 4 MG/ML INJ IV PUSH PRN (17:08)
[2017-01-29] VITALS (18 sets, daily range): BP systolic 99–116; BP diastolic 49–57; PULSE 94–124; RESP 16–26; TEMP 98.1–99.3; O2SAT 99–100
[2017-01-29] MEDS: CHLORHEXIDINE GLUCONATE 2 % 1 PACK (2 CLOTHS) TOP SCH (03:58)
[2017-01-29] MEDS: SODIUM CHLOR 0.9% 1000 ML INJ 1,000 ML IV SCH ×3 (03:58→21:11)
[2017-01-29] MEDS: CEFEPIME INJ 2,000 MG in SODIUM CHLORIDE 0.9% INJ 100 ML IV SCH ×3 (04:12→19:08)
[2017-01-29] MEDS: FREE WATER G-TUBE SCH ×3 (06:47→21:12)
[2017-01-29 07:08] LABS: AUTOMATED NEUTROPHIL # 8.7 TH/MM3 (1.8-7.7); BASOPHIL % 0.4 % (0.0-2.0); EOSINOPHIL # 0.2 TH/MM3 (0-0.4); EOSINOPHIL % 2.1 % (0.0-4.0); HEMATOCRIT 24.7 % (35.0-46.0); LYMPH % 6.6 % (9.0-44.0); LYMPHOCYTE # 0.7 TH/MM3 (1.0-4.8); MEAN CELL VOLUME 86.7 FL (80.0-100.0); MEAN CORPUSCULAR HEMOGLOBIN 29.4 PG (27.0-34.0); MEAN CORPUSCULAR HGB CONC 33.9 % (32.0-36.0); NEUT % 82.9 % (16.0-70.0); PLATELET COUNT 229 TH/MM3 (150-450); RED BLOOD COUNT 2.84 MIL/MM3 (4.00-5.30); RED CELL DISTRIBUTION WIDTH 16.8 % (11.6-17.2); WHITE BLOOD COUNT 10.4 TH/MM3 (4.0-11.0)
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
[2017-01-29 07:11] LABS: HEMO FLAGS AUTO DIFF
[2017-01-29 07:32] LABS: BICARBONATE 23.1 MEQ/L (21.0-32.0); POTASSIUM 3.1 MEQ/L (3.5-5.1)
[2017-01-29] MEDS: LACTULOSE SYRUP 20 GM/30 ML CUP PO SCH (09:00)
[2017-01-29] MEDS: REMOVE OLD LIDOCAINE PATCH T-DERMAL SCH (09:00)
[2017-01-29] MEDS: DOCUSATE SODIUM 50 MG/SENNA 8.6 MG TAB PO SCH ×2 (09:00→20:08)
[2017-01-29] MEDS: ENOXAPARIN SODIUM 40 MG/0.4 ML SYRINGE SQ SCH (09:40)
[2017-01-29] MEDS: CHLORHEXIDINE 0.12% (ORAL KIT) 15 ML CUP MT SCH ×2 (09:40→19:08)
[2017-01-29] MEDS: RESP: ALBUTEROL 2.5 MG/IPRATROPIUM 0.5 MG NEB (SCH) NEB ×3 (09:40→20:55)
[2017-01-29] MEDS: VALPROIC ACID SYRUP 250 MG/5 ML UDC PO SCH ×2 (09:40→20:09)
[2017-01-29 09:41] LABS: BANDS 31 % (0-6); BASOPHILS 1 % (0-2); EOSINOPHILS 1 % (0-4); NEUTROPHIL # MANUAL DIFF 9.2 TH/MM3 (1.8-7.7); PLATELET ESTIMATE SMEAR NORMAL (NORMAL); PLATELET MORPHOLOGY NORMAL (NORMAL); POLYS (SEG NEUTROPHILS) 57 % (16-70); SCAN/DIFF FINAL DIFF MANUAL; WBC DIFF SAMPLE 100
[2017-01-29] MEDS: PANTOPRAZOLE SODIUM 40 MG VIAL IV SCH (09:41)
[2017-01-29] MEDS: SODIUM CHLORIDE 0.9% FLUSH 10 ML FLUSH SCH ×2 (09:41→20:10)
[2017-01-29] MEDS: LIDOCAINE HCL 5% PATCH T-DERMAL SCH (09:42)
[2017-01-29] MEDS: BACITRACIN TOP OINT 15 GM TUBE TOPICAL SCH ×2 (09:42→20:09)
[2017-01-29] MEDS: POTASSIUM CHLOR 40 MEQ PREMIX 100 ML IV PRN (09:43)
[2017-01-29] MEDS: MORPHINE SULFATE 4 MG/ML INJ IV PUSH PRN ×3 (09:44→20:49)
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
[2017-01-29] MEDS: LEVOFLOXACIN 750 MG PREMIX INJ 150 ML IV SCH (13:00)
[2017-01-29] MEDS: NOREPINEPHRINE-DEXTROSE DRIP 250 ML IV SCH (20:09)
[2017-01-30] VITALS (16 sets, daily range): BP systolic 85–122; BP diastolic 42–58; PULSE 94–110; RESP 15–22; TEMP 98.4–100.7; O2SAT 100
[2017-01-30] MEDS: RESP: ALBUTEROL 2.5 MG/IPRATROPIUM 0.5 MG NEB (SCH) NEB ×4 (03:40→21:33)
[2017-01-30] MEDS: CHLORHEXIDINE GLUCONATE 2 % 1 PACK (2 CLOTHS) TOP SCH (03:48)
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
[2017-01-30 05:22] LABS: AUTOMATED NEUTROPHIL # 8.2 TH/MM3 (1.8-7.7); BASOPHIL # 0.1 TH/MM3 (0-0.2); BASOPHIL % 1.3 % (0.0-2.0); EOSINOPHIL # 0.4 TH/MM3 (0-0.4); EOSINOPHIL % 3.8 % (0.0-4.0); HEMATOCRIT 24.5 % (35.0-46.0); LYMPH % 8.2 % (9.0-44.0); LYMPHOCYTE # 0.9 TH/MM3 (1.0-4.8); MEAN CELL VOLUME 87.2 FL (80.0-100.0); MEAN CORPUSCULAR HGB CONC 34.4 % (32.0-36.0); MONO % 8.5 % (0.0-8.0); NEUT % 78.2 % (16.0-70.0); PLATELET COUNT 313 TH/MM3 (150-450); RED BLOOD COUNT 2.81 MIL/MM3 (4.00-5.30); RED CELL DISTRIBUTION WIDTH 16.8 % (11.6-17.2); WHITE BLOOD COUNT 10.5 TH/MM3 (4.0-11.0)
[2017-01-30 05:34] LABS: HEMO FLAGS AUTO DIFF
[2017-01-30 05:56] LABS: BICARBONATE 23.7 MEQ/L (21.0-32.0); MAGNESIUM 2.2 MG/DL (1.5-2.5); POTASSIUM 3.2 MEQ/L (3.5-5.1)
[2017-01-30 06:00] LABS: CALCIUM-PROTEIN CORRECTED 8.8 MG/DL (8.5-10.1); TOTAL BILIRUBIN ADULT 0.6 MG/DL (0.2-1.0)
[2017-01-30 06:01] LABS: BLOOD GAS BASE EXCESS -0.6 mmol/L (-2-2); BLOOD GAS CARBOXYHEMOGLOBIN 1.6 % (0-4); BLOOD GAS HCO3 22 mmol/L (22-26); BLOOD GAS METHEMOGLOBIN 0.8 % (0-2); BLOOD GAS O2 HGB SATURATION 97 % (90-100); BLOOD GAS OXYGEN CONTENT 11.9 Vol % (12.0-20.0); BLOOD GAS PCO2 28 mmHg (38-42); BLOOD GAS PO2 113 mmHg (61-120); BLOOD GAS TOTAL HGB 8.7 G/DL (12.0-16.0); TEMP CORR TO 98.6
[2017-01-30 06:02] LABS: CRITICAL VALUE YES; DRAW SITE LT RADIAL; FIO2 40 %; NUMBER OF ARTERIAL PUNCTURES 1; OXYGEN DEVICE VENTILATOR; STAT NO; ULNAR PULSE PRESENT; VENT SETTINGS PRVC/AC
[2017-01-30] MEDS: FREE WATER G-TUBE SCH ×3 (06:38→23:05)
[2017-01-30 06:58] LABS: BANDS 8 % (0-6); EOSINOPHILS 1 % (0-4); NEUTROPHIL # MANUAL DIFF 8.5 TH/MM3 (1.8-7.7); POLYS (SEG NEUTROPHILS) 73 % (16-70); WBC DIFF SAMPLE 100
[2017-01-30 06:59] LABS: PLATELET ESTIMATE SMEAR HIGH (NORMAL); PLATELET MORPHOLOGY ENLARGED (NORMAL); SCAN/DIFF FINAL DIFF MANUAL
[2017-01-30] MEDS: CHLORHEXIDINE 0.12% (ORAL KIT) 15 ML CUP MT SCH ×2 (08:00→20:00)
[2017-01-30] MEDS: SODIUM CHLOR 0.9% 1000 ML INJ 1,000 ML IV SCH ×2 (08:00→18:00)
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
[2017-01-30] MEDS: REMOVE OLD LIDOCAINE PATCH T-DERMAL SCH (09:00)
[2017-01-30] MEDS: LACTULOSE SYRUP 20 GM/30 ML CUP PO SCH (09:00)
[2017-01-30] MEDS: DOCUSATE SODIUM 50 MG/SENNA 8.6 MG TAB PO SCH ×2 (09:00→20:00)
[2017-01-30] MEDS: SODIUM CHLORIDE 0.9% FLUSH 10 ML FLUSH SCH ×2 (09:25→20:00)
[2017-01-30] MEDS: LIDOCAINE HCL 5% PATCH T-DERMAL SCH (09:26)
[2017-01-30] MEDS: PANTOPRAZOLE SODIUM 40 MG VIAL IV SCH (09:27)
[2017-01-30] MEDS: VALPROIC ACID SYRUP 250 MG/5 ML UDC PO SCH ×2 (09:27→20:00)
[2017-01-30] MEDS: BACITRACIN TOP OINT 15 GM TUBE TOPICAL SCH ×2 (09:27→20:01)
[2017-01-30] MEDS ORDERED: DEXMEDETOMIDINE INJ 200 MCG in SODIUM CHLORIDE 0.9% INJ 50 ML IV SCH (09:30)
[2017-01-30] MEDS: ENOXAPARIN SODIUM 40 MG/0.4 ML SYRINGE SQ SCH (09:38)
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
[2017-01-30] MEDS: LEVOFLOXACIN 750 MG PREMIX INJ 150 ML IV SCH (12:06)
--- NOTE | 2017-01-30 12:42 | HHI.HCPN ---
Received call from daughter inquiring about patient's medical status, possible medical extubation, mentation, and ongoing prognosis. Answered her questions and concerns to the best of my ability. In review of notes, patient continues to attempt CPAP trails. Daughter remains hopeful patient will be able to communicate and hopefully answer some questions regarding goals of care. Daughter aware of possible need for tracheostomy if patient is unable to tolerate CPAP trails and be medically extubated. Understands medical team feels patient will be able to medically extubate. She verbalizes some concern regarding making that decision. Inquires about patient's mentation, quality of life, etc. Offered emotional support through active listening. Palliative care number provided. Palliative care will continue to follow throughout hospitalization. Emilee Santana, [employer] Jan 30, 2017 12:42
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
[2017-01-30] MEDS ORDERED: ALBUMIN HUMAN 5% 25 GM/500 ML BOTTLE IV ONE (18:00)
[2017-01-30] MEDS: NOREPINEPHRINE-DEXTROSE DRIP 250 ML IV SCH (18:08)
--- NOTE | 2017-01-30 18:53 | HHI.IDPN ---
Subjective Subjective Remarks delayed entry pt seen earler today pt has a low grade fever up to 100.7 growing a GNB from the sputm Antibiotics levaquine Allergies: Coded Allergies: Sulfa (Verified Allergy, Intermediate, "BLOOD COUNT DROPS", 12/29/16) *MDRO Multi-Drug Resistant Organism (Verified Adverse Reaction, Unknown, ) VRE (urine) 01/19/17 Codeine (Verified Adverse Reaction, Unknown, ITCHING, 12/29/16) Objective . Vital Signs Date Time Temp Pulse Resp B/P Pulse Ox O2 Delivery O2 Flow Rate FiO2 01/30/17 15:34 100 40 01/30/17 12:16 100 40 01/30/17 10:00 40 01/30/17 09:26 100 40 01/30/17 07:00 100 Mechanical Ventilator 40 01/30/17 06:00 98 01/30/17 04:00 100.7 94 16 104/58 100 01/30/17 04:00 40 01/30/17 04:00 94 01/30/17 03:30 100 40 01/30/17 02:00 100 01/30/17 00:00 110 01/30/17 00:00 100.3 110 19 122/53 100 01/30/17 00:00 40 01/29/17 22:00 108 01/29/17 20:54 21 01/29/17 20:50 100 40 01/29/17 20:00 108 01/29/17 20:00 40 01/29/17 20:00 99.3 104 19 99/57 100 01/29/17 19:00 100 Mechanical Ventilator 40 01/29/17 01/29/17 01/30/17 15:00 23:00 07:00 Intake Total 1544 ml 1459 ml 1174 ml Output Total 1045 ml 980 ml 1390 ml Balance 499 ml 479 ml -216 ml Intake IV Total 1142 ml 999 ml 778 ml Tube Feeding 202 ml 230 ml 196 ml Tube Irrigant 30 ml Other 200 ml 200 ml 200 ml Output Urine Total 550 ml 750 ml 1250 ml Chest Tube Drainage Total 270 ml 100 ml 40 ml Drainage Total 225 ml 130 ml 100 ml # Bowel Movements 1 0 0 . Laboratory Tests Test 01/29/17 01/30/17 05:45 05:00 White Blood Count 10.4 TH/MM3 10.5 TH/MM3 Red Blood Count 2.84 MIL/MM3 2.81 MIL/MM3 Hemoglobin 8.4 GM/DL 8.4 GM/DL Hematocrit 24.7 % 24.5 % Mean Corpuscular Volume 86.7 FL 87.2 FL Mean Corpuscular Hemoglobin 29.4 PG 30.0 PG Mean Corpuscular Hemoglobin 33.9 % 34.4 % Concent Red Cell Distribution Width 16.8 % 16.8 % Platelet Count 229 TH/MM3 313 TH/MM3 Mean Platelet Volume 10.2 FL 9.7 FL Neutrophils (%) (Auto) 82.9 % 78.2 % Lymphocytes (%) (Auto) 6.6 % 8.2 % Monocytes (%) (Auto) 8.0 % 8.5 % Eosinophils (%) (Auto) 2.1 % 3.8 % Basophils (%) (Auto) 0.4 % 1.3 % Neutrophils # (Auto) 8.7 TH/MM3 8.2 TH/MM3 Lymphocytes # (Auto) 0.7 TH/MM3 0.9 TH/MM3 Monocytes # (Auto) 0.8 TH/MM3 0.9 TH/MM3 Eosinophils # (Auto) 0.2 TH/MM3 0.4 TH/MM3 Basophils # (Auto) 0.0 TH/MM3 0.1 TH/MM3 CBC Comment AUTO DIFF AUTO DIFF Differential Total Cells 100 100 Counted Neutrophils % (Manual) 57 % 73 % Band Neutrophils % 31 % 8 % Lymphocytes % 3 % 10 % Monocytes % 7 % 8 % Eosinophils % 1 % 1 % Basophils % 1 % Neutrophils # (Manual) 9.2 TH/MM3 8.5 TH/MM3 Differential Comment FINAL DIFF FINAL DIFF MANUAL MANUAL Platelet Estimate NORMAL HIGH Platelet Morphology Comment NORMAL ENLARGED Laboratory Tests Test 01/29/17 01/29/17 01/30/17 05:45 19:15 05:00 Sodium Level 142 MEQ/L 140 MEQ/L Potassium Level 3.1 MEQ/L 3.7 MEQ/L 3.2 MEQ/L Chloride Level 112 MEQ/L 109 MEQ/L Carbon Dioxide Level 23.1 MEQ/L 23.7 MEQ/L Anion Gap 7 MEQ/L 7 MEQ/L Blood Urea Nitrogen 13 MG/DL 11 MG/DL Creatinine 0.39 MG/DL 0.34 MG/DL Estimat Glomerular Filtration 163 ML/MIN 191 ML/MIN Rate Random Glucose 107 MG/DL 125 MG/DL Calcium Level 7.5 MG/DL 7.4 MG/DL Protein Corrected Calcium 8.8 MG/DL Phosphorus Level 1.7 MG/DL Magnesium Level 2.2 MG/DL Total Bilirubin 0.6 MG/DL Aspartate Amino Transf 39 U/L (AST/SGOT) Alanine Aminotransferase 26 U/L (ALT/SGPT) Alkaline Phosphatase 166 U/L Total Protein 4.6 GM/DL Albumin 1.6 GM/DL Microbiology Date/Time Procedure Status Source Growth 01/29/17 04:30 Gram Stain - Final Resulted Sputum Endotracheal 01/29/17 04:30 Sputum Culture - Preliminary Resulted Gram Negative Tre Imaging Last Impressions Chest X-Ray 01/30/17 0600 Signed Impressions: Service Date/Time: Monday, January 30, 2017 03:21 - CONCLUSION: 1. Tiny right apical pneumothorax is visualized. Bilateral chest tubes remain present. 2. Left lower lobe airspace opacity representing atelectasis or airspace consolidation. 3. Trace right pleural fluid. Leonard Shankar MD Lumbar Spine MRI 01/27/17 0000 Signed Impressions: Service Date/Time: Friday, January 27, 2017 17:34 - CONCLUSION: L1 compression fracture with moderate loss of vertebral body height and this is stable. This is acute with marrow edema. No associated canal compromise. Nonacute T11 and T12 superior endplate compression deformities. Bilateral hydronephrosis. Elvis Sexton MD Cervical Spine MRI 01/27/17 0000 Signed Impressions: Service Date/Time: Friday, January 27, 2017 17:34 - CONCLUSION: 1. Degenerative changes are identified. The known C6 vertebral body fracture is not well evaluated on this study. Elvis Sexton MD Brain MRI 01/27/17 0000 Signed Impressions: Service Date/Time: Friday, January 27, 2017 17:34 - CONCLUSION: Subarachnoid and intraventricular hemorrhage as above. Elvis Sexton MD IVC Filter Placement X-Ray 01/20/17 0000 Signed Impressions: Service Date/Time: Friday, January 20, 2017 16:44 - CONCLUSION: Uncomplicated inferior vena cava filter placement as above. This is a retrievable filter and can be retrieved up to one year from today's date. Avinash Santana Jr., MD Head CT 01/19/17 0600 Signed Impressions: Service Date/Time: January 04:24 - CONCLUSION: No change in scattered subarachnoid hemorrhage and intraventricular hemorrhage. Sg Nobles MD Neck CTA 01/18/17 0000 Signed Impressions: Service Date/Time: Wednesday, January 18, 2017 10:48 - CONCLUSION: 1. Atherosclerotic plaquing but no hemodynamically significant carotid artery stenosis identified. 2. Parenchymal contusion and consolidation involving the right lung apex. 3. ET tube in satisfactory position. Primo Sierra MD Maxillofacial CT 01/18/17 0000 Signed Impressions: Service Date/Time: Wednesday, January 18, 2017 10:48 - CONCLUSION: Left maxillary sinus fractures. K. Dipak Woods MD Lower Extremity CT 01/18/17 Signed Impressions: Service Date/Time: January 04:26 - CONCLUSION: 1. Comminuted intra-articular fracture of the proximal tibia involving the lateral tibial condyle and intercondylar regions. 2. Lipo hemarthrosis. Sg Nobles MD Knee X-Ray 01/18/17 Signed Impressions: Service Date/Time: Wednesday, January 18, 2017 14:09 - CONCLUSION: Acute fracture involving the proximal tibia with moderate size joint effusion. Details given above. Avinash Santana Jr., MD Femur X-Ray 01/18/17 Signed Impressions: Service Date/Time: Wednesday, January 18, 2017 20:57 - CONCLUSION: Negative for retained surgical isthmus. Other communicated to the operating room. Marques Sierra MD FACR Pelvis X-Ray 01/17/17 0745 Signed Impressions: Service Date/Time: Tuesday, January 17, 2017 07:38 - CONCLUSION: 1. Multiple pelvic fractures, as above. Hermann Arnold MD Upper Extremity CT 01/17/17 0000 Signed Impressions: Service Date/Time: Tuesday, January 17, 2017 10:22 - CONCLUSION: 1. Multiple mildly displaced fractures of the left scapula. 2. Status post ORIF of the proximal left humerus 3. No evidence of fracture dislocation involving the glenohumeral joint. 4. Multiple left-sided rib fractures with associated subcutaneous emphysema. 5. No evidence of significant left-sided pneumothorax. Jayden Aviles MD Tibia/Fibula X-Ray 7/11/17 0000 Signed Impressions: Service Date/Time: Tuesday, January 17, 2017 07:38 - CONCLUSION: No acute fracture identified. Limited single view is provided. Primo Sierra MD Thoracic Spine CT 01/17/17 Signed Impressions: Service Date/Time: Tuesday, January 17, 2017 10:19 - CONCLUSION: Rib fractures, compression fracture of L1 vertebra, transverse fractures of lumbar spine discussed on the patient's prior CT examinations and the thoracic spine appears intact except for scattered degenerative changes. Hilary Woods MD Lumbar Spine CT 01/17/17 Signed Impressions: Service Date/Time: Tuesday, January 17, 2017 10:19 - CONCLUSION: 1. Compression fracture of mid body L1 with approximate 58%% reduction in height. 2. Multiple transverse process fractures, fractures of the sacrum and presacral hematoma discussed on the patient's prior CT pelvis. 3. No appreciable thecal sac stenosis is seen. Hilary Woods MD Foot X-Ray 01/17/17 Signed Impressions: Service Date/Time: Tuesday, January 17, 2017 15:20 - CONCLUSION: No definite fracture is seen for technique. Hilary Woods MD Chest CT 01/17/17 Signed Impressions: Service Date/Time: Tuesday, January 17, 2017 10:22 - CONCLUSION: 1. Bilateral rib fractures, left scapular fractures and tiny bilateral pneumothoraces. 2. Bilateral lung contusions and areas of consolidation right lower lung. Hilary Woods MD Cervical Spine CT 01/17/17 Signed Impressions: Service Date/Time: Tuesday, January 17, 2017 10:21 - CONCLUSION: Fracture of vertebral body of C6 with extension into the right foramen transversarium without any significant compromise to the thecal sac or the exiting nerve roots. Hilary Woods MD Ankle X-Ray 01/17/17 Signed Impressions: Service Date/Time: Tuesday, January 17, 2017 15:25 - CONCLUSION: Soft tissue swelling and no definite fracture for technique. Hilary Woods MD Abdomen/Pelvis CT 01/17/17 Signed Impressions: Service Date/Time: Tuesday, January 17, 2017 10:22 - CONCLUSION: 1. There is nonspecific free fluid within the abdomen and pelvis. No active arterial bleeding is identified. 2. There is a comminuted fracture of L1 which appears to represent a fairly severe compression fracture or possible burst fracture. The lamina and pedicle appear intact. There is no significant bony retropulsion. 3. Mild compression of the superior endplate of T12. 4. Fracture of both sacral ala. 5. Fracture of the anterior aspect of the right iliac wing. 6. Fracture of the superior and inferior sacral ala on the left. 7. Multiple lower rib fractures bilaterally. These will be more definitively assessed on CT imaging through the thorax. 8. Chest tube in place on the left with minimal residual pneumothorax. 9. Minimal pneumothorax on the right. 10. Consolidation/ contusion in both lower lobes. 11. Punctate collections of free air from the patient's laparotomy. Primo Sierra MD Physical Exam CONSTITUTIONAL/GENERAL: This is an adequately nourished patient, in no apparent distress. TUBES/LINES/DRAINS: SKIN: No jaundice, rashes, or lesions. Ecchymoses on upper extremities. No wounds seen anteriorly. Skin temperature appropriate. Not diaphoretic. HEAD: Multiple extensive facial abrasions, healing Wound L parietal area with purulence noted EYES: Pupils equal and round and reactive. No scleral icterus. No injection or drainage. Fundi not examined. ENT: Hearing not tested Nose without bleeding or purulent drainage. Orally intubated NECK: Trachea midline. Supple, nontender. CARDIOVASCULAR: Regular rate and rhythm without murmurs, gallops, or rubs. No JVD. Peripheral pulses symmetric. Brisk refill RESPIRATORY/CHEST: Symmetric, unlabored respirations. few scattered rhonchi to auscultation. Breath sounds equal bilaterally. B/l chest tube in place with serosang d/c GASTROINTESTINAL: Abdomen soft, tender to palpation multiple abrasions, distended. No hepato-splenomegaly, or palpable masses. No guarding. Bowel sounds present. Midline incision with jenny in GENITOURINARY: Without palpable bladder distension. Ochoa catheter in place with clear yellow urine MUSCULOSKELETAL: Extremities without clubbing, cyanosis, + residual edema. . No mottling or clubbing. L thigh brace, VAC dresing in place with serosang d/c NEUROLOGICAL: awake opens eyes spontaneously intermittently and to voice; makes eye contact and follows commnds PSYCHIATRIC: calm Assessment & Plan Remarks Multiti trauma LEFT SDH LEFT maxillary wall fx Head laceration LEFT scapula fx BILAT PTX LEFT rib fx (3,4,5 RIGHT rib fx (5,6,7) Bilateral lung contusion Chest degloving C6 vertebral body fx T11, compression fx T12 compression endplate fx L1 compression fx Pelvic fracture consisting of comminuted superior-inferior left ramus fracture, ala sacri fractures, right iliac crest fracture LEFT tibial plateau fx LEFT thigh extensive degloving degloving approximating about 5% total body surface area Sepsis, bacteremia Stenotrophomonas POrt of entry could be her huge degloving injury or PNA Pneumonia Acinetobacter, Enterobacter in the settings of Bilateral lung contusion VRE UTI New fever ? from infected scalp wound cont Levaquine, high dose rechk blood clx if spikes fu sputum clx chk scalp wound clx Evelyn Moseley MD Jan 30, 2017 18:53
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
[2017-01-31] VITALS (22 sets, daily range): BP systolic 88–120; BP diastolic 50–58; PULSE 70–100; RESP 12–23; TEMP 94.5–100.9; O2SAT 95–100
[2017-01-31] MEDS: RESP: ALBUTEROL 2.5 MG/IPRATROPIUM 0.5 MG NEB (SCH) NEB ×4 (03:29→21:21)
[2017-01-31] MEDS: CHLORHEXIDINE GLUCONATE 2 % 1 PACK (2 CLOTHS) TOP SCH (04:00)
[2017-01-31] MEDS: SODIUM CHLOR 0.9% 1000 ML INJ 1,000 ML IV SCH ×2 (04:54→14:00)
[2017-01-31] MEDS: FREE WATER G-TUBE SCH ×3 (06:00→22:00)
[2017-01-31 06:06] LABS: AUTOMATED NEUTROPHIL # 5.4 TH/MM3 (1.8-7.7); BASOPHIL % 0.5 % (0.0-2.0); EOSINOPHIL # 0.3 TH/MM3 (0-0.4); EOSINOPHIL % 3.9 % (0.0-4.0); HEMATOCRIT 22.1 % (35.0-46.0); LYMPH % 9.3 % (9.0-44.0); LYMPHOCYTE # 0.7 TH/MM3 (1.0-4.8); MEAN CELL VOLUME 87.7 FL (80.0-100.0); MEAN CORPUSCULAR HEMOGLOBIN 30.1 PG (27.0-34.0); MEAN CORPUSCULAR HGB CONC 34.4 % (32.0-36.0); MONO % 11.4 % (0.0-8.0); NEUT % 74.9 % (16.0-70.0); PLATELET COUNT 303 TH/MM3 (150-450); RED BLOOD COUNT 2.52 MIL/MM3 (4.00-5.30); RED CELL DISTRIBUTION WIDTH 16.6 % (11.6-17.2); WHITE BLOOD COUNT 7.2 TH/MM3 (4.0-11.0)
[2017-01-31 06:10] LABS: HEMO FLAGS AUTO DIFF
--- NOTE | 2017-01-31 06:22 | RADRPT ---
EXAM DATE/TIME: 01/31/2017 05:03 [facility] COMPARISON: CHEST SINGLE AP, January 30, 2017, 3:21. INDICATIONS : Respiratory failure. MEDICAL HISTORY : Carcinoma, breast. SURGICAL HISTORY : Mastectomy, bilateral. ENCOUNTER: Subsequent ACUITY: 2 weeks PAIN SCORE: Non-responsive. LOCATION: Bilateral chest FINDINGS: Portable AP view of the chest demonstrates a normal-sized cardiac silhouette. ETT, NG tube, and right subclavian central line remain present. Bilateral chest tubes are in place and there is a stable tin y right apical pneumothorax. There are pleural-based opacities bilaterally. CONCLUSION: 1. Stable tiny right apical pneumothorax. Chest tube remains present. 2. Stable small bilateral pleural effusions. Leonard Shankar MD on January 31, 2017 at 6:20 Board Certified Radiologist. This report was verified electronically.
[2017-01-31 06:47] LABS: ALKALINE PHOSPHATASE 159 U/L (45-117); ALT (GPT) 23 U/L (10-53); ANION GAP 7 MEQ/L (5-15); AST (GOT) 25 U/L (15-37); BICARBONATE 24.2 MEQ/L (21.0-32.0); BLOOD UREA NITROGEN 9 MG/DL (7-18); CHLORIDE 113 MEQ/L (98-107); GLOMERULAR FILTRATION RATE 273 ML/MIN (>89); MAGNESIUM 2.3 MG/DL (1.5-2.5); POTASSIUM 3.3 MEQ/L (3.5-5.1); SODIUM (NA) 144 MEQ/L (136-145); TOTAL BILIRUBIN ADULT 0.7 MG/DL (0.2-1.0)
[2017-01-31] MEDS: CHLORHEXIDINE 0.12% (ORAL KIT) 15 ML CUP MT SCH ×2 (08:00→20:00)
[2017-01-31 08:13] LABS: BANDS 11 % (0-6); CORRECTED NUCLEATED RBC 2 /100 WBC (0-0); EOSINOPHILS 3 % (0-4); METAMYELOCYTES 2 % (0-1); NEUTROPHIL # MANUAL DIFF 5.6 TH/MM3 (1.8-7.7); POLYS (SEG NEUTROPHILS) 65 % (16-70); WBC DIFF SAMPLE 100
[2017-01-31 08:14] LABS: PLATELET ESTIMATE SMEAR HIGH (NORMAL); PLATELET MORPHOLOGY ENLARGED (NORMAL); SCAN/DIFF FINAL DIFF MANUAL
[2017-01-31] MEDS: DOCUSATE SODIUM 50 MG/SENNA 8.6 MG TAB PO SCH ×2 (09:00→21:00)
[2017-01-31] MEDS: REMOVE OLD LIDOCAINE PATCH T-DERMAL SCH (09:00)
[2017-01-31] MEDS: VALPROIC ACID SYRUP 250 MG/5 ML UDC PO SCH ×2 (09:00→21:00)
[2017-01-31] MEDS: LACTULOSE SYRUP 20 GM/30 ML CUP PO SCH (09:00)
[2017-01-31] MEDS: PANTOPRAZOLE SODIUM 40 MG VIAL IV SCH (09:06)
[2017-01-31] MEDS: POTASSIUM CHLOR 40 MEQ PREMIX 100 ML IV PRN (09:06)
[2017-01-31] MEDS: SODIUM CHLORIDE 0.9% FLUSH 10 ML FLUSH SCH ×2 (09:17→21:00)
[2017-01-31] MEDS: BACITRACIN TOP OINT 15 GM TUBE TOPICAL SCH ×2 (09:17→21:00)
[2017-01-31] MEDS: ENOXAPARIN SODIUM 40 MG/0.4 ML SYRINGE SQ SCH (09:18)
[2017-01-31] MEDS ORDERED: SODIUM CHLOR 0.9% 250 ML INJ 250 ML IV ONE (09:30)
[2017-01-31] MEDS ORDERED: GENTAMICIN SULFATE 80 MG/2 ML VIAL ONE (09:51)
[2017-01-31] MEDS ORDERED: ceFAZolin INJ 1,000 MG VIAL ONE (10:09)
[2017-01-31] MEDS ORDERED: VANCOMYCIN HCL 1000 MG VIAL ONE ×2 (10:09→10:33)
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
[2017-01-31] MEDS ORDERED: TOBRAMYCIN SULFATE 1200 MG VIAL ONE (10:33)
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
[2017-01-31] MEDS ORDERED: LEVOFLOXACIN 500 MG PREMIX INJ 100 ML IV ONE ×2 (11:47→11:50)
[2017-01-31] MEDS: LEVOFLOXACIN 750 MG PREMIX INJ 150 ML IV SCH (13:00)
[2017-01-31] MEDS: LACTATED RINGER'S 1000 ML INJ 1,000 ML IV SCH (13:04)
--- NOTE | 2017-01-31 13:13 | PD.OP ---
cc: Babatunde Serna MD Operative Report Date of Surgery: Jan 31, 2017 Preoperative Diagnosis: Displaced left lateral tibial plateau fracture, open thigh wound from degloving injury Postoperative Diagnosis: Procedure: Open reduction internal fixation left tibial plateau, irrigation debridement left thigh, application of wound VAC dressing Anesthesia: Gen. Surgeon: Babatunde Serna [employer] Teacher(s): MELY Terrazas PA-C The surgical procedure was assisted by my physician engineer third assistant. My P.A. presence was necessary throughout this case for the manipulation and positioning of the surgical extremity. My P.A. was assisting me throughout the duration of this procedure. The skill set of a physician engineer third assistant was medically necessary to complete this procedure. During the surgical case the commercial tire service technician was working at the back table and the physician engineer third assistant was directly assisting me. Operation and Findings: This patient was seen and evaluated preoperatively. Patient sustained an injury resulting a left lateral tibial plateau fracture. She also sustained a large degloving injury to left thigh. Informed consent was obtained preoperatively after detailed discussion of the risks and benefits of surgery. Risk of surgery including bleeding, infection, nonunion, painful hardware, stiffness, loss of motion, arthritis, need for knee replacement, as well as medical complications including blood clots, stroke, heart attack, and were discussed. I also discussed the possibility of using allograft bone graft . Preoperatively the operative site was marked. Patient was brought to the operating room and placed on the operating room table. Intravenous sedation and general endotracheal anesthesia were administered. IV antibiotics were given and a time out procedure was preformed. The operative leg was prepped with alcohol followed by Hibiclens and draped in the usual sterile fashion. Procedure began with a 4-inch curvilinear incision over the anterolateral knee. Subcutaneous tissue was treated with Bovie. Iliotibial band was split in line with fibers. A sub-meniscal arthrotomy was created and the lateral articular surface was visualized. There was significant comminution and depression of the articular surface. A window was made in the metaphyseal region and bone tamps used to elevate the articular surface. Articular surface reduced into excellent alignment. K-wires were used for provisional fixation. At this point 10 cc of stimulan bone cement was mixed with 1 g of vancomycin and 1 g of tobramycin. Cement was made into small and medium beads. The antibiotic beads were now packed underneath the articular surface using a bone tamp. The cortical fragments were now reduced. Fluoroscopy revealed excellent alignment of fracture. A Synthes proximal tibial plate was selected. The plate was provisionally held with K-wires. 3.5 cortical screws were used compress plate to bone distally, and a periarticular clamp was used to compress the medial and lateral tibial plateau fracture fragments together. Multiple locking screws were now placed proximally. Additional screws were placed in the shaft. K- wires were removed. Final fluoroscopy showed excellent alignment of fracture with well-placed hardware. The incision was thoroughly irrigated. Arthrotomy and iliotibial band closed with #1 Vicryl,. Subcutaneous tissues closed with 3- 0 Vicryl and skin was closed with jenny. Next attention was turned towards debridement of the left thigh wound. Skin subcutaneous tissue and fascia were sharply debrided. Small areas of quadriceps muscle were also debrided. The majority of the wound appeared to be healthy and viable. All necrotic tissue was sharply debrided. After thorough debridement the wound was thoroughly irrigated with sterile saline. A portion of the subcutaneous tissue was sutured down to the quadriceps muscle with 3-0 PDS. Next attention was turned to application of wound VAC dressing. An extra-large Vac dressing was cut to fit the wound. VAC dressing was held in place with skin jenny. VAC dressing was now sealed appropriately. Patient was transferred back to intensive care and stable condition. She will need additional surgery for treatment of soft tissue injury as well as eventual open reduction internal fixation of tibial plateau. Needle and sponge counts were correct. Babatunde Serna MD Jan 31, 2017 13:13
[2017-01-31] MEDS ORDERED: LACTATED RINGER'S 1000 ML INJ 1,000 ML IV ONE (13:14)
[2017-01-31] MEDS ORDERED: Post-op Orders (for Pharmacy) MISC XX ONE (13:15)
[2017-01-31] MEDS ORDERED: SODIUM CHLORIDE 0.9% FLUSH 5 ML FLUSH IVF PRN (13:15)
[2017-01-31] MEDS ORDERED: MISCELLANEOUS NURSING INFORMATION XX PRN (13:15)
[2017-01-31] MEDS: LIDOCAINE HCL 5% PATCH T-DERMAL SCH (14:30)
[2017-01-31] MEDS ORDERED: fentaNYL CITRATE 250 MCG/5 ML AMP ONE (14:31)
--- NOTE | 2017-01-31 14:50 | RADRPT ---
EXAM DATE/TIME: 01/31/2017 12:45 [facility] COMPARISON: No previous studies available for comparison. INDICATIONS : ORIF left tibial plateau. MEDICAL HISTORY : None. SURGICAL HISTORY : None. ENCOUNTER: Subsequent ACUITY: 2 weeks PAIN SCORE: Non-responsive. LOCATION: Left proximal tibia. FINDINGS: The patient is status post ORIF of left proximal tibial fracture with hardware in good position. CONCLUSION: Status post ORIF of left proximal tibial fracture with hardware in good position. Tigre Willis MD on January 31, 2017 at 14:30 Board Certified Radiologist. This report was verified electronically.
[2017-01-31] MEDS: ERGOCALCIFEROL (VIT D2) 50,000 UNIT CAP PO SCH (15:00)
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
[2017-01-31] MEDS: FUROSEMIDE 20 MG/2 ML VIAL IV PUSH SCH (18:00)
[2017-01-31] MEDS: ACETAMINOPHEN 325 MG TAB PO PRN (20:27)
[2017-01-31] MEDS: MORPHINE SULFATE 4 MG/ML INJ IV PUSH PRN (20:28)
[2017-01-31] MEDS: SODIUM CHLORIDE 0.9% FLUSH 5 ML FLUSH IVF SCH (21:00)
[2017-02-01] VITALS (19 sets, daily range): BP systolic 92–127; BP diastolic 52–65; PULSE 88–105; RESP 16–26; TEMP 99.1–100.9; O2SAT 96–100
[2017-02-01] MEDS: SODIUM CHLOR 0.9% 1000 ML INJ 1,000 ML IV SCH
[2017-02-01] MEDS: LACTATED RINGER'S 1000 ML INJ 1,000 ML IV SCH (01:34)
[2017-02-01] MEDS: RESP: ALBUTEROL 2.5 MG/IPRATROPIUM 0.5 MG NEB (SCH) NEB ×4 (03:47→20:57)
[2017-02-01 03:49] LABS: BASOPHIL % 0.3 % (0.0-2.0); EOSINOPHIL # 0.1 TH/MM3 (0-0.4); EOSINOPHIL % 1.7 % (0.0-4.0); HEMATOCRIT 27.1 % (35.0-46.0); LYMPH % 10.6 % (9.0-44.0); LYMPHOCYTE # 0.7 TH/MM3 (1.0-4.8); MEAN CORPUSCULAR HEMOGLOBIN 29.4 PG (27.0-34.0); MEAN CORPUSCULAR HGB CONC 33.5 % (32.0-36.0); MONO % 13.8 % (0.0-8.0); NEUT % 73.6 % (16.0-70.0); PLATELET COUNT 347 TH/MM3 (150-450); RED BLOOD COUNT 3.08 MIL/MM3 (4.00-5.30); WHITE BLOOD COUNT 6.8 TH/MM3 (4.0-11.0)
[2017-02-01 04:00] LABS: HEMO FLAGS AUTO DIFF
[2017-02-01] MEDS: CHLORHEXIDINE GLUCONATE 2 % 1 PACK (2 CLOTHS) TOP SCH (04:00)
[2017-02-01 04:19] LABS: ANION GAP 9 MEQ/L (5-15); AST (GOT) 39 U/L (15-37); BICARBONATE 22.3 MEQ/L (21.0-32.0); BLOOD UREA NITROGEN 12 MG/DL (7-18); CHLORIDE 113 MEQ/L (98-107); GLOMERULAR FILTRATION RATE 230 ML/MIN (>89); MAGNESIUM 2.2 MG/DL (1.5-2.5); POTASSIUM 3.5 MEQ/L (3.5-5.1); SODIUM (NA) 144 MEQ/L (136-145)
[2017-02-01 04:24] LABS: ALKALINE PHOSPHATASE 192 U/L (45-117); ALT (GPT) 26 U/L (10-53); TOTAL BILIRUBIN ADULT 0.7 MG/DL (0.2-1.0)
[2017-02-01] MEDS: FREE WATER G-TUBE SCH ×3 (06:00→21:15)
[2017-02-01 07:09] LABS: BANDS 9 % (0-6); CORRECTED NUCLEATED RBC 1 /100 WBC (0-0); METAMYELOCYTES 2 % (0-1); NEUTROPHIL # MANUAL DIFF 6.2 TH/MM3 (1.8-7.7); POLYS (SEG NEUTROPHILS) 80 % (16-70); WBC DIFF SAMPLE 100
[2017-02-01 07:10] LABS: PLATELET ESTIMATE SMEAR NORMAL (NORMAL); PLATELET MORPHOLOGY NORMAL (NORMAL); SCAN/DIFF FINAL DIFF MANUAL
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
[2017-02-01] MEDS: REMOVE OLD LIDOCAINE PATCH T-DERMAL SCH (09:00)
[2017-02-01] MEDS: CHLORHEXIDINE 0.12% (ORAL KIT) 15 ML CUP MT SCH ×2 (09:00→21:15)
[2017-02-01] MEDS: SODIUM CHLORIDE 0.9% FLUSH 5 ML FLUSH IVF SCH ×2 (09:00→21:00)
[2017-02-01] MEDS: LIDOCAINE HCL 5% PATCH T-DERMAL SCH (09:00)
[2017-02-01] MEDS: SODIUM CHLORIDE 0.9% FLUSH 10 ML FLUSH SCH (09:00)
[2017-02-01] MEDS: BACITRACIN TOP OINT 15 GM TUBE TOPICAL SCH ×2 (09:00→21:00)
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
[2017-02-01] MEDS: FUROSEMIDE 20 MG/2 ML VIAL IV PUSH SCH (11:01)
[2017-02-01] MEDS: MORPHINE SULFATE 4 MG/ML INJ IV PUSH PRN (11:01)
[2017-02-01] MEDS: PANTOPRAZOLE SODIUM 40 MG VIAL IV SCH (11:02)
[2017-02-01] MEDS: CHOLECALCIFEROL (VIT D3) 1000 UNIT TAB PO SCH (11:02)
[2017-02-01] MEDS: LACTULOSE SYRUP 20 GM/30 ML CUP PO SCH (11:02)
[2017-02-01] MEDS: DOCUSATE SODIUM 50 MG/SENNA 8.6 MG TAB PO SCH ×2 (11:02→21:00)
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
--- NOTE | 2017-02-01 13:10 | RADRPT ---
EXAM DATE/TIME: 02/01/2017 12:25 [facility] COMPARISON: CHEST SINGLE AP, January 31, 2017, 5:03. INDICATIONS : Evaluate chcest tube; Chest tube possibly fell out. MEDICAL HISTORY : Carcinoma, breast. SURGICAL HISTORY : Mastectomy, bilateral. Hysterectomy. IVC Filter placement. ENCOUNTER: Subsequent ACUITY: 1 day PAIN SCORE: Non-responsive. LOCATION: Right chest FINDINGS: The left chest it is with 5 mm left pneumothorax. Right chest tube in good position without pneumoth orax. Trach tube central line and nasogastric tube in good position. CONCLUSION: New 5 mm left pneumothorax without chest tube. Marques Sierra MD FACR on February 01, 2017 at 13:07 Board Certified Radiologist. This report was verified electronically.
--- NOTE | 2017-02-01 14:01 | RADRPT ---
EXAM DATE/TIME: 02/01/2017 12:58 [facility] COMPARISON: CT BRAIN W/O CONTRAST, January 19, 2017, 4:24. INDICATIONS : Altered mental status, intracerebral hemorrhage. RADIATION DOSE: 56.35 CTDIvol (mGy) MEDICAL HISTORY : Hypotension. SURGICAL HISTORY : Hysterectomy. Mastectomy, bilateral. Bladder augmentation. ENCOUNTER: Initial ACUITY: 1 day PAIN SCALE: Non-responsive LOCATION: Bilateral cranial TECHNIQUE: Multiple contiguous axial images were obtained of the head. Using automated exposure control and adj ustment of the mA and/or kV according to patient size, radiation dose was kept as low as reasonably a chievable to obtain optimal diagnostic quality images. DICOM format image data is available electro nically for review and comparison. FINDINGS: Minimal persistent intraventricular hemorrhage is noted within the atria of the lateral ventricles. Minimal scattered acute subarachnoid hemorrhage is again noted within the high parietal regions and is very minimally improved. Underlying cerebral atrophy is noted. There is no midline shift. Left facial bone fractures and mucosal thickening within the left maxillary sinus are noted. CONCLUSION: 1. Stable minimal acute intraventricular hemorrhage with very minimal improvement of the acute subara chnoid hemorrhage within the high parietal regions. 2. Underlying cerebral atrophy. 3. No midline shift identified. 4. Mucosal thickening involving the left maxillary sinus and left facial bone fractures. Tigre Willis MD on February 01, 2017 at 13:21 Board Certified Radiologist. This report was verified electronically.
--- NOTE | 2017-02-01 14:46 | HHI.HCPN ---
Spoke with daughter for follow-up palliative care support. She reports she was just up to see mom and she was more alert and able to answer some of her questions. Shea verbalizes this was very helpful for her as she had been struggling with certain decisions and conversations she never got to have with the patient prior to this. Shea reports she received an update from medical staff while she was here visiting. Verbalizes understanding of tracheostomy and peg tube. She remains hopeful that mom will continue to do well and be on the road to recovery. Reports she is leaving out of state for the week, palliative to touch base with her tomorrow and Monday to provide updates and additional support. No further questions or concerns at this time. Remains very appreciative of ongoing palliative care and medical team support. Emilee Santana, METERMAN Feb 01, 2017 14:46
[2017-02-01] MEDS ORDERED: PROPOFOL 200 MG/20 ML AMP IV ONE (14:54)
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
[2017-02-01] MEDS: LEVOFLOXACIN 750 MG PREMIX INJ 150 ML IV SCH (15:04)
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
[2017-02-01] MEDS: VALPROIC ACID SYRUP 250 MG/5 ML UDC PO SCH ×2 (16:06→21:14)
[2017-02-01] MEDS: ACETAMINOPHEN 1000 MG/100 ML VIAL IV PRN (17:41)
--- NOTE | 2017-02-01 17:51 | HHI.IDPN ---
Subjective Subjective Remarks sp trach yday , PEG today + low grade fever up to 100.9 having normal BMs Antibiotics levaquine Allergies: Coded Allergies: Sulfa (Verified Allergy, Intermediate, "BLOOD COUNT DROPS", 12/29/16) *MDRO Multi-Drug Resistant Organism (Verified Adverse Reaction, Unknown, ) VRE (urine) 01/19/17 Codeine (Verified Adverse Reaction, Unknown, ITCHING, 12/29/16) Objective . Vital Signs Date Time Temp Pulse Resp B/P Pulse Ox O2 Delivery O2 Flow Rate FiO2 02/01/17 16:43 100 40 02/01/17 13:18 100 100 02/01/17 11:06 25 02/01/17 10:27 100 40 02/01/17 08:50 40 02/01/17 08:41 100 40 02/01/17 07:00 100 Mechanical Ventilator 40 02/01/17 06:00 95 02/01/17 04:00 40 02/01/17 04:00 92 02/01/17 04:00 99.1 94 24 109/59 100 02/01/17 03:47 100 40 02/01/17 02:00 94 02/01/17 00:13 100 40 02/01/17 00:00 92 02/01/17 00:00 99.7 92 21 92/52 100 02/01/17 00:00 40 01/31/17 23:01 100 40 01/31/17 22:00 98 01/31/17 20:03 100 40 01/31/17 20:00 40 01/31/17 20:00 100.9 100 16 113/56 100 01/31/17 20:00 100 01/31/17 19:15 100.9 100 18 113/56 100 01/31/17 19:00 100 Mechanical Ventilator 40 01/31/17 18:00 96 01/31/17 17:50 96.8 96 19 114/57 100 01/31/17 01/31/17 02/01/17 15:00 23:00 07:00 Intake Total 2711 ml 717 ml Output Total 3065 ml 685 ml Balance -354 ml 32 ml Intake IV Total 1881 ml 717 ml Tube Feeding 0 ml 0 ml Other 830 ml 0 ml Output Urine Total 2050 ml 350 ml Stool Total 0 ml Chest Tube Drainage Total 390 ml 210 ml Drainage Total 625 ml 125 ml # Bowel Movements 0 0 . Laboratory Tests Test 01/31/17 02/01/17 05:30 03:35 White Blood Count 7.2 TH/MM3 6.8 TH/MM3 Red Blood Count 2.52 MIL/MM3 3.08 MIL/MM3 Hemoglobin 7.6 GM/DL 9.1 GM/DL Hematocrit 22.1 % 27.1 % Mean Corpuscular Volume 87.7 FL 88.0 FL Mean Corpuscular Hemoglobin 30.1 PG 29.4 PG Mean Corpuscular Hemoglobin 34.4 % 33.5 % Concent Red Cell Distribution Width 16.6 % 16.0 % Platelet Count 303 TH/MM3 347 TH/MM3 Mean Platelet Volume 9.5 FL 9.2 FL Neutrophils (%) (Auto) 74.9 % 73.6 % Lymphocytes (%) (Auto) 9.3 % 10.6 % Monocytes (%) (Auto) 11.4 % 13.8 % Eosinophils (%) (Auto) 3.9 % 1.7 % Basophils (%) (Auto) 0.5 % 0.3 % Neutrophils # (Auto) 5.4 TH/MM3 5.0 TH/MM3 Lymphocytes # (Auto) 0.7 TH/MM3 0.7 TH/MM3 Monocytes # (Auto) 0.8 TH/MM3 0.9 TH/MM3 Eosinophils # (Auto) 0.3 TH/MM3 0.1 TH/MM3 Basophils # (Auto) 0.0 TH/MM3 0.0 TH/MM3 CBC Comment AUTO DIFF AUTO DIFF Differential Total Cells 100 100 Counted Neutrophils % (Manual) 65 % 80 % Band Neutrophils % 11 % 9 % Lymphocytes % 10 % 2 % Monocytes % 9 % 7 % Eosinophils % 3 % Neutrophils # (Manual) 5.6 TH/MM3 6.2 TH/MM3 Metamyelocytes 2 % 2 % Nucleated Red Blood Cells 2 /100 WBC 1 /100 WBC Differential Comment FINAL DIFF FINAL DIFF MANUAL MANUAL Platelet Estimate HIGH NORMAL Platelet Morphology Comment ENLARGED NORMAL Red Cell Morphology Comment NORMAL Laboratory Tests Test 01/31/17 02/01/17 05:30 03:35 Sodium Level 144 MEQ/L 144 MEQ/L Potassium Level 3.3 MEQ/L 3.5 MEQ/L Chloride Level 113 MEQ/L 113 MEQ/L Carbon Dioxide Level 24.2 MEQ/L 22.3 MEQ/L Anion Gap 7 MEQ/L 9 MEQ/L Blood Urea Nitrogen 9 MG/DL 12 MG/DL Creatinine 0.25 MG/DL 0.29 MG/DL Estimat Glomerular Filtration 273 ML/MIN 230 ML/MIN Rate Random Glucose 93 MG/DL 69 MG/DL Calcium Level 7.6 MG/DL 7.7 MG/DL Phosphorus Level 2.5 MG/DL 2.7 MG/DL Magnesium Level 2.3 MG/DL 2.2 MG/DL Total Bilirubin 0.7 MG/DL 0.7 MG/DL Aspartate Amino Transf 25 U/L 39 U/L (AST/SGOT) Alanine Aminotransferase 23 U/L 26 U/L (ALT/SGPT) Alkaline Phosphatase 159 U/L 192 U/L Total Protein 4.9 GM/DL 4.4 GM/DL Albumin 2.2 GM/DL 1.9 GM/DL Microbiology Date/Time Procedure Status Source Growth 01/30/17 20:00 Gram Stain - Final Complete Wound Scalp 01/30/17 20:00 Wound Culture - Final Complete Catia Parapsilosis 01/31/17 16:00 Aerobic Blood Culture - Preliminary Resulted Blood Peripheral NO GROWTH IN 1 DAY 01/31/17 16:00 Anaerobic Blood Culture - Preliminary Resulted Blood Peripheral NO GROWTH IN 1 DAY 01/31/17 16:15 Aerobic Blood Culture Ordered Blood Peripheral Pending 01/31/17 16:15 Anaerobic Blood Culture Ordered Blood Peripheral Pending 02/01/17 04:53 Aerobic Blood Culture Received Blood Peripheral Pending 02/01/17 04:53 Anaerobic Blood Culture Received Blood Peripheral Pending 02/01/17 05:00 Aerobic Blood Culture Axel Batch Blood Peripheral Pending 02/01/17 05:00 Anaerobic Blood Culture Axel Batch Blood Peripheral Pending Imaging Last Impressions Chest X-Ray 02/01/17 0000 Signed Impressions: Service Date/Time: Wednesday, February 01, 2017 12:25 - CONCLUSION: New 5 mm left pneumothorax without chest tube. Marques Sierra MD FACR Knee X-Ray 01/31/17 0000 Signed Impressions: Service Date/Time: Tuesday, January 31, 2017 12:45 - CONCLUSION: Status post ORIF of left proximal tibial fracture with hardware in good position. Tigre Willis MD Lumbar Spine MRI 01/27/17 0000 Signed Impressions: Service Date/Time: Friday, January 27, 2017 17:34 - CONCLUSION: L1 compression fracture with moderate loss of vertebral body height and this is stable. This is acute with marrow edema. No associated canal compromise. Nonacute T11 and T12 superior endplate compression deformities. Bilateral hydronephrosis. Elvis Sexton MD Cervical Spine MRI 01/27/17 0000 Signed Impressions: Service Date/Time: Friday, January 27, 2017 17:34 - CONCLUSION: 1. Degenerative changes are identified. The known C6 vertebral body fracture is not well evaluated on this study. Elvis Sexton MD Brain MRI 01/27/17 0000 Signed Impressions: Service Date/Time: Friday, January 27, 2017 17:34 - CONCLUSION: Subarachnoid and intraventricular hemorrhage as above. Elvis Sexton MD IVC Filter Placement X-Ray 01/20/17 0000 Signed Impressions: Service Date/Time: Friday, January 20, 2017 16:44 - CONCLUSION: Uncomplicated inferior vena cava filter placement as above. This is a retrievable filter and can be retrieved up to one year from today's date. Avinash Santana Jr., MD Head CT 01/19/17 0600 Signed Impressions: Service Date/Time: January 04:24 - CONCLUSION: No change in scattered subarachnoid hemorrhage and intraventricular hemorrhage. Sg Nobles MD Neck CTA 01/18/17 0000 Signed Impressions: Service Date/Time: Wednesday, January 18, 2017 10:48 - CONCLUSION: 1. Atherosclerotic plaquing but no hemodynamically significant carotid artery stenosis identified. 2. Parenchymal contusion and consolidation involving the right lung apex. 3. ET tube in satisfactory position. Primo Sierra MD Maxillofacial CT 01/18/17 0000 Signed Impressions: Service Date/Time: Wednesday, January 18, 2017 10:48 - CONCLUSION: Left maxillary sinus fractures. Hilary Woods MD Lower Extremity CT 01/18/17 0000 Signed Impressions: Service Date/Time: January 04:26 - CONCLUSION: 1. Comminuted intra-articular fracture of the proximal tibia involving the lateral tibial condyle and intercondylar regions. 2. Lipo hemarthrosis. Sg Nobles MD Femur X-Ray 01/18/17 0000 Signed Impressions: Service Date/Time: Wednesday, January 18, 2017 20:57 - CONCLUSION: Negative for retained surgical isthmus. Other communicated to the operating room. Marques Sierra MD FACR Pelvis X-Ray 01/17/17 0745 Signed Impressions: Service Date/Time: Tuesday, January 17, 2017 07:38 - CONCLUSION: 1. Multiple pelvic fractures, as above. Hermann Arnold MD Upper Extremity CT 01/17/17 Signed Impressions: Service Date/Time: Tuesday, January 17, 2017 10:22 - CONCLUSION: 1. Multiple mildly displaced fractures of the left scapula. 2. Status post ORIF of the proximal left humerus 3. No evidence of fracture dislocation involving the glenohumeral joint. 4. Multiple left-sided rib fractures with associated subcutaneous emphysema. 5. No evidence of significant left-sided pneumothorax. Jayden Aviles MD Tibia/Fibula X-Ray 01/17/17 Signed Impressions: Service Date/Time: Tuesday, January 17, 2017 07:38 - CONCLUSION: No acute fracture identified. Limited single view is provided. Primo Sierra MD Thoracic Spine CT 01/17/17 0000 Signed Impressions: Service Date/Time: Tuesday, January 17, 2017 10:19 - CONCLUSION: Rib fractures, compression fracture of L1 vertebra, transverse fractures of lumbar spine discussed on the patient's prior CT examinations and the thoracic spine appears intact except for scattered degenerative changes. Hilary Woods MD Lumbar Spine CT 01/17/17 Signed Impressions: Service Date/Time: Tuesday, January 17, 2017 10:19 - CONCLUSION: 1. Compression fracture of mid body L1 with approximate 58%% reduction in height. 2. Multiple transverse process fractures, fractures of the sacrum and presacral hematoma discussed on the patient's prior CT pelvis. 3. No appreciable thecal sac stenosis is seen. Hilary Woods MD Foot X-Ray 01/17/17 Signed Impressions: Service Date/Time: Tuesday, January 17, 2017 15:20 - CONCLUSION: No definite fracture is seen for technique. Hilary Woods MD Chest CT 01/17/17 0000 Signed Impressions: Service Date/Time: Tuesday, January 17, 2017 10:22 - CONCLUSION: 1. Bilateral rib fractures, left scapular fractures and tiny bilateral pneumothoraces. 2. Bilateral lung contusions and areas of consolidation right lower lung. Hilary Woods MD Cervical Spine CT 01/17/17 0000 Signed Impressions: Service Date/Time: Tuesday, January 17, 2017 10:21 - CONCLUSION: Fracture of vertebral body of C6 with extension into the right foramen transversarium without any significant compromise to the thecal sac or the exiting nerve roots. Hilary Woods MD Ankle X-Ray 01/17/17 0000 Signed Impressions: Service Date/Time: Tuesday, January 17, 2017 15:25 - CONCLUSION: Soft tissue swelling and no definite fracture for technique. Hilary Woods MD Abdomen/Pelvis CT 01/17/17 0000 Signed Impressions: Service Date/Time: Tuesday, January 17, 2017 10:22 - CONCLUSION: 1. There is nonspecific free fluid within the abdomen and pelvis. No active arterial bleeding is identified. 2. There is a comminuted fracture of L1 which appears to represent a fairly severe compression fracture or possible burst fracture. The lamina and pedicle appear intact. There is no significant bony retropulsion. 3. Mild compression of the superior endplate of T12. 4. Fracture of both sacral ala. 5. Fracture of the anterior aspect of the right iliac wing. 6. Fracture of the superior and inferior sacral ala on the left. 7. Multiple lower rib fractures bilaterally. These will be more definitively assessed on CT imaging through the thorax. 8. Chest tube in place on the left with minimal residual pneumothorax. 9. Minimal pneumothorax on the right. 10. Consolidation/ contusion in both lower lobes. 11. Punctate collections of free air from the patient's laparotomy. Primo Sierra MD Physical Exam CONSTITUTIONAL/GENERAL: This is an adequately nourished patient, in no apparent distress. TUBES/LINES/DRAINS: SKIN: No jaundice, rashes, or lesions. Not diaphoretic. HEAD: Multiple extensive facial abrasions, healing Wound L parietal area with intact dressing on EYES: Pupils equal and round and reactive. No scleral icterus. No injection or drainage. Fundi not examined. ENT: Hearing not tested Nose without bleeding or purulent drainage. Orally intubated NECK: Trachea midline. Supple, nontender. CARDIOVASCULAR: Regular rate and rhythm without murmurs, gallops, or rubs. No JVD. Peripheral pulses symmetric. Brisk refill RESPIRATORY/CHEST: Symmetric, unlabored respirations. few scattered rhonchi to auscultation. Breath sounds equal bilaterally. B/l chest tube in place with serosang d/c GASTROINTESTINAL: Abdomen soft, tender to palpation multiple abrasions, distended. No hepato-splenomegaly, or palpable masses. No guarding. Bowel sounds present. Midline incision with jenny in GENITOURINARY: Without palpable bladder distension. Ochoa catheter in place with clear yellow urine MUSCULOSKELETAL: Extremities without clubbing, cyanosis, + edema. . No mottling or clubbing. L thigh brace, VAC dresing in place with serosang d/c NEUROLOGICAL: awake opens eyes spontaneously intermittently and to voice; makes eye contact and follows commnds PSYCHIATRIC: calm Assessment & Plan Remarks Multiti trauma LEFT SDH LEFT maxillary wall fx Head laceration LEFT scapula fx BILAT PTX LEFT rib fx (3,4,5 RIGHT rib fx (5,6,7) Bilateral lung contusion Chest degloving C6 vertebral body fx T11, compression fx T12 compression endplate fx L1 compression fx Pelvic fracture consisting of comminuted superior-inferior left ramus fracture, ala sacri fractures, right iliac crest fracture LEFT tibial plateau fx LEFT thigh extensive degloving degloving approximating about 5% total body surface area Sepsis, bacteremia Stenotrophomonas POrt of entry could be her huge degloving injury or PNA Pneumonia Acinetobacter, Enterobacter in the settings of Bilateral lung contusion VRE UTI Fever - presistent Scalp wound grew out C. parapslosa , likle y colonisation REC's: cont Levaquine, high dose fu blood clx if spikes add cefpeime, Evelyn Harper MD Feb 01, 2017 17:51
[2017-02-01] MEDS ORDERED: Vancomycin Consult Pharmacy 1 EA OTHER SCH (18:00)
[2017-02-01] MEDS: CEFEPIME INJ 2,000 MG in SODIUM CHLORIDE 0.9% INJ 100 ML IV SCH (18:42)
--- NOTE | 2017-02-01 19:18 | PD.PROCEDR ---
GI Procedure REFERRING PHYSICIAN Se PROCEDURE PERFORMED EGD with PEG placement INDICATION FOR PROCEDURE Respiratory failure, dysphagia PROCEDURE: The procedure, risks and benefits were discussed with Ms. Benito and informed consent was obtained. Anesthesia sedated her with Diprivan. She was placed in the left lateral decubitus position. EGD: The Pentax videoscope was introduced through the oropharynx and advanced to the second portion of the duodenum under direct visualization. Retroflexion was performed in the stomach. FINDINGS: Esophagus this was normal Stomach this was normal Duodenum this was normal Following the evaluation of the stomach and the duodenum the stomach was insufflated with air and the area of PEG placement was identified through indentation and transillumination the area was prepped and draped in usual fashion 5 cc of lidocaine were injected locally a small incision was made then an Angiocath was passed into the stomach through which a guidewire was passed this was retrieved with the scope into that a PEG tube was attached and pulled into place and thereafter secured in usual fashion The patient tolerated procedure well and there are no immediate complications ESTIMATED BLOOD LOSS: None SPECIMENS REMOVED: None COMPLICATIONS: None IMPRESSION: Normal EGD Successful PEG placement PLAN: 1. May use PEG tube for medications today 2. May start feeding tomorrow 3. May obtain nutritional consult for tube feeding 4. Flush tube with 50 cc of water every 4-6 hours 5. Always flush tube after feedings 6. Apply abdominal binder as necessary 7. Clamp G-tube after use and flush. Robin Frias MD Feb 01, 2017 19:17
[2017-02-01] MEDS: VANCOMYCIN INJ 1,250 MG in SODIUM CHLOR 0.9% 250 ML INJ 250 ML IV SCH (21:30)
[2017-02-02] VITALS (18 sets, daily range): BP systolic 91–118; BP diastolic 49–69; PULSE 87–102; RESP 22–38; TEMP 99.3–99.9; O2SAT 91–100
[2017-02-02] MEDS: CEFEPIME INJ 2,000 MG in SODIUM CHLORIDE 0.9% INJ 100 ML IV SCH ×3 (02:37→18:04)
[2017-02-02] MEDS: RESP: ALBUTEROL 2.5 MG/IPRATROPIUM 0.5 MG NEB (SCH) NEB ×2 (03:16→08:02)
[2017-02-02] MEDS: CHLORHEXIDINE GLUCONATE 2 % 1 PACK (2 CLOTHS) TOP SCH (04:00)
[2017-02-02 04:54] LABS: BASOPHIL % 0.3 % (0.0-2.0); EOSINOPHIL # 0.1 TH/MM3 (0-0.4); EOSINOPHIL % 1.2 % (0.0-4.0); HEMATOCRIT 26.9 % (35.0-46.0); LYMPH % 10.1 % (9.0-44.0); LYMPHOCYTE # 0.8 TH/MM3 (1.0-4.8); MEAN CELL VOLUME 89.1 FL (80.0-100.0); MEAN CORPUSCULAR HEMOGLOBIN 29.3 PG (27.0-34.0); MEAN CORPUSCULAR HGB CONC 32.9 % (32.0-36.0); MONO % 9.2 % (0.0-8.0); NEUT % 79.2 % (16.0-70.0); PLATELET COUNT 343 TH/MM3 (150-450); RED BLOOD COUNT 3.02 MIL/MM3 (4.00-5.30); RED CELL DISTRIBUTION WIDTH 16.1 % (11.6-17.2); WHITE BLOOD COUNT 7.6 TH/MM3 (4.0-11.0)
[2017-02-02 05:00] LABS: ALT (GPT) 23 U/L (10-53); ANION GAP 8 MEQ/L (5-15); AST (GOT) 33 U/L (15-37); BICARBONATE 23.9 MEQ/L (21.0-32.0); BLOOD UREA NITROGEN 13 MG/DL (7-18); CHLORIDE 110 MEQ/L (98-107); GLOMERULAR FILTRATION RATE 198 ML/MIN (>89); MAGNESIUM 2.1 MG/DL (1.5-2.5); SODIUM (NA) 142 MEQ/L (136-145)
[2017-02-02 05:03] LABS: ALKALINE PHOSPHATASE 215 U/L (45-117); TOTAL BILIRUBIN ADULT 0.7 MG/DL (0.2-1.0)
[2017-02-02 05:06] LABS: BLOOD GAS BASE EXCESS -1.3 mmol/L (-2-2); BLOOD GAS CARBOXYHEMOGLOBIN 1.8 % (0-4); BLOOD GAS HCO3 22 mmol/L (22-26); BLOOD GAS METHEMOGLOBIN 0.8 % (0-2); BLOOD GAS O2 HGB SATURATION 93 % (90-100); BLOOD GAS PCO2 28 mmHg (38-42); BLOOD GAS PO2 70 mmHg (61-120); BLOOD GAS TOTAL HGB 9.2 G/DL (12.0-16.0); TEMP CORR TO 98.6
[2017-02-02 05:07] LABS: CRITICAL VALUE NO; FIO2 40 %; OXYGEN DEVICE VENTILATOR
[2017-02-02 05:08] LABS: DRAW SITE RT BRACHIAL; NUMBER OF ARTERIAL PUNCTURES 2; STAT NO; ULNAR PULSE PRESENT
[2017-02-02 05:19] LABS: HEMO FLAGS AUTO DIFF
[2017-02-02] MEDS: FREE WATER G-TUBE SCH ×3 (06:00→22:12)
--- NOTE | 2017-02-02 06:22 | RADRPT ---
EXAM DATE/TIME: 02/02/2017 04:58 [facility] COMPARISON: CHEST SINGLE AP, February 01, 2017, 12:25. INDICATIONS : Respiratory distress. MEDICAL HISTORY : Carcinoma, breast. SURGICAL HISTORY : Mastectomy, bilateral. Hysterectomy. IVC Filter placement. ENCOUNTER: Subsequent ACUITY: 2 weeks PAIN SCORE: Non-responsive. LOCATION: Bilateral chest FINDINGS: Portable AP view of the chest demonstrates a normal-sized cardiac silhouette. Tracheostomy, right sub clavian central line, and right chest tube remain present. Nasogastric tube has been removed. There i s stable left basilar airspace opacity. No pneumothorax is visualized. There are multiple left rib fr actures. CONCLUSION: Stable left basilar opacity representing either atelectasis or consolidation. Right chest tube remain s present and no pneumothorax is visualized. Leonard Shankar MD on February 02, 2017 at 6:20 Board Certified Radiologist. This report was verified electronically.
[2017-02-02] MEDS: POTASSIUM CHLOR 40 MEQ PREMIX 100 ML IV PRN ×2 (06:29→09:20)
[2017-02-02 07:11] LABS: BANDS 5 % (0-6); EOSINOPHILS 1 % (0-4); METAMYELOCYTES 1 % (0-1); NEUTROPHIL # MANUAL DIFF 6.2 TH/MM3 (1.8-7.7); PLATELET ESTIMATE SMEAR NORMAL (NORMAL); PLATELET MORPHOLOGY ENLARGED (NORMAL); POLYS (SEG NEUTROPHILS) 76 % (16-70); WBC DIFF SAMPLE 100
[2017-02-02 07:12] LABS: SCAN/DIFF FINAL DIFF MANUAL
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
[2017-02-02] MEDS: CHLORHEXIDINE 0.12% (ORAL KIT) 15 ML CUP MT SCH ×2 (08:00→22:11)
[2017-02-02] MEDS: REMOVE OLD LIDOCAINE PATCH T-DERMAL SCH (09:00)
[2017-02-02] MEDS: DOCUSATE SODIUM 50 MG/SENNA 8.6 MG TAB PO SCH ×2 (09:00→21:00)
[2017-02-02] MEDS: LACTULOSE SYRUP 20 GM/30 ML CUP PO SCH (09:00)
[2017-02-02] MEDS: LIDOCAINE HCL 5% PATCH T-DERMAL SCH (09:18)
[2017-02-02] MEDS: VALPROIC ACID SYRUP 250 MG/5 ML UDC PO SCH ×2 (09:18→22:12)
[2017-02-02] MEDS: FUROSEMIDE 20 MG/2 ML VIAL IV PUSH SCH (09:18)
[2017-02-02] MEDS: CHOLECALCIFEROL (VIT D3) 1000 UNIT TAB PO SCH (09:19)
[2017-02-02] MEDS: PANTOPRAZOLE SODIUM 40 MG VIAL IV SCH (09:19)
[2017-02-02] MEDS: SODIUM CHLORIDE 0.9% FLUSH 5 ML FLUSH IVF SCH ×2 (09:22→22:11)
[2017-02-02] MEDS: VANCOMYCIN INJ 1,250 MG in SODIUM CHLOR 0.9% 250 ML INJ 250 ML IV SCH ×2 (10:48→22:11)
[2017-02-02] MEDS: ENOXAPARIN SODIUM 40 MG/0.4 ML SYRINGE SQ SCH (10:48)
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
[2017-02-02] MEDS: MORPHINE SULFATE 4 MG/ML INJ IV PUSH PRN (12:43)
[2017-02-02] MEDS: LEVOFLOXACIN 750 MG PREMIX INJ 150 ML IV SCH (13:05)
[2017-02-02] MEDS: AMANTADINE HCL 100 MG CAP PO SCH (13:36)
--- NOTE | 2017-02-02 13:37 | HHI.PR ---
Neuropsych Progress Notes/Response to Tx Contents of Sessions: Adjustment, Level of Consciousness Time with Patient: 15 minutes Premorbid psychological status Premorbid Cognitive, Emotional and Behavioral Status: Unable to Assess. The patient is unable to provide information concerning her social history and there is no family present. Behavioral Reactions of Patient and Family/Support System: Unable to Assess. No family present. Emotional/Behavioral Status of Patient and Family/Support System: Unable to Assess. Pertinent issues, if appropriate to this patients clinical care, are described in detail above. Maximizing acute care outcome It is recommended that the patient be monitored for emergent behavioral impulsivity as the medical condition evolves. This patients neuropathological challenges may limit their rehabilitation potential going forward, and these challenges will require specialized therapeutic skills to maximize outcome. Anticipated Problems Ongoing areas of concern will include behavioral impulsivity, lack of insight and judgment, which is expected to improve with time and treatment. Presently , the patient intubated and sedated. Treatment Plan This clinician will continue to follow with you throughout the course of this patients acute care treatment, and I will be available to meet with the patient s family/support system to facilitate their understanding and the ongoing care of their family member. The goals of neuropsychological intervention shall be both educational and supportive to the family/support system as is deemed clinically appropriate. [facility] Level: V:Confused-non agitated Impression This 66 year old woman suffered a moderately severe traumatic brain injury, with the resulting eventual sequelae exacerbated by her age. She is expected to have residual neurocognitive disorder 2T TBI. Diagnosis: (1) Major neurocognitive disorder as late effect of traumatic brain injury without behavioral disturbance Status: Acute Progress Note Narrative Ongoing follow-up of patient seen during daily trauma rounds. This is day 16 post injury. The patient is awake, opens her eyes, and follows. She is off all sedation. Neurobehaviorally, she has been managed with Valproic Acid 250 BID, and she has exhibited no significant restlessness/agitated behaviors. However, she has not presented with greater initiation of behaviors, and nursing staff report that she essentially presents as amotivational (related to brain dysfunction), not psychomotorically slow or tearful as would be related to clinical depression. As such, she is considered a [place] presently. Because of the amotivational presentation, trauma team consensus is to start Amantadine 100 qD, given that her white count is normal and she is off sedation. I will continue to follow. Vargas Lorenzo PhD Feb 02, 2017 1:37 pm
[2017-02-02] MEDS: BACITRACIN TOP OINT 15 GM TUBE TOPICAL SCH ×2 (14:36→22:12)
--- NOTE | 2017-02-02 14:56 | HHI.HCPN ---
Attempted to call daughter to provide update, unable to reach, left requesting call back should she desire. Palliative care to touch base with her tomorrow and provide update as requested as daughter is currently out of state for a week. Emilee Santana, [employer] Feb 02, 2017 14:56
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
[2017-02-02] MEDS: RESP: ALBUTEROL 2.5 MG/IPRATROPIUM 0.5 MG NEB (PRN) NEB (19:43)
[2017-02-03] VITALS (17 sets, daily range): BP systolic 90–103; BP diastolic 45–58; PULSE 92–102; RESP 28–32; TEMP 98.2–100.7; O2SAT 91–100
[2017-02-03] MEDS: CEFEPIME INJ 2,000 MG in SODIUM CHLORIDE 0.9% INJ 100 ML IV SCH ×3 (02:44→16:58)
[2017-02-03] MEDS: CHLORHEXIDINE GLUCONATE 2 % 1 PACK (2 CLOTHS) TOP SCH (02:55)
[2017-02-03 04:47] LABS: AUTOMATED NEUTROPHIL # 5.3 TH/MM3 (1.8-7.7); BASOPHIL % 0.4 % (0.0-2.0); EOSINOPHIL # 0.2 TH/MM3 (0-0.4); EOSINOPHIL % 2.3 % (0.0-4.0); HEMATOCRIT 26.7 % (35.0-46.0); LYMPH % 9.3 % (9.0-44.0); LYMPHOCYTE # 0.7 TH/MM3 (1.0-4.8); MEAN CELL VOLUME 88.4 FL (80.0-100.0); MEAN CORPUSCULAR HEMOGLOBIN 30.2 PG (27.0-34.0); MEAN CORPUSCULAR HGB CONC 34.2 % (32.0-36.0); PLATELET COUNT 352 TH/MM3 (150-450); RED BLOOD COUNT 3.02 MIL/MM3 (4.00-5.30); RED CELL DISTRIBUTION WIDTH 16.1 % (11.6-17.2); WHITE BLOOD COUNT 7.2 TH/MM3 (4.0-11.0)
[2017-02-03 04:55] LABS: HEMO FLAGS AUTO DIFF
[2017-02-03 05:11] LABS: ALT (GPT) 26 U/L (10-53); ANION GAP 10 MEQ/L (5-15); AST (GOT) 36 U/L (15-37); BICARBONATE 24.2 MEQ/L (21.0-32.0); BLOOD UREA NITROGEN 14 MG/DL (7-18); CHLORIDE 107 MEQ/L (98-107); GLOMERULAR FILTRATION RATE 221 ML/MIN (>89); MAGNESIUM 2.2 MG/DL (1.5-2.5); POTASSIUM 3.4 MEQ/L (3.5-5.1); SODIUM (NA) 141 MEQ/L (136-145)
[2017-02-03 05:12] LABS: ALKALINE PHOSPHATASE 222 U/L (45-117); TOTAL BILIRUBIN ADULT 0.6 MG/DL (0.2-1.0)
[2017-02-03 05:26] LABS: SCAN/DIFF AUTO DIFF CONFIRMED; TOXIC GRANULATION 2+ (NORMAL)
[2017-02-03] MEDS: FREE WATER G-TUBE SCH ×3 (05:35→21:00)
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
[2017-02-03] MEDS: POTASSIUM CHLOR 40 MEQ PREMIX 100 ML IV PRN (06:17)
[2017-02-03] MEDS ORDERED: PHARMACY ORDERED LAB ONE (07:45)
[2017-02-03] MEDS: VANCOMYCIN INJ 1,250 MG in SODIUM CHLOR 0.9% 250 ML INJ 250 ML IV SCH ×2 (08:00→20:59)
[2017-02-03] MEDS: CHOLECALCIFEROL (VIT D3) 1000 UNIT TAB PO SCH (08:43)
[2017-02-03] MEDS: PANTOPRAZOLE SODIUM 40 MG VIAL IV SCH (08:43)
[2017-02-03] MEDS: AMANTADINE HCL 100 MG CAP PO SCH (08:43)
[2017-02-03] MEDS: VALPROIC ACID SYRUP 250 MG/5 ML UDC PO SCH ×2 (08:43→20:59)
[2017-02-03] MEDS: CHLORHEXIDINE 0.12% (ORAL KIT) 15 ML CUP MT SCH ×2 (08:43→20:00)
[2017-02-03] MEDS: FUROSEMIDE 20 MG/2 ML VIAL IV PUSH SCH (08:43)
[2017-02-03] MEDS: BACITRACIN TOP OINT 15 GM TUBE TOPICAL SCH ×2 (08:44→21:00)
[2017-02-03] MEDS: DOCUSATE SODIUM 50 MG/SENNA 8.6 MG TAB PO SCH ×2 (08:46→19:41)
[2017-02-03] MEDS: LACTULOSE SYRUP 20 GM/30 ML CUP PO SCH (08:46)
[2017-02-03] MEDS: REMOVE OLD LIDOCAINE PATCH T-DERMAL SCH (08:46)
[2017-02-03] MEDS: SODIUM CHLORIDE 0.9% FLUSH 5 ML FLUSH IVF SCH ×2 (08:47→20:59)
[2017-02-03] MEDS: LIDOCAINE HCL 5% PATCH T-DERMAL SCH (09:00)
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
[2017-02-03] MEDS ORDERED: GENTAMICIN SULFATE 80 MG/2 ML VIAL ONE (11:11)
[2017-02-03] MEDS: LIDOCAINE 2% JELLY 30 ML TUBE ONE ×2 (11:28→12:46)
[2017-02-03] MEDS: MINERAL OIL 10 ML VIAL ONE ×2 (11:29→12:44)
[2017-02-03] MEDS ORDERED: LIDOCAINE 2% JELLY 30 ML TUBE ONE (11:29)
--- NOTE | 2017-02-03 11:58 | HHI.HCPN ---
Received call from patient's daughter requesting update as she is currently out of state. Met with Ms. Benito, no one at bedside. She has eyes closed upon arrival, initially would not open eyes to verbal stimuli, eventually opened eyes and made eye contact. Continues with eye contact for a period of time, appears to try and mouth a few words then turns head and fixates on tv?. Informed her that her daughter is calling to check on her, no response continues to look away. Spoke with daughter, Shea who has multiple questions regarding discharge (when, where, how with medical condition), encouraged her to speak with CM as they will have most up-to-date information. Did update her with recent note as of 02/02. Notes also indicate patient is going back to surgery today for a skin graft. Shea wants to ensure patient will continue to be followed for wound care after discharge. Daughter also inquires about patient being in a back brace while she is up in the chair. Nursing checked with neurosurgery. Daughter updated and appreciative of update. Palliative care will continue to follow throughout hospitalization. Emilee Santana, [employer] Feb 03, 2017 11:58
--- NOTE | 2017-02-03 12:07 | HHI.PR ---
Neuropsych Progress Notes/Response to Tx Contents of Sessions: Adjustment, Level of Consciousness Time with Patient: 15 minutes Premorbid psychological status Premorbid Cognitive, Emotional and Behavioral Status: Unable to Assess. The patient is unable to provide information concerning her social history and there is no family present. Behavioral Reactions of Patient and Family/Support System: Unable to Assess. No family present. Emotional/Behavioral Status of Patient and Family/Support System: Unable to Assess. Pertinent issues, if appropriate to this patients clinical care, are described in detail above. Maximizing acute care outcome It is recommended that the patient be monitored for emergent behavioral impulsivity as the medical condition evolves. This patients neuropathological challenges may limit their rehabilitation potential going forward, and these challenges will require specialized therapeutic skills to maximize outcome. Anticipated Problems Ongoing areas of concern will include behavioral impulsivity, lack of insight and judgment, which is expected to improve with time and treatment. Presently , the patient intubated and sedated. Treatment Plan This clinician will continue to follow with you throughout the course of this patients acute care treatment, and I will be available to meet with the patient s family/support system to facilitate their understanding and the ongoing care of their family member. The goals of neuropsychological intervention shall be both educational and supportive to the family/support system as is deemed clinically appropriate. [facility] Level: V:Confused-non agitated Impression This 66 year old woman suffered a moderately severe traumatic brain injury, with the resulting eventual sequelae exacerbated by her age. She is expected to have residual neurocognitive disorder 2T TBI. Diagnosis: (1) Major neurocognitive disorder as late effect of traumatic brain injury without behavioral disturbance Status: Acute Progress Note Narrative Ongoing follow-up of patient seen during daily trauma rounds. This is day 17 post injury. The patient is awake, eyes open and follows commands. She exhibits no significant agitation/restlessness at this point, and exhibits no impulsivity. She remains on Valproic Acid 250 BID and has been on Amantadine 100 qD for two days now. She is on no sedation. She meets criteria for [place] [facility]. I will continue to follow. Vargas Lorenzo PhD Feb 03, 2017 12:07 pm
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
--- NOTE | 2017-02-03 13:15 | PD.OP ---
cc: Babatunde Serna MD Operative Report Date of Surgery: Feb 03, 2017 Preoperative Diagnosis: Large left thigh open wound Postoperative Diagnosis: Procedure: Split-thickness skin graft left thigh 500 cm Anesthesia: Gen. Surgeon: Babatunde Serna Inspector Watch Train(s): MELY Terrazas PA-C The surgical procedure was assisted by my physician equal opportunity assistant. My P.A. presence was necessary throughout this case for the manipulation and positioning of the surgical extremity. My P.A. was assisting me throughout the duration of this procedure. The skill set of a physician equal opportunity assistant was medically necessary to complete this procedure. During the surgical case the home appliance technician was working at the back table and the physician equal opportunity assistant was directly assisting me. Operation and Findings: Patient brought to operating room and given IV sedation and general anesthesia. Timeout procedure was performed. IV antibiotics were administered. The bilateral legs were prepped with alcohol followed by Hibiclens and draped in usual sterile fashion. Procedure began with irrigation and debridement of the open wound. Skin subcutaneous tissue and fascia were sharply debrided. Overall the wound was healthy. Minimal debridement was necessary. Muscle appeared be healthy and viable. There was granulation tissue forming. Wound was now thoroughly irrigated with sterile saline. Next was turned to skin grafting. Skin graft was harvested from the right leg Using the Philippe dermatome set at 0.015 skin graft was obtained from the thigh. Skin graft was now meshed at a ratio of 1-2. The skin graft was now placed over the open wound. Skin graft was stapled into position. The open wound was completely covered. Skin graft was now covered with Xeroform. A VAC dressing was cut to fit over the wound. VAC dressing was sealed appropriately. A compressive dressing was applied. VAC dressing was set on continuous. Patient was awakened and transferred to recovery in stable condition. Babatunde Serna MD Feb 03, 2017 13:15
[2017-02-03] MEDS ORDERED: PHENYLEPH/NS 1000 MCG/10 ML SYR IV ONE (13:28)
[2017-02-03] MEDS ORDERED: LACTATED RINGER'S 1000 ML INJ 1,000 ML IV ONE (13:28)
[2017-02-03] MEDS ORDERED: fentaNYL CITRATE 250 MCG/5 ML AMP ONE (14:49)
[2017-02-03] MEDS: RESP: ALBUTEROL 2.5 MG/IPRATROPIUM 0.5 MG NEB (PRN) NEB (15:27)
[2017-02-03] MEDS: LEVOFLOXACIN 750 MG PREMIX INJ 150 ML IV SCH (16:58)
[2017-02-03] MEDS: ENOXAPARIN SODIUM 40 MG/0.4 ML SYRINGE SQ SCH (16:59)
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
[2017-02-04] VITALS (18 sets, daily range): BP systolic 90–115; BP diastolic 52–62; PULSE 3–103; RESP 25–35; TEMP 98.6–101.3; O2SAT 90–100
[2017-02-04] MEDS: CEFEPIME INJ 2,000 MG in SODIUM CHLORIDE 0.9% INJ 100 ML IV SCH ×3 (02:22→17:05)
[2017-02-04] MEDS: CHLORHEXIDINE GLUCONATE 2 % 1 PACK (2 CLOTHS) TOP SCH (04:00)
[2017-02-04] MEDS: FREE WATER G-TUBE SCH ×3 (04:03→20:40)
[2017-02-04 04:15] LABS: HEMATOCRIT 26.1 % (35.0-46.0); REVIEW FLAG FINAL
[2017-02-04 04:28] LABS: BICARBONATE 25.2 MEQ/L (21.0-32.0); POTASSIUM 3.7 MEQ/L (3.5-5.1)
[2017-02-04 04:51] LABS: CALCIUM-PROTEIN CORRECTED 8.7 MG/DL (8.5-10.1)
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
[2017-02-04] MEDS ORDERED: PHARMACY ORDERED LAB ONE (07:45)
[2017-02-04] MEDS: CHLORHEXIDINE 0.12% (ORAL KIT) 15 ML CUP MT SCH ×2 (08:00→20:00)
[2017-02-04] MEDS: ACETAMINOPHEN 1000 MG/100 ML VIAL IV PRN ×2 (08:53→20:40)
[2017-02-04] MEDS: DOCUSATE SODIUM 50 MG/SENNA 8.6 MG TAB PO SCH ×2 (09:00→20:27)
[2017-02-04] MEDS: SODIUM CHLORIDE 0.9% FLUSH 5 ML FLUSH IVF SCH ×2 (09:00→20:40)
[2017-02-04] MEDS: REMOVE OLD LIDOCAINE PATCH T-DERMAL SCH (09:00)
[2017-02-04] MEDS: BACITRACIN TOP OINT 15 GM TUBE TOPICAL SCH ×2 (09:00→20:39)
[2017-02-04] MEDS: PANTOPRAZOLE SODIUM 40 MG VIAL IV SCH (09:24)
[2017-02-04] MEDS: FUROSEMIDE 20 MG/2 ML VIAL IV PUSH SCH (09:24)
[2017-02-04] MEDS: LACTULOSE SYRUP 20 GM/30 ML CUP PO SCH (09:24)
[2017-02-04] MEDS: CHOLECALCIFEROL (VIT D3) 1000 UNIT TAB PO SCH (09:25)
[2017-02-04] MEDS: VALPROIC ACID SYRUP 250 MG/5 ML UDC PO SCH ×2 (09:25→20:39)
[2017-02-04] MEDS: AMANTADINE HCL 100 MG CAP PO SCH (09:25)
[2017-02-04] MEDS: ENOXAPARIN SODIUM 40 MG/0.4 ML SYRINGE SQ SCH (15:31)
[2017-02-04] MEDS: LEVOFLOXACIN 750 MG PREMIX INJ 150 ML IV SCH (15:31)
--- NOTE | 2017-02-04 15:44 | HHI.IDPN ---
Subjective Subjective Remarks pt is spiking fever to 101.3 remains on vent tolerating tube feeds still large amount of R CT drainage CXR from yday showed New small left pleural effusion and new patchy right lung base opacity Antibiotics levaquine cefepime vanco Allergies: Coded Allergies: Sulfa (Verified Allergy, Intermediate, "BLOOD COUNT DROPS", 12/29/16) *MDRO Multi-Drug Resistant Organism (Verified Adverse Reaction, Unknown, ) VRE (urine) 01/19/17 Codeine (Verified Adverse Reaction, Unknown, ITCHING, 12/29/16) Objective . Vital Signs Date Time Temp Pulse Resp B/P Pulse Ox O2 Delivery O2 Flow Rate FiO2 02/04/17 15:12 95 45 02/04/17 12:00 99.0 90 34 106/52 94 02/04/17 12:00 103 02/04/17 11:30 90 45 02/04/17 10:00 100 02/04/17 08:00 3 02/04/17 08:00 101.3 103 25 111/55 97 02/04/17 07:26 95 45 02/04/17 06:00 100 02/04/17 04:08 94 45 02/04/17 04:00 96 02/04/17 04:00 100.0 96 33 98/52 95 02/04/17 02:00 98 02/04/17 01:50 100 45 02/04/17 00:00 99 02/04/17 00:00 98.6 99 34 90/54 99 02/03/17 22:00 97 02/03/17 20:33 95 45 02/03/17 20:00 99.7 102 32 91/51 95 02/03/17 20:00 102 02/03/17 19:00 94 Mechanical Ventilator 45 02/03/17 18:00 101 02/03/17 16:00 98.2 92 28 90/54 97 02/03/17 16:00 92 02/03/17 15:20 91 45 02/03/17 02/03/17 02/04/17 15:00 23:00 07:00 Intake Total 463 ml 488 ml 647 ml Output Total 1910 ml 375 ml 830 ml Balance -1447 ml 113 ml -183 ml Intake IV Total 363 ml 288 ml 447 ml Other 100 ml 200 ml 200 ml Output Urine Total 1650 ml 275 ml 750 ml Chest Tube Drainage Total 130 ml 30 ml 30 ml Drainage Total 130 ml 70 ml 50 ml # Bowel Movements 0 0 . Laboratory Tests Test 02/03/17 02/04/17 04:18 03:27 White Blood Count 7.2 TH/MM3 Red Blood Count 3.02 MIL/MM3 Hemoglobin 9.1 GM/DL 9.0 GM/DL Hematocrit 26.7 % 26.1 % Mean Corpuscular Volume 88.4 FL Mean Corpuscular Hemoglobin 30.2 PG Mean Corpuscular Hemoglobin 34.2 % Concent Red Cell Distribution Width 16.1 % Platelet Count 352 TH/MM3 Mean Platelet Volume 9.9 FL Neutrophils (%) (Auto) 74.0 % Lymphocytes (%) (Auto) 9.3 % Monocytes (%) (Auto) 14.0 % Eosinophils (%) (Auto) 2.3 % Basophils (%) (Auto) 0.4 % Neutrophils # (Auto) 5.3 TH/MM3 Lymphocytes # (Auto) 0.7 TH/MM3 Monocytes # (Auto) 1.0 TH/MM3 Eosinophils # (Auto) 0.2 TH/MM3 Basophils # (Auto) 0.0 TH/MM3 CBC Comment AUTO DIFF Differential Comment AUTO DIFF CONFIRMED Toxic Granulation 2+ Laboratory Tests Test 02/02/17 02/03/17 02/04/17 18:10 04:18 03:27 Potassium Level 3.6 MEQ/L 3.4 MEQ/L 3.7 MEQ/L Sodium Level 141 MEQ/L 141 MEQ/L Chloride Level 107 MEQ/L 107 MEQ/L Carbon Dioxide Level 24.2 MEQ/L 25.2 MEQ/L Anion Gap 10 MEQ/L 9 MEQ/L Blood Urea Nitrogen 14 MG/DL 15 MG/DL Creatinine 0.30 MG/DL 0.38 MG/DL Estimat Glomerular Filtration 221 ML/MIN 168 ML/MIN Rate Random Glucose 85 MG/DL 96 MG/DL Calcium Level 7.5 MG/DL 7.4 MG/DL Magnesium Level 2.2 MG/DL Total Bilirubin 0.6 MG/DL Aspartate Amino Transf 36 U/L (AST/SGOT) Alanine Aminotransferase 26 U/L (ALT/SGPT) Alkaline Phosphatase 222 U/L Total Protein 4.7 GM/DL 4.8 GM/DL Albumin 1.7 GM/DL Protein Corrected Calcium 8.7 MG/DL Imaging Last Impressions Chest X-Ray 02/03/17 0600 Signed Impressions: Service Date/Time: Friday, February 03, 2017 04:10 - CONCLUSION: New small left pleural effusion and new patchy right lung base opacity. No change in left lung base opacity. Sg Nobles MD Head CT 02/01/17 1002 Signed Impressions: Service Date/Time: Wednesday, February 01, 2017 12:58 - CONCLUSION: 1. Stable minimal acute intraventricular hemorrhage with very minimal improvement of the acute subarachnoid hemorrhage within the high parietal regions. 2. Underlying cerebral atrophy. 3. No midline shift identified. 4. Mucosal thickening involving the left maxillary sinus and left facial bone fractures. Tigre Willis MD Knee X-Ray 01/31/17 0000 Signed Impressions: Service Date/Time: Tuesday, January 31, 2017 12:45 - CONCLUSION: Status post ORIF of left proximal tibial fracture with hardware in good position. Tigre Willis MD Lumbar Spine MRI 01/27/17 0000 Signed Impressions: Service Date/Time: Friday, January 27, 2017 17:34 - CONCLUSION: L1 compression fracture with moderate loss of vertebral body height and this is stable. This is acute with marrow edema. No associated canal compromise. Nonacute T11 and T12 superior endplate compression deformities. Bilateral hydronephrosis. Elvis Sexton MD Cervical Spine MRI 01/27/17 0000 Signed Impressions: Service Date/Time: Friday, January 27, 2017 17:34 - CONCLUSION: 1. Degenerative changes are identified. The known C6 vertebral body fracture is not well evaluated on this study. Elvis Sexton MD Brain MRI 01/27/17 0000 Signed Impressions: Service Date/Time: Friday, January 27, 2017 17:34 - CONCLUSION: Subarachnoid and intraventricular hemorrhage as above. Elvis Sexton MD IVC Filter Placement X-Ray 01/20/17 0000 Signed Impressions: Service Date/Time: Friday, January 20, 2017 16:44 - CONCLUSION: Uncomplicated inferior vena cava filter placement as above. This is a retrievable filter and can be retrieved up to one year from today's date. Avinash Santana Jr., MD Neck CTA 01/18/17 0000 Signed Impressions: Service Date/Time: Wednesday, January 18, 2017 10:48 - CONCLUSION: 1. Atherosclerotic plaquing but no hemodynamically significant carotid artery stenosis identified. 2. Parenchymal contusion and consolidation involving the right lung apex. 3. ET tube in satisfactory position. Primo Sierra MD Maxillofacial CT 01/18/17 Signed Impressions: Service Date/Time: Wednesday, January 18, 2017 10:48 - CONCLUSION: Left maxillary sinus fractures. Hilary Woods MD Lower Extremity CT 01/18/17 Signed Impressions: Service Date/Time: January 04:26 - CONCLUSION: 1. Comminuted intra-articular fracture of the proximal tibia involving the lateral tibial condyle and intercondylar regions. 2. Lipo hemarthrosis. Sg Nobles MD Femur X-Ray 01/18/17 Signed Impressions: Service Date/Time: Wednesday, January 18, 2017 20:57 - CONCLUSION: Negative for retained surgical isthmus. Other communicated to the operating room. Marques Sierra MD FACR Pelvis X-Ray 01/17/17 0745 Signed Impressions: Service Date/Time: Tuesday, January 17, 2017 07:38 - CONCLUSION: 1. Multiple pelvic fractures, as above. Hermann Arnold MD Upper Extremity CT 01/17/17 Signed Impressions: Service Date/Time: Tuesday, January 17, 2017 10:22 - CONCLUSION: 1. Multiple mildly displaced fractures of the left scapula. 2. Status post ORIF of the proximal left humerus 3. No evidence of fracture dislocation involving the glenohumeral joint. 4. Multiple left-sided rib fractures with associated subcutaneous emphysema. 5. No evidence of significant left-sided pneumothorax. Jayden Aviles MD Tibia/Fibula X-Ray 01/17/17 Signed Impressions: Service Date/Time: Tuesday, January 17, 2017 07:38 - CONCLUSION: No acute fracture identified. Limited single view is provided. Primo Sierra MD Thoracic Spine CT 01/17/17 Signed Impressions: Service Date/Time: Tuesday, January 17, 2017 10:19 - CONCLUSION: Rib fractures, compression fracture of L1 vertebra, transverse fractures of lumbar spine discussed on the patient's prior CT examinations and the thoracic spine appears intact except for scattered degenerative changes. Hilary Woods MD Lumbar Spine CT 01/17/17 Signed Impressions: Service Date/Time: Tuesday, January 17, 2017 10:19 - CONCLUSION: 1. Compression fracture of mid body L1 with approximate 58%% reduction in height. 2. Multiple transverse process fractures, fractures of the sacrum and presacral hematoma discussed on the patient's prior CT pelvis. 3. No appreciable thecal sac stenosis is seen. Hilary Woods MD Foot X-Ray 01/17/17 Signed Impressions: Service Date/Time: Tuesday, January 17, 2017 15:20 - CONCLUSION: No definite fracture is seen for technique. Hilary Woods MD Chest CT 01/17/17 Signed Impressions: Service Date/Time: Tuesday, January 17, 2017 10:22 - CONCLUSION: 1. Bilateral rib fractures, left scapular fractures and tiny bilateral pneumothoraces. 2. Bilateral lung contusions and areas of consolidation right lower lung. Hilary Woods MD Cervical Spine CT 01/17/17 Signed Impressions: Service Date/Time: Tuesday, January 17, 2017 10:21 - CONCLUSION: Fracture of vertebral body of C6 with extension into the right foramen transversarium without any significant compromise to the thecal sac or the exiting nerve roots. Hilary Woods MD Ankle X-Ray 01/17/17 Signed Impressions: Service Date/Time: Tuesday, January 17, 2017 15:25 - CONCLUSION: Soft tissue swelling and no definite fracture for technique. Hilary Woods MD Abdomen/Pelvis CT 01/17/17 Signed Impressions: Service Date/Time: Tuesday, January 17, 2017 10:22 - CONCLUSION: 1. There is nonspecific free fluid within the abdomen and pelvis. No active arterial bleeding is identified. 2. There is a comminuted fracture of L1 which appears to represent a fairly severe compression fracture or possible burst fracture. The lamina and pedicle appear intact. There is no significant bony retropulsion. 3. Mild compression of the superior endplate of T12. 4. Fracture of both sacral ala. 5. Fracture of the anterior aspect of the right iliac wing. 6. Fracture of the superior and inferior sacral ala on the left. 7. Multiple lower rib fractures bilaterally. These will be more definitively assessed on CT imaging through the thorax. 8. Chest tube in place on the left with minimal residual pneumothorax. 9. Minimal pneumothorax on the right. 10. Consolidation/ contusion in both lower lobes. 11. Punctate collections of free air from the patient's laparotomy. Primo Sierra MD Physical Exam CONSTITUTIONAL/GENERAL: This is an adequately nourished patient, in no apparent distress. OOB in chair TUBES/LINES/DRAINS: SKIN: No jaundice, rashes, Multiple abrasions, healing Not diaphoretic. HEAD: Multiple extensive facial abrasions, healing Wound L parietal area healing OK EYES: Pupils equal and round and reactive. No scleral icterus. No injection or drainage. Fundi not examined. ENT: Hearing OK. Nose without bleeding or purulent drainage. NECK: C caollar in place; trach in place OK CARDIOVASCULAR: Regular rate and rhythm without murmurs, gallops, or rubs. No JVD. Peripheral pulses symmetric. RESPIRATORY/CHEST: Symmetric, unlabored respirations.fairly clear to auscultation. Breath sounds equal bilaterally. R chest tube in place with serosang dc GASTROINTESTINAL: Abdomen soft, tender to palpation multiple abrasions, distended. No hepato-splenomegaly, or palpable masses. No guarding. Bowel sounds present. Midline incision with jenny in, clean GENITOURINARY: Without palpable bladder distension. Ochoa catheter in place with clear yellow urine MUSCULOSKELETAL: Extremities without clubbing, cyanosis, + edema. . No mottling or clubbing. L thigh brace, VAC dresing in place with serosang d/c NEUROLOGICAL: awake opens eyes spontaneously intermittently and to voice; makes eye contact and follows commnds PSYCHIATRIC: calm Assessment & Plan Remarks Multiti trauma LEFT SDH LEFT maxillary wall fx Head laceration LEFT scapula fx BILAT PTX LEFT rib fx (3,4,5 RIGHT rib fx (5,6,7) Bilateral lung contusion Chest degloving C6 vertebral body fx T11, compression fx T12 compression endplate fx L1 compression fx Pelvic fracture consisting of comminuted superior-inferior left ramus fracture, ala sacri fractures, right iliac crest fracture LEFT tibial plateau fx LEFT thigh extensive degloving degloving approximating about 5% total body surface area Sepsis, bacteremia Stenotrophomonas POrt of entry could be her huge degloving injury or PNA Pneumonia Acinetobacter, Enterobacter in the settings of Bilateral lung contusion - also growing Stenotrophomonas VRE UTI sp completed tx Persistent fever - now higher Scalp wound grew out C. parapslosa , likle y colonisation REC's: cont Levaquine, high dose x 2 weeks total fu blood clx if spikes cont cefpeime, vanco for now, add fluconazole rechk blood clx rechk UA, C+S, sputum clx dw Evelyn Alcocer RN, MD Feb 04, 2017 15:44
--- NOTE | 2017-02-04 16:28 | EKG ---
Date Performed: 02/03/2017 Time Performed: 09:51:44 PTAGE: 66 years EKG: Sinus rhythm Normal ECG PREVIOUS TRACING : 12/29/2016 12.15 Since previous tracing, no significant change. DOCTOR: Soy Mari Interpretating Date/Time 02/04/2017 16:27:32
[2017-02-04] MEDS: FLUCONAZOLE 400 MG PREMIX BAG 200 ML IV SCH (17:05)
[2017-02-04 18:16] LABS: BACTERIA, URINE RARE /hpf; BLOOD, URINE MOD (NEG); COMMENT (UR) CATH-CULTURE IND; CULTURE IF INDICATED CATH CULTURE IND; GLUCOSE,URINE NEG (NEG); HYALINE CAST, URINE 2 /lpf (RARE); KETONE, URINE NEG (NEG); MUCUS URINE FEW /lpf (OCC); NITRITE,URINE NEG (NEG); PH, URINE 7.5 (5.0-8.5); SQUAMOUS EPITHELIAL CELL URINE 1 /hpf (0-5); URINE COLOR YELLOW (YELLW/STRAW); WHITE BLOOD CELL CAST, URINE 2 /lpf
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
[2017-02-05] VITALS (18 sets, daily range): BP systolic 92–149; BP diastolic 53–71; PULSE 77–95; RESP 18–34; TEMP 98.8–101.3; O2SAT 95–100
[2017-02-05] MEDS: CEFEPIME INJ 2,000 MG in SODIUM CHLORIDE 0.9% INJ 100 ML IV SCH ×3 (03:04→17:27)
[2017-02-05] MEDS: CHLORHEXIDINE GLUCONATE 2 % 1 PACK (2 CLOTHS) TOP SCH (03:04)
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
[2017-02-05] MEDS: FREE WATER G-TUBE SCH ×3 (05:24→20:56)
[2017-02-05] MEDS: CHLORHEXIDINE 0.12% (ORAL KIT) 15 ML CUP MT SCH ×2 (08:00→20:00)
[2017-02-05] MEDS: VALPROIC ACID SYRUP 250 MG/5 ML UDC PO SCH ×2 (08:47→20:56)
[2017-02-05] MEDS: PANTOPRAZOLE SODIUM 40 MG VIAL IV SCH (08:47)
[2017-02-05] MEDS: AMANTADINE HCL 100 MG CAP PO SCH (08:48)
[2017-02-05] MEDS: CHOLECALCIFEROL (VIT D3) 1000 UNIT TAB PO SCH (08:48)
[2017-02-05] MEDS: VANCOMYCIN INJ 1,250 MG in SODIUM CHLOR 0.9% 250 ML INJ 250 ML IV SCH (08:49)
[2017-02-05] MEDS: FUROSEMIDE 20 MG/2 ML VIAL IV PUSH SCH (08:51)
[2017-02-05] MEDS: LIDOCAINE HCL 5% PATCH T-DERMAL SCH (08:51)
[2017-02-05] MEDS: SODIUM CHLORIDE 0.9% FLUSH 5 ML FLUSH IVF SCH ×2 (08:52→20:50)
[2017-02-05] MEDS: BACITRACIN TOP OINT 15 GM TUBE TOPICAL SCH ×2 (09:00→20:50)
[2017-02-05] MEDS: LACTULOSE SYRUP 20 GM/30 ML CUP PO SCH (09:00)
[2017-02-05] MEDS ORDERED: VANCOMYCIN 1,000 MG/NS 250 ML IV SCH ×2 (09:00)
[2017-02-05] MEDS: DOCUSATE SODIUM 50 MG/SENNA 8.6 MG TAB PO SCH ×2 (09:00→20:50)
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
[2017-02-05] MEDS: ENOXAPARIN SODIUM 40 MG/0.4 ML SYRINGE SQ SCH (11:25)
[2017-02-05] MEDS: ACETAMINOPHEN 1000 MG/100 ML VIAL IV PRN ×2 (11:25→20:55)
[2017-02-05] MEDS: LEVOFLOXACIN 750 MG PREMIX INJ 150 ML IV SCH (11:26)
[2017-02-05] MEDS: ZINC OXIDE 20% OINT 30 GM TUBE TOPICAL SCH ×2 (11:39→20:50)
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
--- NOTE | 2017-02-05 13:42 | HHI.IDPN ---
Subjective Subjective Remarks [facility] Chart reviewed. 66-year-old female with multiple med problems was brought in on 01/17 by EMS with GCS 14, Her initial blood pressure was palpable systolic 80, she is tachycardic, she has a flail chest on the left side, she was orotracheally intubated by anesthesia,sp left chest tube thoracostomy was performed, Her evaluation revealed multiple rib fractures on the left side, multiple pelvic fractures, has a large degloving for left thigh, large open wound of her left thorax, open wound of her right scalp, Currently followed by ID for Possible infected degloving injury of thigh, Pneumonia. Overnight events reviewed. Tmax 101 F Diarrhea liquid stool without laxatives on board. Has dignishield. Remains on vent. ETT secretions are thick esquivel moderate amount off pressors UO not much when I was in room. RN to check by Bladder Scan. No kinks in juarez noted. Right CT in place. Tolerates tube feeds at goal Possible back to OR Monday for further thigh surgery. Antibiotics levaquine cefepime vanco Lines Line sites with no e.o infection. Past Medical History reviewed. Allergies: Coded Allergies: Sulfa (Verified Allergy, Intermediate, "BLOOD COUNT DROPS", 12/29/16) *MDRO Multi-Drug Resistant Organism (Verified Adverse Reaction, Unknown, ) VRE (urine) 01/19/17 Codeine (Verified Adverse Reaction, Unknown, ITCHING, 12/29/16) Objective . Vital Signs Date Time Temp Pulse Resp B/P Pulse Ox O2 Delivery O2 Flow Rate FiO2 02/05/17 11:47 96 45 02/05/17 07:17 97 45 02/05/17 06:00 88 02/05/17 05:15 100 45 02/05/17 04:00 98.8 86 20 119/71 95 02/05/17 04:00 86 02/05/17 02:00 81 02/05/17 01:00 95 45 02/05/17 00:00 79 02/05/17 00:00 99.5 77 18 92/53 97 02/04/17 22:00 86 02/04/17 20:50 100 45 02/04/17 20:00 94 02/04/17 20:00 100.8 94 35 112/58 100 02/04/17 19:00 99 Mechanical Ventilator 45 02/04/17 18:00 94 02/04/17 16:00 100.0 100 32 115/62 97 02/04/17 16:00 100 02/04/17 15:12 95 45 02/04/17 14:00 97 02/04/17 02/04/17 02/05/17 15:00 23:00 07:00 Intake Total 949 ml 1138 ml 974 ml Output Total 950 ml 500 ml 550 ml Balance -1 ml 638 ml 424 ml Intake IV Total 411 ml 618 ml 225 ml Tube Feeding 538 ml 260 ml 349 ml Other 260 ml 400 ml Output Urine Total 800 ml 350 ml 400 ml Chest Tube Drainage Total 100 ml 100 ml 50 ml Drainage Total 50 ml 50 ml 100 ml # Bowel Movements 2 1 2 . Laboratory Tests Test 02/04/17 03:27 Hemoglobin 9.0 GM/DL Hematocrit 26.1 % Laboratory Tests Test 02/04/17 03:27 Sodium Level 141 MEQ/L Potassium Level 3.7 MEQ/L Chloride Level 107 MEQ/L Carbon Dioxide Level 25.2 MEQ/L Anion Gap 9 MEQ/L Blood Urea Nitrogen 15 MG/DL Creatinine 0.38 MG/DL Estimat Glomerular Filtration 168 ML/MIN Rate Random Glucose 96 MG/DL Calcium Level 7.4 MG/DL Protein Corrected Calcium 8.7 MG/DL Total Protein 4.8 GM/DL Microbiology Date/Time Procedure Status Source Growth 02/04/17 15:15 Aerobic Blood Culture - Preliminary Resulted Blood Peripheral NO GROWTH IN 1 DAY 02/04/17 15:15 Anaerobic Blood Culture - Preliminary Resulted Blood Peripheral NO GROWTH IN 1 DAY 02/04/17 16:05 Aerobic Blood Culture - Preliminary Resulted Blood Peripheral NO GROWTH IN 1 DAY 02/04/17 16:05 Anaerobic Blood Culture - Preliminary Resulted Blood Peripheral NO GROWTH IN 1 DAY 02/04/17 17:58 Urine Culture - Preliminary Resulted Urine Catheterized Urine NO GROWTH IN 24 HOURS. 02/04/17 21:10 Gram Stain - Final Resulted Sputum Endotracheal 02/04/17 21:10 Sputum Culture - Preliminary Resulted Sputum Endotracheal No growth. Imaging Last Impressions Chest X-Ray 02/03/17 0600 Signed Impressions: Service Date/Time: Friday, February 03, 2017 04:10 - CONCLUSION: New small left pleural effusion and new patchy right lung base opacity. No change in left lung base opacity. Gs R Nobles, MD Head CT 02/01/17 1002 Signed Impressions: Service Date/Time: Wednesday, February 01, 2017 12:58 - CONCLUSION: 1. Stable minimal acute intraventricular hemorrhage with very minimal improvement of the acute subarachnoid hemorrhage within the high parietal regions. 2. Underlying cerebral atrophy. 3. No midline shift identified. 4. Mucosal thickening involving the left maxillary sinus and left facial bone fractures. Tigre Willis MD Knee X-Ray 01/31/17 0000 Signed Impressions: Service Date/Time: Tuesday, January 31, 2017 12:45 - CONCLUSION: Status post ORIF of left proximal tibial fracture with hardware in good position. Tigre Willis MD Lumbar Spine MRI 01/27/17 0000 Signed Impressions: Service Date/Time: Friday, January 27, 2017 17:34 - CONCLUSION: L1 compression fracture with moderate loss of vertebral body height and this is stable. This is acute with marrow edema. No associated canal compromise. Nonacute T11 and T12 superior endplate compression deformities. Bilateral hydronephrosis. Elvsi Sexton MD Cervical Spine MRI 01/27/17 0000 Signed Impressions: Service Date/Time: Friday, January 27, 2017 17:34 - CONCLUSION: 1. Degenerative changes are identified. The known C6 vertebral body fracture is not well evaluated on this study. Elvis Sexton MD Brain MRI 01/27/17 0000 Signed Impressions: Service Date/Time: Friday, January 27, 2017 17:34 - CONCLUSION: Subarachnoid and intraventricular hemorrhage as above. Elvis Sexton MD IVC Filter Placement X-Ray 01/20/17 0000 Signed Impressions: Service Date/Time: Friday, January 20, 2017 16:44 - CONCLUSION: Uncomplicated inferior vena cava filter placement as above. This is a retrievable filter and can be retrieved up to one year from today's date. Avinash Santana Jr., MD Neck CTA 01/18/17 0000 Signed Impressions: Service Date/Time: Wednesday, January 18, 2017 10:48 - CONCLUSION: 1. Atherosclerotic plaquing but no hemodynamically significant carotid artery stenosis identified. 2. Parenchymal contusion and consolidation involving the right lung apex. 3. ET tube in satisfactory position. Primo Sierra MD Maxillofacial CT 01/18/17 0000 Signed Impressions: Service Date/Time: Wednesday, January 18, 2017 10:48 - CONCLUSION: Left maxillary sinus fractures. Hilary Woods MD Lower Extremity CT 01/18/17 0000 Signed Impressions: Service Date/Time: January 04:26 - CONCLUSION: 1. Comminuted intra-articular fracture of the proximal tibia involving the lateral tibial condyle and intercondylar regions. 2. Lipo hemarthrosis. Sg Nobles MD Femur X-Ray 01/18/17 Signed Impressions: Service Date/Time: Wednesday, January 18, 2017 20:57 - CONCLUSION: Negative for retained surgical isthmus. Other communicated to the operating room. Marques Sierra MD FACR Pelvis X-Ray 01/17/17 0745 Signed Impressions: Service Date/Time: Tuesday, January 17, 2017 07:38 - CONCLUSION: 1. Multiple pelvic fractures, as above. Hermann Arnold MD Upper Extremity CT 01/17/17 Signed Impressions: Service Date/Time: Tuesday, January 17, 2017 10:22 - CONCLUSION: 1. Multiple mildly displaced fractures of the left scapula. 2. Status post ORIF of the proximal left humerus 3. No evidence of fracture dislocation involving the glenohumeral joint. 4. Multiple left-sided rib fractures with associated subcutaneous emphysema. 5. No evidence of significant left-sided pneumothorax. Jayden Aviles MD Tibia/Fibula X-Ray 01/17/17 Signed Impressions: Service Date/Time: Tuesday, January 17, 2017 07:38 - CONCLUSION: No acute fracture identified. Limited single view is provided. Primo Sierra MD Thoracic Spine CT 01/17/17 0000 Signed Impressions: Service Date/Time: Tuesday, January 17, 2017 10:19 - CONCLUSION: Rib fractures, compression fracture of L1 vertebra, transverse fractures of lumbar spine discussed on the patient's prior CT examinations and the thoracic spine appears intact except for scattered degenerative changes. Hilary Woods MD Lumbar Spine CT 01/17/17 0000 Signed Impressions: Service Date/Time: Tuesday, January 17, 2017 10:19 - CONCLUSION: 1. Compression fracture of mid body L1 with approximate 58%% reduction in height. 2. Multiple transverse process fractures, fractures of the sacrum and presacral hematoma discussed on the patient's prior CT pelvis. 3. No appreciable thecal sac stenosis is seen. Hilary Woods MD Foot X-Ray 01/17/17 0000 Signed Impressions: Service Date/Time: Tuesday, January 17, 2017 15:20 - CONCLUSION: No definite fracture is seen for technique. Hilary Woods MD Chest CT 01/17/17 0000 Signed Impressions: Service Date/Time: Tuesday, January 17, 2017 10:22 - CONCLUSION: 1. Bilateral rib fractures, left scapular fractures and tiny bilateral pneumothoraces. 2. Bilateral lung contusions and areas of consolidation right lower lung. Hilary Woods MD Cervical Spine CT 01/17/17 0000 Signed Impressions: Service Date/Time: Tuesday, January 17, 2017 10:21 - CONCLUSION: Fracture of vertebral body of C6 with extension into the right foramen transversarium without any significant compromise to the thecal sac or the exiting nerve roots. Hilary Woods MD Ankle X-Ray 01/17/17 0000 Signed Impressions: Service Date/Time: Tuesday, January 17, 2017 15:25 - CONCLUSION: Soft tissue swelling and no definite fracture for technique. Hilary Woods MD Abdomen/Pelvis CT 01/17/17 0000 Signed Impressions: Service Date/Time: Tuesday, January 17, 2017 10:22 - CONCLUSION: 1. There is nonspecific free fluid within the abdomen and pelvis. No active arterial bleeding is identified. 2. There is a comminuted fracture of L1 which appears to represent a fairly severe compression fracture or possible burst fracture. The lamina and pedicle appear intact. There is no significant bony retropulsion. 3. Mild compression of the superior endplate of T12. 4. Fracture of both sacral ala. 5. Fracture of the anterior aspect of the right iliac wing. 6. Fracture of the superior and inferior sacral ala on the left. 7. Multiple lower rib fractures bilaterally. These will be more definitively assessed on CT imaging through the thorax. 8. Chest tube in place on the left with minimal residual pneumothorax. 9. Minimal pneumothorax on the right. 10. Consolidation/ contusion in both lower lobes. 11. Punctate collections of free air from the patient's laparotomy. Primo Sierra MD Physical Exam CONSTITUTIONAL/GENERAL: This is an adequately nourished patient, in no apparent distress. OOB in chair TUBES/LINES/DRAINS: SKIN: No jaundice, rashes, Multiple abrasions, healing Not diaphoretic. HEAD: Multiple extensive facial abrasions, healing Wound L parietal area healing OK EYES: Pupils equal and round and reactive. No scleral icterus. No injection or drainage. Fundi not examined. ENT: Hearing OK. Nose without bleeding or purulent drainage. NECK: C caollar in place; trach in place OK CARDIOVASCULAR: Regular rate and rhythm without murmurs, gallops, or rubs. No JVD. Peripheral pulses symmetric. RESPIRATORY/CHEST: Symmetric, unlabored respirations.fairly clear to auscultation. Breath sounds equal bilaterally. R chest tube in place with serosang dc GASTROINTESTINAL: Abdomen soft, tender to palpation multiple abrasions, distended. No hepato-splenomegaly, or palpable masses. No guarding. Bowel sounds present. Midline incision with jenny in, clean GENITOURINARY: Without palpable bladder distension. Juarez catheter in place with clear yellow urine MUSCULOSKELETAL: Extremities without clubbing, cyanosis, + edema. . No mottling or clubbing. L thigh brace, VAC dresing in place with serosang d/c NEUROLOGICAL: awake opens eyes spontaneously intermittently and to voice; makes eye contact and follows commnds PSYCHIATRIC: calm Assessment & Plan Remarks Multiti trauma LEFT SDH LEFT maxillary wall fx Head laceration LEFT scapula fx BILAT PTX LEFT rib fx (3,4,5 RIGHT rib fx (5,6,7) Bilateral lung contusion Chest degloving C6 vertebral body fx T11, compression fx T12 compression endplate fx L1 compression fx Pelvic fracture consisting of comminuted superior-inferior left ramus fracture, ala sacri fractures, right iliac crest fracture LEFT tibial plateau fx LEFT thigh extensive degloving degloving approximating about 5% total body surface area Sepsis, bacteremia Stenotrophomonas Port of entry could be her huge degloving injury or PNA Pneumonia Acinetobacter, Enterobacter in the settings of Bilateral lung contusion - also growing Stenotrophomonas VRE UTI sp completed tx Persistent fever - now higher Diarrhea new. Check Cdiff PCR Scalp wound grew out C. parapsilosis , likely colonization REC's: cont Levaquin, high dose x 2 weeks total for Steno Malto bacteremia. cont cefepime IV (Ac.mina, E.cloacae PNA) continue vanco IV for now (follow pending blood cultures to r/o bacteremia) Continue fluconazole for now. Will follow BCX and likely deescalate soon. Check Cdiff PCR. Add empiric Flagyl oral. Follow cultures Follow clinically. Will start deescalation at 48-72 hrs of cultures. Kelsie Minor RN, MD Feb 05, 2017 13:42
[2017-02-05] MEDS: FLUCONAZOLE 400 MG PREMIX BAG 200 ML IV SCH (17:27)
[2017-02-05] MEDS: metroNIDAZOLE 500 MG TAB PO SCH ×2 (17:27→21:46)
[2017-02-06] VITALS (16 sets, daily range): BP systolic 108–138; BP diastolic 54–63; PULSE 71–100; RESP 19–37; TEMP 97.9–101.1; O2SAT 92–100
[2017-02-06] MEDS: CEFEPIME INJ 2,000 MG in SODIUM CHLORIDE 0.9% INJ 100 ML IV SCH ×3 (01:16→17:10)
[2017-02-06] MEDS: CHLORHEXIDINE GLUCONATE 2 % 1 PACK (2 CLOTHS) TOP SCH (03:15)
[2017-02-06 04:39] LABS: AUTOMATED NEUTROPHIL # 4.9 TH/MM3 (1.8-7.7); BASOPHIL # 0.1 TH/MM3 (0-0.2); BASOPHIL % 0.8 % (0.0-2.0); EOSINOPHIL # 0.4 TH/MM3 (0-0.4); EOSINOPHIL % 4.7 % (0.0-4.0); HEMATOCRIT 25.2 % (35.0-46.0); LYMPH % 15.6 % (9.0-44.0); LYMPHOCYTE # 1.2 TH/MM3 (1.0-4.8); MEAN CELL VOLUME 89.7 FL (80.0-100.0); MEAN CORPUSCULAR HEMOGLOBIN 29.9 PG (27.0-34.0); MEAN CORPUSCULAR HGB CONC 33.3 % (32.0-36.0); MONO % 13.9 % (0.0-8.0); PLATELET COUNT 278 TH/MM3 (150-450); RED BLOOD COUNT 2.81 MIL/MM3 (4.00-5.30); RED CELL DISTRIBUTION WIDTH 17.5 % (11.6-17.2); WHITE BLOOD COUNT 7.5 TH/MM3 (4.0-11.0)
[2017-02-06 04:43] LABS: HEMO FLAGS AUTO DIFF
[2017-02-06 05:04] LABS: BICARBONATE 25.7 MEQ/L (21.0-32.0)
[2017-02-06 05:09] LABS: POTASSIUM 2.8 MEQ/L (3.5-5.1)
[2017-02-06 05:22] LABS: CALCIUM-PROTEIN CORRECTED 8.6 MG/DL (8.5-10.1)
[2017-02-06] MEDS: POTASSIUM CHLOR 40 MEQ PREMIX 100 ML IV PRN ×2 (05:25→07:50)
[2017-02-06] MEDS: metroNIDAZOLE 500 MG TAB PO SCH ×3 (05:25→20:58)
[2017-02-06] MEDS: FREE WATER G-TUBE SCH ×3 (05:26→20:59)
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
[2017-02-06 07:55] LABS: BANDS 14 % (0-6); EOSINOPHILS 1 % (0-4); METAMYELOCYTES 1 % (0-1); MYELOCYTES 2 % (0-0); NEUTROPHIL # MANUAL DIFF 5.8 TH/MM3 (1.8-7.7); PLATELET ESTIMATE SMEAR NORMAL (NORMAL); PLATELET MORPHOLOGY NORMAL (NORMAL); POLYS (SEG NEUTROPHILS) 60 % (16-70); WBC DIFF SAMPLE 100
[2017-02-06 07:56] LABS: SCAN/DIFF FINAL DIFF MANUAL
[2017-02-06] MEDS: DOCUSATE SODIUM 50 MG/SENNA 8.6 MG TAB PO SCH ×2 (09:00→20:59)
[2017-02-06] MEDS: LACTULOSE SYRUP 20 GM/30 ML CUP PO SCH (09:00)
[2017-02-06] MEDS: REMOVE OLD LIDOCAINE PATCH T-DERMAL SCH (09:00)
[2017-02-06] MEDS: LIDOCAINE HCL 5% PATCH T-DERMAL SCH (09:10)
[2017-02-06] MEDS: VANCOMYCIN INJ 1,250 MG in SODIUM CHLOR 0.9% 250 ML INJ 250 ML IV SCH (09:10)
[2017-02-06] MEDS: PANTOPRAZOLE SODIUM 40 MG VIAL IV SCH (09:11)
[2017-02-06] MEDS: FUROSEMIDE 20 MG/2 ML VIAL IV PUSH SCH (09:11)
[2017-02-06] MEDS: AMANTADINE HCL 100 MG CAP PO SCH (09:11)
[2017-02-06] MEDS: VALPROIC ACID SYRUP 250 MG/5 ML UDC PO SCH ×2 (09:11→20:59)
[2017-02-06] MEDS: CHOLECALCIFEROL (VIT D3) 1000 UNIT TAB PO SCH (09:11)
[2017-02-06] MEDS: SODIUM CHLORIDE 0.9% FLUSH 5 ML FLUSH IVF SCH ×2 (09:12→20:59)
[2017-02-06] MEDS: CHLORHEXIDINE 0.12% (ORAL KIT) 15 ML CUP MT SCH ×2 (09:12→20:00)
[2017-02-06] MEDS: BACITRACIN TOP OINT 15 GM TUBE TOPICAL SCH ×2 (09:13→20:59)
[2017-02-06] MEDS: ZINC OXIDE 20% OINT 30 GM TUBE TOPICAL SCH ×2 (09:13→20:59)
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
[2017-02-06] MEDS ORDERED: FUROSEMIDE 20 MG TAB PO SCH (09:30)
[2017-02-06] MEDS: POTASSIUM CHLORIDE 25 MEQ EFFERVESCENT TAB PO SCH (10:56)
--- NOTE | 2017-02-06 11:27 | HHI.PR ---
Neuropsych Progress Notes/Response to Tx Contents of Sessions: Adjustment, Level of Consciousness Time with Patient: 15 minutes Premorbid psychological status Premorbid Cognitive, Emotional and Behavioral Status: Unable to Assess. The patient is unable to provide information concerning her social history and there is no family present. Behavioral Reactions of Patient and Family/Support System: Unable to Assess. No family present. Emotional/Behavioral Status of Patient and Family/Support System: Unable to Assess. Pertinent issues, if appropriate to this patients clinical care, are described in detail above. Maximizing acute care outcome It is recommended that the patient be monitored for emergent behavioral impulsivity as the medical condition evolves. This patients neuropathological challenges may limit their rehabilitation potential going forward, and these challenges will require specialized therapeutic skills to maximize outcome. Anticipated Problems Ongoing areas of concern will include behavioral impulsivity, lack of insight and judgment, which is expected to improve with time and treatment. Presently , the patient intubated and sedated. Treatment Plan This clinician will continue to follow with you throughout the course of this patients acute care treatment, and I will be available to meet with the patient s family/support system to facilitate their understanding and the ongoing care of their family member. The goals of neuropsychological intervention shall be both educational and supportive to the family/support system as is deemed clinically appropriate. [facility] Level: V:Confused-non agitated Impression This 66 year old woman suffered a moderately severe traumatic brain injury, with the resulting eventual sequelae exacerbated by her age. She is expected to have residual neurocognitive disorder 2T TBI. Diagnosis: (1) Major neurocognitive disorder as late effect of traumatic brain injury without behavioral disturbance Status: Acute Progress Note Narrative Ongoing follow-up of patient seen during daily trauma rounds. This is day 20 post injury. The patient is awake, moving and following commands, although inconsistently. She is not agitated or restless. She is ready for d/c to [facility] and then to return to [facility]. She is neurobehaviorally managed on Amantadine 100 qD and Valproic Acid 250 BID. She is considered a [place] V at present. I will continue to follow. Vargas Lorenzo PhD Feb 06, 2017 11:27 am
[2017-02-06] MEDS: LEVOFLOXACIN 750 MG PREMIX INJ 150 ML IV SCH (12:29)
[2017-02-06] MEDS: ENOXAPARIN SODIUM 40 MG/0.4 ML SYRINGE SQ SCH (12:29)
[2017-02-06] MEDS: FLUCONAZOLE 400 MG PREMIX BAG 200 ML IV SCH (16:16)
[2017-02-06] MEDS: POTASSIUM CHLOR 20 MEQ PREMIX 100 ML IV PRN ×2 (17:40→19:36)
--- NOTE | 2017-02-06 19:01 | HHI.IDPN ---
Subjective [facility]ive Remarks [email or web address] 66[facility]year[facility] female with multiple med problems was brought in on 01/17 by EMS with GCS 14, Her initial blood pressure was palpable systolic 80, she is tachycardic, she has a flail chest on the left side, she was orotracheally intubated by anesthesia,sp left chest tube thoracostomy was performed, Her evaluation revealed multiple rib fractures on the left side, multiple pelvic fractures, has a large degloving for left thigh, large open wound of her left thorax, open wound of her right scalp, Currently followed by ID for Possible infected degloving injury of thigh, Pneumonia. Overnight events reviewed. Tmax 101.3 F F Diarrhea liquid stool without laxatives on board. Has dignishield. Cdiff PCR sent today. Vent to OR today limb surgeries. Wound vac in place with sanguinous discharge. Remains on vent. ETT secretions are thick esquivel moderate amount off pressors Right CT in place. Tolerates tube feeds at goal Antibiotics levaquine cefepime vanco Lines Line sites with no e.o infection. Past Medical History reviewed. Allergies: Coded Allergies: Sulfa (Verified Allergy, Intermediate, "BLOOD COUNT DROPS", 12/29/16) *MDRO Multi-Drug Resistant Organism (Verified Adverse Reaction, Unknown, ) VRE (urine) 01/19/17 Codeine (Verified Adverse Reaction, Unknown, ITCHING, 12/29/16) Objective . Vital Signs Date Time Temp Pulse Resp B/P Pulse Ox O2 Delivery O2 Flow Rate FiO2 02/06/17 18:00 94 02/06/17 16:00 100.0 100 31 127/54 99 02/06/17 16:00 99 02/06/17 15:43 100 35 02/06/17 14:00 100 02/06/17 12:00 94 02/06/17 12:00 100.0 94 37 138/63 100 02/06/17 10:00 100 02/06/17 08:00 89 02/06/17 08:00 99.3 89 35 131/58 92 02/06/17 08:00 92 Mechanical Ventilator 45 02/06/17 07:59 97 T-piece 40 02/06/17 06:00 88 02/06/17 04:00 100 45 02/06/17 04:00 97.9 78 19 108/55 100 02/06/17 04:00 81 02/06/17 02:00 71 02/06/17 00:00 99.3 79 27 121/56 100 02/06/17 00:00 80 02/05/17 22:00 85 02/05/17 21:50 96 45 02/05/17 20:00 84 02/05/17 20:00 99.7 86 28 149/63 99 02/05/17 02/05/17 02/06/17 15:00 23:00 07:00 Intake Total 1081 ml 1244 ml 1243 ml Output Total 975 ml 700 ml 850 ml Balance 106 ml 544 ml 393 ml Intake IV Total 531 ml 635 ml 319 ml Tube Feeding 290 ml 349 ml 664 ml Other 260 ml 260 ml 260 ml Output Urine Total 800 ml 650 ml 750 ml Stool Total 0 ml Chest Tube Drainage Total 50 ml 0 ml 50 ml Drainage Total 125 ml 50 ml 50 ml # Bowel Movements 2 . Laboratory Tests Test 02/06/17 04:10 White Blood Count 7.5 TH/MM3 Red Blood Count 2.81 MIL/MM3 Hemoglobin 8.4 GM/DL Hematocrit 25.2 % Mean Corpuscular Volume 89.7 FL Mean Corpuscular Hemoglobin 29.9 PG Mean Corpuscular Hemoglobin 33.3 % Concent Red Cell Distribution Width 17.5 % Platelet Count 278 TH/MM3 Mean Platelet Volume 10.3 FL Neutrophils (%) (Auto) 65.0 % Lymphocytes (%) (Auto) 15.6 % Monocytes (%) (Auto) 13.9 % Eosinophils (%) (Auto) 4.7 % Basophils (%) (Auto) 0.8 % Neutrophils # (Auto) 4.9 TH/MM3 Lymphocytes # (Auto) 1.2 TH/MM3 Monocytes # (Auto) 1.0 TH/MM3 Eosinophils # (Auto) 0.4 TH/MM3 Basophils # (Auto) 0.1 TH/MM3 CBC Comment AUTO DIFF Differential Total Cells 100 Counted Neutrophils % (Manual) 60 % Band Neutrophils % 14 % Lymphocytes % 14 % Monocytes % 8 % Eosinophils % 1 % Neutrophils # (Manual) 5.8 TH/MM3 Metamyelocytes 1 % Myelocytes 2 % Differential Comment FINAL DIFF MANUAL Platelet Estimate NORMAL Platelet Morphology Comment NORMAL Laboratory Tests Test 02/06/17 02/06/17 04:10 16:45 Sodium Level 144 MEQ/L Potassium Level 2.8 MEQ/L 3.4 MEQ/L Chloride Level 109 MEQ/L Carbon Dioxide Level 25.7 MEQ/L Anion Gap 9 MEQ/L Blood Urea Nitrogen 16 MG/DL Creatinine 0.39 MG/DL Estimat Glomerular Filtration 163 ML/MIN Rate Random Glucose 126 MG/DL Calcium Level 7.2 MG/DL Protein Corrected Calcium 8.6 MG/DL Total Protein 4.6 GM/DL Microbiology Date/Time Procedure Status Source Growth 02/04/17 15:15 Aerobic Blood Culture - Preliminary Resulted Blood Peripheral NO GROWTH IN 2 DAYS 02/04/17 15:15 Anaerobic Blood Culture - Preliminary Resulted Blood Peripheral NO GROWTH IN 2 DAYS 02/04/17 16:05 Aerobic Blood Culture - Preliminary Resulted Blood Peripheral NO GROWTH IN 2 DAYS 02/04/17 16:05 Anaerobic Blood Culture - Preliminary Resulted Blood Peripheral NO GROWTH IN 2 DAYS 02/04/17 17:58 Urine Culture - Final Complete Urine Catheterized Urine Catia Albicans 02/04/17 21:10 Gram Stain - Final Resulted Sputum Endotracheal 02/04/17 21:10 Sputum Culture - Preliminary Resulted Gram Negative Tre Imaging Last Impressions Chest X-Ray 02/03/17 0600 Signed Impressions: Service Date/Time: Friday, February 03, 2017 04:10 - CONCLUSION: New small left pleural effusion and new patchy right lung base opacity. No change in left lung base opacity. Sg Nobles MD Head CT 02/01/17 1002 Signed Impressions: Service Date/Time: Wednesday, February 01, 2017 12:58 - CONCLUSION: 1. Stable minimal acute intraventricular hemorrhage with very minimal improvement of the acute subarachnoid hemorrhage within the high parietal regions. 2. Underlying cerebral atrophy. 3. No midline shift identified. 4. Mucosal thickening involving the left maxillary sinus and left facial bone fractures. Tigre Willis MD Knee X-Ray 01/31/17 0000 Signed Impressions: Service Date/Time: Tuesday, January 31, 2017 12:45 - CONCLUSION: Status post ORIF of left proximal tibial fracture with hardware in good position. Tigre Willis MD Lumbar Spine MRI 01/27/17 0000 Signed Impressions: Service Date/Time: Friday, January 27, 2017 17:34 - CONCLUSION: L1 compression fracture with moderate loss of vertebral body height and this is stable. This is acute with marrow edema. No associated canal compromise. Nonacute T11 and T12 superior endplate compression deformities. Bilateral hydronephrosis. Elvis Sexton MD Cervical Spine MRI 01/27/17 0000 Signed Impressions: Service Date/Time: Friday, January 27, 2017 17:34 - CONCLUSION: 1. Degenerative changes are identified. The known C6 vertebral body fracture is not well evaluated on this study. Elvis Sexton MD Brain MRI 01/27/17 0000 Signed Impressions: Service Date/Time: Friday, January 27, 2017 17:34 - CONCLUSION: Subarachnoid and intraventricular hemorrhage as above. Elvis Sexton MD IVC Filter Placement X-Ray 01/20/17 0000 Signed Impressions: Service Date/Time: Friday, January 20, 2017 16:44 - CONCLUSION: Uncomplicated inferior vena cava filter placement as above. This is a retrievable filter and can be retrieved up to one year from today's date. Avinash Santana Jr., MD Neck CTA 01/18/17 0000 Signed Impressions: Service Date/Time: Wednesday, January 18, 2017 10:48 - CONCLUSION: 1. Atherosclerotic plaquing but no hemodynamically significant carotid artery stenosis identified. 2. Parenchymal contusion and consolidation involving the right lung apex. 3. ET tube in satisfactory position. Primo Sierra MD Maxillofacial CT 01/18/17 0000 Signed Impressions: Service Date/Time: Wednesday, January 18, 2017 10:48 - CONCLUSION: Left maxillary sinus fractures. Hilary Woods MD Lower Extremity CT 01/18/17 0000 Signed Impressions: Service Date/Time: January 04:26 - CONCLUSION: 1. Comminuted intra-articular fracture of the proximal tibia involving the lateral tibial condyle and intercondylar regions. 2. Lipo hemarthrosis. Sg Nobles MD Femur X-Ray 01/18/17 0000 Signed Impressions: Service Date/Time: Wednesday, January 18, 2017 20:57 - CONCLUSION: Negative for retained surgical isthmus. Other communicated to the operating room. Marques Sierra MD FACR Pelvis X-Ray 01/17/17 0745 Signed Impressions: Service Date/Time: Tuesday, January 17, 2017 07:38 - CONCLUSION: 1. Multiple pelvic fractures, as above. Hermann Arnold MD Upper Extremity CT 01/17/17 Signed Impressions: Service Date/Time: Tuesday, January 17, 2017 10:22 - CONCLUSION: 1. Multiple mildly displaced fractures of the left scapula. 2. Status post ORIF of the proximal left humerus 3. No evidence of fracture dislocation involving the glenohumeral joint. 4. Multiple left-sided rib fractures with associated subcutaneous emphysema. 5. No evidence of significant left-sided pneumothorax. Jayden Aviles MD Tibia/Fibula X-Ray 01/17/17 Signed Impressions: Service Date/Time: Tuesday, January 17, 2017 07:38 - CONCLUSION: No acute fracture identified. Limited single view is provided. Primo Sierra MD Thoracic Spine CT 01/17/17 Signed Impressions: Service Date/Time: Tuesday, January 17, 2017 10:19 - CONCLUSION: Rib fractures, compression fracture of L1 vertebra, transverse fractures of lumbar spine discussed on the patient's prior CT examinations and the thoracic spine appears intact except for scattered degenerative changes. Hilary Woods MD Lumbar Spine CT 01/17/17 Signed Impressions: Service Date/Time: Tuesday, January 17, 2017 10:19 - CONCLUSION: 1. Compression fracture of mid body L1 with approximate 58%% reduction in height. 2. Multiple transverse process fractures, fractures of the sacrum and presacral hematoma discussed on the patient's prior CT pelvis. 3. No appreciable thecal sac stenosis is seen. Hilary Woods MD Foot X-Ray 01/17/17 Signed Impressions: Service Date/Time: Tuesday, January 17, 2017 15:20 - CONCLUSION: No definite fracture is seen for technique. Hilary Woods MD Chest CT 01/17/17 Signed Impressions: Service Date/Time: Tuesday, January 17, 2017 10:22 - CONCLUSION: 1. Bilateral rib fractures, left scapular fractures and tiny bilateral pneumothoraces. 2. Bilateral lung contusions and areas of consolidation right lower lung. Hilary Woods MD Cervical Spine CT 01/17/17 Signed Impressions: Service Date/Time: Tuesday, January 17, 2017 10:21 - CONCLUSION: Fracture of vertebral body of C6 with extension into the right foramen transversarium without any significant compromise to the thecal sac or the exiting nerve roots. Hilary Woods MD Ankle X-Ray 01/17/17 0000 Signed Impressions: Service Date/Time: Tuesday, January 17, 2017 15:25 - CONCLUSION: Soft tissue swelling and no definite fracture for technique. Hilary Woods MD Abdomen/Pelvis CT 01/17/17 Signed Impressions: Service Date/Time: Tuesday, January 17, 2017 10:22 - CONCLUSION: 1. There is nonspecific free fluid within the abdomen and pelvis. No active arterial bleeding is identified. 2. There is a comminuted fracture of L1 which appears to represent a fairly severe compression fracture or possible burst fracture. The lamina and pedicle appear intact. There is no significant bony retropulsion. 3. Mild compression of the superior endplate of T12. 4. Fracture of both sacral ala. 5. Fracture of the anterior aspect of the right iliac wing. 6. Fracture of the superior and inferior sacral ala on the left. 7. Multiple lower rib fractures bilaterally. These will be more definitively assessed on CT imaging through the thorax. 8. Chest tube in place on the left with minimal residual pneumothorax. 9. Minimal pneumothorax on the right. 10. Consolidation/ contusion in both lower lobes. 11. Punctate collections of free air from the patient's laparotomy. Primo Sierra MD Physical Exam CONSTITUTIONAL/GENERAL: This is an adequately nourished patient, in no apparent distress. OOB in chair TUBES/LINES/DRAINS: SKIN: No jaundice, rashes, Multiple abrasions, healing Not diaphoretic. HEAD: Multiple extensive facial abrasions, healing Wound L parietal area healing OK EYES: Pupils equal and round and reactive. No scleral icterus. No injection or drainage. Fundi not examined. ENT: Hearing OK. Nose without bleeding or purulent drainage. NECK: C caollar in place; trach in place OK CARDIOVASCULAR: Regular rate and rhythm without murmurs, gallops, or rubs. No JVD. Peripheral pulses symmetric. RESPIRATORY/CHEST: Symmetric, unlabored respirations.fairly clear to auscultation. Breath sounds equal bilaterally. R chest tube in place with serosang dc GASTROINTESTINAL: Abdomen soft, tender to palpation multiple abrasions, distended. No hepato-splenomegaly, or palpable masses. No guarding. Bowel sounds present. Midline incision with jenny in, clean GENITOURINARY: Without palpable bladder distension. Ochoa catheter in place with clear yellow urine MUSCULOSKELETAL: Extremities without clubbing, cyanosis, + edema. . No mottling or clubbing. L thigh brace, VAC dresing in place with serosang d/c NEUROLOGICAL: awake opens eyes spontaneously intermittently and to voice; makes eye contact and follows commnds PSYCHIATRIC: calm Assessment & Plan Remarks Multi trauma LEFT SDH LEFT maxillary wall fx Head laceration LEFT scapula fx BILAT PTX LEFT rib fx (3,4,5 RIGHT rib fx (5,6,7) Bilateral lung contusion Chest degloving C6 vertebral body fx T11, compression fx T12 compression endplate fx L1 compression fx Pelvic fracture consisting of comminuted superior-inferior left ramus fracture, ala sacri fractures, right iliac crest fracture LEFT tibial plateau fx LEFT thigh extensive degloving degloving approximating about 5% total body surface area Sepsis, bacteremia Stenotrophomonas Port of entry could be her huge degloving injury or PNA Pneumonia Acinetobacter, Enterobacter in the settings of Bilateral lung contusion - also growing Stenotrophomonas VRE UTI sp completed tx Persistent fever - now higher Diarrhea new. Check Cdiff PCR Scalp wound grew out C. parapsilosis , likely colonization REC's: cont Levaquin, high dose x 2 weeks total for Steno Malto bacteremia. cont cefepime IV (Ac.mina, E.cloacae PNA) DC vanco IV(? drug fever) Continue fluconazole for now. Will follow BCX and likely deescalate soon. Follow Cdiff PCR. Continue empiric Flagyl oral. Follow cultures Follow clinically. Kelsie Minor RN, MD Feb 06, 2017 19:01 Kelsie Ahn MD Feb 06, 2017 19:01
[2017-02-06] MEDS: ACETAMINOPHEN 1000 MG/100 ML VIAL IV PRN (20:59)
[2017-02-06 21:42] LABS: C. DIFF EPI 027 PRESUMPTIVE NEGATIVE (NEGATIVE)
[2017-02-07] VITALS (16 sets, daily range): BP systolic 105–139; BP diastolic 54–70; PULSE 77–99; RESP 15–29; TEMP 98.2–100.8; O2SAT 97–100
[2017-02-07] MEDS: CEFEPIME INJ 2,000 MG in SODIUM CHLORIDE 0.9% INJ 100 ML IV SCH ×2 (01:44→10:38)
[2017-02-07] MEDS: CHLORHEXIDINE GLUCONATE 2 % 1 PACK (2 CLOTHS) TOP SCH (03:59)
[2017-02-07 04:56] LABS: AUTOMATED NEUTROPHIL # 6.6 TH/MM3 (1.8-7.7); BASOPHIL # 0.1 TH/MM3 (0-0.2); BASOPHIL % 0.5 % (0.0-2.0); EOSINOPHIL # 0.5 TH/MM3 (0-0.4); EOSINOPHIL % 4.9 % (0.0-4.0); HEMATOCRIT 26.3 % (35.0-46.0); LYMPH % 14.1 % (9.0-44.0); LYMPHOCYTE # 1.4 TH/MM3 (1.0-4.8); MEAN CELL VOLUME 91.3 FL (80.0-100.0); MEAN CORPUSCULAR HEMOGLOBIN 30.1 PG (27.0-34.0); MONO % 15.5 % (0.0-8.0); PLATELET COUNT 286 TH/MM3 (150-450); RED BLOOD COUNT 2.88 MIL/MM3 (4.00-5.30); RED CELL DISTRIBUTION WIDTH 18.2 % (11.6-17.2); WHITE BLOOD COUNT 10.1 TH/MM3 (4.0-11.0)
[2017-02-07 04:57] LABS: POTASSIUM 3.9 MEQ/L (3.5-5.1)
[2017-02-07] MEDS: metroNIDAZOLE 500 MG TAB PO SCH (05:23)
[2017-02-07] MEDS: FREE WATER G-TUBE SCH ×3 (05:24→20:59)
[2017-02-07 05:28] LABS: HEMO FLAGS AUTO DIFF
--- NOTE | 2017-02-07 05:53 | RADRPT ---
EXAM DATE/TIME: 02/07/2017 04:56 [facility] COMPARISON: CHEST SINGLE AP, February 03, 2017, 4:10. CHEST SINGLE AP, February 05, 2017, 3:43. INDICATIONS : Respiratory distress. MEDICAL HISTORY : None. SURGICAL HISTORY : Hysterectomy. Mastectomy, bilateral. Bladder augmentation. ENCOUNTER: Subsequent ACUITY: 3 weeks PAIN SCORE: Non-responsive. LOCATION: Bilateral chest FINDINGS: A single AP semierect portable view the chest was obtained and again demonstrates a tracheostomy tube in place. There is a right-sided chest tube again noted with a small right apical pneumothorax visua lized measuring up to approximately 2.3 cm. There is focal consolidation now noted at the right lung base. There is hazy opacity at the left lung base without bruit and left hemidiaphragm blunting of th e costophrenic angle. The omentum. The right subclavian central venous are in place. CONCLUSION: 1. Small subtle right pneumothorax now visualized measuring up to 2.3 cm. The right-sided chest tube remains in place. 2. No focal air consolidation at the right lung base which could represent pneumonia. 3. Abnormal opacity and small effusion remains at the left lung base. Vipin Jasso MD on February 07, 2017 at 5:49 Board Certified Radiologist. This report was verified electronically.
[2017-02-07 06:44] LABS: BANDS 15 % (0-6); CORRECTED NUCLEATED RBC 1 /100 WBC (0-0); EOSINOPHILS 2 % (0-4); METAMYELOCYTES 3 % (0-1); MYELOCYTES 4 % (0-0); NEUTROPHIL # MANUAL DIFF 8.3 TH/MM3 (1.8-7.7); PLATELET ESTIMATE SMEAR NORMAL (NORMAL); PLATELET MORPHOLOGY NORMAL (NORMAL); POLYS (SEG NEUTROPHILS) 60 % (16-70); SCAN/DIFF FINAL DIFF MANUAL; WBC DIFF SAMPLE 100
[2017-02-07] MEDS: CHLORHEXIDINE 0.12% (ORAL KIT) 15 ML CUP MT SCH ×2 (08:00→20:00)
[2017-02-07] MEDS ORDERED: PHARMACY ORDERED LAB ONE (08:45)
[2017-02-07] MEDS: BACITRACIN TOP OINT 15 GM TUBE TOPICAL SCH ×2 (09:00→20:59)
[2017-02-07] MEDS: CHOLECALCIFEROL (VIT D3) 1000 UNIT TAB PO SCH (09:00)
[2017-02-07] MEDS: ZINC OXIDE 20% OINT 30 GM TUBE TOPICAL SCH ×2 (09:00→20:59)
[2017-02-07] MEDS: REMOVE OLD LIDOCAINE PATCH T-DERMAL SCH (09:00)
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
[2017-02-07] MEDS: FUROSEMIDE 20 MG TAB PO SCH (10:38)
[2017-02-07] MEDS: LACTULOSE SYRUP 20 GM/30 ML CUP PO SCH (10:38)
[2017-02-07] MEDS: VALPROIC ACID SYRUP 250 MG/5 ML UDC PO SCH ×2 (10:38→20:58)
[2017-02-07] MEDS: PANTOPRAZOLE SODIUM 40 MG VIAL IV SCH (10:38)
[2017-02-07] MEDS: POTASSIUM CHLORIDE 25 MEQ EFFERVESCENT TAB PO SCH (10:39)
[2017-02-07] MEDS: LIDOCAINE HCL 5% PATCH T-DERMAL SCH (10:39)
[2017-02-07] MEDS: ENOXAPARIN SODIUM 40 MG/0.4 ML SYRINGE SQ SCH (10:39)
[2017-02-07] MEDS: AMANTADINE HCL 100 MG CAP PO SCH (10:39)
[2017-02-07] MEDS: DOCUSATE SODIUM 50 MG/SENNA 8.6 MG TAB PO SCH ×2 (10:39→20:59)
[2017-02-07] MEDS: SODIUM CHLORIDE 0.9% FLUSH 5 ML FLUSH IVF SCH ×2 (10:40→21:00)
--- NOTE | 2017-02-07 12:20 | HHI.PR ---
Neuropsych Progress Notes/Response to Tx Contents of Sessions: Adjustment, Level of Consciousness Time with Patient: 15 minutes Premorbid psychological status Premorbid Cognitive, Emotional and Behavioral Status: Unable to Assess. The patient is unable to provide information concerning her social history and there is no family present. Behavioral Reactions of Patient and Family/Support System: Unable to Assess. No family present. Emotional/Behavioral Status of Patient and Family/Support System: Unable to Assess. Pertinent issues, if appropriate to this patients clinical care, are described in detail above. Maximizing acute care outcome It is recommended that the patient be monitored for emergent behavioral impulsivity as the medical condition evolves. This patients neuropathological challenges may limit their rehabilitation potential going forward, and these challenges will require specialized therapeutic skills to maximize outcome. Anticipated Problems Ongoing areas of concern will include behavioral impulsivity, lack of insight and judgment, which is expected to improve with time and treatment. Presently , the patient intubated and sedated. Treatment Plan This clinician will continue to follow with you throughout the course of this patients acute care treatment, and I will be available to meet with the patient s family/support system to facilitate their understanding and the ongoing care of their family member. The goals of neuropsychological intervention shall be both educational and supportive to the family/support system as is deemed clinically appropriate. [facility] Level: V:Confused-non agitated Impression This 66 year old woman suffered a moderately severe traumatic brain injury, with the resulting eventual sequelae exacerbated by her age. She is expected to have residual neurocognitive disorder 2T TBI. Diagnosis: (1) Major neurocognitive disorder as late effect of traumatic brain injury without behavioral disturbance Status: Acute Progress Note Narrative Ongoing follow-up of patient seen during trauma rounds. This is day 21 post injury. The patient is awake, minimally responsive, although RN reported that she has been following. The present concern regarding rehabilitation is whether she is capable of three hours of therapy per day. Neurobehaviorally, she continues to improve, and is considered [place] at present. Trauma team consensus is to increase her amantadine to 100 q0700 and 1200, and continue her Valproic Acid 250 BID. I will continue to follow. Vargas Lorenzo PhD Feb 07, 2017 12:19 pm
[2017-02-07] MEDS ORDERED: LEVOFLOXACIN 750 MG TAB PO SCH (13:00)
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
--- NOTE | 2017-02-07 13:47 | HHI.HCPN ---
Reason for visit a. To assist with evaluation and management of symptoms including: pain, dyspnea b. To assist medical decision maker(s) with: better understanding of current medical conditions; weighing benefits/burdens of medical treatment options; making medical treatment decisions. Subjective/Interval History Patient seen and examined in ICU. No family at bedside. On oxygen via t-piece. Sitting in stretcher chair. Does not make eye contact. She seems to nod yes/no appropriately to some questions. Nods no to pain, nods yes to shortness of breath. Patient does not appear incapacitated to participate in her own healthcare decision making at this time. WBC 10.1, hemoglobin 8.7, hematocrit 26.3, platelets 286. Chest x-ray reveals small subtle right pneumothorax now visualize measuring 2.3 cm, right-sided chest tube in place, consolidation right lung base could represent pneumonia, abnormal opacity and small effusions remain left lung base. Case management notes indicate [facility] has denied authorization for LTAC placement. . Family/friend interactions Emilee Santana LCSW left message for patient's daughter to return call for medical update, waiting return call. Advance Directives Living Will: Never completed Health Care Surrogate: Never completed Durable Power of Sales Representative Advertising: Never completed Advance Directive Specifics Health Care Surrogate(s): Patient is incapacitated, uncertain if she will regain capacity. Per [place] Statutes, Healthcare Proxy falls to her two children. Daughter Shea Ramos: [phone], or [phone] Son-in-law Jc Ramos: [phone] Son: Ryan Palacios: [phone] Documented care wishes: 08/05/13 Patient hand written, notarized note stating this is her last will that includes " I don't want any chemotherapy, or any dialysis or any other thing to keep me alive when my time comes I am ready to go." . Significant change in goals: FULL CODE. Goals remain aggressive at this time. . Objective Vital Signs Date Time Temp Pulse Resp B/P Pulse Ox O2 Delivery O2 Flow Rate FiO2 02/07/17 11:35 97 T-piece 35 02/07/17 10:00 84 02/07/17 08:00 77 02/07/17 08:00 100 T-Piece 28 02/07/17 08:00 99.5 88 29 138/68 100 02/07/17 07:36 100 T-piece 35 02/07/17 07:00 100 Mechanical Ventilator 35 02/07/17 06:00 80 02/07/17 04:19 99 35 02/07/17 04:00 81 02/07/17 04:00 98.2 80 27 112/58 98 02/07/17 02:00 82 02/07/17 00:00 85 02/07/17 00:00 99.0 99 28 112/54 98 02/06/17 23:00 100 35 02/06/17 22:00 89 02/06/17 20:00 96 02/06/17 20:00 101.1 99 35 112/57 99 02/06/17 19:30 99 35 02/06/17 19:00 100 Mechanical Ventilator 35 02/06/17 18:00 94 02/06/17 16:00 100.0 100 31 127/54 99 02/06/17 16:00 99 02/06/17 15:43 100 35 02/06/17 14:00 100 Intake & Output 02/07/17 02/07/17 07:00 19:00 Intake Total 2203 ml Output Total 2070 ml Balance 133 ml Intake IV Total 1086 ml Tube Feeding 717 ml Other 400 ml Output Urine Total 1750 ml Stool Total 100 ml Chest Tube Drainage Total 140 ml Drainage Total 80 ml Physical Exam CONSTITUTIONAL/GENERAL: This is an adequately nourished patient, in no apparent distress. TUBES/LINES/DRAINS: trach, PEG, right chest tube, right flank and left groin/ thigh wound vacs, right subclavian TLC, left radial arterial line, [place] J collar, Ochoa catheter. SKIN: Right lateral head avulsion with dressing intact. Left eye laceration. Abrasions on chin lips, bilateral lower extremities lower abdomen, right shoulder. Puncture wound right upper chest/ breast area and right foot. Midline abdominal incision with jenny intact. Wound vac to left groin/ thigh area. Wound vac to right flank area. LLE with oozing puncture site. Bilateral hands and feet edematous. Skin is cool and dry. No diaphoresis. HEAD: Normocephalic. Multiple abrasion, [place] J collar in place. Right head avulsion to skull. NECK: [place] J not removed for inspection. CARDIOVASCULAR: Regular rate and rhythm without murmurs, gallops, or rubs. RESPIRATORY/CHEST: Symmetric, unlabored respirations. Scattered rhonchi in bilateral bases. Breath sounds equal bilaterally. Bilateral chest tubes. GASTROINTESTINAL: Abdomen soft, non-tender, nondistended. Bowel sounds present. Midline incision healing. GENITOURINARY: Without palpable bladder distension. Ochoa catheter in place. MUSCULOSKELETAL: Extremities without clubbing, cyanosis. No mottling or clubbing. Foot drop bilaterally. 2+ edema on bilateral hands and feet. NEUROLOGICAL: Awake, nods yes/no. Follows some simple commands, unable to follow complex commands. Does not follow commands with BLE. PSYCHIATRIC: Appears relaxed. . Diagnostic Tests Laboratory Laboratory Tests Test 02/04/17 02/05/17 02/06/17 02/06/17 17:58 04:00 04:10 16:45 Urine Color YELLOW (YELLW/STRAW) Urine Turbidity CLOUDY (CLEAR) Urine pH 7.5 (5.0-8.5) Urine Specific [place] 1.023 (1.002-1.035) Urine Protein 100 mg/dL (NEG-TRACE) Urine Glucose (UA) NEG mg/dL (NEG) Urine Ketones NEG mg/dL (NEG) Urine Occult Blood MOD (NEG) Urine Nitrite NEG (NEG) Urine Bilirubin NEG (NEG) Urine Urobilinogen LESS THAN 2.0 MG/DL (LESS THAN 2.0) Urine Leukocyte Esterase NEG (NEG) Urine RBC 9 /hpf (0-3) Urine WBC 12 /hpf (0-5) Urine Squamous Epithelial 1 /hpf (0-5) Cells Urine Bacteria RARE /hpf (NONE) Urine Hyaline Casts 2 /lpf (RARE) Urine White Blood Cell Casts 2 /lpf (NONE) Urine Mucus FEW /lpf (OCC) Microscopic Urinalysis Comment CATH-CULTURE IND Random Vancomycin Level 11.1 COMMENT White Blood Count 7.5 TH/MM3 (4.0-11.0) Red Blood Count 2.81 MIL/MM3 (4.00-5.30) Hemoglobin 8.4 GM/DL (11.6-15.3) Hematocrit 25.2 % (35.0-46.0) Mean Corpuscular Volume 89.7 FL (80.0-100.0) Mean Corpuscular Hemoglobin 29.9 PG (27.0-34.0) Mean Corpuscular Hemoglobin 33.3 % Concent (32.0-36.0) Red Cell Distribution Width 17.5 % (11.6-17.2) Platelet Count 278 TH/MM3 (150-450) Mean Platelet Volume 10.3 FL (7.0-11.0) Neutrophils (%) (Auto) 65.0 % (16.0-70.0) Lymphocytes (%) (Auto) 15.6 % (9.0-44.0) Monocytes (%) (Auto) 13.9 % (0.0-8.0) Eosinophils (%) (Auto) 4.7 % (0.0-4.0) Basophils (%) (Auto) 0.8 % (0.0-2.0) Neutrophils # (Auto) 4.9 TH/MM3 (1.8-7.7) Lymphocytes # (Auto) 1.2 TH/MM3 (1.0-4.8) Monocytes # (Auto) 1.0 TH/MM3 (0-0.9) Eosinophils # (Auto) 0.4 TH/MM3 (0-0.4) Basophils # (Auto) 0.1 TH/MM3 (0-0.2) CBC Comment AUTO DIFF Differential Total Cells 100 Counted Neutrophils % (Manual) 60 % (16-70) Band Neutrophils % 14 % (0-6) Lymphocytes % 14 % (9-44) Monocytes % 8 % (0-8) Eosinophils % 1 % (0-4) Neutrophils # (Manual) 5.8 TH/MM3 (1.8-7.7) Metamyelocytes 1 % (0-1) Myelocytes 2 % (0-0) Differential Comment FINAL DIFF MANUAL Platelet Estimate NORMAL (NORMAL) Platelet Morphology Comment NORMAL (NORMAL) Sodium Level 144 MEQ/L (136-145) Potassium Level 2.8 MEQ/L 3.4 MEQ/L (3.5-5.1) (3.5-5.1) Chloride Level 109 MEQ/L (98-107) Carbon Dioxide Level 25.7 MEQ/L (21.0-32.0) Anion Gap 9 MEQ/L (5-15) Blood Urea Nitrogen 16 MG/DL (7-18) Creatinine 0.39 MG/DL (0.50-1.00) Estimat Glomerular Filtration 163 ML/MIN Rate (>89) Random Glucose 126 MG/DL (74-106) Calcium Level 7.2 MG/DL (8.5-10.1) Protein Corrected Calcium 8.6 MG/DL (8.5-10.1) Total Protein 4.6 GM/DL (6.4-8.2) Test 02/06/17 02/07/17 18:00 04:00 Stool C. difficile Toxin (PCR) NEGATIVE (NEGATIVE) Stl C. difficile Toxin PRESUMPTIVE Epiderm 027 NEGATIVE (NEGATIVE) White Blood Count 10.1 TH/MM3 (4.0-11.0) Red Blood Count 2.88 MIL/MM3 (4.00-5.30) Hemoglobin 8.7 GM/DL (11.6-15.3) Hematocrit 26.3 % (35.0-46.0) Mean Corpuscular Volume 91.3 FL (80.0-100.0) Mean Corpuscular Hemoglobin 30.1 PG (27.0-34.0) Mean Corpuscular Hemoglobin 33.0 % Concent (32.0-36.0) Red Cell Distribution Width 18.2 % (11.6-17.2) Platelet Count 286 TH/MM3 (150-450) Mean Platelet Volume 10.0 FL (7.0-11.0) Neutrophils (%) (Auto) 65.0 % (16.0-70.0) Lymphocytes (%) (Auto) 14.1 % (9.0-44.0) Monocytes (%) (Auto) 15.5 % (0.0-8.0) Eosinophils (%) (Auto) 4.9 % (0.0-4.0) Basophils (%) (Auto) 0.5 % (0.0-2.0) Neutrophils # (Auto) 6.6 TH/MM3 (1.8-7.7) Lymphocytes # (Auto) 1.4 TH/MM3 (1.0-4.8) Monocytes # (Auto) 1.6 TH/MM3 (0-0.9) Eosinophils # (Auto) 0.5 TH/MM3 (0-0.4) Basophils # (Auto) 0.1 TH/MM3 (0-0.2) CBC Comment AUTO DIFF Differential Total Cells 100 Counted Neutrophils % (Manual) 60 % (16-70) Band Neutrophils % 15 % (0-6) Lymphocytes % 13 % (9-44) Monocytes % 3 % (0-8) Eosinophils % 2 % (0-4) Neutrophils # (Manual) 8.3 TH/MM3 (1.8-7.7) Metamyelocytes 3 % (0-1) Myelocytes 4 % (0-0) Nucleated Red Blood Cells 1 /100 WBC (0-0) Differential Comment FINAL DIFF MANUAL Platelet Estimate NORMAL (NORMAL) Platelet Morphology Comment NORMAL (NORMAL) Sodium Level 145 MEQ/L (136-145) Potassium Level 3.9 MEQ/L (3.5-5.1) Chloride Level 112 MEQ/L (98-107) Carbon Dioxide Level 26.0 MEQ/L (21.0-32.0) Anion Gap 7 MEQ/L (5-15) Blood Urea Nitrogen 19 MG/DL (7-18) Creatinine 0.40 MG/DL (0.50-1.00) Estimat Glomerular Filtration 159 ML/MIN Rate (>89) Random Glucose 117 MG/DL (74-106) Calcium Level 7.8 MG/DL (8.5-10.1) Result Diagram: 02/07/17 0400 02/07/17 0400 Microbiology Microbiology Date/Time Procedure Status Source Growth 02/04/17 15:15 Aerobic Blood Culture - Preliminary Resulted Blood Peripheral NO GROWTH IN 3 DAYS 02/04/17 15:15 Anaerobic Blood Culture - Preliminary Resulted Blood Peripheral NO GROWTH IN 3 DAYS 02/04/17 16:05 Aerobic Blood Culture - Preliminary Resulted Blood Peripheral NO GROWTH IN 3 DAYS 02/04/17 16:05 Anaerobic Blood Culture - Preliminary Resulted Blood Peripheral NO GROWTH IN 3 DAYS 02/04/17 17:58 Urine Culture - Final Complete Urine Catheterized Urine Catia Albicans 02/04/17 21:10 Gram Stain - Final Complete Sputum Endotracheal 02/04/17 21:10 Sputum Culture - Final Complete Stenotrophomonas Maltophilia Imaging Last Impressions Chest X-Ray 02/07/17 0600 Signed Impressions: Service Date/Time: Tuesday, February 07, 2017 04:56 - CONCLUSION: 1. Small subtle right pneumothorax now visualized measuring up to 2.3 cm. The right-sided chest tube remains in place. 2. No focal air consolidation at the right lung base which could represent pneumonia. 3. Abnormal opacity and small effusion remains at the left lung base. Vipin Jasso MD Head CT 02/01/17 1002 Signed Impressions: Service Date/Time: Wednesday, February 01, 2017 12:58 - CONCLUSION: 1. Stable minimal acute intraventricular hemorrhage with very minimal improvement of the acute subarachnoid hemorrhage within the high parietal regions. 2. Underlying cerebral atrophy. 3. No midline shift identified. 4. Mucosal thickening involving the left maxillary sinus and left facial bone fractures. Tigre Willis MD Knee X-Ray 01/31/17 0000 Signed Impressions: Service Date/Time: Tuesday, January 31, 2017 12:45 - CONCLUSION: Status post ORIF of left proximal tibial fracture with hardware in good position. Tigre Willis MD Lumbar Spine MRI 01/27/17 0000 Signed Impressions: Service Date/Time: Friday, January 27, 2017 17:34 - CONCLUSION: L1 compression fracture with moderate loss of vertebral body height and this is stable. This is acute with marrow edema. No associated canal compromise. Nonacute T11 and T12 superior endplate compression deformities. Bilateral hydronephrosis. Elvis Sexton MD Cervical Spine MRI 01/27/17 0000 Signed Impressions: Service Date/Time: Friday, January 27, 2017 17:34 - CONCLUSION: 1. Degenerative changes are identified. The known C6 vertebral body fracture is not well evaluated on this study. Elvis Sexton MD Brain MRI 01/27/17 0000 Signed Impressions: Service Date/Time: Friday, January 27, 2017 17:34 - CONCLUSION: Subarachnoid and intraventricular hemorrhage as above. Elvis Sexton MD IVC Filter Placement X-Ray 01/20/17 0000 Signed Impressions: Service Date/Time: Friday, January 20, 2017 16:44 - CONCLUSION: Uncomplicated inferior vena cava filter placement as above. This is a retrievable filter and can be retrieved up to one year from today's date. Avinash Santana Jr., MD Neck CTA 01/18/17 0000 Signed Impressions: Service Date/Time: Wednesday, January 18, 2017 10:48 - CONCLUSION: 1. Atherosclerotic plaquing but no hemodynamically significant carotid artery stenosis identified. 2. Parenchymal contusion and consolidation involving the right lung apex. 3. ET tube in satisfactory position. Primo Sierra MD Maxillofacial CT 01/18/17 0000 Signed Impressions: Service Date/Time: Wednesday, January 18, 2017 10:48 - CONCLUSION: Left maxillary sinus fractures. Hilary Woods MD Lower Extremity CT 01/18/17 0000 Signed Impressions: Service Date/Time: January 04:26 - CONCLUSION: 1. Comminuted intra-articular fracture of the proximal tibia involving the lateral tibial condyle and intercondylar regions. 2. Lipo hemarthrosis. Sg Nobles MD Femur X-Ray 01/18/17 0000 Signed Impressions: Service Date/Time: Wednesday, January 18, 2017 20:57 - CONCLUSION: Negative for retained surgical isthmus. Other communicated to the operating room. Marques Sierra MD FACR Pelvis X-Ray 01/17/17 0745 Signed Impressions: Service Date/Time: Tuesday, January 17, 2017 07:38 - CONCLUSION: 1. Multiple pelvic fractures, as above. Hermann Arnold MD Upper Extremity CT 01/17/17 0000 Signed Impressions: Service Date/Time: Tuesday, January 17, 2017 10:22 - CONCLUSION: 1. Multiple mildly displaced fractures of the left scapula. 2. Status post ORIF of the proximal left humerus 3. No evidence of fracture dislocation involving the glenohumeral joint. 4. Multiple left-sided rib fractures with associated subcutaneous emphysema. 5. No evidence of significant left-sided pneumothorax. Jayden Aviles MD Tibia/Fibula X-Ray 01/17/17 0000 Signed Impressions: Service Date/Time: Tuesday, January 17, 2017 07:38 - CONCLUSION: No acute fracture identified. Limited single view is provided. Primo Sierra MD Thoracic Spine CT 01/17/17 0000 Signed Impressions: Service Date/Time: Tuesday, January 17, 2017 10:19 - CONCLUSION: Rib fractures, compression fracture of L1 vertebra, transverse fractures of lumbar spine discussed on the patient's prior CT examinations and the thoracic spine appears intact except for scattered degenerative changes. Hilary Woods MD Lumbar Spine CT 01/17/17 0000 Signed Impressions: Service Date/Time: Tuesday, January 17, 2017 10:19 - CONCLUSION: 1. Compression fracture of mid body L1 with approximate 58%% reduction in height. 2. Multiple transverse process fractures, fractures of the sacrum and presacral hematoma discussed on the patient's prior CT pelvis. 3. No appreciable thecal sac stenosis is seen. Hilary Woods MD Foot X-Ray 01/17/17 0000 Signed Impressions: Service Date/Time: Tuesday, January 17, 2017 15:20 - CONCLUSION: No definite fracture is seen for technique. Hilary Woods MD Chest CT 01/17/17 0000 Signed Impressions: Service Date/Time: Tuesday, January 17, 2017 10:22 - CONCLUSION: 1. Bilateral rib fractures, left scapular fractures and tiny bilateral pneumothoraces. 2. Bilateral lung contusions and areas of consolidation right lower lung. Hilary Woods MD Cervical Spine CT 01/17/17 0000 Signed Impressions: Service Date/Time: Tuesday, January 17, 2017 10:21 - CONCLUSION: Fracture of vertebral body of C6 with extension into the right foramen transversarium without any significant compromise to the thecal sac or the exiting nerve roots. Hilary Woods MD Ankle X-Ray 01/17/17 Signed Impressions: Service Date/Time: Tuesday, January 17, 2017 15:25 - CONCLUSION: Soft tissue swelling and no definite fracture for technique. Hilary Woods MD Abdomen/Pelvis CT 01/17/17 0000 Signed Impressions: Service Date/Time: Tuesday, January 17, 2017 10:22 - CONCLUSION: 1. There is nonspecific free fluid within the abdomen and pelvis. No active arterial bleeding is identified. 2. There is a comminuted fracture of L1 which appears to represent a fairly severe compression fracture or possible burst fracture. The lamina and pedicle appear intact. There is no significant bony retropulsion. 3. Mild compression of the superior endplate of T12. 4. Fracture of both sacral ala. 5. Fracture of the anterior aspect of the right iliac wing. 6. Fracture of the superior and inferior sacral ala on the left. 7. Multiple lower rib fractures bilaterally. These will be more definitively assessed on CT imaging through the thorax. 8. Chest tube in place on the left with minimal residual pneumothorax. 9. Minimal pneumothorax on the right. 10. Consolidation/ contusion in both lower lobes. 11. Punctate collections of free air from the patient's laparotomy. Primo Sierra MD . Procedures * 01/24/17: Right chest tube placement. Irrigation and debridement of left leg, application of wound VAC dressing. * 01/20/17: Debridement open complex wound left thigh,washout excisional debridement open wound left chest wall, washout open wound right abdominal wall Application of wound VAC left chest wall wound ,right abdominal wall wound * 01/18/17: Exploration of large left thigh wound with active bleeding, bleeding control, wide excision of necrotic skin * 01/17/17: Exploratory laparotomy, washout of multiple open wounds, closure right scalp wound. Left chest tube thoracostomy, insertion of right Cordis . Assessment and Plan Disease Oriented Problem List: (1) Intracranial bleed (2) Traumatic hemorrhagic shock (3) Traumatic brain injury (4) Closed flail chest Symptom Scale: (1) Pain 0-10 Scale: Unable to quantify (2) Dyspnea 0-10 Scale: Unable to quantify Pertinent Non-Medical Issues Psychosocial: Patient is with two adult children. Spiritual: Unknown Legal:Patient is incapacitated and not likely to regain capacity. Per [place], healthcare proxy falls to her two children. Ethical issues impacting care: Patient is incapacitated and not likely to regain capacity. Important Contacts Daughter Shea Ramos: [phone], or [phone] Son-in-law Jc Ramos: [phone] Son: Ryan Palacios: [phone] Prognosis Patient has many injuries that increase her risk of further decline, infections or even . . Code Status: Full Code Plan * Patient is incapacitated to make her own healthcare decisions, uncertain if she will regain capacity. Patient is . According to [place] statutes health care proxy decision-making falls to the majority of adult children. Patient's daughter wishes to participate in health care proxy decision-making. Left message x 2 for patient's son, awaiting return call to determine if he wishes to participate. Son has not returned call, not reasonably available therefore health care proxy decision making falls to daughter. * FULL CODE * Goals remain aggressive. Left message for daughter to provide medical update, awaiting return call. * SYMPTOMS: Pain: secondary to various traumatic injuries, multiple tubes/lines/ drains. Currently sedated with fentanyl. Denies pain during my visit today. Dyspnea: sedated on mechanical ventilation. No new medication recommendations at this time. Patient will likely need pain medication once Fentanyl weaned given multiple injuries. Palliative care will continue to follow to make additional recommendations at that time. * Palliative care will continue to follow throughout hospital course to assist with symptom management and clarification of goals as needed. . Attestation To help prompt me to consider important information that might be impacting today's encounter and assessment, information from prior notes written by myself or my colleagues may have been "brought forward" into today's note. My signature on this note, however, is an attestation that I personally performed the exam, history, and/or decision-making noted today, and, unless otherwise indicated, the interactions with patient, family, and staff as well as the review of records all occurred today. I also attest that the listed assessment and stated plan reflect my best clinical judgment today based on the combination of historical information, prior notes, and today's exam/ interactions. When time spent is documented, it refers only to time spent today by the signer, or if indicated, combined time spent today by collaborating physician/nurse practitioner. Glenna Anderson Feb 07, 2017 13:47
[2017-02-07] MEDS: ERGOCALCIFEROL (VIT D2) 50,000 UNIT CAP PO SCH (15:00)
--- NOTE | 2017-02-07 16:52 | HHI.IDPN ---
Subjective Subjective Remarks [email or web address]. 66-year-old female with multiple med problems was brought in on 01/17 by EMS with GCS 14, Her initial blood pressure was palpable systolic 80, she is tachycardic, she has a flail chest on the left side, she was orotracheally intubated by anesthesia,sp left chest tube thoracostomy was performed, Her evaluation revealed multiple rib fractures on the left side, multiple pelvic fractures, has a large degloving for left thigh, large open wound of her left thorax, open wound of her right scalp, Currently followed by ID for Possible infected degloving injury of thigh, Pneumonia. Overnight events reviewed. Tmax 101 F Diarrhea liquid stool without laxatives on board. Has dignishield. Wound vac in place with sanguinous discharge. Remains on vent. ETT secretions are thick esquivel moderate amount. Right CT in place. Tolerates tube feeds at goal Antibiotics levaquine cefepime vanco Lines Line sites with no e.o infection. Past Medical History reviewed. Allergies: Coded Allergies: Sulfa (Verified Allergy, Intermediate, "BLOOD COUNT DROPS", 12/29/16) *MDRO Multi-Drug Resistant Organism (Verified Adverse Reaction, Unknown, ) VRE (urine) 01/19/17 Codeine (Verified Adverse Reaction, Unknown, ITCHING, 12/29/16) Objective . Vital Signs Date Time Temp Pulse Resp B/P Pulse Ox O2 Delivery O2 Flow Rate FiO2 02/07/17 14:00 90 02/07/17 12:00 92 02/07/17 11:35 97 T-piece 35 02/07/17 10:00 84 02/07/17 08:00 77 02/07/17 08:00 100 T-Piece 28 02/07/17 08:00 99.5 88 29 138/68 100 02/07/17 07:36 100 T-piece 35 02/07/17 07:00 100 Mechanical Ventilator 35 02/07/17 06:00 80 02/07/17 04:19 99 35 02/07/17 04:00 81 02/07/17 04:00 98.2 80 27 112/58 98 02/07/17 02:00 82 02/07/17 00:00 85 02/07/17 00:00 99.0 99 28 112/54 98 02/06/17 23:00 100 35 02/06/17 22:00 89 02/06/17 20:00 96 02/06/17 20:00 101.1 99 35 112/57 99 02/06/17 19:30 99 35 02/06/17 19:00 100 Mechanical Ventilator 35 02/06/17 18:00 94 02/06/17 02/06/17 02/07/17 14:59 22:59 06:59 Intake Total 1352 ml 1331 ml 872 ml Output Total 1150 ml 1080 ml 990 ml Balance 202 ml 251 ml -118 ml Intake IV Total 721 ml 742 ml 344 ml Tube Feeding 371 ml 389 ml 328 ml Other 260 ml 200 ml 200 ml Output Urine Total 1100 ml 850 ml 900 ml Stool Total 100 ml 0 ml Chest Tube Drainage Total 0 ml 100 ml 40 ml Drainage Total 50 ml 30 ml 50 ml . Laboratory Tests Test 02/06/17 02/07/17 04:10 04:00 White Blood Count 7.5 TH/MM3 10.1 TH/MM3 Red Blood Count 2.81 MIL/MM3 2.88 MIL/MM3 Hemoglobin 8.4 GM/DL 8.7 GM/DL Hematocrit 25.2 % 26.3 % Mean Corpuscular Volume 89.7 FL 91.3 FL Mean Corpuscular Hemoglobin 29.9 PG 30.1 PG Mean Corpuscular Hemoglobin 33.3 % 33.0 % Concent Red Cell Distribution Width 17.5 % 18.2 % Platelet Count 278 TH/MM3 286 TH/MM3 Mean Platelet Volume 10.3 FL 10.0 FL Neutrophils (%) (Auto) 65.0 % 65.0 % Lymphocytes (%) (Auto) 15.6 % 14.1 % Monocytes (%) (Auto) 13.9 % 15.5 % Eosinophils (%) (Auto) 4.7 % 4.9 % Basophils (%) (Auto) 0.8 % 0.5 % Neutrophils # (Auto) 4.9 TH/MM3 6.6 TH/MM3 Lymphocytes # (Auto) 1.2 TH/MM3 1.4 TH/MM3 Monocytes # (Auto) 1.0 TH/MM3 1.6 TH/MM3 Eosinophils # (Auto) 0.4 TH/MM3 0.5 TH/MM3 Basophils # (Auto) 0.1 TH/MM3 0.1 TH/MM3 CBC Comment AUTO DIFF AUTO DIFF Differential Total Cells 100 100 Counted Neutrophils % (Manual) 60 % 60 % Band Neutrophils % 14 % 15 % Lymphocytes % 14 % 13 % Monocytes % 8 % 3 % Eosinophils % 1 % 2 % Neutrophils # (Manual) 5.8 TH/MM3 8.3 TH/MM3 Metamyelocytes 1 % 3 % Myelocytes 2 % 4 % Differential Comment FINAL DIFF FINAL DIFF MANUAL MANUAL Platelet Estimate NORMAL NORMAL Platelet Morphology Comment NORMAL NORMAL Nucleated Red Blood Cells 1 /100 WBC Laboratory Tests Test 02/06/17 02/06/17 02/07/17 04:10 16:45 04:00 Sodium Level 144 MEQ/L 145 MEQ/L Potassium Level 2.8 MEQ/L 3.4 MEQ/L 3.9 MEQ/L Chloride Level 109 MEQ/L 112 MEQ/L Carbon Dioxide Level 25.7 MEQ/L 26.0 MEQ/L Anion Gap 9 MEQ/L 7 MEQ/L Blood Urea Nitrogen 16 MG/DL 19 MG/DL Creatinine 0.39 MG/DL 0.40 MG/DL Estimat Glomerular Filtration 163 ML/MIN 159 ML/MIN Rate Random Glucose 126 MG/DL 117 MG/DL Calcium Level 7.2 MG/DL 7.8 MG/DL Protein Corrected Calcium 8.6 MG/DL Total Protein 4.6 GM/DL Microbiology Date/Time Procedure Status Source Growth 02/04/17 17:58 Urine Culture - Final Complete Urine Catheterized Urine Catia Albicans 02/04/17 21:10 Gram Stain - Final Complete Sputum Endotracheal 02/04/17 21:10 Sputum Culture - Final Complete Stenotrophomonas Maltophilia Imaging Last Impressions Chest X-Ray 02/03/17 0600 Signed Impressions: Service Date/Time: Friday, February 03, 2017 04:10 - CONCLUSION: New small left pleural effusion and new patchy right lung base opacity. No change in left lung base opacity. Sg Nobles MD Head CT 02/01/17 1002 Signed Impressions: Service Date/Time: Wednesday, February 01, 2017 12:58 - CONCLUSION: 1. Stable minimal acute intraventricular hemorrhage with very minimal improvement of the acute subarachnoid hemorrhage within the high parietal regions. 2. Underlying cerebral atrophy. 3. No midline shift identified. 4. Mucosal thickening involving the left maxillary sinus and left facial bone fractures. Tigre Willis MD Knee X-Ray 01/31/17 0000 Signed Impressions: Service Date/Time: Tuesday, January 31, 2017 12:45 - CONCLUSION: Status post ORIF of left proximal tibial fracture with hardware in good position. Tigre Willis MD Lumbar Spine MRI 01/27/17 0000 Signed Impressions: Service Date/Time: Friday, January 27, 2017 17:34 - CONCLUSION: L1 compression fracture with moderate loss of vertebral body height and this is stable. This is acute with marrow edema. No associated canal compromise. Nonacute T11 and T12 superior endplate compression deformities. Bilateral hydronephrosis. Elvis Sexton MD Cervical Spine MRI 01/27/17 0000 Signed Impressions: Service Date/Time: Friday, January 27, 2017 17:34 - CONCLUSION: 1. Degenerative changes are identified. The known C6 vertebral body fracture is not well evaluated on this study. Elvis Sexton MD Brain MRI 01/27/17 0000 Signed Impressions: Service Date/Time: Friday, January 27, 2017 17:34 - CONCLUSION: Subarachnoid and intraventricular hemorrhage as above. Elvis Sexton MD IVC Filter Placement X-Ray 01/20/17 0000 Signed Impressions: Service Date/Time: Friday, January 20, 2017 16:44 - CONCLUSION: Uncomplicated inferior vena cava filter placement as above. This is a retrievable filter and can be retrieved up to one year from today's date. Avinash Santana Jr., MD Neck CTA 01/18/17 0000 Signed Impressions: Service Date/Time: Wednesday, January 18, 2017 10:48 - CONCLUSION: 1. Atherosclerotic plaquing but no hemodynamically significant carotid artery stenosis identified. 2. Parenchymal contusion and consolidation involving the right lung apex. 3. ET tube in satisfactory position. Primo Sierra MD Maxillofacial CT 01/18/17 0000 Signed Impressions: Service Date/Time: Wednesday, January 18, 2017 10:48 - CONCLUSION: Left maxillary sinus fractures. K. Dipak Woods MD Lower Extremity CT 01/18/17 0000 Signed Impressions: Service Date/Time: January 04:26 - CONCLUSION: 1. Comminuted intra-articular fracture of the proximal tibia involving the lateral tibial condyle and intercondylar regions. 2. Lipo hemarthrosis. Sg Nobles MD Femur X-Ray 01/18/17 0000 Signed Impressions: Service Date/Time: Wednesday, January 18, 2017 20:57 - CONCLUSION: Negative for retained surgical isthmus. Other communicated to the operating room. Marques Sierra MD FACR Pelvis X-Ray 01/17/17 0745 Signed Impressions: Service Date/Time: Tuesday, January 17, 2017 07:38 - CONCLUSION: 1. Multiple pelvic fractures, as above. Hermann Arnold MD Upper Extremity CT 01/17/17 0000 Signed Impressions: Service Date/Time: Tuesday, January 17, 2017 10:22 - CONCLUSION: 1. Multiple mildly displaced fractures of the left scapula. 2. Status post ORIF of the proximal left humerus 3. No evidence of fracture dislocation involving the glenohumeral joint. 4. Multiple left-sided rib fractures with associated subcutaneous emphysema. 5. No evidence of significant left-sided pneumothorax. Jayden Aviles MD Tibia/Fibula X-Ray 01/17/17 0000 Signed Impressions: Service Date/Time: Tuesday, January 17, 2017 07:38 - CONCLUSION: No acute fracture identified. Limited single view is provided. Primo Sierra MD Thoracic Spine CT 01/17/17 0000 Signed Impressions: Service Date/Time: Tuesday, January 17, 2017 10:19 - CONCLUSION: Rib fractures, compression fracture of L1 vertebra, transverse fractures of lumbar spine discussed on the patient's prior CT examinations and the thoracic spine appears intact except for scattered degenerative changes. Hilary Woods MD Lumbar Spine CT 01/17/17 0000 Signed Impressions: Service Date/Time: Tuesday, January 17, 2017 10:19 - CONCLUSION: 1. Compression fracture of mid body L1 with approximate 58%% reduction in height. 2. Multiple transverse process fractures, fractures of the sacrum and presacral hematoma discussed on the patient's prior CT pelvis. 3. No appreciable thecal sac stenosis is seen. Hilary Woods MD Foot X-Ray 01/17/17 0000 Signed Impressions: Service Date/Time: Tuesday, January 17, 2017 15:20 - CONCLUSION: No definite fracture is seen for technique. Hilary Woods MD Chest CT 01/17/17 0000 Signed Impressions: Service Date/Time: Tuesday, January 17, 2017 10:22 - CONCLUSION: 1. Bilateral rib fractures, left scapular fractures and tiny bilateral pneumothoraces. 2. Bilateral lung contusions and areas of consolidation right lower lung. Hilary Woods MD Cervical Spine CT 01/17/17 0000 Signed Impressions: Service Date/Time: Tuesday, January 17, 2017 10:21 - CONCLUSION: Fracture of vertebral body of C6 with extension into the right foramen transversarium without any significant compromise to the thecal sac or the exiting nerve roots. Hilary Woods MD Ankle X-Ray 01/17/17 0000 Signed Impressions: Service Date/Time: Tuesday, January 17, 2017 15:25 - CONCLUSION: Soft tissue swelling and no definite fracture for technique. Hilary Woods MD Abdomen/Pelvis CT 01/17/17 0000 Signed Impressions: Service Date/Time: Tuesday, January 17, 2017 10:22 - CONCLUSION: 1. There is nonspecific free fluid within the abdomen and pelvis. No active arterial bleeding is identified. 2. There is a comminuted fracture of L1 which appears to represent a fairly severe compression fracture or possible burst fracture. The lamina and pedicle appear intact. There is no significant bony retropulsion. 3. Mild compression of the superior endplate of T12. 4. Fracture of both sacral ala. 5. Fracture of the anterior aspect of the right iliac wing. 6. Fracture of the superior and inferior sacral ala on the left. 7. Multiple lower rib fractures bilaterally. These will be more definitively assessed on CT imaging through the thorax. 8. Chest tube in place on the left with minimal residual pneumothorax. 9. Minimal pneumothorax on the right. 10. Consolidation/ contusion in both lower lobes. 11. Punctate collections of free air from the patient's laparotomy. Primo Sierra MD Physical Exam CONSTITUTIONAL/GENERAL: This is an adequately nourished patient, in no apparent distress. OOB in chair TUBES/LINES/DRAINS: SKIN: No jaundice, rashes, Multiple abrasions, healing Not diaphoretic. HEAD: Multiple extensive facial abrasions, healing Wound L parietal area healing OK EYES: Pupils equal and round and reactive. No scleral icterus. No injection or drainage. Fundi not examined. ENT: Hearing OK. Nose without bleeding or purulent drainage. NECK: C caollar in place; trach in place OK CARDIOVASCULAR: Regular rate and rhythm without murmurs, gallops, or rubs. No JVD. Peripheral pulses symmetric. RESPIRATORY/CHEST: Symmetric, unlabored respirations.fairly clear to auscultation. Breath sounds equal bilaterally. R chest tube in place with serosang dc GASTROINTESTINAL: Abdomen soft, tender to palpation multiple abrasions, distended. No hepato-splenomegaly, or palpable masses. No guarding. Bowel sounds present. Midline incision with jenny in, clean GENITOURINARY: Without palpable bladder distension. Ochoa catheter in place with clear yellow urine MUSCULOSKELETAL: Extremities without clubbing, cyanosis, + edema. . No mottling or clubbing. L thigh brace, VAC dressing in place with serosang d/c NEUROLOGICAL: awake opens eyes spontaneously intermittently and to voice; makes eye contact and follows commands PSYCHIATRIC: calm Assessment & Plan Remarks Multi trauma LEFT SDH LEFT maxillary wall fx Head laceration LEFT scapula fx BILAT PTX LEFT rib fx (3,4,5 RIGHT rib fx (5,6,7) Bilateral lung contusion Chest degloving C6 vertebral body fx T11, compression fx T12 compression endplate fx L1 compression fx Pelvic fracture consisting of comminuted superior-inferior left ramus fracture, ala sacri fractures, right iliac crest fracture LEFT tibial plateau fx LEFT thigh extensive degloving degloving approximating about 5% total body surface area Sepsis, bacteremia Stenotrophomonas Port of entry could be her huge degloving injury or PNA Pneumonia Acinetobacter, Enterobacter in the settings of Bilateral lung contusion - also growing Stenotrophomonas VRE UTI sp completed tx Persistent fever - now higher Diarrhea new. Check Cdiff PCR Scalp wound grew out C. parapsilosis , likely colonization REC's: DC Levaquin s/p 2 weeks total for Steno Malto bacteremia. DC cefepime IV (Ac.mina, E.cloacae PNA) DC fluconazole for now. Will follow BCX and likely deescalate soon. DC vanco IV Suspect drug fever (bactrim, levaquin or Vanco IV as causes) Follow cultures Follow clinically. d/w clinically improving and completed treatment for current infections. If any change in clinical condition overnight please call me back. jermain RN Will follow prn please call back if any change in clinical condition or questions. Kelsie Ahn MD Feb 07, 2017 16:52
[2017-02-07] MEDS ORDERED: FLUCONAZOLE 200 MG TAB PO SCH (17:00)
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
[2017-02-08] VITALS (14 sets, daily range): BP systolic 107–121; BP diastolic 49–68; PULSE 84–94; RESP 20–33; TEMP 99.1–100.3; O2SAT 94–100
[2017-02-08] MEDS: CHLORHEXIDINE GLUCONATE 2 % 1 PACK (2 CLOTHS) TOP SCH (04:00)
--- NOTE | 2017-02-08 05:06 | RADRPT ---
EXAM DATE/TIME: 02/08/2017 04:01 [facility] COMPARISON: CHEST SINGLE AP, February 07, 2017, 4:56. INDICATIONS : Short of breath. MEDICAL HISTORY : None. SURGICAL HISTORY : Hysterectomy. Mastectomy, bilateral. Bladder augmentation. ENCOUNTER: Subsequent ACUITY: 3 weeks PAIN SCORE: 0/10 LOCATION: Bilateral chest FINDINGS: A single AP semierect view of the chest was obtained and again demonstrates the right-sided chest tub e in place. The previously noted pneumothorax is no longer visualized. The tracheostomy tube and righ t subclavian central venous line remain in place. The heart size remains at the upper limits of patsy l. Bibasilar and left perihilar opacities remain. There are bilateral effusions. There are multiple o verlying electrocardiogram leads and oxygen tubing. Multiple left rib fractures are visualized. CONCLUSION: 1. Right-sided chest tube remains in place with no visualized pneumothorax 2. Hazy opacity remains at the lung bases and left perihilar region. Vipin Jasso MD on February 08, 2017 at 5:03 Board Certified Radiologist. This report was verified electronically.
[2017-02-08] MEDS: FREE WATER G-TUBE SCH ×3 (06:00→21:34)
[2017-02-08] MEDS: AMANTADINE HCL 100 MG CAP PO SCH ×2 (07:00→13:10)
[2017-02-08] MEDS: REMOVE OLD LIDOCAINE PATCH T-DERMAL SCH (09:00)
[2017-02-08] MEDS: SODIUM CHLORIDE 0.9% FLUSH 5 ML FLUSH IVF SCH ×2 (09:00→21:00)
[2017-02-08] MEDS: POTASSIUM CHLORIDE 25 MEQ EFFERVESCENT TAB PO SCH (10:26)
[2017-02-08] MEDS: LACTULOSE SYRUP 20 GM/30 ML CUP PO SCH (10:26)
[2017-02-08] MEDS: CHOLECALCIFEROL (VIT D3) 1000 UNIT TAB PO SCH (10:27)
[2017-02-08] MEDS: ENOXAPARIN SODIUM 40 MG/0.4 ML SYRINGE SQ SCH (10:27)
[2017-02-08] MEDS: FUROSEMIDE 20 MG TAB PO SCH (10:27)
[2017-02-08] MEDS: DOCUSATE SODIUM 50 MG/SENNA 8.6 MG TAB PO SCH ×2 (10:27→21:30)
[2017-02-08] MEDS: VALPROIC ACID SYRUP 250 MG/5 ML UDC PO SCH ×2 (10:27→21:30)
[2017-02-08] MEDS: LIDOCAINE HCL 5% PATCH T-DERMAL SCH (10:28)
[2017-02-08] MEDS: BACITRACIN TOP OINT 15 GM TUBE TOPICAL SCH ×2 (10:29→21:31)
[2017-02-08] MEDS: PANTOPRAZOLE SODIUM 40 MG VIAL IV SCH (10:29)
[2017-02-08] MEDS: ZINC OXIDE 20% OINT 30 GM TUBE TOPICAL SCH ×2 (10:29→21:00)
[2017-02-08] MEDS: CHLORHEXIDINE 0.12% (ORAL KIT) 15 ML CUP MT SCH ×2 (10:29→21:34)
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
[2017-02-08] MEDS: ACETAMINOPHEN/HYDROcodone 325 MG/7.5 MG TAB PO PRN ×2 (13:10→21:59)
[2017-02-09] VITALS (11 sets, daily range): BP systolic 103–132; BP diastolic 51–61; PULSE 88–101; RESP 20–29; TEMP 99.1–100.9; O2SAT 96–100
[2017-02-09] MEDS: CHLORHEXIDINE GLUCONATE 2 % 1 PACK (2 CLOTHS) TOP SCH (04:00)
[2017-02-09] MEDS: ACETAMINOPHEN/HYDROcodone 325 MG/10 MG TAB PO PRN (04:29)
[2017-02-09] MEDS: FREE WATER G-TUBE SCH ×3 (05:47→21:03)
[2017-02-09] MEDS: AMANTADINE HCL 100 MG CAP PO SCH ×2 (07:00→11:48)
--- NOTE | 2017-02-09 08:54 | HHI.PR ---
Neuropsych Emotional Emotional: UnabletoAssess: Emotional, Anxious/Fearful, Depressed/Sad, Hostile/ Resentful, Irritable/Angry/Frustrate, Labile, Constricted/Blunted Behavior Behavior: Intact: Impulsive/Agitated Cognitive Cognitive: Unable to Asses: Cognitive, Attention/Concentration, Confused/ Orientation, Insight/Awareness, Judgement/Problem-Solving, Memory Psychosocial Psychosocial: Unable to Asses: Psychosocial, Family/Other Adjustment, Realistic Expectation, Self-Esteem/Confidence Progress Notes/Response to Tx Contents of Sessions: Adjustment, Level of Consciousness Time with Patient: 15 minutes Premorbid psychological status Premorbid Cognitive, Emotional and Behavioral Status: Unable to Assess. The patient is unable to provide information concerning her social history and there is no family present. Behavioral Reactions of Patient and Family/Support System: Unable to Assess. No family present. Emotional/Behavioral Status of Patient and Family/Support System: Unable to Assess. Pertinent issues, if appropriate to this patients clinical care, are described in detail above. Maximizing acute care outcome It is recommended that the patient be monitored for emergent behavioral impulsivity as the medical condition evolves. This patients neuropathological challenges may limit their rehabilitation potential going forward, and these challenges will require specialized therapeutic skills to maximize outcome. Anticipated Problems Ongoing areas of concern will include behavioral impulsivity, lack of insight and judgment, which is expected to improve with time and treatment. Presently , the patient intubated and sedated. Treatment Plan This clinician will continue to follow with you throughout the course of this patients acute care treatment, and I will be available to meet with the patient s family/support system to facilitate their understanding and the ongoing care of their family member. The goals of neuropsychological intervention shall be both educational and supportive to the family/support system as is deemed clinically appropriate. [facility] Level: V:Confused-non agitated Impression This 66 year old woman suffered a moderately severe traumatic brain injury, with the resulting eventual sequelae exacerbated by her age. She is expected to have residual neurocognitive disorder 2T TBI. Diagnosis: (1) Major neurocognitive disorder as late effect of traumatic brain injury without behavioral disturbance Status: Acute Progress Note Narrative Ongoing follow-up of patient seen during daily trauma rounds. This is day 23 post injury. The patient remains awake, moving but not following commands, although RN noted that with significant effort she will respond to questions. From a neurobehavioral standpoint, it remains trauma team consensus to maintain her present medication regimen to Amantadine 100 q0700 and 1200, Valproic Acid 250 BID. RN was concerned about her psychiatric history, and trauma team discussed plan in light of her history. She continues to be considered a [place]. I will continue to follow. Vargas Lorenzo PhD Feb 09, 2017 8:53 am
[2017-02-09] MEDS: ZINC OXIDE 20% OINT 30 GM TUBE TOPICAL SCH ×2 (09:00→20:43)
[2017-02-09] MEDS: SODIUM CHLORIDE 0.9% FLUSH 5 ML FLUSH IVF SCH ×2 (09:00→20:42)
[2017-02-09] MEDS: REMOVE OLD LIDOCAINE PATCH T-DERMAL SCH (09:00)
[2017-02-09] MEDS: LACTULOSE SYRUP 20 GM/30 ML CUP PO SCH (10:10)
[2017-02-09] MEDS: VALPROIC ACID SYRUP 250 MG/5 ML UDC PO SCH ×2 (10:10→21:06)
[2017-02-09] MEDS: POTASSIUM CHLORIDE 25 MEQ EFFERVESCENT TAB PO SCH (10:10)
[2017-02-09] MEDS: CHLORHEXIDINE 0.12% (ORAL KIT) 15 ML CUP MT SCH ×2 (10:10→20:41)
[2017-02-09] MEDS: CHOLECALCIFEROL (VIT D3) 1000 UNIT TAB PO SCH (10:11)
[2017-02-09] MEDS: FUROSEMIDE 20 MG TAB PO SCH (10:11)
[2017-02-09] MEDS: DOCUSATE SODIUM 50 MG/SENNA 8.6 MG TAB PO SCH ×2 (10:11→20:42)
[2017-02-09] MEDS: FAMOTIDINE 20 MG TAB PO SCH ×2 (10:11→21:06)
[2017-02-09] MEDS: BACITRACIN TOP OINT 15 GM TUBE TOPICAL SCH ×2 (10:11→20:43)
[2017-02-09] MEDS: LIDOCAINE HCL 5% PATCH T-DERMAL SCH (10:12)
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
[2017-02-09] MEDS: ENOXAPARIN SODIUM 40 MG/0.4 ML SYRINGE SQ SCH (11:48)
[2017-02-09] MEDS ORDERED: BACI500O2 TOPICAL (13:00)
[2017-02-09] MEDS ORDERED: LIDO5DIS5 T-DERMAL (13:00)
[2017-02-09] MEDS ORDERED: CHLO.12%30 MT (13:00)
[2017-02-09] MEDS ORDERED: ERGO1CAP30 PO (13:00)
[2017-02-09] MEDS ORDERED: ZINC20OI TOPICAL (13:00)
[2017-02-09] MEDS ORDERED: VITA1000 PO (13:00)
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
[2017-02-09] MEDS: ACETAMINOPHEN 1000 MG/100 ML VIAL IV PRN (14:13)
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
[2017-02-09] MEDS: ACETAMINOPHEN/HYDROcodone 325 MG/7.5 MG TAB PO PRN (17:29)
--- NOTE | 2017-02-09 18:16 | HHI.IDPN ---
Subjective [email or web address] 66[facility]year[facility] female with multiple med problems was brought in on 01/17 by EMS with GCS 14, Her initial blood pressure was palpable systolic 80, she is tachycardic, she has a flail chest on the left side, she was orotracheally intubated by anesthesia,sp left chest tube thoracostomy was performed, Her evaluation revealed multiple rib fractures on the left side, multiple pelvic fractures, has a large degloving for left thigh, large open wound of her left thorax, open wound of her right scalp, Currently followed by ID for Possible infected degloving injury of thigh, Pneumonia. Overnight events reviewed. Tmax and Tc 101.3 F Diarrhea liquid stool with laxatives on board. [place]ign[place] for wound care and prevention of infection. Wound vac in place with sanguinous discharge. Trach site ok. Thin small amount of secretions. ETT secretions are thick esquivel moderate amount. Right CT removed today. Tolerates tube feeds at goal Does not follow commands for me Antibiotics None Lines Line sites with no e.o infection. Past Medical History reviewed. Allergies: Coded Allergies: Sulfa (Verified Allergy, Intermediate, "BLOOD COUNT DROPS", 12/29/16) *MDRO Multi-Drug Resistant Organism (Verified Adverse Reaction, Unknown, ) VRE (urine) 01/19/17 Codeine (Verified Adverse Reaction, Unknown, ITCHING, 12/29/16) Objective . Vital Signs Date Time Temp Pulse Resp B/P Pulse Ox O2 Delivery O2 Flow Rate FiO2 02/09/17 14:00 100 02/09/17 12:00 100.9 95 26 128/61 98 02/09/17 12:00 95 02/09/17 10:00 92 02/09/17 08:00 100.2 88 22 132/60 98 02/09/17 08:00 88 02/09/17 07:00 97 T-Piece 28 02/09/17 04:00 99.1 94 20 122/59 100 02/09/17 00:00 99.1 88 20 103/51 100 02/09/17 00:00 88 02/08/17 22:00 94 02/08/17 20:13 99 T-piece 6.00 28 02/08/17 20:00 100.3 94 22 115/56 100 02/08/17 20:00 94 02/08/17 20:00 98 T-Piece 28 02/08/17 02/08/17 02/09/17 14:59 22:59 06:59 Intake Total 761 ml 562 ml 542 ml Output Total 790 ml 590 ml 709 ml Balance -29 ml -28 ml -167 ml Tube Feeding 331 ml 342 ml 322 ml Tube Irrigant 230 ml Other 200 ml 220 ml 220 ml Output Urine Total 600 ml 500 ml 575 ml Stool Total 150 ml 50 ml 50 ml Chest Tube Drainage Total 40 ml 40 ml 84 ml Imaging Last Impressions Chest X-Ray 02/03/17 0600 Signed Impressions: Service Date/Time: Friday, February 03, 2017 04:10 - CONCLUSION: New small left pleural effusion and new patchy right lung base opacity. No change in left lung base opacity. Sg Nobles MD Head CT 02/01/17 1002 Signed Impressions: Service Date/Time: Wednesday, February 01, 2017 12:58 - CONCLUSION: 1. Stable minimal acute intraventricular hemorrhage with very minimal improvement of the acute subarachnoid hemorrhage within the high parietal regions. 2. Underlying cerebral atrophy. 3. No midline shift identified. 4. Mucosal thickening involving the left maxillary sinus and left facial bone fractures. Tigre Willis MD Knee X-Ray 01/31/17 0000 Signed Impressions: Service Date/Time: Tuesday, January 31, 2017 12:45 - CONCLUSION: Status post ORIF of left proximal tibial fracture with hardware in good position. Tigre Willis MD Lumbar Spine MRI 01/27/17 0000 Signed Impressions: Service Date/Time: Friday, January 27, 2017 17:34 - CONCLUSION: L1 compression fracture with moderate loss of vertebral body height and this is stable. This is acute with marrow edema. No associated canal compromise. Nonacute T11 and T12 superior endplate compression deformities. Bilateral hydronephrosis. Elvis Sexton MD Cervical Spine MRI 01/27/17 0000 Signed Impressions: Service Date/Time: Friday, January 27, 2017 17:34 - CONCLUSION: 1. Degenerative changes are identified. The known C6 vertebral body fracture is not well evaluated on this study. Elvis Sexton MD Brain MRI 01/27/17 0000 Signed Impressions: Service Date/Time: Friday, January 27, 2017 17:34 - CONCLUSION: Subarachnoid and intraventricular hemorrhage as above. Elvis Sexton MD IVC Filter Placement X-Ray 01/20/17 0000 Signed Impressions: Service Date/Time: Friday, January 20, 2017 16:44 - CONCLUSION: Uncomplicated inferior vena cava filter placement as above. This is a retrievable filter and can be retrieved up to one year from today's date. Avinash Santana Jr., MD Neck CTA 01/18/17 0000 Signed Impressions: Service Date/Time: Wednesday, January 18, 2017 10:48 - CONCLUSION: 1. Atherosclerotic plaquing but no hemodynamically significant carotid artery stenosis identified. 2. Parenchymal contusion and consolidation involving the right lung apex. 3. ET tube in satisfactory position. Primo Sierra MD Maxillofacial CT 01/18/17 0000 Signed Impressions: Service Date/Time: Wednesday, January 18, 2017 10:48 - CONCLUSION: Left maxillary sinus fractures. K. Dipak Woods MD Lower Extremity CT 01/18/17 0000 Signed Impressions: Service Date/Time: January 04:26 - CONCLUSION: 1. Comminuted intra-articular fracture of the proximal tibia involving the lateral tibial condyle and intercondylar regions. 2. Lipo hemarthrosis. Sg Nobles MD Femur X-Ray 01/18/17 0000 Signed Impressions: Service Date/Time: Wednesday, January 18, 2017 20:57 - CONCLUSION: Negative for retained surgical isthmus. Other communicated to the operating room. Marques Sierra MD FACR Pelvis X-Ray 01/17/17 0745 Signed Impressions: Service Date/Time: Tuesday, January 17, 2017 07:38 - CONCLUSION: 1. Multiple pelvic fractures, as above. Hermann Arnold MD Upper Extremity CT 01/17/17 0000 Signed Impressions: Service Date/Time: Tuesday, January 17, 2017 10:22 - CONCLUSION: 1. Multiple mildly displaced fractures of the left scapula. 2. Status post ORIF of the proximal left humerus 3. No evidence of fracture dislocation involving the glenohumeral joint. 4. Multiple left-sided rib fractures with associated subcutaneous emphysema. 5. No evidence of significant left-sided pneumothorax. Jayden Aviles MD Tibia/Fibula X-Ray 01/17/17 Signed Impressions: Service Date/Time: Tuesday, January 17, 2017 07:38 - CONCLUSION: No acute fracture identified. Limited single view is provided. Primo Sierra MD Thoracic Spine CT 01/17/17 Signed Impressions: Service Date/Time: Tuesday, January 17, 2017 10:19 - CONCLUSION: Rib fractures, compression fracture of L1 vertebra, transverse fractures of lumbar spine discussed on the patient's prior CT examinations and the thoracic spine appears intact except for scattered degenerative changes. Hilary Woods MD Lumbar Spine CT 01/17/17 Signed Impressions: Service Date/Time: Tuesday, January 17, 2017 10:19 - CONCLUSION: 1. Compression fracture of mid body L1 with approximate 58%% reduction in height. 2. Multiple transverse process fractures, fractures of the sacrum and presacral hematoma discussed on the patient's prior CT pelvis. 3. No appreciable thecal sac stenosis is seen. Hilary Woods MD Foot X-Ray 01/17/17 Signed Impressions: Service Date/Time: Tuesday, January 17, 2017 15:20 - CONCLUSION: No definite fracture is seen for technique. Hilary Woods MD Chest CT 01/17/17 Signed Impressions: Service Date/Time: Tuesday, January 17, 2017 10:22 - CONCLUSION: 1. Bilateral rib fractures, left scapular fractures and tiny bilateral pneumothoraces. 2. Bilateral lung contusions and areas of consolidation right lower lung. Hilary Woods MD Cervical Spine CT 01/17/17 Signed Impressions: Service Date/Time: Tuesday, January 17, 2017 10:21 - CONCLUSION: Fracture of vertebral body of C6 with extension into the right foramen transversarium without any significant compromise to the thecal sac or the exiting nerve roots. Hilary Woods MD Ankle X-Ray 01/17/17 Signed Impressions: Service Date/Time: Tuesday, January 17, 2017 15:25 - CONCLUSION: Soft tissue swelling and no definite fracture for technique. Hilary Woods MD Abdomen/Pelvis CT 01/17/17 Signed Impressions: Service Date/Time: Tuesday, January 17, 2017 10:22 - CONCLUSION: 1. There is nonspecific free fluid within the abdomen and pelvis. No active arterial bleeding is identified. 2. There is a comminuted fracture of L1 which appears to represent a fairly severe compression fracture or possible burst fracture. The lamina and pedicle appear intact. There is no significant bony retropulsion. 3. Mild compression of the superior endplate of T12. 4. Fracture of both sacral ala. 5. Fracture of the anterior aspect of the right iliac wing. 6. Fracture of the superior and inferior sacral ala on the left. 7. Multiple lower rib fractures bilaterally. These will be more definitively assessed on CT imaging through the thorax. 8. Chest tube in place on the left with minimal residual pneumothorax. 9. Minimal pneumothorax on the right. 10. Consolidation/ contusion in both lower lobes. 11. Punctate collections of free air from the patient's laparotomy. Primo Sierra MD Physical Exam CONSTITUTIONAL/GENERAL: This is an adequately nourished patient, in no apparent distress. OOB in chair TUBES/LINES/DRAINS: SKIN: No jaundice, rashes, Multiple abrasions, healing Not diaphoretic. HEAD: Multiple extensive facial abrasions, healing Wound L parietal area healing OK EYES: Pupils equal and round and reactive. No scleral icterus. No injection or drainage. Fundi not examined. ENT: Hearing OK. Nose without bleeding or purulent drainage. NECK: C caollar in place; trach in place OK CARDIOVASCULAR: Regular rate and rhythm without murmurs, gallops, or rubs. No JVD. Peripheral pulses symmetric. RESPIRATORY/CHEST: Symmetric, unlabored respirations.fairly clear to auscultation. Breath sounds equal bilaterally. GASTROINTESTINAL: Abdomen soft, tender to palpation multiple abrasions, distended. No hepato-splenomegaly, or palpable masses. No guarding. Bowel sounds present. Midline incision with jenny in, clean GENITOURINARY: Without palpable bladder distension. Ochoa catheter in place with clear yellow urine MUSCULOSKELETAL: Extremities without clubbing, cyanosis, + edema. . No mottling or clubbing. L thigh brace, VAC dressing in place with serosang d/c NEUROLOGICAL: awake opens eyes spontaneously intermittently and to voice; makes eye contact and follows commands PSYCHIATRIC: calm Assessment & Plan Remarks Multi trauma LEFT SDH LEFT maxillary wall fx Head laceration LEFT scapula fx BILAT PTX LEFT rib fx (3,4,5 RIGHT rib fx (5,6,7) Bilateral lung contusion Chest degloving C6 vertebral body fx T11, compression fx T12 compression endplate fx L1 compression fx Pelvic fracture consisting of comminuted superior-inferior left ramus fracture, ala sacri fractures, right iliac crest fracture LEFT tibial plateau fx LEFT thigh extensive degloving degloving approximating about 5% total body surface area Sepsis, bacteremia Stenotrophomonas Port of entry could be her huge degloving injury or PNA Pneumonia Acinetobacter, Enterobacter in the settings of Bilateral lung contusion - also growing Stenotrophomonas VRE UTI sp completed tx Persistent fever - now higher Diarrhea new. Check Cdiff PCR Scalp wound grew out C. parapsilosis , likely colonization REC's: Given recent history of stenotrophomonas malto. Repeat blood cultures to document clearance as CL was in place during treatment. Central line DC'ed today. If Steno malto persists will need Doppler neck, ECHO and endocarditis workup. Follow CXR in am. Clinically not behaving like pneumonia not much secretions. Follow repeat blood cultures. Follow clinically. Other ID MDs covering for Dr. Pushpa Moseley starting tomorrow till 02/16/2017. Kelsie Ahn MD Feb 09, 2017 18:16
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
[2017-02-10] VITALS (14 sets, daily range): BP systolic 113–137; BP diastolic 54–62; PULSE 92–103; RESP 17–28; TEMP 97.9–101.7; O2SAT 85–100
[2017-02-10] MEDS: CHLORHEXIDINE GLUCONATE 2 % 1 PACK (2 CLOTHS) TOP SCH (00:02)
[2017-02-10] MEDS: ACETAMINOPHEN/HYDROcodone 325 MG/10 MG TAB PO PRN (00:25)
[2017-02-10] MEDS: FREE WATER G-TUBE SCH ×3 (06:00→22:00)
--- NOTE | 2017-02-10 06:26 | RADRPT ---
EXAM DATE/TIME: 02/10/2017 04:36 [facility] COMPARISON: CHEST SINGLE AP, February 08, 2017, 4:01. INDICATIONS : S/P CT removal. MEDICAL HISTORY : Carcinoma, breast. SURGICAL HISTORY : Hysterectomy. Mastectomy, bilateral. Bladder augmentation. ENCOUNTER: Subsequent ACUITY: 3 weeks PAIN SCORE: 0/10 LOCATION: Bilateral chest FINDINGS: The cardiac silhouette is enlarged in transverse diameter. There is bilateral lower lobe atelectasis versus pneumonia left greater than right. There is no evidence of pneumothorax. Multiple bilateral rib fractures are present.CONCLUSION: 1. There is no evidence of pneumothorax. Agustin Thomas MD on February 10, 2017 at 6:23 Board Certified Radiologist. This report was verified electronically.
[2017-02-10] MEDS: AMANTADINE HCL 100 MG CAP PO SCH ×2 (06:48→10:47)
[2017-02-10] MEDS: RESP: ALBUTEROL 2.5 MG/IPRATROPIUM 0.5 MG NEB (PRN) NEB (08:45)
[2017-02-10] MEDS: CHLORHEXIDINE GLUCONATE 0.12% 15 ML CUP SWISH-SPIT SCH ×2 (09:00→21:00)
[2017-02-10] MEDS: ZINC OXIDE 20% OINT 30 GM TUBE TOPICAL SCH ×2 (09:00→21:00)
[2017-02-10] MEDS: POTASSIUM CHLORIDE 25 MEQ EFFERVESCENT TAB PO SCH (09:00)
[2017-02-10] MEDS: SODIUM CHLORIDE 0.9% FLUSH 5 ML FLUSH IVF SCH ×2 (09:00→21:00)
[2017-02-10] MEDS: FUROSEMIDE 20 MG TAB PO SCH (10:47)
[2017-02-10] MEDS: FAMOTIDINE 20 MG TAB PO SCH ×2 (10:47→22:30)
[2017-02-10] MEDS: CHOLECALCIFEROL (VIT D3) 1000 UNIT TAB PO SCH (10:47)
[2017-02-10] MEDS: LACTULOSE SYRUP 20 GM/30 ML CUP PO SCH (10:47)
[2017-02-10] MEDS: ENOXAPARIN SODIUM 30 MG/0.3 ML SYRINGE SQ SCH ×2 (10:48→22:28)
[2017-02-10] MEDS: BACITRACIN TOP OINT 15 GM TUBE TOPICAL SCH ×2 (10:52→22:31)
[2017-02-10] MEDS: VALPROIC ACID SYRUP 250 MG/5 ML UDC PO SCH ×2 (10:55→22:29)
[2017-02-10] MEDS: DOCUSATE SODIUM 50 MG/SENNA 8.6 MG TAB PO SCH ×2 (11:16→22:30)
--- NOTE | 2017-02-10 13:25 | HHI.PR ---
Subjective Subjective Notes Discharged yesterday- Authorization pending for insurance RN at bedside reports no concerns Objective Vitals/I&O Vital Signs Date Time Temp Pulse Resp B/P Pulse Ox O2 Delivery O2 Flow Rate FiO2 02/10/17 10:00 95 T-piece 40 02/10/17 08:00 100.2 100 23 137/62 02/08/17 20:13 6.00 Labs Laboratory Tests Test 02/09/17 14:20 Procalcitonin 0.13 Radiology Last Impressions Chest X-Ray 02/10/17 0000 Signed Impressions: Service Date/Time: Friday, February 10, 2017 04:36 - CONCLUSION: 1. There is no evidence of pneumothorax. Agustin Thomas MD Head CT 02/01/17 1002 Signed Impressions: Service Date/Time: Wednesday, February 01, 2017 12:58 - CONCLUSION: 1. Stable minimal acute intraventricular hemorrhage with very minimal improvement of the acute subarachnoid hemorrhage within the high parietal regions. 2. Underlying cerebral atrophy. 3. No midline shift identified. 4. Mucosal thickening involving the left maxillary sinus and left facial bone fractures. Tigre Willis MD Knee X-Ray 01/31/17 0000 Signed Impressions: Service Date/Time: Tuesday, January 31, 2017 12:45 - CONCLUSION: Status post ORIF of left proximal tibial fracture with hardware in good position. Tigre Willis MD Lumbar Spine MRI 01/27/17 0000 Signed Impressions: Service Date/Time: Friday, January 27, 2017 17:34 - CONCLUSION: L1 compression fracture with moderate loss of vertebral body height and this is stable. This is acute with marrow edema. No associated canal compromise. Nonacute T11 and T12 superior endplate compression deformities. Bilateral hydronephrosis. Elvis Sexton MD Cervical Spine MRI 01/27/17 0000 Signed Impressions: Service Date/Time: Friday, January 27, 2017 17:34 - CONCLUSION: 1. Degenerative changes are identified. The known C6 vertebral body fracture is not well evaluated on this study. Elvis Sexton MD Brain MRI 01/27/17 0000 Signed Impressions: Service Date/Time: Friday, January 27, 2017 17:34 - CONCLUSION: Subarachnoid and intraventricular hemorrhage as above. Elvis Sexton MD IVC Filter Placement X-Ray 01/20/17 0000 Signed Impressions: Service Date/Time: Friday, January 20, 2017 16:44 - CONCLUSION: Uncomplicated inferior vena cava filter placement as above. This is a retrievable filter and can be retrieved up to one year from today's date. Avinash Santana Jr., MD Neck CTA 01/18/17 0000 Signed Impressions: Service Date/Time: Wednesday, January 18, 2017 10:48 - CONCLUSION: 1. Atherosclerotic plaquing but no hemodynamically significant carotid artery stenosis identified. 2. Parenchymal contusion and consolidation involving the right lung apex. 3. ET tube in satisfactory position. Primo Sierra MD Maxillofacial CT 01/18/17 0000 Signed Impressions: Service Date/Time: Wednesday, January 18, 2017 10:48 - CONCLUSION: Left maxillary sinus fractures. K. Dipak Woods MD Lower Extremity CT 01/18/17 0000 Signed Impressions: Service Date/Time: January 04:26 - CONCLUSION: 1. Comminuted intra-articular fracture of the proximal tibia involving the lateral tibial condyle and intercondylar regions. 2. Lipo hemarthrosis. Sg Nobles MD Femur X-Ray 01/18/17 Signed Impressions: Service Date/Time: Wednesday, January 18, 2017 20:57 - CONCLUSION: Negative for retained surgical isthmus. Other communicated to the operating room. Marques Sierra MD FACR Pelvis X-Ray 01/17/17 0745 Signed Impressions: Service Date/Time: Tuesday, January 17, 2017 07:38 - CONCLUSION: 1. Multiple pelvic fractures, as above. Hermann Arnold MD Upper Extremity CT 01/17/17 0000 Signed Impressions: Service Date/Time: Tuesday, January 17, 2017 10:22 - CONCLUSION: 1. Multiple mildly displaced fractures of the left scapula. 2. Status post ORIF of the proximal left humerus 3. No evidence of fracture dislocation involving the glenohumeral joint. 4. Multiple left-sided rib fractures with associated subcutaneous emphysema. 5. No evidence of significant left-sided pneumothorax. Jayden Aviles MD Tibia/Fibula X-Ray 01/17/17 0000 Signed Impressions: Service Date/Time: Tuesday, January 17, 2017 07:38 - CONCLUSION: No acute fracture identified. Limited single view is provided. Primo Sierra MD Thoracic Spine CT 01/17/17 Signed Impressions: Service Date/Time: Tuesday, January 17, 2017 10:19 - CONCLUSION: Rib fractures, compression fracture of L1 vertebra, transverse fractures of lumbar spine discussed on the patient's prior CT examinations and the thoracic spine appears intact except for scattered degenerative changes. Hilary Woods MD Lumbar Spine CT 01/17/17 Signed Impressions: Service Date/Time: Tuesday, January 17, 2017 10:19 - CONCLUSION: 1. Compression fracture of mid body L1 with approximate 58%% reduction in height. 2. Multiple transverse process fractures, fractures of the sacrum and presacral hematoma discussed on the patient's prior CT pelvis. 3. No appreciable thecal sac stenosis is seen. Hilary Woods MD Foot X-Ray 01/17/17 Signed Impressions: Service Date/Time: Tuesday, January 17, 2017 15:20 - CONCLUSION: No definite fracture is seen for technique. Hilary Woods MD Chest CT 01/17/17 Signed Impressions: Service Date/Time: Tuesday, January 17, 2017 10:22 - CONCLUSION: 1. Bilateral rib fractures, left scapular fractures and tiny bilateral pneumothoraces. 2. Bilateral lung contusions and areas of consolidation right lower lung. Hilary Woods MD Cervical Spine CT 01/17/17 Signed Impressions: Service Date/Time: Tuesday, January 17, 2017 10:21 - CONCLUSION: Fracture of vertebral body of C6 with extension into the right foramen transversarium without any significant compromise to the thecal sac or the exiting nerve roots. Hilary Woods MD Ankle X-Ray 01/17/17 Signed Impressions: Service Date/Time: Tuesday, January 17, 2017 15:25 - CONCLUSION: Soft tissue swelling and no definite fracture for technique. Hilary Woods MD Abdomen/Pelvis CT 01/17/17 Signed Impressions: Service Date/Time: Tuesday, January 17, 2017 10:22 - CONCLUSION: 1. There is nonspecific free fluid within the abdomen and pelvis. No active arterial bleeding is identified. 2. There is a comminuted fracture of L1 which appears to represent a fairly severe compression fracture or possible burst fracture. The lamina and pedicle appear intact. There is no significant bony retropulsion. 3. Mild compression of the superior endplate of T12. 4. Fracture of both sacral ala. 5. Fracture of the anterior aspect of the right iliac wing. 6. Fracture of the superior and inferior sacral ala on the left. 7. Multiple lower rib fractures bilaterally. These will be more definitively assessed on CT imaging through the thorax. 8. Chest tube in place on the left with minimal residual pneumothorax. 9. Minimal pneumothorax on the right. 10. Consolidation/ contusion in both lower lobes. 11. Punctate collections of free air from the patient's laparotomy. Primo Sierra MD Narrative Exam GENERAL: 66-year-old well-nourished, well developed female lying in bed with LEAN PROCESS DEPLOYMENT CONSULTANT in place. SKIN: Warm and dry. HEAD: Normocephalic. ENT: No nasal bleeding or discharge. Mucous membranes pink and moist. NECK: Trachea midline. No JVD. CARDIOVASCULAR: Regular rate and rhythm. RESPIRATORY: No accessory muscle use. Lungs clear and diminished to auscultation. Breath sounds equal bilaterally. GASTROINTESTINAL: Abdomen soft, non-tender, nondistended. + BS. MUSCULOSKELETAL: Extremities without cyanosis, or edema. LEFT thigh DEE DEE wrap in place. Right foot abrasions noted. LUE sling in place. NEUROLOGICAL: Lethargic. Does not follow commands. A/P Assessment and Plan INJURIES: LEFT SDH ? LEFT maxillary wall fx Scalp avulsion LEFT scapula fx BILAT PTX LEFT rib fx (3,4,5 RIGHT rib fx (5,6,7) Bilateral lung contusion Chest degloving C6 vertebral body fx T11, compression fx T12 compression endplate fx L1 compression fx Extensive pelvic fractures Free fluid in the abdomen Tibia plateau fx with LEFT thigh degloving 01/17: Ex lap 01/18: Exploration of large LEFT thigh wound w/ active bleeding 01/20: Debridement of wounds in OR 01/20: IVC filter placement 01/24: RIGHT CT placed for effusion; LEFT thigh debridement with wound vac placement 01/27: LEFT thigh I&D with wound vac change 01/31: LEFT thigh I&D and vac change. ORIF LEFT tibial platuea fx 01/31: LEAN PROCESS DEPLOYMENT CONSULTANT placement 02/01: PEG 02/03: LEFT thigh I&D, split thickness skin graft 02/08: RIGHT CT removed Diet: Vital @ 50 cc/hr, Free water 200mL q 8 Pulm: T-collar. PRN Nebs. Pain: [place] Activity: OOB. PT and OT ordered. (NWB LUE; NWB LLE; WBAT RLE) GI: Pepcid Bowel: Colace. Lactulose. MOM. Senna. Bisacodyl. LBM: 02/08 DVT: SCD's. Lovenox 30 BID LEFT SDH, C6 fx, T11 compression fx, T12 compression endplate fx, L1 compression fx Neurosurgery consulted Nonoperative management TLSO brace when more mobile OOBPT and OT ordered Pain control Neuropsychologist consulted Valproic 250 BID for agitation Amantadine 100 BID Scalp avulsion Repaired in OR- jenny removed No Plastics coverage Supportive care LEFT scapula fx, Extensive pelvic fractures Orthopedic consulted Nonoperative management Pain control OOBPT/OT Maintain LUE sling NWB LUE, NWB LLE, WBAT RLE BILAT PTX, BILAT rib fxs, BILAT lung contusions 01/24: RIGHT CT placed for effusion 02/08: RIGHT CT removed Supportive care Pulmonary toileting Pain control OOBPT Chest degloving 01/20: Debridement of wounds Wound vacs DC'd Daily wet to dry dressing changes Free fluid in the abdomen Negative ex-lap Supportive care Tibia plateau fx with LEFT thigh degloving Orthopedics consulted 01/18: Exploration of large LEFT thigh wound w/ active bleeding 01/20: Debridement of wounds in OR 01/24: LEFT thigh debridement with wound vac placement 01/27: LEFT thigh I&D with wound vac change 01/31: LEFT thigh I&D and vac change. ORIF LEFT tibial plateau fx 02/03: LEFT thigh I&D, split thickness skin graft Pain control Recommend keeping Ochoa catheter and Dignishield in place to prevent contamination of skin graft on left thigh Orthopedic cleared for discharge Plan of care discussed with nurse at bedside. Patient is clear from trauma surgery standpoint to discharge to inpatient rehabilitation. Discharge pending insurance authorization. Remarks seen and examined with FIELD WORKER-agree with assessment and plan multi trauma ?hypoactive delirium on valproic acid Fish Snider Feb 10, 2017 13:24 Fabi Martin MD Feb 10, 2017 17:37
[2017-02-10] MEDS: REMOVE OLD LIDOCAINE PATCH T-DERMAL SCH (17:32)
[2017-02-10] MEDS: LIDOCAINE HCL 5% PATCH T-DERMAL SCH (17:32)
[2017-02-11] VITALS (8 sets, daily range): BP systolic 110–134; BP diastolic 54–62; PULSE 91–100; RESP 17–24; TEMP 98.5–99.6; O2SAT 92–96
[2017-02-11] MEDS: FREE WATER G-TUBE SCH ×3 (04:40→22:00)
[2017-02-11] MEDS: AMANTADINE HCL 100 MG CAP PO SCH ×2 (04:41→13:13)
--- NOTE | 2017-02-11 05:51 | RADRPT ---
EXAM DATE/TIME: 02/11/2017 04:51 [facility] COMPARISON: CHEST SINGLE AP, February 10, 2017, 4:36. INDICATIONS : Shortness of breath MEDICAL HISTORY : Carcinoma, breast. SURGICAL HISTORY : Hysterectomy. Mastectomy, bilateral. Bladder augmentation ENCOUNTER: Subsequent ACUITY: 3 weeks PAIN SCORE: Non-responsive. LOCATION: Bilateral chest FINDINGS: The cardiac silhouette is enlarged in transverse diameter. A tracheostomy tube is in place in the mid line. There is bilateral lower lobe atelectasis versus pneumonia. Small bilateral pleural effusions a re identified. CONCLUSION: 1. Worsening bibasilar atelectasis and effusions Agustin Thomas MD on February 11, 2017 at 5:49 Board Certified Radiologist. This report was verified electronically.
[2017-02-11 06:18] LABS: AUTOMATED NEUTROPHIL # 8.1 TH/MM3 (1.8-7.7); BASOPHIL # 0.1 TH/MM3 (0-0.2); BASOPHIL % 0.7 % (0.0-2.0); EOSINOPHIL # 0.4 TH/MM3 (0-0.4); EOSINOPHIL % 3.2 % (0.0-4.0); HEMATOCRIT 30.2 % (35.0-46.0); LYMPH % 16.8 % (9.0-44.0); LYMPHOCYTE # 2.1 TH/MM3 (1.0-4.8); MEAN CELL VOLUME 91.9 FL (80.0-100.0); MEAN CORPUSCULAR HEMOGLOBIN 29.6 PG (27.0-34.0); MEAN CORPUSCULAR HGB CONC 32.2 % (32.0-36.0); MONO % 15.8 % (0.0-8.0); NEUT % 63.5 % (16.0-70.0); PLATELET COUNT 225 TH/MM3 (150-450); RED BLOOD COUNT 3.29 MIL/MM3 (4.00-5.30); RED CELL DISTRIBUTION WIDTH 18.6 % (11.6-17.2); WHITE BLOOD COUNT 12.7 TH/MM3 (4.0-11.0)
[2017-02-11 06:29] LABS: HEMO FLAGS AUTO DIFF
[2017-02-11 06:33] LABS: BICARBONATE 27.8 MEQ/L (21.0-32.0); POTASSIUM 4.3 MEQ/L (3.5-5.1)
[2017-02-11 08:15] LABS: BANDS 8 % (0-6); EOSINOPHILS 3 % (0-4); METAMYELOCYTES 4 % (0-1); MYELOCYTES 2 % (0-0); NEUTROPHIL # MANUAL DIFF 8.4 TH/MM3 (1.8-7.7); PLATELET ESTIMATE SMEAR NORMAL (NORMAL); PLATELET MORPHOLOGY ENLARGED (NORMAL); POLYS (SEG NEUTROPHILS) 52 % (16-70); WBC DIFF SAMPLE 100
[2017-02-11 08:16] LABS: SCAN/DIFF FINAL DIFF MANUAL
[2017-02-11] MEDS: SODIUM CHLORIDE 0.9% FLUSH 5 ML FLUSH IVF SCH ×2 (08:38→21:00)
[2017-02-11] MEDS: LIDOCAINE HCL 5% PATCH T-DERMAL SCH (08:40)
[2017-02-11] MEDS: VALPROIC ACID SYRUP 250 MG/5 ML UDC PO SCH ×2 (08:42→22:38)
[2017-02-11] MEDS: DOCUSATE SODIUM 50 MG/SENNA 8.6 MG TAB PO SCH ×2 (08:42→22:38)
[2017-02-11] MEDS: LACTULOSE SYRUP 20 GM/30 ML CUP PO SCH (08:42)
[2017-02-11] MEDS: CHOLECALCIFEROL (VIT D3) 1000 UNIT TAB PO SCH (08:42)
[2017-02-11] MEDS: FAMOTIDINE 20 MG TAB PO SCH ×2 (08:42→22:38)
[2017-02-11] MEDS: POTASSIUM CHLORIDE 25 MEQ EFFERVESCENT TAB PO SCH (08:42)
[2017-02-11] MEDS: ENOXAPARIN SODIUM 30 MG/0.3 ML SYRINGE SQ SCH ×2 (08:43→22:38)
[2017-02-11] MEDS: FUROSEMIDE 20 MG TAB PO SCH (08:43)
[2017-02-11] MEDS: BACITRACIN TOP OINT 15 GM TUBE TOPICAL SCH ×2 (08:43→22:39)
[2017-02-11] MEDS: ZINC OXIDE 20% OINT 30 GM TUBE TOPICAL SCH ×2 (08:44→21:00)
[2017-02-11] MEDS: REMOVE OLD LIDOCAINE PATCH T-DERMAL SCH (08:55)
[2017-02-11] MEDS: CHLORHEXIDINE GLUCONATE 0.12% 15 ML CUP SWISH-SPIT SCH ×2 (08:55→21:00)
--- NOTE | 2017-02-11 12:32 | HHI.PR ---
Subjective Subjective Notes more awake today,eyes open tracking Objective Vitals/I&O Vital Signs Date Time Temp Pulse Resp B/P Pulse Ox O2 Delivery O2 Flow Rate FiO2 02/11/17 09:56 93 T-piece 4.00 40 02/11/17 08:00 99.1 91 19 117/55 Labs Laboratory Tests Test 02/11/17 05:49 White Blood Count 12.7 Red Blood Count 3.29 Hemoglobin 9.7 Hematocrit 30.2 Mean Corpuscular Volume 91.9 Mean Corpuscular Hemoglobin 29.6 Mean Corpuscular Hemoglobin 32.2 Concent Red Cell Distribution Width 18.6 Platelet Count 225 Mean Platelet Volume 11.2 Neutrophils (%) (Auto) 63.5 Lymphocytes (%) (Auto) 16.8 Monocytes (%) (Auto) 15.8 Eosinophils (%) (Auto) 3.2 Basophils (%) (Auto) 0.7 Neutrophils # (Auto) 8.1 Lymphocytes # (Auto) 2.1 Monocytes # (Auto) 2.0 Eosinophils # (Auto) 0.4 Basophils # (Auto) 0.1 CBC Comment AUTO DIFF Differential Total Cells 100 Counted Neutrophils % (Manual) 52 Band Neutrophils % 8 Lymphocytes % 13 Monocytes % 18 Eosinophils % 3 Neutrophils # (Manual) 8.4 Metamyelocytes 4 Myelocytes 2 Differential Comment FINAL DIFF MANUAL Atypical Lymphocytes Platelet Estimate NORMAL Platelet Morphology Comment ENLARGED Sodium Level 137 Potassium Level 4.3 Chloride Level 100 Carbon Dioxide Level 27.8 Anion Gap 9 Blood Urea Nitrogen 19 Creatinine 0.41 Estimat Glomerular Filtration 154 Rate Random Glucose 114 Calcium Level 7.7 Date/Time Procedure Status Source Growth 02/10/17 22:28 Aerobic Blood Culture - Preliminary Resulted Blood Peripheral NO GROWTH IN 1 DAY 02/10/17 22:28 Anaerobic Blood Culture - Preliminary Resulted Blood Peripheral NO GROWTH IN 1 DAY Radiology Last Impressions Chest X-Ray 02/10/17 0000 Signed Impressions: Service Date/Time: Friday, February 10, 2017 04:36 - CONCLUSION: 1. There is no evidence of pneumothorax. Agustin Thomas MD Head CT 02/01/17 1002 Signed Impressions: Service Date/Time: Wednesday, February 01, 2017 12:58 - CONCLUSION: 1. Stable minimal acute intraventricular hemorrhage with very minimal improvement of the acute subarachnoid hemorrhage within the high parietal regions. 2. Underlying cerebral atrophy. 3. No midline shift identified. 4. Mucosal thickening involving the left maxillary sinus and left facial bone fractures. Tigre Willis MD Knee X-Ray 01/31/17 0000 Signed Impressions: Service Date/Time: Tuesday, January 31, 2017 12:45 - CONCLUSION: Status post ORIF of left proximal tibial fracture with hardware in good position. Tigre Willis MD Lumbar Spine MRI 01/27/17 0000 Signed Impressions: Service Date/Time: Friday, January 27, 2017 17:34 - CONCLUSION: L1 compression fracture with moderate loss of vertebral body height and this is stable. This is acute with marrow edema. No associated canal compromise. Nonacute T11 and T12 superior endplate compression deformities. Bilateral hydronephrosis. Elvis Sexton MD Cervical Spine MRI 01/27/17 0000 Signed Impressions: Service Date/Time: Friday, January 27, 2017 17:34 - CONCLUSION: 1. Degenerative changes are identified. The known C6 vertebral body fracture is not well evaluated on this study. Elvis Sexton MD Brain MRI 01/27/17 0000 Signed Impressions: Service Date/Time: Friday, January 27, 2017 17:34 - CONCLUSION: Subarachnoid and intraventricular hemorrhage as above. Elvis Sexton MD IVC Filter Placement X-Ray 01/20/17 0000 Signed Impressions: Service Date/Time: Friday, January 20, 2017 16:44 - CONCLUSION: Uncomplicated inferior vena cava filter placement as above. This is a retrievable filter and can be retrieved up to one year from today's date. Avinash Santana Jr., MD Neck CTA 01/18/17 0000 Signed Impressions: Service Date/Time: Wednesday, January 18, 2017 10:48 - CONCLUSION: 1. Atherosclerotic plaquing but no hemodynamically significant carotid artery stenosis identified. 2. Parenchymal contusion and consolidation involving the right lung apex. 3. ET tube in satisfactory position. Primo Sierra MD Maxillofacial CT 01/18/17 0000 Signed Impressions: Service Date/Time: Wednesday, January 18, 2017 10:48 - CONCLUSION: Left maxillary sinus fractures. Hilary Woods MD Lower Extremity CT 01/18/17 0000 Signed Impressions: Service Date/Time: January 04:26 - CONCLUSION: 1. Comminuted intra-articular fracture of the proximal tibia involving the lateral tibial condyle and intercondylar regions. 2. Lipo hemarthrosis. Sg Nobles MD Femur X-Ray 01/18/17 0000 Signed Impressions: Service Date/Time: Wednesday, January 18, 2017 20:57 - CONCLUSION: Negative for retained surgical isthmus. Other communicated to the operating room. Marques Sierra MD FACR Pelvis X-Ray 01/17/17 0745 Signed Impressions: Service Date/Time: Tuesday, January 17, 2017 07:38 - CONCLUSION: 1. Multiple pelvic fractures, as above. Hermann Arnold MD Upper Extremity CT 01/17/17 0000 Signed Impressions: Service Date/Time: Tuesday, January 17, 2017 10:22 - CONCLUSION: 1. Multiple mildly displaced fractures of the left scapula. 2. Status post ORIF of the proximal left humerus 3. No evidence of fracture dislocation involving the glenohumeral joint. 4. Multiple left-sided rib fractures with associated subcutaneous emphysema. 5. No evidence of significant left-sided pneumothorax. Jayden Aviles MD Tibia/Fibula X-Ray 01/17/17 0000 Signed Impressions: Service Date/Time: Tuesday, January 17, 2017 07:38 - CONCLUSION: No acute fracture identified. Limited single view is provided. Primo Sierra MD Thoracic Spine CT 01/17/17 0000 Signed Impressions: Service Date/Time: Tuesday, January 17, 2017 10:19 - CONCLUSION: Rib fractures, compression fracture of L1 vertebra, transverse fractures of lumbar spine discussed on the patient's prior CT examinations and the thoracic spine appears intact except for scattered degenerative changes. Hilary Woods MD Lumbar Spine CT 01/17/17 0000 Signed Impressions: Service Date/Time: Tuesday, January 17, 2017 10:19 - CONCLUSION: 1. Compression fracture of mid body L1 with approximate 58%% reduction in height. 2. Multiple transverse process fractures, fractures of the sacrum and presacral hematoma discussed on the patient's prior CT pelvis. 3. No appreciable thecal sac stenosis is seen. Hilary Woods MD Foot X-Ray 01/17/17 0000 Signed Impressions: Service Date/Time: Tuesday, January 17, 2017 15:20 - CONCLUSION: No definite fracture is seen for technique. Hilary Woods MD Chest CT 01/17/17 0000 Signed Impressions: Service Date/Time: Tuesday, January 17, 2017 10:22 - CONCLUSION: 1. Bilateral rib fractures, left scapular fractures and tiny bilateral pneumothoraces. 2. Bilateral lung contusions and areas of consolidation right lower lung. Hilary Woods MD Cervical Spine CT 01/17/17 0000 Signed Impressions: Service Date/Time: Tuesday, January 17, 2017 10:21 - CONCLUSION: Fracture of vertebral body of C6 with extension into the right foramen transversarium without any significant compromise to the thecal sac or the exiting nerve roots. Hilary Woods MD Ankle X-Ray 01/17/17 Signed Impressions: Service Date/Time: Tuesday, January 17, 2017 15:25 - CONCLUSION: Soft tissue swelling and no definite fracture for technique. Hilary Woods MD Abdomen/Pelvis CT 01/17/17 0000 Signed Impressions: Service Date/Time: Tuesday, January 17, 2017 10:22 - CONCLUSION: 1. There is nonspecific free fluid within the abdomen and pelvis. No active arterial bleeding is identified. 2. There is a comminuted fracture of L1 which appears to represent a fairly severe compression fracture or possible burst fracture. The lamina and pedicle appear intact. There is no significant bony retropulsion. 3. Mild compression of the superior endplate of T12. 4. Fracture of both sacral ala. 5. Fracture of the anterior aspect of the right iliac wing. 6. Fracture of the superior and inferior sacral ala on the left. 7. Multiple lower rib fractures bilaterally. These will be more definitively assessed on CT imaging through the thorax. 8. Chest tube in place on the left with minimal residual pneumothorax. 9. Minimal pneumothorax on the right. 10. Consolidation/ contusion in both lower lobes. 11. Punctate collections of free air from the patient's laparotomy. Primo Sierra MD Cardiovascular: Regular Lungs: Clear Abdomen: Non-distended, Non-tender A/P Assessment and Plan multi trauma,continues to improve hypoactive delirium better dc planning Fabi Martin MD Feb 11, 2017 12:32
[2017-02-12] VITALS (9 sets, daily range): BP systolic 107–122; BP diastolic 54–61; PULSE 58–92; RESP 16–26; TEMP 97.2–99.1; O2SAT 93–98
[2017-02-12] MEDS: AMANTADINE HCL 100 MG CAP PO SCH ×2 (04:59→12:00)
[2017-02-12] MEDS: FREE WATER G-TUBE SCH ×3 (04:59→22:00)
[2017-02-12] MEDS: LACTULOSE SYRUP 20 GM/30 ML CUP PO SCH (08:09)
[2017-02-12] MEDS: ENOXAPARIN SODIUM 30 MG/0.3 ML SYRINGE SQ SCH ×2 (08:10→22:13)
[2017-02-12] MEDS: LIDOCAINE HCL 5% PATCH T-DERMAL SCH (08:10)
[2017-02-12] MEDS: CHLORHEXIDINE GLUCONATE 0.12% 15 ML CUP SWISH-SPIT SCH ×2 (08:10→22:18)
[2017-02-12] MEDS: VALPROIC ACID SYRUP 250 MG/5 ML UDC PO SCH ×2 (08:11→22:13)
[2017-02-12] MEDS: FAMOTIDINE 20 MG TAB PO SCH ×2 (08:11→22:13)
[2017-02-12] MEDS: DOCUSATE SODIUM 50 MG/SENNA 8.6 MG TAB PO SCH ×2 (08:11→22:13)
[2017-02-12] MEDS: FUROSEMIDE 20 MG TAB PO SCH (08:11)
[2017-02-12] MEDS: ACETAMINOPHEN/HYDROcodone 325 MG/10 MG TAB PO PRN ×2 (08:11→22:21)
[2017-02-12] MEDS: CHOLECALCIFEROL (VIT D3) 1000 UNIT TAB PO SCH (08:11)
[2017-02-12] MEDS: POTASSIUM CHLORIDE 25 MEQ EFFERVESCENT TAB PO SCH (08:11)
[2017-02-12] MEDS: REMOVE OLD LIDOCAINE PATCH T-DERMAL SCH (08:12)
[2017-02-12] MEDS: SODIUM CHLORIDE 0.9% FLUSH 5 ML FLUSH IVF SCH ×2 (08:13→22:18)
[2017-02-12] MEDS: BACITRACIN TOP OINT 15 GM TUBE TOPICAL SCH ×2 (08:13→22:17)
[2017-02-12] MEDS: ZINC OXIDE 20% OINT 30 GM TUBE TOPICAL SCH ×2 (08:14→22:17)
--- NOTE | 2017-02-12 10:07 | HHI.PR ---
Subjective Subjective Notes More alert, mouthing words Following commands Objective Vitals/I&O Vital Signs Date Time Temp Pulse Resp B/P Pulse Ox O2 Delivery O2 Flow Rate FiO2 02/12/17 04:00 98.7 92 24 122/59 96 02/11/17 23:02 Trach Collar 6.00 02/11/17 21:41 50 Labs Date/Time Procedure Status Source Growth 02/10/17 22:28 Aerobic Blood Culture - Preliminary Resulted Blood Peripheral NO GROWTH IN 1 DAY 02/10/17 22:28 Anaerobic Blood Culture - Preliminary Resulted Blood Peripheral NO GROWTH IN 1 DAY Radiology Last Impressions Chest X-Ray 02/10/17 0000 Signed Impressions: Service Date/Time: Friday, February 10, 2017 04:36 - CONCLUSION: 1. There is no evidence of pneumothorax. Agustin Thomas MD Head CT 02/01/17 1002 Signed Impressions: Service Date/Time: Wednesday, February 01, 2017 12:58 - CONCLUSION: 1. Stable minimal acute intraventricular hemorrhage with very minimal improvement of the acute subarachnoid hemorrhage within the high parietal regions. 2. Underlying cerebral atrophy. 3. No midline shift identified. 4. Mucosal thickening involving the left maxillary sinus and left facial bone fractures. Tigre Willis MD Knee X-Ray 01/31/17 0000 Signed Impressions: Service Date/Time: Tuesday, January 31, 2017 12:45 - CONCLUSION: Status post ORIF of left proximal tibial fracture with hardware in good position. Tigre Willis MD Lumbar Spine MRI 01/27/17 0000 Signed Impressions: Service Date/Time: Friday, January 27, 2017 17:34 - CONCLUSION: L1 compression fracture with moderate loss of vertebral body height and this is stable. This is acute with marrow edema. No associated canal compromise. Nonacute T11 and T12 superior endplate compression deformities. Bilateral hydronephrosis. Elvis Sexton MD Cervical Spine MRI 01/27/17 0000 Signed Impressions: Service Date/Time: Friday, January 27, 2017 17:34 - CONCLUSION: 1. Degenerative changes are identified. The known C6 vertebral body fracture is not well evaluated on this study. Elvis Sexton MD Brain MRI 01/27/17 0000 Signed Impressions: Service Date/Time: Friday, January 27, 2017 17:34 - CONCLUSION: Subarachnoid and intraventricular hemorrhage as above. Elvis Sexton MD IVC Filter Placement X-Ray 01/20/17 0000 Signed Impressions: Service Date/Time: Friday, January 20, 2017 16:44 - CONCLUSION: Uncomplicated inferior vena cava filter placement as above. This is a retrievable filter and can be retrieved up to one year from today's date. Avinash Santana Jr., MD Neck CTA 01/18/17 0000 Signed Impressions: Service Date/Time: Wednesday, January 18, 2017 10:48 - CONCLUSION: 1. Atherosclerotic plaquing but no hemodynamically significant carotid artery stenosis identified. 2. Parenchymal contusion and consolidation involving the right lung apex. 3. ET tube in satisfactory position. Primo Sierra MD Maxillofacial CT 01/18/17 0000 Signed Impressions: Service Date/Time: Wednesday, January 18, 2017 10:48 - CONCLUSION: Left maxillary sinus fractures. K. Dipak Woods MD Lower Extremity CT 01/18/17 0000 Signed Impressions: Service Date/Time: January 04:26 - CONCLUSION: 1. Comminuted intra-articular fracture of the proximal tibia involving the lateral tibial condyle and intercondylar regions. 2. Lipo hemarthrosis. Sg Nobles MD Femur X-Ray 01/18/17 0000 Signed Impressions: Service Date/Time: Wednesday, January 18, 2017 20:57 - CONCLUSION: Negative for retained surgical isthmus. Other communicated to the operating room. Marques Sierra MD FACR Pelvis X-Ray 01/17/17 0745 Signed Impressions: Service Date/Time: Tuesday, January 17, 2017 07:38 - CONCLUSION: 1. Multiple pelvic fractures, as above. Hermann Arnold MD Upper Extremity CT 01/17/17 0000 Signed Impressions: Service Date/Time: Tuesday, January 17, 2017 10:22 - CONCLUSION: 1. Multiple mildly displaced fractures of the left scapula. 2. Status post ORIF of the proximal left humerus 3. No evidence of fracture dislocation involving the glenohumeral joint. 4. Multiple left-sided rib fractures with associated subcutaneous emphysema. 5. No evidence of significant left-sided pneumothorax. Jayden Aviles MD Tibia/Fibula X-Ray 01/17/17 0000 Signed Impressions: Service Date/Time: Tuesday, January 17, 2017 07:38 - CONCLUSION: No acute fracture identified. Limited single view is provided. Primo Sierra MD Thoracic Spine CT 01/17/17 Signed Impressions: Service Date/Time: Tuesday, January 17, 2017 10:19 - CONCLUSION: Rib fractures, compression fracture of L1 vertebra, transverse fractures of lumbar spine discussed on the patient's prior CT examinations and the thoracic spine appears intact except for scattered degenerative changes. Hilary Woods MD Lumbar Spine CT 01/17/17 Signed Impressions: Service Date/Time: Tuesday, January 17, 2017 10:19 - CONCLUSION: 1. Compression fracture of mid body L1 with approximate 58%% reduction in height. 2. Multiple transverse process fractures, fractures of the sacrum and presacral hematoma discussed on the patient's prior CT pelvis. 3. No appreciable thecal sac stenosis is seen. Hilary Woods MD Foot X-Ray 01/17/17 Signed Impressions: Service Date/Time: Tuesday, January 17, 2017 15:20 - CONCLUSION: No definite fracture is seen for technique. Hilary Woods MD Chest CT 01/17/17 Signed Impressions: Service Date/Time: Tuesday, January 17, 2017 10:22 - CONCLUSION: 1. Bilateral rib fractures, left scapular fractures and tiny bilateral pneumothoraces. 2. Bilateral lung contusions and areas of consolidation right lower lung. Hilary Woods MD Cervical Spine CT 01/17/17 Signed Impressions: Service Date/Time: Tuesday, January 17, 2017 10:21 - CONCLUSION: Fracture of vertebral body of C6 with extension into the right foramen transversarium without any significant compromise to the thecal sac or the exiting nerve roots. Hilary Woods MD Ankle X-Ray 01/17/17 Signed Impressions: Service Date/Time: Tuesday, January 17, 2017 15:25 - CONCLUSION: Soft tissue swelling and no definite fracture for technique. Hilary Woods MD Abdomen/Pelvis CT 01/17/17 Signed Impressions: Service Date/Time: Tuesday, January 17, 2017 10:22 - CONCLUSION: 1. There is nonspecific free fluid within the abdomen and pelvis. No active arterial bleeding is identified. 2. There is a comminuted fracture of L1 which appears to represent a fairly severe compression fracture or possible burst fracture. The lamina and pedicle appear intact. There is no significant bony retropulsion. 3. Mild compression of the superior endplate of T12. 4. Fracture of both sacral ala. 5. Fracture of the anterior aspect of the right iliac wing. 6. Fracture of the superior and inferior sacral ala on the left. 7. Multiple lower rib fractures bilaterally. These will be more definitively assessed on CT imaging through the thorax. 8. Chest tube in place on the left with minimal residual pneumothorax. 9. Minimal pneumothorax on the right. 10. Consolidation/ contusion in both lower lobes. 11. Punctate collections of free air from the patient's laparotomy. Primo Sierra MD Narrative Exam GENERAL: 66-year-old well-nourished, well developed female lying in bed with CALL OR CONTACT CENTRE MANAGER in place. SKIN: Warm and dry. HEAD: Normocephalic. ENT: No nasal bleeding or discharge. Mucous membranes pink and moist. NECK: Trachea midline. No JVD. Cervical collar in place. CARDIOVASCULAR: Regular rate and rhythm. RESPIRATORY: No accessory muscle use. Lungs clear and diminished to auscultation. Breath sounds equal bilaterally. GASTROINTESTINAL: Abdomen soft, non-tender, nondistended. + BS. MUSCULOSKELETAL: Extremities without cyanosis, or edema. LEFT thigh DEE DEE wrap in place. Right foot abrasions noted. LUE sling in place. NEUROLOGICAL: Awake and alert. Follows commands. A/P Assessment and Plan INJURIES: LEFT SDH ? LEFT maxillary wall fx Scalp avulsion LEFT scapula fx BILAT PTX LEFT rib fx (3,4,5 RIGHT rib fx (5,6,7) Bilateral lung contusion Chest degloving C6 vertebral body fx T11, compression fx T12 compression endplate fx L1 compression fx Extensive pelvic fractures Free fluid in the abdomen Tibia plateau fx with LEFT thigh degloving 01/17: Ex lap 01/18: Exploration of large LEFT thigh wound w/ active bleeding 01/20: Debridement of wounds in OR 01/20: IVC filter placement 01/24: RIGHT CT placed for effusion; LEFT thigh debridement with wound vac placement 01/27: LEFT thigh I&D with wound vac change 01/31: LEFT thigh I&D and vac change. ORIF LEFT tibial platuea fx 01/31: CALL OR CONTACT CENTRE MANAGER placement 02/01: PEG 02/03: LEFT thigh I&D, split thickness skin graft 02/08: RIGHT CT removed Diet: Vital @ 50 cc/hr, Free water 200mL q 8 Pulm: T-collar. PRN Nebs. Pain: [place] Activity: OOB. PT and OT ordered. (NWB LUE; NWB LLE; WBAT RLE) GI: Pepcid Bowel: Colace. Lactulose. MOM. Senna. Bisacodyl. LBM: 02/12 DVT: SCD's. Lovenox 30 BID LEFT SDH, C6 fx, T11 compression fx, T12 compression endplate fx, L1 compression fx Neurosurgery consulted Nonoperative management TLSO brace when more mobile OOBPT and OT ordered Pain control Neuropsychologist consulted Valproic 250 BID for agitation Amantadine [address] consulted for speech and swallow eval Scalp avulsion Repaired in OR- jenny removed No Plastics coverage Supportive care LEFT scapula fx, Extensive pelvic fractures Orthopedic consulted Nonoperative management Pain control OOBPT/OT Maintain LUE sling NWB LUE, NWB LLE, WBAT RLE BILAT PTX, BILAT rib fxs, BILAT lung contusions 01/24: RIGHT CT placed for effusion 02/08: RIGHT CT removed Supportive care Pulmonary toileting Pain control OOBPT Chest degloving 01/20: Debridement of wounds Wound vacs DC'd Daily wet to dry dressing changes Free fluid in the abdomen Negative ex-lap Supportive care Tibia plateau fx with LEFT thigh degloving Orthopedics consulted 01/18: Exploration of large LEFT thigh wound w/ active bleeding 01/20: Debridement of wounds in OR 01/24: LEFT thigh debridement with wound vac placement 01/27: LEFT thigh I&D with wound vac change 01/31: LEFT thigh I&D and vac change. ORIF LEFT tibial plateau fx 02/03: LEFT thigh I&D, split thickness skin graft Pain control Recommend keeping Ochoa catheter and Dignishield in place to prevent contamination of skin graft on left thigh Orthopedic cleared for discharge Plan of care discussed with nurse at bedside. Patient is clear from trauma surgery standpoint to discharge to inpatient rehabilitation. Discharge pending insurance authorization. Remarks seen And examined with the nurse practitioner The patient is awake trying to talk continue to improve discharge planning Fish Snider Feb 12, 2017 10:07 Fabi Martin MD Feb 12, 2017 16:56
--- NOTE | 2017-02-12 15:54 | HHI.IDPN ---
Note Infectious Disease Note ID coverage. Notes reviewed. Patient is awake. noted to be more alert. Mouthing words. Daughter says she answers her appropriately. PO intake ordered but daughter says she is not interested in eating. No fever. No distress. Discussed with RN. Notes that thigh wound is clean. Currently followed by ID for Possible infected degloving injury of thigh, Pneumonia. [facility] and prevention of infection. Wound vac in place with sanguinous discharge. Trach site ok. Antibiotics None Past Medical History reviewed. Allergies: Coded Allergies: Sulfa (Verified Allergy, Intermediate, "BLOOD COUNT DROPS", 12/29/16) *MDRO Multi-Drug Resistant Organism (Verified Adverse Reaction, Unknown, ) VRE (urine) 01/19/17 Codeine (Verified Adverse Reaction, Unknown, ITCHING, 12/29/16) OBJECTIVE: Vital Signs Date Time Temp Pulse Resp B/P Pulse Ox O2 Delivery O2 Flow Rate FiO2 02/12/17 12:00 97.2 58 16 107/55 93 02/12/17 08:00 98.6 87 17 116/57 98 02/12/17 08:00 T-Piece 6.00 02/12/17 04:00 98.7 92 24 122/59 96 02/12/17 01:52 92 02/12/17 00:00 98.4 92 24 117/61 95 02/11/17 23:02 Trach Collar 6.00 02/11/17 21:41 92 T-piece 6.00 50 02/11/17 20:00 98.5 95 24 121/59 93 02/11/17 16:00 99.4 93 17 134/62 96 02/11/17 02/11/17 02/12/17 15:00 23:00 07:00 Intake Total 590 ml 565 ml 580 ml Output Total 75 ml 500 ml 950 ml Balance 515 ml 65 ml -370 ml Intake Oral 0 ml 0 ml 0 ml Tube Feeding 390 ml 365 ml 380 ml Other 200 ml 200 ml 200 ml Output Urine Total 75 ml 500 ml 950 ml Laboratory Tests Test 02/11/17 05:49 White Blood Count 12.7 TH/MM3 Red Blood Count 3.29 MIL/MM3 Hemoglobin 9.7 GM/DL Hematocrit 30.2 % Mean Corpuscular Volume 91.9 FL Mean Corpuscular Hemoglobin 29.6 PG Mean Corpuscular Hemoglobin 32.2 % Concent Red Cell Distribution Width 18.6 % Platelet Count 225 TH/MM3 Mean Platelet Volume 11.2 FL Neutrophils (%) (Auto) 63.5 % Lymphocytes (%) (Auto) 16.8 % Monocytes (%) (Auto) 15.8 % Eosinophils (%) (Auto) 3.2 % Basophils (%) (Auto) 0.7 % Neutrophils # (Auto) 8.1 TH/MM3 Lymphocytes # (Auto) 2.1 TH/MM3 Monocytes # (Auto) 2.0 TH/MM3 Eosinophils # (Auto) 0.4 TH/MM3 Basophils # (Auto) 0.1 TH/MM3 CBC Comment AUTO DIFF Differential Total Cells 100 Counted Neutrophils % (Manual) 52 % Band Neutrophils % 8 % Lymphocytes % 13 % Monocytes % 18 % Eosinophils % 3 % Neutrophils # (Manual) 8.4 TH/MM3 Metamyelocytes 4 % Myelocytes 2 % Differential Comment FINAL DIFF MANUAL Atypical Lymphocytes % Platelet Estimate NORMAL Platelet Morphology Comment ENLARGED Laboratory Tests Test 02/11/17 05:49 Sodium Level 137 MEQ/L Potassium Level 4.3 MEQ/L Chloride Level 100 MEQ/L Carbon Dioxide Level 27.8 MEQ/L Anion Gap 9 MEQ/L Blood Urea Nitrogen 19 MG/DL Creatinine 0.41 MG/DL Estimat Glomerular Filtration 154 ML/MIN Rate Random Glucose 114 MG/DL Calcium Level 7.7 MG/DL Microbiology Date/Time Procedure Status Source Growth 02/10/17 22:09 Aerobic Blood Culture - Preliminary Resulted Blood Peripheral NO GROWTH IN 2 DAYS 02/10/17 22:09 Anaerobic Blood Culture - Preliminary Resulted Blood Peripheral NO GROWTH IN 2 DAYS 02/10/17 22:28 Aerobic Blood Culture - Preliminary Resulted Blood Peripheral NO GROWTH IN 2 DAYS 02/10/17 22:28 Anaerobic Blood Culture - Preliminary Resulted Blood Peripheral NO GROWTH IN 2 DAYS Physical Exam GENERAL: Patient is in no acute distress. HEENT: EOMI appears intact, No icterus. NECK: Supple. Trach appears intact. No erythema. LUNGS: Decreased breath sounds. CARDIAC: Regular rate and rhythm. ABDOMEN: Soft, non tender, (+) bowel sounds. EXTREMITIES: No CCE. SKIN: No rash. Assessment & Plan Remarks Multi trauma LEFT SDH LEFT maxillary wall fx Head laceration LEFT scapula fx BILAT PTX LEFT rib fx (3,4,5 RIGHT rib fx (5,6,7) Bilateral lung contusion Chest degloving C6 vertebral body fx T11, compression fx T12 compression endplate fx L1 compression fx Pelvic fracture consisting of comminuted superior-inferior left ramus fracture, ala sacri fractures, right iliac crest fracture LEFT tibial plateau fx LEFT thigh extensive degloving degloving approximating about 5% total body surface area Sepsis, bacteremia Stenotrophomonas treated. Port of entry could be her huge degloving injury or PNA Pneumonia Acinetobacter, Enterobacter in the settings of Bilateral lung contusion - also growing Stenotrophomonas treated. VRE UTI sp completed tx Persistent fever - Afebrile. Scalp wound grew out C. parapsilosis , likely colonization Stable. REC's: Monitor without antibiotics. I will sign off now Please call if further input is needed. Gino Schafer MD Feb 12, 2017 15:54
[2017-02-13] VITALS (10 sets, daily range): BP systolic 114–128; BP diastolic 56–58; PULSE 87–96; RESP 18–24; TEMP 97.5–99.7; O2SAT 93–100
[2017-02-13] MEDS: FREE WATER G-TUBE SCH ×3 (06:00→22:00)
[2017-02-13] MEDS: AMANTADINE HCL 100 MG CAP PO SCH ×2 (06:31→11:19)
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
[2017-02-13] MEDS: REMOVE OLD LIDOCAINE PATCH T-DERMAL SCH (09:00)
[2017-02-13] MEDS: DOCUSATE SODIUM 50 MG/SENNA 8.6 MG TAB PO SCH ×2 (09:00→22:33)
[2017-02-13] MEDS: ZINC OXIDE 20% OINT 30 GM TUBE TOPICAL SCH ×2 (09:00→21:00)
[2017-02-13] MEDS: CHLORHEXIDINE GLUCONATE 0.12% 15 ML CUP SWISH-SPIT SCH ×2 (09:00→21:00)
[2017-02-13] MEDS: BACITRACIN TOP OINT 15 GM TUBE TOPICAL SCH ×2 (09:00→22:34)
[2017-02-13] MEDS: SODIUM CHLORIDE 0.9% FLUSH 5 ML FLUSH IVF SCH (09:00)
[2017-02-13] MEDS: FUROSEMIDE 20 MG TAB PO SCH (09:37)
[2017-02-13] MEDS: FAMOTIDINE 20 MG TAB PO SCH ×2 (09:37→22:33)
[2017-02-13] MEDS: CHOLECALCIFEROL (VIT D3) 1000 UNIT TAB PO SCH (09:37)
[2017-02-13] MEDS: LACTULOSE SYRUP 20 GM/30 ML CUP PO SCH (09:37)
[2017-02-13] MEDS: VALPROIC ACID SYRUP 250 MG/5 ML UDC PO SCH ×2 (09:37→22:33)
[2017-02-13] MEDS: ENOXAPARIN SODIUM 30 MG/0.3 ML SYRINGE SQ SCH ×2 (09:38→22:34)
[2017-02-13] MEDS: LIDOCAINE HCL 5% PATCH T-DERMAL SCH (09:38)
[2017-02-13] MEDS: POTASSIUM CHLORIDE 25 MEQ EFFERVESCENT TAB PO SCH (09:38)
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
--- NOTE | 2017-02-13 13:05 | HHI.PR ---
Subjective Subjective Notes Requiring more Fio2 yesterday. Back down to 28% this AM and tolerating Following commands Objective Vitals/I&O Vital Signs Date Time Temp Pulse Resp B/P Pulse Ox O2 Delivery O2 Flow Rate FiO2 02/13/17 11:53 97.8 96 19 121/56 96 02/13/17 09:12 Trach Collar 6.00 40 Humidified Labs Date/Time Procedure Status Source Growth 02/10/17 22:28 Aerobic Blood Culture - Preliminary Resulted Blood Peripheral NO GROWTH IN 3 DAYS 02/10/17 22:28 Anaerobic Blood Culture - Preliminary Resulted Blood Peripheral NO GROWTH IN 3 DAYS Radiology Last Impressions Chest X-Ray 02/10/17 0000 Signed Impressions: Service Date/Time: Friday, February 10, 2017 04:36 - CONCLUSION: 1. There is no evidence of pneumothorax. Agustin Thomas MD Head CT 02/01/17 1002 Signed Impressions: Service Date/Time: Wednesday, February 01, 2017 12:58 - CONCLUSION: 1. Stable minimal acute intraventricular hemorrhage with very minimal improvement of the acute subarachnoid hemorrhage within the high parietal regions. 2. Underlying cerebral atrophy. 3. No midline shift identified. 4. Mucosal thickening involving the left maxillary sinus and left facial bone fractures. Tigre Willis MD Knee X-Ray 01/31/17 0000 Signed Impressions: Service Date/Time: Tuesday, January 31, 2017 12:45 - CONCLUSION: Status post ORIF of left proximal tibial fracture with hardware in good position. Tigre Willis MD Lumbar Spine MRI 01/27/17 0000 Signed Impressions: Service Date/Time: Friday, January 27, 2017 17:34 - CONCLUSION: L1 compression fracture with moderate loss of vertebral body height and this is stable. This is acute with marrow edema. No associated canal compromise. Nonacute T11 and T12 superior endplate compression deformities. Bilateral hydronephrosis. Elvis Sexton MD Cervical Spine MRI 01/27/17 0000 Signed Impressions: Service Date/Time: Friday, January 27, 2017 17:34 - CONCLUSION: 1. Degenerative changes are identified. The known C6 vertebral body fracture is not well evaluated on this study. Elvis Sexton MD Brain MRI 01/27/17 0000 Signed Impressions: Service Date/Time: Friday, January 27, 2017 17:34 - CONCLUSION: Subarachnoid and intraventricular hemorrhage as above. Elvis Sexton MD IVC Filter Placement X-Ray 01/20/17 0000 Signed Impressions: Service Date/Time: Friday, January 20, 2017 16:44 - CONCLUSION: Uncomplicated inferior vena cava filter placement as above. This is a retrievable filter and can be retrieved up to one year from today's date. Avinash Santana Jr., MD Neck CTA 01/18/17 0000 Signed Impressions: Service Date/Time: Wednesday, January 18, 2017 10:48 - CONCLUSION: 1. Atherosclerotic plaquing but no hemodynamically significant carotid artery stenosis identified. 2. Parenchymal contusion and consolidation involving the right lung apex. 3. ET tube in satisfactory position. Primo Sierra MD Maxillofacial CT 01/18/17 0000 Signed Impressions: Service Date/Time: Wednesday, January 18, 2017 10:48 - CONCLUSION: Left maxillary sinus fractures. K. Dipak Woods MD Lower Extremity CT 01/18/17 0000 Signed Impressions: Service Date/Time: January 04:26 - CONCLUSION: 1. Comminuted intra-articular fracture of the proximal tibia involving the lateral tibial condyle and intercondylar regions. 2. Lipo hemarthrosis. Sg Nobles MD Femur X-Ray 01/18/17 0000 Signed Impressions: Service Date/Time: Wednesday, January 18, 2017 20:57 - CONCLUSION: Negative for retained surgical isthmus. Other communicated to the operating room. Marques Sierra MD FACR Pelvis X-Ray 01/17/17 0745 Signed Impressions: Service Date/Time: Tuesday, January 17, 2017 07:38 - CONCLUSION: 1. Multiple pelvic fractures, as above. Hermann Arnold MD Upper Extremity CT 01/17/17 0000 Signed Impressions: Service Date/Time: Tuesday, January 17, 2017 10:22 - CONCLUSION: 1. Multiple mildly displaced fractures of the left scapula. 2. Status post ORIF of the proximal left humerus 3. No evidence of fracture dislocation involving the glenohumeral joint. 4. Multiple left-sided rib fractures with associated subcutaneous emphysema. 5. No evidence of significant left-sided pneumothorax. Jayden Aviles MD Tibia/Fibula X-Ray 7/11/17 0000 Signed Impressions: Service Date/Time: Tuesday, January 17, 2017 07:38 - CONCLUSION: No acute fracture identified. Limited single view is provided. Primo Sierra MD Thoracic Spine CT 01/17/17 Signed Impressions: Service Date/Time: Tuesday, January 17, 2017 10:19 - CONCLUSION: Rib fractures, compression fracture of L1 vertebra, transverse fractures of lumbar spine discussed on the patient's prior CT examinations and the thoracic spine appears intact except for scattered degenerative changes. Hilary Woods MD Lumbar Spine CT 01/17/17 Signed Impressions: Service Date/Time: Tuesday, January 17, 2017 10:19 - CONCLUSION: 1. Compression fracture of mid body L1 with approximate 58%% reduction in height. 2. Multiple transverse process fractures, fractures of the sacrum and presacral hematoma discussed on the patient's prior CT pelvis. 3. No appreciable thecal sac stenosis is seen. Hilary Woods MD Foot X-Ray 01/17/17 Signed Impressions: Service Date/Time: Tuesday, January 17, 2017 15:20 - CONCLUSION: No definite fracture is seen for technique. Hilary Woods MD Chest CT 01/17/17 Signed Impressions: Service Date/Time: Tuesday, January 17, 2017 10:22 - CONCLUSION: 1. Bilateral rib fractures, left scapular fractures and tiny bilateral pneumothoraces. 2. Bilateral lung contusions and areas of consolidation right lower lung. Hilary Woods MD Cervical Spine CT 01/17/17 Signed Impressions: Service Date/Time: Tuesday, January 17, 2017 10:21 - CONCLUSION: Fracture of vertebral body of C6 with extension into the right foramen transversarium without any significant compromise to the thecal sac or the exiting nerve roots. Hilary Woods MD Ankle X-Ray 01/17/17 Signed Impressions: Service Date/Time: Tuesday, January 17, 2017 15:25 - CONCLUSION: Soft tissue swelling and no definite fracture for technique. Hilary Woods MD Abdomen/Pelvis CT 01/17/17 Signed Impressions: Service Date/Time: Tuesday, January 17, 2017 10:22 - CONCLUSION: 1. There is nonspecific free fluid within the abdomen and pelvis. No active arterial bleeding is identified. 2. There is a comminuted fracture of L1 which appears to represent a fairly severe compression fracture or possible burst fracture. The lamina and pedicle appear intact. There is no significant bony retropulsion. 3. Mild compression of the superior endplate of T12. 4. Fracture of both sacral ala. 5. Fracture of the anterior aspect of the right iliac wing. 6. Fracture of the superior and inferior sacral ala on the left. 7. Multiple lower rib fractures bilaterally. These will be more definitively assessed on CT imaging through the thorax. 8. Chest tube in place on the left with minimal residual pneumothorax. 9. Minimal pneumothorax on the right. 10. Consolidation/ contusion in both lower lobes. 11. Punctate collections of free air from the patient's laparotomy. Pirmo Sierra MD Narrative Exam GENERAL: 66-year-old well-nourished, well developed female lying in bed with ROPE CLEANER in place. SKIN: Warm and dry. HEAD: Normocephalic. ENT: No nasal bleeding or discharge. Mucous membranes pink and moist. NECK: ROPE CLEANER in place. Trachea midline. No JVD. Cervical collar in place. CARDIOVASCULAR: Regular rate and rhythm. RESPIRATORY: No accessory muscle use. Lungs clear and diminished to auscultation. Breath sounds equal bilaterally. GASTROINTESTINAL: Abdomen soft, non-tender, nondistended. + BS. MUSCULOSKELETAL: Extremities without cyanosis, or edema. LEFT thigh DEE DEE wrap in place. Right foot abrasions noted. LUE sling in place. NEUROLOGICAL: Awake and alert. Follows commands. A/P Assessment and Plan INJURIES: LEFT SDH ? LEFT maxillary wall fx Scalp avulsion LEFT scapula fx BILAT PTX LEFT rib fx (3,4,5 RIGHT rib fx (5,6,7) Bilateral lung contusion Chest degloving C6 vertebral body fx T11, compression fx T12 compression endplate fx L1 compression fx Extensive pelvic fractures Free fluid in the abdomen Tibia plateau fx with LEFT thigh degloving 01/17: Ex lap 01/18: Exploration of large LEFT thigh wound w/ active bleeding 01/20: Debridement of wounds in OR 01/20: IVC filter placement 01/24: RIGHT CT placed for effusion; LEFT thigh debridement with wound vac placement 01/27: LEFT thigh I&D with wound vac change 01/31: LEFT thigh I&D and vac change. ORIF LEFT tibial platuea fx 01/31: ROPE CLEANER placement 02/01: PEG 02/03: LEFT thigh I&D, split thickness skin graft 02/08: RIGHT CT removed Diet: Vital @ 50 cc/hr, Free water 200mL q 8. Pureed diet with thin liquids- ST following Pulm: T-collar. PRN Nebs. Pain: Doran Activity: OOB. PT and OT ordered. (NWB LUE; NWB LLE; WBAT RLE) GI: Pepcid Bowel: Colace. Lactulose. MOM. Senna. Bisacodyl. LBM: 02/13- Dignisheild DVT: SCD's. Lovenox 30 BID LEFT SDH, C6 fx, T11 compression fx, T12 compression endplate fx, L1 compression fx Neurosurgery consulted Nonoperative management TLSO brace when more mobile OOBPT and OT ordered Pain control Neuropsychologist consulted Valproic 250 BID for agitation Amantadine [address] consulted for speech and swallow eval Scalp avulsion Repaired in OR- jenny removed No Plastics coverage Supportive care Wet to dry dressing changes to scalp daily. LEFT scapula fx, Extensive pelvic fractures Orthopedic consulted Nonoperative management Pain control OOBPT/OT Maintain LUE sling NWB LUE, NWB LLE, WBAT RLE BILAT PTX, BILAT rib fxs, BILAT lung contusions 01/24: RIGHT CT placed for effusion 02/08: RIGHT CT removed Supportive care Pulmonary toileting Pain control OOBPT Chest degloving 01/20: Debridement of wounds Wound vacs DC'd Daily wet to dry dressing changes Free fluid in the abdomen Negative ex-lap Supportive care Tibia plateau fx with LEFT thigh degloving Orthopedics consulted 01/18: Exploration of large LEFT thigh wound w/ active bleeding 01/20: Debridement of wounds in OR 01/24: LEFT thigh debridement with wound vac placement 01/27: LEFT thigh I&D with wound vac change 01/31: LEFT thigh I&D and vac change. ORIF LEFT tibial plateau fx 02/03: LEFT thigh I&D, split thickness skin graft Pain control Recommend keeping Ochoa catheter and Dignishield in place to prevent contamination of skin graft on left thigh Orthopedic cleared for discharge Plan of care discussed with nurse at bedside. Patient is clear from trauma surgery standpoint to discharge to inpatient rehabilitation. Discharge pending insurance authorization. Remarks seen and examined with QUALITY CONTROL MANAGER 02/13 awake-mental status improving TC discharge from trauma standpoint Fish Snider Feb 13, 2017 13:05 Fabi Martin MD Feb 14, 2017 15:54
[2017-02-14] VITALS (10 sets, daily range): BP systolic 106–170; BP diastolic 54–72; PULSE 80–95; RESP 17–20; TEMP 96.1–98.4; O2SAT 93–98
[2017-02-14] MEDS: SODIUM CHLORIDE 0.9% FLUSH 5 ML FLUSH IVF SCH ×3 (02:00→21:00)
[2017-02-14] MEDS: AMANTADINE HCL 100 MG CAP PO SCH (05:37)
[2017-02-14] MEDS: FREE WATER G-TUBE SCH ×3 (05:38→22:00)
[2017-02-14 06:43] LABS: AUTOMATED NEUTROPHIL # 7.8 TH/MM3 (1.8-7.7); BASOPHIL # 0.1 TH/MM3 (0-0.2); BASOPHIL % 0.9 % (0.0-2.0); EOSINOPHIL # 0.3 TH/MM3 (0-0.4); EOSINOPHIL % 2.6 % (0.0-4.0); LYMPH % 19.3 % (9.0-44.0); LYMPHOCYTE # 2.4 TH/MM3 (1.0-4.8); MEAN CELL VOLUME 90.7 FL (80.0-100.0); MEAN CORPUSCULAR HEMOGLOBIN 30.3 PG (27.0-34.0); MEAN CORPUSCULAR HGB CONC 33.4 % (32.0-36.0); MONO % 14.4 % (0.0-8.0); NEUT % 62.8 % (16.0-70.0); PLATELET COUNT 200 TH/MM3 (150-450); RED BLOOD COUNT 3.41 MIL/MM3 (4.00-5.30); RED CELL DISTRIBUTION WIDTH 18.2 % (11.6-17.2); WHITE BLOOD COUNT 12.5 TH/MM3 (4.0-11.0)
--- NOTE | 2017-02-14 06:44 | RADRPT ---
EXAM DATE/TIME: 02/14/2017 06:13 [place] COMPARISON: No previous studies available for comparison. INDICATIONS : Short of breath MEDICAL HISTORY : Carcinoma, breast. SURGICAL HISTORY : Mastectomy, bilateral. Hysterectomy. bladder augmentation ENCOUNTER: Subsequent ACUITY: 3 weeks PAIN SCORE: Non-responsive. LOCATION: Bilateral chest FINDINGS: Tracheostomy tube, plate and screw fixation left proximal humerus noted. Right lung is clear. There i s consolidation in the left lower lobe and a small left effusion suspected. Numerous displaced left-s ided rib fractures are present. I do not see a pneumothorax. Multiple right-sided rib fractures are n oted. CONCLUSION: Left basilar atelectasis, consolidation and small left effusion. Elvis Sexton MD on February 14, 2017 at 6:41 Board Certified Radiologist. This report was verified electronically.
[2017-02-14 06:58] LABS: HEMO FLAGS AUTO DIFF
[2017-02-14 07:41] LABS: BANDS 5 % (0-6); BASOPHILS 2 % (0-2); METAMYELOCYTES 1 % (0-1); MYELOCYTES 1 % (0-0); PLATELET ESTIMATE SMEAR NORMAL (NORMAL); PLATELET MORPHOLOGY NORMAL (NORMAL); POLYS (SEG NEUTROPHILS) 57 % (16-70); SCAN/DIFF FINAL DIFF MANUAL; WBC DIFF SAMPLE 100
[2017-02-14] MEDS: REMOVE OLD LIDOCAINE PATCH T-DERMAL SCH (09:00)
[2017-02-14] MEDS: CHLORHEXIDINE GLUCONATE 0.12% 15 ML CUP SWISH-SPIT SCH ×2 (09:00→21:00)
[2017-02-14] MEDS ORDERED: MAGNESIUM HYDROXIDE SUSP 30 ML CUP PEG PRN (09:05)
[2017-02-14] MEDS ORDERED: SENNOSIDES 8.6 MG TAB PEG PRN (09:06)
[2017-02-14] MEDS ORDERED: ACETAMINOPHEN 650 MG/20.3 ML UDC PEG PRN (09:06)
[2017-02-14] MEDS ORDERED: ACETAMINOPHEN/HYDROcodone 325 MG/7.5 MG TAB PEG PRN (09:11)
[2017-02-14] MEDS ORDERED: ACETAMINOPHEN/HYDROcodone 325 MG/10 MG TAB PEG PRN (09:11)
[2017-02-14] MEDS: ZINC OXIDE 20% OINT 30 GM TUBE TOPICAL SCH ×2 (09:40→21:00)
[2017-02-14] MEDS: LIDOCAINE HCL 5% PATCH T-DERMAL SCH (09:40)
[2017-02-14] MEDS: ENOXAPARIN SODIUM 30 MG/0.3 ML SYRINGE SQ SCH ×2 (09:40→22:43)
[2017-02-14] MEDS: ERGOCALCIFEROL (VIT D2) 50,000 UNIT CAP PEG SCH (09:41)
[2017-02-14] MEDS: BACITRACIN TOP OINT 15 GM TUBE TOPICAL SCH ×2 (09:42→22:20)
--- NOTE | 2017-02-14 11:49 | HHI.PR ---
Subjective Subjective Notes Awake, following commands Denies pain Awaiting insurance auth so patient can DC to [place] Objective Vitals/I&O Vital Signs Date Time Temp Pulse Resp B/P Pulse Ox O2 Delivery O2 Flow Rate FiO2 02/14/17 11:36 98 T-piece 5.00 28 02/14/17 08:00 97.8 88 18 121/60 Labs Laboratory Tests Test 02/14/17 05:36 White Blood Count 12.5 Red Blood Count 3.41 Hemoglobin 10.3 Hematocrit 31.0 Mean Corpuscular Volume 90.7 Mean Corpuscular Hemoglobin 30.3 Mean Corpuscular Hemoglobin 33.4 Concent Red Cell Distribution Width 18.2 Platelet Count 200 Mean Platelet Volume 11.4 Neutrophils (%) (Auto) 62.8 Lymphocytes (%) (Auto) 19.3 Monocytes (%) (Auto) 14.4 Eosinophils (%) (Auto) 2.6 Basophils (%) (Auto) 0.9 Neutrophils # (Auto) 7.8 Lymphocytes # (Auto) 2.4 Monocytes # (Auto) 1.8 Eosinophils # (Auto) 0.3 Basophils # (Auto) 0.1 CBC Comment AUTO DIFF Differential Total Cells 100 Counted Neutrophils % (Manual) 57 Band Neutrophils % 5 Lymphocytes % 17 Monocytes % 17 Basophils % 2 Neutrophils # (Manual) 8.0 Metamyelocytes 1 Myelocytes 1 Differential Comment FINAL DIFF MANUAL Platelet Estimate NORMAL Platelet Morphology Comment NORMAL Date/Time Procedure Status Source Growth 02/10/17 22:28 Aerobic Blood Culture - Preliminary Resulted Blood Peripheral NO GROWTH IN 4 DAYS 02/10/17 22:28 Anaerobic Blood Culture - Preliminary Resulted Blood Peripheral NO GROWTH IN 4 DAYS Radiology Last Impressions Chest X-Ray 02/10/17 0000 Signed Impressions: Service Date/Time: Friday, February 10, 2017 04:36 - CONCLUSION: 1. There is no evidence of pneumothorax. Agustin Thomas MD Head CT 02/01/17 1002 Signed Impressions: Service Date/Time: Wednesday, February 01, 2017 12:58 - CONCLUSION: 1. Stable minimal acute intraventricular hemorrhage with very minimal improvement of the acute subarachnoid hemorrhage within the high parietal regions. 2. Underlying cerebral atrophy. 3. No midline shift identified. 4. Mucosal thickening involving the left maxillary sinus and left facial bone fractures. Tigre Willis MD Knee X-Ray 01/31/17 0000 Signed Impressions: Service Date/Time: Tuesday, January 31, 2017 12:45 - CONCLUSION: Status post ORIF of left proximal tibial fracture with hardware in good position. Tigre Willis MD Lumbar Spine MRI 01/27/17 0000 Signed Impressions: Service Date/Time: Friday, January 27, 2017 17:34 - CONCLUSION: L1 compression fracture with moderate loss of vertebral body height and this is stable. This is acute with marrow edema. No associated canal compromise. Nonacute T11 and T12 superior endplate compression deformities. Bilateral hydronephrosis. Elvis Sexton MD Cervical Spine MRI 01/27/17 0000 Signed Impressions: Service Date/Time: Friday, January 27, 2017 17:34 - CONCLUSION: 1. Degenerative changes are identified. The known C6 vertebral body fracture is not well evaluated on this study. Elvis Setxon MD Brain MRI 01/27/17 0000 Signed Impressions: Service Date/Time: Friday, January 27, 2017 17:34 - CONCLUSION: Subarachnoid and intraventricular hemorrhage as above. Elvis Sexton MD IVC Filter Placement X-Ray 01/20/17 0000 Signed Impressions: Service Date/Time: Friday, January 20, 2017 16:44 - CONCLUSION: Uncomplicated inferior vena cava filter placement as above. This is a retrievable filter and can be retrieved up to one year from today's date. Avinash Santana Jr., MD Neck CTA 01/18/17 0000 Signed Impressions: Service Date/Time: Wednesday, January 18, 2017 10:48 - CONCLUSION: 1. Atherosclerotic plaquing but no hemodynamically significant carotid artery stenosis identified. 2. Parenchymal contusion and consolidation involving the right lung apex. 3. ET tube in satisfactory position. Primo Sierra MD Maxillofacial CT 01/18/17 0000 Signed Impressions: Service Date/Time: Wednesday, January 18, 2017 10:48 - CONCLUSION: Left maxillary sinus fractures. K. Dipak Woods MD Lower Extremity CT 01/18/17 0000 Signed Impressions: Service Date/Time: January 04:26 - CONCLUSION: 1. Comminuted intra-articular fracture of the proximal tibia involving the lateral tibial condyle and intercondylar regions. 2. Lipo hemarthrosis. Sg Nobles MD Femur X-Ray 01/18/17 0000 Signed Impressions: Service Date/Time: Wednesday, January 18, 2017 20:57 - CONCLUSION: Negative for retained surgical isthmus. Other communicated to the operating room. Marques Sierra MD FACR Pelvis X-Ray 01/17/17 0745 Signed Impressions: Service Date/Time: Tuesday, January 17, 2017 07:38 - CONCLUSION: 1. Multiple pelvic fractures, as above. Hermann Arnold MD Upper Extremity CT 01/17/17 0000 Signed Impressions: Service Date/Time: Tuesday, January 17, 2017 10:22 - CONCLUSION: 1. Multiple mildly displaced fractures of the left scapula. 2. Status post ORIF of the proximal left humerus 3. No evidence of fracture dislocation involving the glenohumeral joint. 4. Multiple left-sided rib fractures with associated subcutaneous emphysema. 5. No evidence of significant left-sided pneumothorax. Jayden Aviles MD Tibia/Fibula X-Ray 01/17/17 0000 Signed Impressions: Service Date/Time: Tuesday, January 17, 2017 07:38 - CONCLUSION: No acute fracture identified. Limited single view is provided. Primo Sierra MD Thoracic Spine CT 01/17/17 0000 Signed Impressions: Service Date/Time: Tuesday, January 17, 2017 10:19 - CONCLUSION: Rib fractures, compression fracture of L1 vertebra, transverse fractures of lumbar spine discussed on the patient's prior CT examinations and the thoracic spine appears intact except for scattered degenerative changes. Hilary Woods MD Lumbar Spine CT 01/17/17 0000 Signed Impressions: Service Date/Time: Tuesday, January 17, 2017 10:19 - CONCLUSION: 1. Compression fracture of mid body L1 with approximate 58%% reduction in height. 2. Multiple transverse process fractures, fractures of the sacrum and presacral hematoma discussed on the patient's prior CT pelvis. 3. No appreciable thecal sac stenosis is seen. Hilary Woods MD Foot X-Ray 01/17/17 0000 Signed Impressions: Service Date/Time: Tuesday, January 17, 2017 15:20 - CONCLUSION: No definite fracture is seen for technique. Hilary Woods MD Chest CT 01/17/17 0000 Signed Impressions: Service Date/Time: Tuesday, January 17, 2017 10:22 - CONCLUSION: 1. Bilateral rib fractures, left scapular fractures and tiny bilateral pneumothoraces. 2. Bilateral lung contusions and areas of consolidation right lower lung. Hilary Woods MD Cervical Spine CT 01/17/17 0000 Signed Impressions: Service Date/Time: Tuesday, January 17, 2017 10:21 - CONCLUSION: Fracture of vertebral body of C6 with extension into the right foramen transversarium without any significant compromise to the thecal sac or the exiting nerve roots. Hilary Woods MD Ankle X-Ray 01/17/17 0000 Signed Impressions: Service Date/Time: Tuesday, January 17, 2017 15:25 - CONCLUSION: Soft tissue swelling and no definite fracture for technique. Hilary Woods MD Abdomen/Pelvis CT 01/17/17 0000 Signed Impressions: Service Date/Time: Tuesday, January 17, 2017 10:22 - CONCLUSION: 1. There is nonspecific free fluid within the abdomen and pelvis. No active arterial bleeding is identified. 2. There is a comminuted fracture of L1 which appears to represent a fairly severe compression fracture or possible burst fracture. The lamina and pedicle appear intact. There is no significant bony retropulsion. 3. Mild compression of the superior endplate of T12. 4. Fracture of both sacral ala. 5. Fracture of the anterior aspect of the right iliac wing. 6. Fracture of the superior and inferior sacral ala on the left. 7. Multiple lower rib fractures bilaterally. These will be more definitively assessed on CT imaging through the thorax. 8. Chest tube in place on the left with minimal residual pneumothorax. 9. Minimal pneumothorax on the right. 10. Consolidation/ contusion in both lower lobes. 11. Punctate collections of free air from the patient's laparotomy. Primo Sierra MD Narrative Exam GENERAL: 66-year-old well-nourished, well developed female lying in bed with QUALITY CONTROL DIRECTOR in place. SKIN: Warm and dry. HEAD: Normocephalic. ENT: No nasal bleeding or discharge. Mucous membranes pink and moist. NECK: QUALITY CONTROL DIRECTOR in place. Trachea midline. No JVD. Cervical collar in place. CARDIOVASCULAR: Regular rate and rhythm. RESPIRATORY: No accessory muscle use. Rhonchi auscultated throughout lung mcclure. Breath sounds equal bilaterally. GASTROINTESTINAL: Abdomen soft, non-tender, nondistended. + BS. MUSCULOSKELETAL: Extremities without cyanosis, or edema. LEFT thigh DEE DEE wrap in place. Right foot abrasions noted. LUE sling in place. NEUROLOGICAL: Awake and alert. Follows commands. A/P Assessment and Plan INJURIES: LEFT SDH ? LEFT maxillary wall fx Scalp avulsion LEFT scapula fx BILAT PTX LEFT rib fx (3,4,5 RIGHT rib fx (5,6,7) Bilateral lung contusion Chest degloving C6 vertebral body fx T11, compression fx T12 compression endplate fx L1 compression fx Extensive pelvic fractures Free fluid in the abdomen Tibia plateau fx with LEFT thigh degloving 01/17: Ex lap 01/18: Exploration of large LEFT thigh wound w/ active bleeding 01/20: Debridement of wounds in OR 01/20: IVC filter placement 01/24: RIGHT CT placed for effusion; LEFT thigh debridement with wound vac placement 01/27: LEFT thigh I&D with wound vac change 01/31: LEFT thigh I&D and vac change. ORIF LEFT tibial platuea fx 01/31: QUALITY CONTROL DIRECTOR placement 02/01: PEG 02/03: LEFT thigh I&D, split thickness skin graft 02/08: RIGHT CT removed Diet: Vital @ 50 cc/hr, Free water 200mL q 8. Pureed diet with thin liquids- ST following Pulm: T-collar. PRN Nebs. Pain: [place] Activity: OOB. PT and OT ordered. (NWB LUE; NWB LLE; WBAT RLE) GI: Pepcid Bowel: Colace. Lactulose. MOM. Senna. Bisacodyl. LBM: 02/14 DVT: SCD's. Lovenox 30 BID LEFT SDH, C6 fx, T11 compression fx, T12 compression endplate fx, L1 compression fx Neurosurgery consulted Nonoperative management TLSO brace when more mobile OOBPT and OT ordered Pain control Neuropsychologist consulted Valproic 250 BID for agitation Amantadine [address] consulted for speech and swallow eval Scalp avulsion Repaired in OR- jenny removed No Plastics coverage Supportive care Wet to dry dressing changes to scalp daily. LEFT scapula fx, Extensive pelvic fractures Orthopedic consulted Nonoperative management Pain control OOBPT/OT Maintain LUE sling NWB LUE, NWB LLE, WBAT RLE BILAT PTX, BILAT rib fxs, BILAT lung contusions 01/24: RIGHT CT placed for effusion 02/08: RIGHT CT removed Supportive care Pulmonary toileting Pain control OOBPT Chest degloving 01/20: Debridement of wounds Wound vacs DC'd Daily wet to dry dressing changes Free fluid in the abdomen Negative ex-lap Supportive care Tibia plateau fx with LEFT thigh degloving Orthopedics consulted 01/18: Exploration of large LEFT thigh wound w/ active bleeding 01/20: Debridement of wounds in OR 01/24: LEFT thigh debridement with wound vac placement 01/27: LEFT thigh I&D with wound vac change 01/31: LEFT thigh I&D and vac change. ORIF LEFT tibial plateau fx 02/03: LEFT thigh I&D, split thickness skin graft Pain control Recommend keeping Ochoa catheter in place to prevent contamination of skin graft on left thigh Orthopedic cleared for discharge Plan of care discussed with nurse at bedside. Patient is clear from trauma surgery standpoint to discharge to inpatient rehabilitation. Discharge pending insurance authorization. Attending Statement The exam, history, and the medical decision-making described in the above note were completed with the assistance of the mid-level provider. I reviewed and agree with the findings presented. I attest that I had a [id number] encounter with the patient on the same day, and personally performed and documented my assessment and findings in the medical record. Neurologic Exam: awake alert, GCS 15 no new c/o, wants to go to rehab Fish Singer Feb 14, 2017 11:49 Fabricio Rosenberg MD Feb 14, 2017 21:59
[2017-02-14] MEDS: AMANTADINE HCL SOLN 100 MG/10 ML UDC PEG SCH (13:16)
--- NOTE | 2017-02-14 19:09 | RADRPT ---
EXAM DATE/TIME: 02/14/2017 16:59 [facility] COMPARISON: No previous studies available for comparison. INDICATIONS : Fracture. MEDICAL HISTORY : None. SURGICAL HISTORY : Tibial plateau. ENCOUNTER: Subsequent ACUITY: 1 month PAIN SCORE: 0/10 LOCATION: Left knee FINDINGS: The postoperative changes of side plate and screw fixation the proximal tibia with cement overlying l ateral metaphyseal region. Multiple skin jenny present. No complications identified. CONCLUSION: 1. Postoperative left knee as above. Lisandro Hyman MD on February 14, 2017 at 19:07 Board Certified Radiologist. This report was verified electronically.
[2017-02-14] MEDS ORDERED: DOCUSATE SODIUM 50 MG/SENNA 8.6 MG TAB PEG SCH (21:00)
[2017-02-14] MEDS: VALPROIC ACID SYRUP 250 MG/5 ML UDC PEG SCH (22:19)
[2017-02-14] MEDS: FAMOTIDINE 20 MG TAB PEG SCH (22:19)
[2017-02-15] VITALS (7 sets, daily range): BP systolic 111–132; BP diastolic 54–64; PULSE 88–94; RESP 15–18; TEMP 95.9–98.4; O2SAT 94–98
[2017-02-15] MEDS: FREE WATER G-TUBE SCH ×3 (06:00→22:00)
[2017-02-15] MEDS: AMANTADINE HCL SOLN 100 MG/10 ML UDC PEG SCH ×2 (06:32→12:26)
--- NOTE | 2017-02-15 08:17 | HHI.PR ---
Neuropsych Progress Notes/Response to Tx Contents of Sessions: Adjustment, Level of Consciousness Time with Patient: 15 minutes Premorbid psychological status Premorbid Cognitive, Emotional and Behavioral Status: Unable to Assess. The patient is unable to provide information concerning her social history and there is no family present. Behavioral Reactions of Patient and Family/Support System: Unable to Assess. No family present. Emotional/Behavioral Status of Patient and Family/Support System: Unable to Assess. Pertinent issues, if appropriate to this patients clinical care, are described in detail above. Maximizing acute care outcome It is recommended that the patient be monitored for emergent behavioral impulsivity as the medical condition evolves. This patients neuropathological challenges may limit their rehabilitation potential going forward, and these challenges will require specialized therapeutic skills to maximize outcome. Anticipated Problems Ongoing areas of concern will include behavioral impulsivity, lack of insight and judgment, which is expected to improve with time and treatment. Presently , the patient intubated and sedated. Treatment Plan This clinician will continue to follow with you throughout the course of this patients acute care treatment, and I will be available to meet with the patient s family/support system to facilitate their understanding and the ongoing care of their family member. The goals of neuropsychological intervention shall be both educational and supportive to the family/support system as is deemed clinically appropriate. [facility] Level: V:Confused-non agitated Impression This 66 year old woman suffered a moderately severe traumatic brain injury, with the resulting eventual sequelae exacerbated by her age. She is expected to have residual neurocognitive disorder 2T TBI. Diagnosis: (1) Major neurocognitive disorder as late effect of traumatic brain injury without behavioral disturbance Status: Acute Progress Note Narrative Ongoing follow-up of patient seen during daily trauma rounds. This is day 29 post injury. The patient is awake, and follows commands, with anticipation to transfer to [facility]. She remains on Amantadine 100 BID and Valproic Acid 250 BID. She is presently a [place] . I will continue to follow. Vargas Lorenzo PhD Feb 15, 2017 8:17 am
[2017-02-15] MEDS: POTASSIUM CHLORIDE 25 MEQ EFFERVESCENT TAB PEG SCH (09:00)
[2017-02-15] MEDS: ZINC OXIDE 20% OINT 30 GM TUBE TOPICAL SCH (09:00)
[2017-02-15] MEDS: BACITRACIN TOP OINT 15 GM TUBE TOPICAL SCH ×2 (09:00→21:00)
[2017-02-15] MEDS: SODIUM CHLORIDE 0.9% FLUSH 5 ML FLUSH IVF SCH ×2 (09:00→21:00)
[2017-02-15] MEDS: REMOVE OLD LIDOCAINE PATCH T-DERMAL SCH (09:00)
[2017-02-15] MEDS: CHLORHEXIDINE GLUCONATE 0.12% 15 ML CUP SWISH-SPIT SCH ×2 (09:00→21:00)
[2017-02-15] MEDS: LACTULOSE SYRUP 20 GM/30 ML CUP PEG SCH (09:09)
[2017-02-15] MEDS: ENOXAPARIN SODIUM 30 MG/0.3 ML SYRINGE SQ SCH ×2 (09:09→22:00)
[2017-02-15] MEDS: FUROSEMIDE 40 MG/5 ML UNIT DOSE CUP PEG SCH (09:10)
[2017-02-15] MEDS: VALPROIC ACID SYRUP 250 MG/5 ML UDC PEG SCH ×2 (09:11→21:59)
[2017-02-15] MEDS: CHOLECALCIFEROL (VIT D3) 1000 UNIT TAB PEG SCH (09:11)
[2017-02-15] MEDS: FAMOTIDINE 20 MG TAB PEG SCH ×2 (09:11→22:00)
[2017-02-15] MEDS: LIDOCAINE HCL 5% PATCH T-DERMAL SCH (09:22)
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
--- NOTE | 2017-02-15 11:50 | HHI.PR ---
Subjective Subjective Notes RN reports Ortho planning to change graft dressing today Awaiting insurance approval for [facility]. Denied for [facility] Objective Vitals/I&O Vital Signs Date Time Temp Pulse Resp B/P Pulse Ox O2 Delivery O2 Flow Rate FiO2 02/15/17 08:00 95.9 90 17 117/59 98 02/14/17 23:16 T-piece 6.00 28 Labs Date/Time Procedure Status Source Growth 02/10/17 22:28 Aerobic Blood Culture - Final Complete Blood Peripheral NO GROWTH IN 5 DAYS 02/10/17 22:28 Anaerobic Blood Culture - Final Complete Blood Peripheral NO GROWTH IN 5 DAYS Radiology Last Impressions Chest X-Ray 02/10/17 0000 Signed Impressions: Service Date/Time: Friday, February 10, 2017 04:36 - CONCLUSION: 1. There is no evidence of pneumothorax. Agustin Thomas MD Head CT 02/01/17 1002 Signed Impressions: Service Date/Time: Wednesday, February 01, 2017 12:58 - CONCLUSION: 1. Stable minimal acute intraventricular hemorrhage with very minimal improvement of the acute subarachnoid hemorrhage within the high parietal regions. 2. Underlying cerebral atrophy. 3. No midline shift identified. 4. Mucosal thickening involving the left maxillary sinus and left facial bone fractures. Tigre Willis MD Knee X-Ray 01/31/17 0000 Signed Impressions: Service Date/Time: Tuesday, January 31, 2017 12:45 - CONCLUSION: Status post ORIF of left proximal tibial fracture with hardware in good position. Tigre Willis MD Lumbar Spine MRI 01/27/17 0000 Signed Impressions: Service Date/Time: Friday, January 27, 2017 17:34 - CONCLUSION: L1 compression fracture with moderate loss of vertebral body height and this is stable. This is acute with marrow edema. No associated canal compromise. Nonacute T11 and T12 superior endplate compression deformities. Bilateral hydronephrosis. Elvis Sexton MD Cervical Spine MRI 01/27/17 0000 Signed Impressions: Service Date/Time: Friday, January 27, 2017 17:34 - CONCLUSION: 1. Degenerative changes are identified. The known C6 vertebral body fracture is not well evaluated on this study. Elvis Sexton MD Brain MRI 01/27/17 0000 Signed Impressions: Service Date/Time: Friday, January 27, 2017 17:34 - CONCLUSION: Subarachnoid and intraventricular hemorrhage as above. Elvis Sexton MD IVC Filter Placement X-Ray 01/20/17 0000 Signed Impressions: Service Date/Time: Friday, January 20, 2017 16:44 - CONCLUSION: Uncomplicated inferior vena cava filter placement as above. This is a retrievable filter and can be retrieved up to one year from today's date. Avinash Santana Jr., MD Neck CTA 01/18/17 Signed Impressions: Service Date/Time: Wednesday, January 18, 2017 10:48 - CONCLUSION: 1. Atherosclerotic plaquing but no hemodynamically significant carotid artery stenosis identified. 2. Parenchymal contusion and consolidation involving the right lung apex. 3. ET tube in satisfactory position. Primo Sierra MD Maxillofacial CT 01/18/17 0000 Signed Impressions: Service Date/Time: Wednesday, January 18, 2017 10:48 - CONCLUSION: Left maxillary sinus fractures. Hilary Woods MD Lower Extremity CT 01/18/17 Signed Impressions: Service Date/Time: January 04:26 - CONCLUSION: 1. Comminuted intra-articular fracture of the proximal tibia involving the lateral tibial condyle and intercondylar regions. 2. Lipo hemarthrosis. Sg Nobles MD Femur X-Ray 01/18/17 Signed Impressions: Service Date/Time: Wednesday, January 18, 2017 20:57 - CONCLUSION: Negative for retained surgical isthmus. Other communicated to the operating room. Marques Sierra MD FACR Pelvis X-Ray 01/17/17 0745 Signed Impressions: Service Date/Time: Tuesday, January 17, 2017 07:38 - CONCLUSION: 1. Multiple pelvic fractures, as above. Hermann Arnold MD Upper Extremity CT 01/17/17 0000 Signed Impressions: Service Date/Time: Tuesday, January 17, 2017 10:22 - CONCLUSION: 1. Multiple mildly displaced fractures of the left scapula. 2. Status post ORIF of the proximal left humerus 3. No evidence of fracture dislocation involving the glenohumeral joint. 4. Multiple left-sided rib fractures with associated subcutaneous emphysema. 5. No evidence of significant left-sided pneumothorax. Jayden Aviles MD Tibia/Fibula X-Ray 7/11/17 0000 Signed Impressions: Service Date/Time: Tuesday, January 17, 2017 07:38 - CONCLUSION: No acute fracture identified. Limited single view is provided. Primo Sierra MD Thoracic Spine CT 01/17/17 Signed Impressions: Service Date/Time: Tuesday, January 17, 2017 10:19 - CONCLUSION: Rib fractures, compression fracture of L1 vertebra, transverse fractures of lumbar spine discussed on the patient's prior CT examinations and the thoracic spine appears intact except for scattered degenerative changes. Hilary Woods MD Lumbar Spine CT 01/17/17 Signed Impressions: Service Date/Time: Tuesday, January 17, 2017 10:19 - CONCLUSION: 1. Compression fracture of mid body L1 with approximate 58%% reduction in height. 2. Multiple transverse process fractures, fractures of the sacrum and presacral hematoma discussed on the patient's prior CT pelvis. 3. No appreciable thecal sac stenosis is seen. Hilary Woods MD Foot X-Ray 01/17/17 Signed Impressions: Service Date/Time: Tuesday, January 17, 2017 15:20 - CONCLUSION: No definite fracture is seen for technique. Hilary Woods MD Chest CT 01/17/17 Signed Impressions: Service Date/Time: Tuesday, January 17, 2017 10:22 - CONCLUSION: 1. Bilateral rib fractures, left scapular fractures and tiny bilateral pneumothoraces. 2. Bilateral lung contusions and areas of consolidation right lower lung. Hilary Woods MD Cervical Spine CT 01/17/17 Signed Impressions: Service Date/Time: Tuesday, January 17, 2017 10:21 - CONCLUSION: Fracture of vertebral body of C6 with extension into the right foramen transversarium without any significant compromise to the thecal sac or the exiting nerve roots. Hilary Woods MD Ankle X-Ray 01/17/17 Signed Impressions: Service Date/Time: Tuesday, January 17, 2017 15:25 - CONCLUSION: Soft tissue swelling and no definite fracture for technique. Hilary Woods MD Abdomen/Pelvis CT 01/17/17 Signed Impressions: Service Date/Time: Tuesday, January 17, 2017 10:22 - CONCLUSION: 1. There is nonspecific free fluid within the abdomen and pelvis. No active arterial bleeding is identified. 2. There is a comminuted fracture of L1 which appears to represent a fairly severe compression fracture or possible burst fracture. The lamina and pedicle appear intact. There is no significant bony retropulsion. 3. Mild compression of the superior endplate of T12. 4. Fracture of both sacral ala. 5. Fracture of the anterior aspect of the right iliac wing. 6. Fracture of the superior and inferior sacral ala on the left. 7. Multiple lower rib fractures bilaterally. These will be more definitively assessed on CT imaging through the thorax. 8. Chest tube in place on the left with minimal residual pneumothorax. 9. Minimal pneumothorax on the right. 10. Consolidation/ contusion in both lower lobes. 11. Punctate collections of free air from the patient's laparotomy. Primo Sierra MD Narrative Exam GENERAL: 66-year-old well-nourished, well developed female lying in bed with SILVER CHASER in place. SKIN: Warm and dry. HEAD: Normocephalic. ENT: No nasal bleeding or discharge. Mucous membranes pink and moist. NECK: SILVER CHASER in place. Trachea midline. No JVD. Cervical collar in place. CARDIOVASCULAR: Regular rate and rhythm. RESPIRATORY: No accessory muscle use. Rhonchi auscultated throughout lung mcclure. Breath sounds equal bilaterally. GASTROINTESTINAL: Abdomen soft, non-tender, nondistended. + BS. MUSCULOSKELETAL: Extremities without cyanosis, or edema. LEFT thigh dressing in place- visualized left groin- jenny intact, erythema noted. Right foot abrasions noted. LUE sling in place. NEUROLOGICAL: Awake and alert. Follows commands. A/P Assessment and Plan INJURIES: LEFT SDH ? LEFT maxillary wall fx Scalp avulsion LEFT scapula fx BILAT PTX LEFT rib fx (3,4,5 RIGHT rib fx (5,6,7) Bilateral lung contusion Chest degloving C6 vertebral body fx T11, compression fx T12 compression endplate fx L1 compression fx Extensive pelvic fractures Free fluid in the abdomen Tibia plateau fx with LEFT thigh degloving 01/17: Ex lap 01/18: Exploration of large LEFT thigh wound w/ active bleeding 01/20: Debridement of wounds in OR 01/20: IVC filter placement 01/24: RIGHT CT placed for effusion; LEFT thigh debridement with wound vac placement 01/27: LEFT thigh I&D with wound vac change 01/31: LEFT thigh I&D and vac change. ORIF LEFT tibial platuea fx 01/31: SILVER CHASER placement 02/01: PEG 02/03: LEFT thigh I&D, split thickness skin graft 02/08: RIGHT CT removed Diet: Vital @ 50 cc/hr, Free water 200mL q 8. Pureed diet with thin liquids- ST following Pulm: T-collar. PRN Nebs. Pain: [place] Activity: OOB. PT and OT ordered. (NWB LUE; NWB LLE; WBAT RLE) GI: Pepcid Bowel: Colace. Lactulose. MOM. Senna. Bisacodyl. LBM: 02/14 DVT: SCD's. Lovenox 30 BID LEFT SDH, C6 fx, T11 compression fx, T12 compression endplate fx, L1 compression fx Neurosurgery consulted Nonoperative management TLSO brace when more mobile OOBPT and OT ordered Pain control Neuropsychologist consulted Valproic 250 BID for agitation Amantadine [address] consulted for speech and swallow eval Scalp avulsion Repaired in OR- jenny removed No Plastics coverage Supportive care Wet to dry dressing changes to scalp daily. LEFT scapula fx, Extensive pelvic fractures Orthopedic consulted Nonoperative management Pain control OOBPT/OT Maintain LUE sling NWB LUE, NWB LLE, WBAT RLE BILAT PTX, BILAT rib fxs, BILAT lung contusions 01/24: RIGHT CT placed for effusion 02/08: RIGHT CT removed Supportive care Pulmonary toileting Pain control OOBPT Chest degloving 01/20: Debridement of wounds Wound vacs DC'd Daily wet to dry dressing changes Free fluid in the abdomen Negative ex-lap Supportive care Tibia plateau fx with LEFT thigh degloving Orthopedics consulted 01/18: Exploration of large LEFT thigh wound w/ active bleeding 01/20: Debridement of wounds in OR 01/24: LEFT thigh debridement with wound vac placement 01/27: LEFT thigh I&D with wound vac change 01/31: LEFT thigh I&D and vac change. ORIF LEFT tibial plateau fx 02/03: LEFT thigh I&D, split thickness skin graft Pain control Recommend keeping Ochoa catheter and dignisheild in place to prevent contamination of skin graft on left thigh Orthopedic cleared for discharge- plan to come by and change left thigh dressing today Plan of care discussed with nurse at bedside. Patient is clear from trauma surgery standpoint to discharge to inpatient rehabilitation. Discharge pending insurance authorization. Fish Snider Feb 15, 2017 11:50
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
[2017-02-16] VITALS (8 sets, daily range): BP systolic 113–136; BP diastolic 55–58; PULSE 90–97; RESP 15–18; TEMP 97.3–99; O2SAT 92–98
[2017-02-16] MEDS: AMANTADINE HCL SOLN 100 MG/10 ML UDC PEG SCH ×2 (06:00→12:00)
[2017-02-16] MEDS: FREE WATER G-TUBE SCH ×3 (06:00→22:00)
[2017-02-16] MEDS: CHLORHEXIDINE GLUCONATE 0.12% 15 ML CUP SWISH-SPIT SCH ×2 (09:00→22:24)
[2017-02-16] MEDS: BACITRACIN TOP OINT 15 GM TUBE TOPICAL SCH ×2 (09:00→21:00)
[2017-02-16] MEDS: SODIUM CHLORIDE 0.9% FLUSH 5 ML FLUSH IVF SCH ×2 (09:00→21:00)
[2017-02-16] MEDS: LACTULOSE SYRUP 20 GM/30 ML CUP PEG SCH (09:00)
[2017-02-16] MEDS: REMOVE OLD LIDOCAINE PATCH T-DERMAL SCH (09:00)
[2017-02-16] MEDS: POTASSIUM CHLORIDE 25 MEQ EFFERVESCENT TAB PEG SCH (09:02)
[2017-02-16] MEDS: ENOXAPARIN SODIUM 30 MG/0.3 ML SYRINGE SQ SCH ×2 (09:03→22:23)
[2017-02-16] MEDS: FAMOTIDINE 20 MG TAB PEG SCH ×2 (09:03→22:23)
[2017-02-16] MEDS: VALPROIC ACID SYRUP 250 MG/5 ML UDC PEG SCH ×2 (09:04→22:23)
[2017-02-16] MEDS: FUROSEMIDE 40 MG/5 ML UNIT DOSE CUP PEG SCH (09:05)
[2017-02-16] MEDS: CHOLECALCIFEROL (VIT D3) 1000 UNIT TAB PEG SCH (09:05)
[2017-02-16] MEDS: LIDOCAINE HCL 5% PATCH T-DERMAL SCH (09:06)
[2017-02-16] MEDS: ZINC OXIDE 20% OINT 30 GM TUBE TOPICAL PRN (09:07)
--- NOTE | 2017-02-16 11:31 | HHI.PR ---
Neuropsych Behavior Behavior: Intact: Coping/Acceptance, Cooperative w/ Treatment, Moderate: Motivation Cognitive Cognitive: Moderate: Confused/Orientation, Unable to Asses: Cognitive, Attention/Concentration, Insight/Awareness, Judgement/Problem-Solving, Memory Psychosocial Psychosocial: Unable to Asses: Psychosocial, Family/Other Adjustment, Realistic Expectation, Self-Esteem/Confidence Progress Notes/Response to Tx Contents of Sessions: Adjustment Time with Patient: 15 minutes Premorbid psychological status Premorbid Cognitive, Emotional and Behavioral Status: Unable to Assess. The patient is unable to provide information concerning her social history and there is no family present. Behavioral Reactions of Patient and Family/Support System: Unable to Assess. No family present. Emotional/Behavioral Status of Patient and Family/Support System: Unable to Assess. Pertinent issues, if appropriate to this patients clinical care, are described in detail above. Maximizing acute care outcome It is recommended that the patient be monitored for emergent behavioral impulsivity as the medical condition evolves. This patients neuropathological challenges may limit their rehabilitation potential going forward, and these challenges will require specialized therapeutic skills to maximize outcome. Anticipated Problems Ongoing areas of concern will include behavioral impulsivity, lack of insight and judgment, which is expected to improve with time and treatment. Presently , the patient intubated and sedated. Treatment Plan This clinician will continue to follow with you throughout the course of this patients acute care treatment, and I will be available to meet with the patient s family/support system to facilitate their understanding and the ongoing care of their family member. The goals of neuropsychological intervention shall be both educational and supportive to the family/support system as is deemed clinically appropriate. [facility] Level: V:Confused-non agitated Impression This 66 year old woman suffered a moderately severe traumatic brain injury, with the resulting eventual sequelae exacerbated by her age. She is expected to have residual neurocognitive disorder 2T TBI. Diagnosis: (1) Major neurocognitive disorder as late effect of traumatic brain injury without behavioral disturbance Status: Acute Progress Note Narrative Ongoing follow-up of patient seen during daily trauma rounds. This is day 30 post injury. The patient is stable, awake and follows commands, although abulic /amotivational. She is oriented, and her neurobehavioral status is consistent with [place]. I will continue to follow. Vargas Lorenzo PhD Feb 16, 2017 11:31 am
--- NOTE | 2017-02-16 11:56 | HHI.PR ---
Subjective Subjective Notes Awake and following commands Has not been OOB in several days Objective Vitals/I&O Vital Signs Date Time Temp Pulse Resp B/P Pulse Ox O2 Delivery O2 Flow Rate FiO2 02/16/17 08:00 97.3 90 18 118/58 98 02/16/17 07:30 T-Piece 6.00 02/15/17 20:00 28 Labs Date/Time Procedure Status Source Growth 02/15/17 11:21 Gram Stain - Final Resulted Wound Groin 02/15/17 11:21 Wound Culture Resulted Wound Groin Pending Radiology Last Impressions Chest X-Ray 02/10/17 0000 Signed Impressions: Service Date/Time: Friday, February 10, 2017 04:36 - CONCLUSION: 1. There is no evidence of pneumothorax. Agustin Thomas MD Head CT 02/01/17 1002 Signed Impressions: Service Date/Time: Wednesday, February 01, 2017 12:58 - CONCLUSION: 1. Stable minimal acute intraventricular hemorrhage with very minimal improvement of the acute subarachnoid hemorrhage within the high parietal regions. 2. Underlying cerebral atrophy. 3. No midline shift identified. 4. Mucosal thickening involving the left maxillary sinus and left facial bone fractures. Tigre Willis MD Knee X-Ray 01/31/17 0000 Signed Impressions: Service Date/Time: Tuesday, January 31, 2017 12:45 - CONCLUSION: Status post ORIF of left proximal tibial fracture with hardware in good position. Tigre Willis MD Lumbar Spine MRI 01/27/17 0000 Signed Impressions: Service Date/Time: Friday, January 27, 2017 17:34 - CONCLUSION: L1 compression fracture with moderate loss of vertebral body height and this is stable. This is acute with marrow edema. No associated canal compromise. Nonacute T11 and T12 superior endplate compression deformities. Bilateral hydronephrosis. Elvis Sexton MD Cervical Spine MRI 01/27/17 0000 Signed Impressions: Service Date/Time: Friday, January 27, 2017 17:34 - CONCLUSION: 1. Degenerative changes are identified. The known C6 vertebral body fracture is not well evaluated on this study. Elvis Sexton MD Brain MRI 01/27/17 0000 Signed Impressions: Service Date/Time: Friday, January 27, 2017 17:34 - CONCLUSION: Subarachnoid and intraventricular hemorrhage as above. Elvis Sexton MD IVC Filter Placement X-Ray 01/20/17 0000 Signed Impressions: Service Date/Time: Friday, January 20, 2017 16:44 - CONCLUSION: Uncomplicated inferior vena cava filter placement as above. This is a retrievable filter and can be retrieved up to one year from today's date. Avinash Santana Jr., MD Neck CTA 01/18/17 0000 Signed Impressions: Service Date/Time: Wednesday, January 18, 2017 10:48 - CONCLUSION: 1. Atherosclerotic plaquing but no hemodynamically significant carotid artery stenosis identified. 2. Parenchymal contusion and consolidation involving the right lung apex. 3. ET tube in satisfactory position. Primo Sierra MD Maxillofacial CT 01/18/17 0000 Signed Impressions: Service Date/Time: Wednesday, January 18, 2017 10:48 - CONCLUSION: Left maxillary sinus fractures. K. Dipak Woods MD Lower Extremity CT 01/18/17 0000 Signed Impressions: Service Date/Time: January 04:26 - CONCLUSION: 1. Comminuted intra-articular fracture of the proximal tibia involving the lateral tibial condyle and intercondylar regions. 2. Lipo hemarthrosis. Sg Nobles MD Femur X-Ray 01/18/17 0000 Signed Impressions: Service Date/Time: Wednesday, January 18, 2017 20:57 - CONCLUSION: Negative for retained surgical isthmus. Other communicated to the operating room. Marques Sierra MD FACR Pelvis X-Ray 01/17/17 0745 Signed Impressions: Service Date/Time: Tuesday, January 17, 2017 07:38 - CONCLUSION: 1. Multiple pelvic fractures, as above. Hermann Arnold MD Upper Extremity CT 01/17/17 0000 Signed Impressions: Service Date/Time: Tuesday, January 17, 2017 10:22 - CONCLUSION: 1. Multiple mildly displaced fractures of the left scapula. 2. Status post ORIF of the proximal left humerus 3. No evidence of fracture dislocation involving the glenohumeral joint. 4. Multiple left-sided rib fractures with associated subcutaneous emphysema. 5. No evidence of significant left-sided pneumothorax. Jayden Aviles MD Tibia/Fibula X-Ray 01/17/17 0000 Signed Impressions: Service Date/Time: Tuesday, January 17, 2017 07:38 - CONCLUSION: No acute fracture identified. Limited single view is provided. Primo Sierra MD Thoracic Spine CT 01/17/17 Signed Impressions: Service Date/Time: Tuesday, January 17, 2017 10:19 - CONCLUSION: Rib fractures, compression fracture of L1 vertebra, transverse fractures of lumbar spine discussed on the patient's prior CT examinations and the thoracic spine appears intact except for scattered degenerative changes. Hilary Woods MD Lumbar Spine CT 01/17/17 Signed Impressions: Service Date/Time: Tuesday, January 17, 2017 10:19 - CONCLUSION: 1. Compression fracture of mid body L1 with approximate 58%% reduction in height. 2. Multiple transverse process fractures, fractures of the sacrum and presacral hematoma discussed on the patient's prior CT pelvis. 3. No appreciable thecal sac stenosis is seen. Hilary Woods MD Foot X-Ray 01/17/17 Signed Impressions: Service Date/Time: Tuesday, January 17, 2017 15:20 - CONCLUSION: No definite fracture is seen for technique. Hilary Woods MD Chest CT 01/17/17 Signed Impressions: Service Date/Time: Tuesday, January 17, 2017 10:22 - CONCLUSION: 1. Bilateral rib fractures, left scapular fractures and tiny bilateral pneumothoraces. 2. Bilateral lung contusions and areas of consolidation right lower lung. Hilary Woods MD Cervical Spine CT 01/17/17 Signed Impressions: Service Date/Time: Tuesday, January 17, 2017 10:21 - CONCLUSION: Fracture of vertebral body of C6 with extension into the right foramen transversarium without any significant compromise to the thecal sac or the exiting nerve roots. Hilary Woods MD Ankle X-Ray 01/17/17 Signed Impressions: Service Date/Time: Tuesday, January 17, 2017 15:25 - CONCLUSION: Soft tissue swelling and no definite fracture for technique. Hilary Woods MD Abdomen/Pelvis CT 01/17/17 Signed Impressions: Service Date/Time: Tuesday, January 17, 2017 10:22 - CONCLUSION: 1. There is nonspecific free fluid within the abdomen and pelvis. No active arterial bleeding is identified. 2. There is a comminuted fracture of L1 which appears to represent a fairly severe compression fracture or possible burst fracture. The lamina and pedicle appear intact. There is no significant bony retropulsion. 3. Mild compression of the superior endplate of T12. 4. Fracture of both sacral ala. 5. Fracture of the anterior aspect of the right iliac wing. 6. Fracture of the superior and inferior sacral ala on the left. 7. Multiple lower rib fractures bilaterally. These will be more definitively assessed on CT imaging through the thorax. 8. Chest tube in place on the left with minimal residual pneumothorax. 9. Minimal pneumothorax on the right. 10. Consolidation/ contusion in both lower lobes. 11. Punctate collections of free air from the patient's laparotomy. Primo Sierra MD Narrative Exam GENERAL: 66-year-old well-nourished, well developed female lying in bed with BLOCK HAND in place. SKIN: Warm and dry. HEAD: Normocephalic. NECK: BLOCK HAND in place. Trachea midline. No JVD. Cervical collar in place. CARDIOVASCULAR: Regular rate and rhythm. RESPIRATORY: No accessory muscle use. Rhonchi auscultated throughout lung mcclure. Breath sounds equal bilaterally. GASTROINTESTINAL: Abdomen soft, non-tender, nondistended. + BS. MUSCULOSKELETAL: Extremities without cyanosis, or edema. LEFT thigh dressing in place. Right foot abrasions noted. NEUROLOGICAL: Awake and alert. Follows commands. A/P Assessment and Plan INJURIES: LEFT SDH ? LEFT maxillary wall fx Scalp avulsion LEFT scapula fx BILAT PTX LEFT rib fx (3,4,5 RIGHT rib fx (5,6,7) Bilateral lung contusion Chest degloving C6 vertebral body fx T11, compression fx T12 compression endplate fx L1 compression fx Extensive pelvic fractures Free fluid in the abdomen Tibia plateau fx with LEFT thigh degloving 01/17: Ex lap 01/18: Exploration of large LEFT thigh wound w/ active bleeding 01/20: Debridement of wounds in OR 01/20: IVC filter placement 01/24: RIGHT CT placed for effusion; LEFT thigh debridement with wound vac placement 01/27: LEFT thigh I&D with wound vac change 01/31: LEFT thigh I&D and vac change. ORIF LEFT tibial platuea fx 01/31: BLOCK HAND placement 02/01: PEG 02/03: LEFT thigh I&D, split thickness skin graft 02/08: RIGHT CT removed Diet: Vital @ 50 cc/hr, Free water 200mL q 8. Pureed diet with thin liquids- ST following Pulm: T-collar. PRN Nebs. Pain: [place] Activity: OOB to chair QD. PT and OT ordered. (NWB LUE; NWB LLE; WBAT RLE) GI: Pepcid Bowel: RPN Senna and Bisacodyl. LBM: 02/16 DVT: SCD's. Lovenox 30 BID LEFT SDH, C6 fx, T11 compression fx, T12 compression endplate fx, L1 compression fx Neurosurgery consulted Nonoperative management TLSO brace when more mobile OOBPT and OT ordered Pain control Neuropsychologist consulted Valproic 250 BID for agitation Amantadine [address] consulted for speech and swallow eval Scalp avulsion Repaired in OR- jenny removed No Plastics coverage Supportive care Wet to dry dressing changes to scalp daily. LEFT scapula fx, Extensive pelvic fractures Orthopedic consulted Nonoperative management Pain control OOBPT/OT Maintain LUE sling NWB LUE, NWB LLE, WBAT RLE BILAT PTX, BILAT rib fxs, BILAT lung contusions 01/24: RIGHT CT placed for effusion 02/08: RIGHT CT removed Supportive care Pulmonary toileting Pain control OOBPT Chest degloving 01/20: Debridement of wounds Wound vacs DC'd Daily wet to dry dressing changes Free fluid in the abdomen Negative ex-lap Supportive care Tibia plateau fx with LEFT thigh degloving Orthopedics consulted 01/18: Exploration of large LEFT thigh wound w/ active bleeding 01/20: Debridement of wounds in OR 01/24: LEFT thigh debridement with wound vac placement 01/27: LEFT thigh I&D with wound vac change 01/31: LEFT thigh I&D and vac change. ORIF LEFT tibial plateau fx 02/03: LEFT thigh I&D, split thickness skin graft Pain control Recommend keeping Ochoa catheter and dignisheild in place to prevent contamination of skin graft on left thigh Orthopedic cleared for discharge- plan to come by and change left thigh dressing today Plan of care discussed with nurse at bedside. Patient is clear from trauma surgery standpoint to discharge to inpatient rehabilitation. Discharge pending insurance authorization. Fish Snider Feb 16, 2017 11:56
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
[2017-02-17] VITALS (7 sets, daily range): BP systolic 116–129; BP diastolic 57–62; PULSE 92–104; RESP 16–20; TEMP 98.8–100.1; O2SAT 91–96
[2017-02-17] MEDS: FREE WATER G-TUBE SCH ×3 (06:00→22:00)
[2017-02-17] MEDS: AMANTADINE HCL SOLN 100 MG/10 ML UDC PEG SCH ×2 (06:24→12:31)
[2017-02-17] MEDS: SODIUM CHLORIDE 0.9% FLUSH 5 ML FLUSH IVF SCH ×2 (09:00→21:00)
[2017-02-17] MEDS: REMOVE OLD LIDOCAINE PATCH T-DERMAL SCH (09:00)
[2017-02-17] MEDS: CHLORHEXIDINE GLUCONATE 0.12% 15 ML CUP SWISH-SPIT SCH ×2 (10:20→21:00)
[2017-02-17] MEDS: LACTULOSE SYRUP 20 GM/30 ML CUP PEG SCH (10:21)
[2017-02-17] MEDS: FUROSEMIDE 40 MG/5 ML UNIT DOSE CUP PEG SCH (10:22)
[2017-02-17] MEDS: VALPROIC ACID SYRUP 250 MG/5 ML UDC PEG SCH ×2 (10:22→23:30)
[2017-02-17] MEDS: FAMOTIDINE 20 MG TAB PEG SCH ×2 (10:23→23:30)
[2017-02-17] MEDS: ENOXAPARIN SODIUM 30 MG/0.3 ML SYRINGE SQ SCH ×2 (10:23→23:30)
[2017-02-17] MEDS: CHOLECALCIFEROL (VIT D3) 1000 UNIT TAB PEG SCH (10:24)
[2017-02-17] MEDS: LIDOCAINE HCL 5% PATCH T-DERMAL SCH (10:25)
[2017-02-17] MEDS: POTASSIUM CHLORIDE 25 MEQ EFFERVESCENT TAB PEG SCH (10:26)
--- NOTE | 2017-02-17 10:30 | HHI.HCPN ---
Met with Betito Thong in her room. Nurse in providing care. She is currently lying in bed on t-piece. Awake, alert, and appears appropriate in responding to questions. Able to follow commands. Denies any shortness of breath, pain, or issues. Shakes her head "yes" when asked about participation in therapy. Notes reflect she is participating more. When asked if she is wanting to discharge from the hospital and continue therapy she shakes her head "yes". Shakes her head "no" to if her daughter has been in to visit, nurse confirms she has not seen family either. Shakes head "no" when asked if she wishes for palliative care to speak with her daughter. Palliative care will continue to follow throughout hospitalization. Emilee Santana, LAMP DECORATOR Feb 17, 2017 10:30
--- NOTE | 2017-02-17 11:46 | HHI.PR ---
Neuropsych Progress Notes/Response to Tx Contents of Sessions: Adjustment, Level of Consciousness Time with Patient: 15 minutes Premorbid psychological status Premorbid Cognitive, Emotional and Behavioral Status: Unable to Assess. The patient is unable to provide information concerning her social history and there is no family present. Behavioral Reactions of Patient and Family/Support System: Unable to Assess. No family present. Emotional/Behavioral Status of Patient and Family/Support System: Unable to Assess. Pertinent issues, if appropriate to this patients clinical care, are described in detail above. Maximizing acute care outcome It is recommended that the patient be monitored for emergent behavioral impulsivity as the medical condition evolves. This patients neuropathological challenges may limit their rehabilitation potential going forward, and these challenges will require specialized therapeutic skills to maximize outcome. Anticipated Problems Ongoing areas of concern will include behavioral impulsivity, lack of insight and judgment, which is expected to improve with time and treatment. Presently , the patient intubated and sedated. Treatment Plan This clinician will continue to follow with you throughout the course of this patients acute care treatment, and I will be available to meet with the patient s family/support system to facilitate their understanding and the ongoing care of their family member. The goals of neuropsychological intervention shall be both educational and supportive to the family/support system as is deemed clinically appropriate. [facility] Level: V:Confused-non agitated Impression This 66 year old woman suffered a moderately severe traumatic brain injury, with the resulting eventual sequelae exacerbated by her age. She is expected to have residual neurocognitive disorder 2T TBI. Diagnosis: (1) Major neurocognitive disorder as late effect of traumatic brain injury without behavioral disturbance Status: Acute Progress Note Narrative Ongoing follow-up of patient seen during daily trauma rounds. This is day 31 post injury. This patient is improving, although remains somewhat abulic and amotivational. Trauma team consensus is to increase amantadine to 150 BID. She remains [place] [facility]. I will continue to follow. Vargas Lorenzo PhD Feb 17, 2017 11:46 am
--- NOTE | 2017-02-17 13:05 | HHI.PR ---
Subjective Subjective Notes Awake and alert, flat affect Objective Vitals/I&O Vital Signs Date Time Temp Pulse Resp B/P Pulse Ox O2 Delivery O2 Flow Rate FiO2 02/17/17 12:00 100.1 104 16 129/61 92 02/16/17 17:29 T-piece 6.00 28 Labs Date/Time Procedure Status Source Growth 02/15/17 11:21 Gram Stain - Final Resulted Wound Groin 02/15/17 11:21 Wound Culture - Preliminary Resulted Group D Enterococcus Radiology Last Impressions Chest X-Ray 02/10/17 0000 Signed Impressions: Service Date/Time: Friday, February 10, 2017 04:36 - CONCLUSION: 1. There is no evidence of pneumothorax. Agustin Thomas MD Head CT 02/01/17 1002 Signed Impressions: Service Date/Time: Wednesday, February 01, 2017 12:58 - CONCLUSION: 1. Stable minimal acute intraventricular hemorrhage with very minimal improvement of the acute subarachnoid hemorrhage within the high parietal regions. 2. Underlying cerebral atrophy. 3. No midline shift identified. 4. Mucosal thickening involving the left maxillary sinus and left facial bone fractures. Tigre Willis MD Knee X-Ray 01/31/17 0000 Signed Impressions: Service Date/Time: Tuesday, January 31, 2017 12:45 - CONCLUSION: Status post ORIF of left proximal tibial fracture with hardware in good position. Tigre Willis MD Lumbar Spine MRI 01/27/17 0000 Signed Impressions: Service Date/Time: Friday, January 27, 2017 17:34 - CONCLUSION: L1 compression fracture with moderate loss of vertebral body height and this is stable. This is acute with marrow edema. No associated canal compromise. Nonacute T11 and T12 superior endplate compression deformities. Bilateral hydronephrosis. Elvis Sexton MD Cervical Spine MRI 01/27/17 0000 Signed Impressions: Service Date/Time: Friday, January 27, 2017 17:34 - CONCLUSION: 1. Degenerative changes are identified. The known C6 vertebral body fracture is not well evaluated on this study. Elvis Sexton MD Brain MRI 01/27/17 0000 Signed Impressions: Service Date/Time: Friday, January 27, 2017 17:34 - CONCLUSION: Subarachnoid and intraventricular hemorrhage as above. Elvis Sexton MD IVC Filter Placement X-Ray 01/20/17 0000 Signed Impressions: Service Date/Time: Friday, January 20, 2017 16:44 - CONCLUSION: Uncomplicated inferior vena cava filter placement as above. This is a retrievable filter and can be retrieved up to one year from today's date. Avinash Santana Jr., MD Neck CTA 01/18/17 0000 Signed Impressions: Service Date/Time: Wednesday, January 18, 2017 10:48 - CONCLUSION: 1. Atherosclerotic plaquing but no hemodynamically significant carotid artery stenosis identified. 2. Parenchymal contusion and consolidation involving the right lung apex. 3. ET tube in satisfactory position. Primo Sierra MD Maxillofacial CT 01/18/17 0000 Signed Impressions: Service Date/Time: Wednesday, January 18, 2017 10:48 - CONCLUSION: Left maxillary sinus fractures. K. Dipak Woods MD Lower Extremity CT 01/18/17 0000 Signed Impressions: Service Date/Time: January 04:26 - CONCLUSION: 1. Comminuted intra-articular fracture of the proximal tibia involving the lateral tibial condyle and intercondylar regions. 2. Lipo hemarthrosis. Sg Nobles MD Femur X-Ray 01/18/17 0000 Signed Impressions: Service Date/Time: Wednesday, January 18, 2017 20:57 - CONCLUSION: Negative for retained surgical isthmus. Other communicated to the operating room. Marques Sierra MD FACR Pelvis X-Ray 01/17/17 0745 Signed Impressions: Service Date/Time: Tuesday, January 17, 2017 07:38 - CONCLUSION: 1. Multiple pelvic fractures, as above. Hermann Arnold MD Upper Extremity CT 01/17/17 0000 Signed Impressions: Service Date/Time: Tuesday, January 17, 2017 10:22 - CONCLUSION: 1. Multiple mildly displaced fractures of the left scapula. 2. Status post ORIF of the proximal left humerus 3. No evidence of fracture dislocation involving the glenohumeral joint. 4. Multiple left-sided rib fractures with associated subcutaneous emphysema. 5. No evidence of significant left-sided pneumothorax. Jayden Aviles MD Tibia/Fibula X-Ray 01/17/17 0000 Signed Impressions: Service Date/Time: Tuesday, January 17, 2017 07:38 - CONCLUSION: No acute fracture identified. Limited single view is provided. Primo Sierra MD Thoracic Spine CT 01/17/17 Signed Impressions: Service Date/Time: Tuesday, January 17, 2017 10:19 - CONCLUSION: Rib fractures, compression fracture of L1 vertebra, transverse fractures of lumbar spine discussed on the patient's prior CT examinations and the thoracic spine appears intact except for scattered degenerative changes. Hilary Woods MD Lumbar Spine CT 01/17/17 Signed Impressions: Service Date/Time: Tuesday, January 17, 2017 10:19 - CONCLUSION: 1. Compression fracture of mid body L1 with approximate 58%% reduction in height. 2. Multiple transverse process fractures, fractures of the sacrum and presacral hematoma discussed on the patient's prior CT pelvis. 3. No appreciable thecal sac stenosis is seen. Hilary Woods MD Foot X-Ray 01/17/17 Signed Impressions: Service Date/Time: Tuesday, January 17, 2017 15:20 - CONCLUSION: No definite fracture is seen for technique. Hilary Woods MD Chest CT 01/17/17 Signed Impressions: Service Date/Time: Tuesday, January 17, 2017 10:22 - CONCLUSION: 1. Bilateral rib fractures, left scapular fractures and tiny bilateral pneumothoraces. 2. Bilateral lung contusions and areas of consolidation right lower lung. Hilary Woods MD Cervical Spine CT 01/17/17 Signed Impressions: Service Date/Time: Tuesday, January 17, 2017 10:21 - CONCLUSION: Fracture of vertebral body of C6 with extension into the right foramen transversarium without any significant compromise to the thecal sac or the exiting nerve roots. Hilary Woods MD Ankle X-Ray 01/17/17 Signed Impressions: Service Date/Time: Tuesday, January 17, 2017 15:25 - CONCLUSION: Soft tissue swelling and no definite fracture for technique. Hilary Woods MD Abdomen/Pelvis CT 01/17/17 Signed Impressions: Service Date/Time: Tuesday, January 17, 2017 10:22 - CONCLUSION: 1. There is nonspecific free fluid within the abdomen and pelvis. No active arterial bleeding is identified. 2. There is a comminuted fracture of L1 which appears to represent a fairly severe compression fracture or possible burst fracture. The lamina and pedicle appear intact. There is no significant bony retropulsion. 3. Mild compression of the superior endplate of T12. 4. Fracture of both sacral ala. 5. Fracture of the anterior aspect of the right iliac wing. 6. Fracture of the superior and inferior sacral ala on the left. 7. Multiple lower rib fractures bilaterally. These will be more definitively assessed on CT imaging through the thorax. 8. Chest tube in place on the left with minimal residual pneumothorax. 9. Minimal pneumothorax on the right. 10. Consolidation/ contusion in both lower lobes. 11. Punctate collections of free air from the patient's laparotomy. Primo Sierra MD Narrative Exam GENERAL: 66-year-old well-nourished, well developed female lying in bed with FINANCIAL REPORTING ADVISOR in place. SKIN: Warm and dry. HEAD: Normocephalic. NECK: FINANCIAL REPORTING ADVISOR in place. Trachea midline. No JVD. Cervical collar in place. CARDIOVASCULAR: Regular rate and rhythm. RESPIRATORY: No accessory muscle use. Rhonchi auscultated throughout lung mcclure. Breath sounds equal bilaterally. GASTROINTESTINAL: Abdomen soft, non-tender, nondistended. + BS. MUSCULOSKELETAL: Extremities without cyanosis, or edema. LEFT thigh dressing in place. Right foot abrasions noted. NEUROLOGICAL: Awake and alert. Follows commands. A/P Assessment and Plan INJURIES: LEFT SDH ? LEFT maxillary wall fx Scalp avulsion LEFT scapula fx BILAT PTX LEFT rib fx (3,4,5 RIGHT rib fx (5,6,7) Bilateral lung contusion Chest degloving C6 vertebral body fx T11, compression fx T12 compression endplate fx L1 compression fx Extensive pelvic fractures Free fluid in the abdomen Tibia plateau fx with LEFT thigh degloving 01/17: Ex lap 01/18: Exploration of large LEFT thigh wound w/ active bleeding 01/20: Debridement of wounds in OR 01/20: IVC filter placement 01/24: RIGHT CT placed for effusion; LEFT thigh debridement with wound vac placement 01/27: LEFT thigh I&D with wound vac change 01/31: LEFT thigh I&D and vac change. ORIF LEFT tibial plateau fx 01/31: FINANCIAL REPORTING ADVISOR placement 02/01: PEG 02/03: LEFT thigh I&D, split thickness skin graft 02/08: RIGHT CT removed Diet: Vital @ 50 cc/hr, Free water 200mL q 8. Pureed diet with thin liquids- ST following Pulm: T-collar. PRN Nebs. Pain: Sherman Activity: OOB to chair QD. PT and OT ordered. (NWB LUE; NWB LLE; WBAT RLE) GI: Pepcid Bowel: RPN Senna and Bisacodyl. LBM: 02/17 DVT: SCD's. Lovenox 30 BID LEFT SDH, C6 fx, T11 compression fx, T12 compression endplate fx, L1 compression fx Neurosurgery consulted Nonoperative management TLSO brace when more mobile OOBPT and OT ordered Pain control Neuropsychologist consulted Valproic 250 BID for agitation Increased Amantadine to [address] consulted for speech and swallow eval Scalp avulsion Repaired in OR- jenny removed No Plastics coverage Supportive care Wet to dry dressing changes to scalp daily. LEFT scapula fx, Extensive pelvic fractures Orthopedic consulted Nonoperative management Pain control OOBPT/OT Maintain LUE sling NWB LUE, NWB LLE, WBAT RLE BILAT PTX, BILAT rib fxs, BILAT lung contusions 01/24: RIGHT CT placed for effusion 02/08: RIGHT CT removed Supportive care Pulmonary toileting Pain control OOBPT Chest degloving 01/20: Debridement of wounds Wound vacs DC'd Daily wet to dry dressing changes Free fluid in the abdomen Negative ex-lap Supportive care Tibia plateau fx with LEFT thigh degloving Orthopedics consulted 01/18: Exploration of large LEFT thigh wound w/ active bleeding 01/20: Debridement of wounds in OR 01/24: LEFT thigh debridement with wound vac placement 01/27: LEFT thigh I&D with wound vac change 01/31: LEFT thigh I&D and vac change. ORIF LEFT tibial plateau fx 02/03: LEFT thigh I&D, split thickness skin graft Pain control Dressing changes per Ortho Recommend keeping Ochoa catheter and dignisheild in place to prevent contamination of skin graft on left thigh Orthopedic cleared for discharge No family at bedside during visit. Patient is clear from trauma surgery standpoint to discharge to inpatient rehabilitation. Discharge pending insurance authorization. Fish Snider Feb 17, 2017 13:05
[2017-02-17] MEDS: BACITRACIN TOP OINT 15 GM TUBE TOPICAL SCH (21:00)
[2017-02-18] VITALS (7 sets, daily range): BP systolic 124–133; BP diastolic 58–62; PULSE 92–102; RESP 16–20; TEMP 95.5–99.4; O2SAT 93–95
[2017-02-18] MEDS: FREE WATER G-TUBE SCH ×3 (05:48→21:27)
[2017-02-18] MEDS: AMANTADINE HCL SOLN 100 MG/10 ML UDC PEG SCH ×2 (05:49→12:16)
[2017-02-18] MEDS: REMOVE OLD LIDOCAINE PATCH T-DERMAL SCH (09:00)
[2017-02-18] MEDS: SODIUM CHLORIDE 0.9% FLUSH 5 ML FLUSH IVF SCH ×2 (09:00→21:00)
[2017-02-18] MEDS: LIDOCAINE HCL 5% PATCH T-DERMAL SCH (10:48)
[2017-02-18] MEDS: LACTULOSE SYRUP 20 GM/30 ML CUP PEG SCH (10:50)
[2017-02-18] MEDS: BACITRACIN TOP OINT 15 GM TUBE TOPICAL SCH ×2 (10:50→21:00)
[2017-02-18] MEDS: ENOXAPARIN SODIUM 30 MG/0.3 ML SYRINGE SQ SCH ×2 (10:51→21:27)
[2017-02-18] MEDS: FUROSEMIDE 40 MG/5 ML UNIT DOSE CUP PEG SCH (10:51)
[2017-02-18] MEDS: VALPROIC ACID SYRUP 250 MG/5 ML UDC PEG SCH ×2 (10:53→21:27)
[2017-02-18] MEDS: POTASSIUM CHLORIDE 25 MEQ EFFERVESCENT TAB PEG SCH (10:54)
[2017-02-18] MEDS: CHOLECALCIFEROL (VIT D3) 1000 UNIT TAB PEG SCH (10:54)
[2017-02-18] MEDS: FAMOTIDINE 20 MG TAB PEG SCH ×2 (10:54→21:27)
[2017-02-18] MEDS: CHLORHEXIDINE GLUCONATE 0.12% 15 ML CUP SWISH-SPIT SCH ×2 (10:57→21:27)
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
[2017-02-19] VITALS (7 sets, daily range): BP systolic 120–142; BP diastolic 58–70; PULSE 98–112; RESP 18–28; TEMP 96.2–101.1; O2SAT 91–100
[2017-02-19] MEDS: FREE WATER G-TUBE SCH ×3 (06:00→22:00)
[2017-02-19] MEDS: AMANTADINE HCL SOLN 100 MG/10 ML UDC PEG SCH ×2 (06:14→13:24)
[2017-02-19] MEDS: REMOVE OLD LIDOCAINE PATCH T-DERMAL SCH (09:00)
[2017-02-19] MEDS: BACITRACIN TOP OINT 15 GM TUBE TOPICAL SCH ×2 (09:00→21:00)
[2017-02-19] MEDS: LACTULOSE SYRUP 20 GM/30 ML CUP PEG SCH (09:00)
[2017-02-19] MEDS: FUROSEMIDE 40 MG/5 ML UNIT DOSE CUP PEG SCH (09:02)
[2017-02-19] MEDS: ENOXAPARIN SODIUM 30 MG/0.3 ML SYRINGE SQ SCH (09:02)
[2017-02-19] MEDS: CHOLECALCIFEROL (VIT D3) 1000 UNIT TAB PEG SCH (09:03)
[2017-02-19] MEDS: FAMOTIDINE 20 MG TAB PEG SCH (09:03)
[2017-02-19] MEDS: VALPROIC ACID SYRUP 250 MG/5 ML UDC PEG SCH (09:03)
[2017-02-19] MEDS: POTASSIUM CHLORIDE 25 MEQ EFFERVESCENT TAB PEG SCH (09:03)
[2017-02-19] MEDS: LIDOCAINE HCL 5% PATCH T-DERMAL SCH (09:06)
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
[2017-02-19] MEDS: CHLORHEXIDINE GLUCONATE 0.12% 15 ML CUP SWISH-SPIT SCH (21:00)
[2017-02-19] MEDS: SODIUM CHLORIDE 0.9% FLUSH 5 ML FLUSH IVF SCH (21:00)
[2017-02-20] VITALS (7 sets, daily range): BP systolic 126–143; BP diastolic 61–67; PULSE 95–108; RESP 17–28; TEMP 96.7–100; O2SAT 90–95
[2017-02-20] MEDS: ENOXAPARIN SODIUM 30 MG/0.3 ML SYRINGE SQ SCH ×3 (00:07→22:46)
[2017-02-20] MEDS: FAMOTIDINE 20 MG TAB PEG SCH ×3 (00:07→22:46)
[2017-02-20] MEDS: VALPROIC ACID SYRUP 250 MG/5 ML UDC PEG SCH ×3 (00:07→22:46)
[2017-02-20] MEDS: AMANTADINE HCL SOLN 100 MG/10 ML UDC PEG SCH ×2 (05:32→12:05)
[2017-02-20] MEDS: FREE WATER G-TUBE SCH ×3 (05:32→22:00)
[2017-02-20 07:16] LABS: HEMATOCRIT 32.9 % (35.0-46.0); MEAN CELL VOLUME 92.3 FL (80.0-100.0); MEAN CORPUSCULAR HEMOGLOBIN 30.6 PG (27.0-34.0); MEAN CORPUSCULAR HGB CONC 33.2 % (32.0-36.0); PLATELET COUNT 208 TH/MM3 (150-450); RED BLOOD COUNT 3.57 MIL/MM3 (4.00-5.30); RED CELL DISTRIBUTION WIDTH 19.1 % (11.6-17.2); REVIEW FLAG FINAL; WHITE BLOOD COUNT 18.1 TH/MM3 (4.0-11.0)
[2017-02-20 07:34] LABS: BICARBONATE 30.1 MEQ/L (21.0-32.0); POTASSIUM 3.4 MEQ/L (3.5-5.1)
[2017-02-20] MEDS: LIDOCAINE HCL 5% PATCH T-DERMAL SCH (07:54)
[2017-02-20] MEDS: FUROSEMIDE 40 MG/5 ML UNIT DOSE CUP PEG SCH (07:55)
[2017-02-20] MEDS: CHOLECALCIFEROL (VIT D3) 1000 UNIT TAB PEG SCH (07:55)
[2017-02-20] MEDS: POTASSIUM CHLORIDE 25 MEQ EFFERVESCENT TAB PEG SCH (07:55)
[2017-02-20] MEDS: LACTULOSE SYRUP 20 GM/30 ML CUP PEG SCH (07:57)
[2017-02-20] MEDS: CHLORHEXIDINE GLUCONATE 0.12% 15 ML CUP SWISH-SPIT SCH (07:57)
[2017-02-20] MEDS: SODIUM CHLORIDE 0.9% FLUSH 5 ML FLUSH IVF SCH ×2 (07:58→21:00)
[2017-02-20] MEDS: ZINC OXIDE 20% OINT 30 GM TUBE TOPICAL PRN (07:59)
[2017-02-20] MEDS ORDERED: POTASSIUM CHLORIDE 25 MEQ EFFERVESCENT TAB PO ONE (08:15)
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
[2017-02-20] MEDS: BACITRACIN TOP OINT 15 GM TUBE TOPICAL SCH ×2 (09:00→21:00)
[2017-02-20] MEDS: REMOVE OLD LIDOCAINE PATCH T-DERMAL SCH (09:00)
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
--- NOTE | 2017-02-20 13:41 | RADRPT ---
EXAM DATE/TIME: 02/20/2017 12:35 [facility] COMPARISON: CHEST SINGLE AP, February 14, 2017, 6:13. INDICATIONS : Fever. MEDICAL HISTORY : None. SURGICAL HISTORY : None. ENCOUNTER: Initial ACUITY: 1 month PAIN SCORE: Non-responsive. LOCATION: chest FINDINGS: Portable AP view of the chest demonstrates a normal-sized cardiac silhouette. Tracheostomy remains pr esent. There is a linear opacity at the right lung base with appearance favoring subsegmental atelect asis. There is a stable small left basilar pleural-parenchymal opacity. No pneumothorax is visualized . There are multiple displaced bilateral rib fractures. Left proximal humerus heart remains present. CONCLUSION: 1. Stable left basilar opacity likely representing small pleural effusion with associated volume loss and/or airspace consolidation. 2. Linear opacity at the right lung base most likely represents subsegmental atelectasis. 3. Bilateral displaced rib fractures remain visualized. Leonard Shankar MD on February 20, 2017 at 13:38 Board Certified Radiologist. This report was verified electronically.
[2017-02-20] MEDS: SERTRALINE HCL 50 MG TAB PO SCH (13:51)
[2017-02-20 14:24] LABS: BACTERIA, URINE MANY /hpf; BLOOD, URINE MOD (NEG); COMMENT (UR) CATH-CULTURE IND; CULTURE IF INDICATED CATH CULTURE IND; GLUCOSE,URINE NEG (NEG); KETONE, URINE NEG (NEG); MUCUS URINE MOD /lpf (OCC); SQUAMOUS EPITHELIAL CELL URINE 1 /hpf (0-5); URINE COLOR YELLOW (YELLW/STRAW)
[2017-02-20 14:27] LABS: NITRITE,URINE POS (NEG)
--- NOTE | 2017-02-20 15:24 | HHI.HCPN ---
Call from daughter, Shea regarding plan for therapy. She is requesting patient be put in stretcher chair daily if medically appropriate. Wonders about the "hole in her head" seems like it has opened up again. Droplet precaution now , reviewed culture results and current. Medical update provided. Questions answered. Discussed with Rose Lozada. Orders written for up to chair already and she will review head wound again. Patient was started on antidepressant today. Palliative care will be available PRN. No other recommendations at this time. . Glenna Anderson Feb 20, 2017 15:23
[2017-02-20] MEDS: PIPERACIL-TAZO 3.375 GM PREMIX 50 ML IV SCH (18:19)
[2017-02-21] VITALS (12 sets, daily range): BP systolic 123–147; BP diastolic 58–67; PULSE 94–106; RESP 17–28; TEMP 97.3–100.8; O2SAT 90–99
[2017-02-21] MEDS: FREE WATER G-TUBE SCH ×3 (06:00→21:11)
[2017-02-21 06:03] LABS: HEMATOCRIT 34.6 % (35.0-46.0); MEAN CELL VOLUME 93.5 FL (80.0-100.0); MEAN CORPUSCULAR HEMOGLOBIN 29.4 PG (27.0-34.0); MEAN CORPUSCULAR HGB CONC 31.4 % (32.0-36.0); PLATELET COUNT 221 TH/MM3 (150-450); RED CELL DISTRIBUTION WIDTH 19.2 % (11.6-17.2); REVIEW FLAG FINAL; WHITE BLOOD COUNT 13.7 TH/MM3 (4.0-11.0)
[2017-02-21] MEDS: CHLORHEXIDINE GLUCONATE 0.12% 15 ML CUP SWISH-SPIT SCH ×3 (06:17→21:00)
[2017-02-21] MEDS: PIPERACIL-TAZO 3.375 GM PREMIX 50 ML IV SCH ×5 (06:17→23:14)
[2017-02-21] MEDS: AMANTADINE HCL SOLN 100 MG/10 ML UDC PEG SCH ×2 (06:18→11:30)
[2017-02-21 06:26] LABS: BICARBONATE 31.9 MEQ/L (21.0-32.0); POTASSIUM 3.3 MEQ/L (3.5-5.1)
[2017-02-21] MEDS: ENOXAPARIN SODIUM 30 MG/0.3 ML SYRINGE SQ SCH ×2 (08:13→21:11)
[2017-02-21] MEDS: CHOLECALCIFEROL (VIT D3) 1000 UNIT TAB PEG SCH (08:13)
[2017-02-21] MEDS: FAMOTIDINE 20 MG TAB PEG SCH ×2 (08:13→21:10)
[2017-02-21] MEDS: ERGOCALCIFEROL (VIT D2) 50,000 UNIT CAP PEG SCH (08:13)
[2017-02-21] MEDS: POTASSIUM CHLORIDE 25 MEQ EFFERVESCENT TAB PEG SCH (08:13)
[2017-02-21] MEDS: LACTULOSE SYRUP 20 GM/30 ML CUP PEG SCH (08:14)
[2017-02-21] MEDS: POTASSIUM CHLORIDE 25 MEQ EFFERVESCENT TAB PO SCH ×2 (08:14→21:10)
[2017-02-21] MEDS: REMOVE OLD LIDOCAINE PATCH T-DERMAL SCH (08:14)
[2017-02-21] MEDS: FUROSEMIDE 40 MG/5 ML UNIT DOSE CUP PEG SCH (08:14)
[2017-02-21] MEDS: LIDOCAINE HCL 5% PATCH T-DERMAL SCH (08:14)
[2017-02-21] MEDS: SODIUM CHLORIDE 0.9% FLUSH 5 ML FLUSH IVF SCH ×2 (08:14→21:00)
[2017-02-21] MEDS: VALPROIC ACID SYRUP 250 MG/5 ML UDC PEG SCH ×2 (08:14→21:09)
[2017-02-21] MEDS: SERTRALINE HCL 50 MG TAB PO SCH (08:14)
[2017-02-21] MEDS: ZINC OXIDE 20% OINT 30 GM TUBE TOPICAL PRN (08:17)
[2017-02-21] MEDS: BACITRACIN TOP OINT 15 GM TUBE TOPICAL SCH ×2 (08:17→21:00)
[2017-02-21 10:49] LABS: BLOOD GAS BASE EXCESS 6.6 mmol/L (-2-2); BLOOD GAS CARBOXYHEMOGLOBIN 1.8 % (0-4); BLOOD GAS HCO3 30 mmol/L (22-26); BLOOD GAS METHEMOGLOBIN 0.7 % (0-2); BLOOD GAS O2 HGB SATURATION 89 % (90-100); BLOOD GAS PCO2 42 mmHg (38-42); BLOOD GAS PO2 61 mmHg (61-120); BLOOD GAS TOTAL HGB 11.2 G/DL (12.0-16.0); TEMP CORR TO 98.6
[2017-02-21 10:50] LABS: CRITICAL VALUE YES; DRAW SITE RT RADIAL; FIO2 98 %; LITER FLOW 6 L/M; NUMBER OF ARTERIAL PUNCTURES 1; OXYGEN DEVICE TPIECE; STAT YES; ULNAR PULSE PRESENT
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
--- NOTE | 2017-02-21 13:11 | RADRPT ---
EXAM DATE/TIME: 02/21/2017 11:07 [place] COMPARISON: CHEST SINGLE AP, February 20, 2017, 12:35. INDICATIONS : Shortness of breath. MEDICAL HISTORY : Carcinoma, breast. SURGICAL HISTORY : Hysterectomy. Mastectomy, bilateral. Bladder augmentation. ENCOUNTER: Subsequent ACUITY: 3 days PAIN SCORE: Non-responsive. LOCATION: Bilateral chest FINDINGS: There is a tracheostomy tube has its tip approximately 4 cm above the keshawn. There is a small left pleural effusion. Bibasilar patchiness (left slightly worse than right) is persistent. Multiple shantanu ateral rib fractures are stable. Hardware is again noted within the left proximal humerus. CONCLUSION: 1. Stable bibasilar patchiness (left slightly worse than right). 2. Small left pleural effusion. 3. Multiple stable bilateral rib fractures. 4. tracheostomy tube in good position 4 cm above the keshawn. Tigre Willis MD on February 21, 2017 at 12:49 Board Certified Radiologist. This report was verified electronically.
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
[2017-02-21] MEDS ORDERED: IOHEXOL 350 MG/ML 10 ML VIAL (for RAD DIAG) IV ONE (17:55)
--- NOTE | 2017-02-21 18:20 | RADRPT ---
EXAM DATE/TIME: 02/21/2017 17:32 [facility] COMPARISON: CT THORAX W CONTRAST, January 17, 2017, 10:22. INDICATIONS : Decreased oxygen saturation IV CONTRAST: 74 cc Omnipaque 350 (iohexol) IV RADIATION DOSE: 5.6 CTDIvol (mGy) MEDICAL HISTORY : Hypertension. SURGICAL HISTORY : Hysterectomy. ENCOUNTER: Initial ACUITY: 1 day PAIN SCALE: 0/10 LOCATION: chest TECHNIQUE: Volumetric scanning of the chest was performed using a pulmonary embolism protocol MIP images were re constructed. Using automated exposure control and adjustment of the mA and/or kV according to patien t size, radiation dose was kept as low as reasonably achievable to obtain optimal diagnostic quality images. DICOM format image data is available electronically for review and comparison. Follow-up recommendations for detected pulmonary nodules are based at a minimum on nodule size and pa tient risk factors according to Fleischner Society Guidelines. FINDINGS: PULMONARY ARTERIES: No filling defects are seen in the pulmonary arteries through the segmental level. LUNGS: Numerous subacute left rib fractures again noted, healing. There is dense consolidation in the left l ower lobe and a small left pleural effusion. Trace atelectasis seen in the right lung base. There are 10 and 6 mm right lower lobe pulmonary nodules which were not visible previously because they were i n consolidated lung. There is no pneumothorax. PLEURAE: There is no pleural thickening or pleural effusion. MEDIASTINUM: Stable, normal heart size. No mediastinal adenopathy demonstrated. There is coronary artery calcifica tion, especially the left anterior descending. MUSCULOSKELETAL: Within normal limits for patient age. MISCELLANEOUS: 2.7 cm low density collection seen in the left axilla, most likely a seroma. There is a 13 mm interme diate density left axillary mass thought to most likely represent a lymph node. CONCLUSION: 1. No pulmonary embolus. 2. Left lower lobe collapse. 3. Mild atelectasis right lower lobe. 4. Right lower lobe pulmonary nodules measuring 6 and 10 mm in size. 6 month followup noncontrast [facility] is recommended. 5. Healing left rib fractures. 6. Left axillary masses, one thought to represent a seroma and the other most likely a mildly enlarge d, nonspecific lymph node. 7. Coronary artery calcification. Leonard Cespedes MD on February 21, 2017 at 18:13 Board Certified Radiologist. This report was verified electronically.
[2017-02-22] VITALS (15 sets, daily range): BP systolic 131–152; BP diastolic 59–67; PULSE 86–96; RESP 13–30; TEMP 99–100.9; O2SAT 93–100
[2017-02-22] MEDS: PIPERACIL-TAZO 3.375 GM PREMIX 50 ML IV SCH ×2 (04:50→13:14)
[2017-02-22] MEDS: FREE WATER G-TUBE SCH ×4 (04:51→22:00)
--- NOTE | 2017-02-22 05:07 | RADRPT ---
EXAM DATE/TIME: 02/22/2017 03:37 [facility] COMPARISON: CHEST SINGLE AP, February 21, 2017, 11:07. INDICATIONS : Shortness of breath. MEDICAL HISTORY : Carcinoma, breast. SURGICAL HISTORY : Mastectomy, bilateral. ENCOUNTER: Subsequent ACUITY: 1 month PAIN SCORE: Non-responsive. LOCATION: Bilateral chest FINDINGS: Persistent consolidation left lower lung with loss of delineation left hemidiaphragm, stable from boby or. The right lung is clear. The heart is normal size. Tracheostomy in place. Multiple left rib f ractures. No evidence of pneumothorax. CONCLUSION: Stable consolidation left lower lung. Avinash Acosta MD on February 22, 2017 at 5:05 Board Certified Radiologist. This report was verified electronically.
[2017-02-22 05:27] LABS: AUTOMATED NEUTROPHIL # 9.4 TH/MM3 (1.8-7.7); BASOPHIL % 0.3 % (0.0-2.0); EOSINOPHIL % 0.3 % (0.0-4.0); HEMATOCRIT 33.9 % (35.0-46.0); HEMO FLAGS DIFF FINAL; LYMPHOCYTE # 1.9 TH/MM3 (1.0-4.8); MEAN CELL VOLUME 93.5 FL (80.0-100.0); MEAN CORPUSCULAR HEMOGLOBIN 29.3 PG (27.0-34.0); MEAN CORPUSCULAR HGB CONC 31.4 % (32.0-36.0); MONO % 10.2 % (0.0-8.0); NEUT % 74.2 % (16.0-70.0); PLATELET COUNT 228 TH/MM3 (150-450); RED BLOOD COUNT 3.63 MIL/MM3 (4.00-5.30); RED CELL DISTRIBUTION WIDTH 18.8 % (11.6-17.2); WHITE BLOOD COUNT 12.6 TH/MM3 (4.0-11.0)
[2017-02-22 05:51] LABS: ANION GAP 7 MEQ/L (5-15); AST (GOT) 46 U/L (15-37); BICARBONATE 30.7 MEQ/L (21.0-32.0); BLOOD UREA NITROGEN 38 MG/DL (7-18); CHLORIDE 105 MEQ/L (98-107); GLOMERULAR FILTRATION RATE 123 ML/MIN (>89); MAGNESIUM 2.6 MG/DL (1.5-2.5); POTASSIUM 3.4 MEQ/L (3.5-5.1); SODIUM (NA) 143 MEQ/L (136-145)
[2017-02-22 05:55] LABS: ALKALINE PHOSPHATASE 156 U/L (45-117); ALT (GPT) 61 U/L (10-53); TOTAL BILIRUBIN ADULT 0.3 MG/DL (0.2-1.0)
[2017-02-22] MEDS: AMANTADINE HCL SOLN 100 MG/10 ML UDC PEG SCH ×3 (06:28→13:14)
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
[2017-02-22] MEDS ORDERED: SODIUM PHOSPHATE INJ 30 MMOL in SODIUM CHLOR 0.9% 250 ML INJ 240 ML IV PRN (08:15)
[2017-02-22] MEDS ORDERED: POTASSIUM PHOSPHATE MONOBASIC 500 MG TAB PO PRN (08:15)
[2017-02-22] MEDS ORDERED: POTASSIUM PHOSPHATE INJ 30 MMOL in SODIUM CHLOR 0.9% 250 ML INJ 250 ML IV PRN (08:15)
[2017-02-22] MEDS ORDERED: MAGNESIUM SULFATE INJ 4 GM in SODIUM CHLORIDE 0.9% INJ 92 ML IV PRN (08:15)
[2017-02-22] MEDS ORDERED: POTASSIUM CHLOR 20 MEQ PREMIX 100 ML IV PRN (08:15)
[2017-02-22] MEDS ORDERED: MAGNESIUM SULFATE INJ 2 GM in SODIUM CHLORIDE 0.9% INJ 96 ML IV PRN (08:15)
[2017-02-22] MEDS ORDERED: POTASSIUM CHLOR 40 MEQ PREMIX 100 ML IV PRN ×2 (08:15)
[2017-02-22] MEDS ORDERED: POTASSIUM CHLORIDE 25 MEQ EFFERVESCENT TAB PO PRN (08:15)
[2017-02-22] MEDS ORDERED: MAGNESIUM OXIDE 400 MG TAB PO PRN (08:15)
[2017-02-22] MEDS ORDERED: POTASSIUM PHOSPHATE MONOBASIC 500 MG TAB PO/TUBE PRN (08:15)
--- NOTE | 2017-02-22 08:48 | HHI.PR ---
Neuropsych Emotional Emotional: UnabletoAssess: Emotional, Anxious/Fearful, Depressed/Sad, Hostile/ Resentful, Irritable/Angry/Frustrate, Labile, Constricted/Blunted Behavior Behavior: Unable to Asses: Behavior, Coping/Acceptance, Cooperative w/ Treatment, Motivation, Frustration Tolerance/[place], Impulsive/Agitated, Suicidal/ Homicidal Risk Cognitive Cognitive: Unable to Asses: Cognitive, Attention/Concentration, Confused/ Orientation, Insight/Awareness, Judgement/Problem-Solving, Memory Progress Notes/Response to Tx Contents of Sessions: Adjustment, Level of Consciousness Time with Patient: 15 minutes Premorbid psychological status Premorbid Cognitive, Emotional and Behavioral Status: Unable to Assess. The patient is unable to provide information concerning her social history and there is no family present. Behavioral Reactions of Patient and Family/Support System: Unable to Assess. No family present. Emotional/Behavioral Status of Patient and Family/Support System: Unable to Assess. Pertinent issues, if appropriate to this patients clinical care, are described in detail above. Maximizing acute care outcome It is recommended that the patient be monitored for emergent behavioral impulsivity as the medical condition evolves. This patients neuropathological challenges may limit their rehabilitation potential going forward, and these challenges will require specialized therapeutic skills to maximize outcome. Anticipated Problems Ongoing areas of concern will include behavioral impulsivity, lack of insight and judgment, which is expected to improve with time and treatment. Presently , the patient intubated and sedated. Treatment Plan This clinician will continue to follow with you throughout the course of this patients acute care treatment, and I will be available to meet with the patient s family/support system to facilitate their understanding and the ongoing care of their family member. The goals of neuropsychological intervention shall be both educational and supportive to the family/support system as is deemed clinically appropriate. [facility] Level: V:Confused-non agitated Impression This 66 year old woman suffered a moderately severe traumatic brain injury, with the resulting eventual sequelae exacerbated by her age. She is expected to have residual neurocognitive disorder 2T TBI. Diagnosis: (1) Major neurocognitive disorder as late effect of traumatic brain injury without behavioral disturbance Status: Acute Progress Note Narrative Ongoing follow-up of patient seen during daily trauma rounds. This is day 36 post injury. The patient was transferred back to ICU for respiratory distress with PF ratio below 100. The patient remains on Amantadine 150 q0700 and 1200, Zoloft 50qD and Valproic Acid 250 BID. As noted yesterday, the patient exhibits a curiously odd flat affect [place] to [place], where she is awake, does follow commands when asks, but does not initiate interaction or eye contact with any other human similar to an indifference. Presently, the patient is at [place], non agitated but confused. I will continue to follow. Vargas Lorenzo PhD Feb 22, 2017 8:48 am
[2017-02-22] MEDS: BACITRACIN TOP OINT 15 GM TUBE TOPICAL SCH ×2 (09:00→20:20)
[2017-02-22] MEDS: CHLORHEXIDINE GLUCONATE 0.12% 15 ML CUP SWISH-SPIT SCH ×2 (09:00→20:20)
[2017-02-22] MEDS: REMOVE OLD LIDOCAINE PATCH T-DERMAL SCH (09:00)
[2017-02-22] MEDS: SODIUM CHLORIDE 0.9% FLUSH 5 ML FLUSH IVF SCH ×2 (09:00→20:19)
[2017-02-22] MEDS: FUROSEMIDE 40 MG/5 ML UNIT DOSE CUP PEG SCH (09:03)
[2017-02-22] MEDS: CHOLECALCIFEROL (VIT D3) 1000 UNIT TAB PEG SCH (09:04)
[2017-02-22] MEDS: SERTRALINE HCL 50 MG TAB PO SCH (09:04)
[2017-02-22] MEDS: FAMOTIDINE 20 MG TAB PEG SCH ×2 (09:04→20:19)
[2017-02-22] MEDS: VALPROIC ACID SYRUP 250 MG/5 ML UDC PEG SCH ×2 (09:04→20:19)
[2017-02-22] MEDS: LACTULOSE SYRUP 20 GM/30 ML CUP PEG SCH (09:04)
[2017-02-22] MEDS: POTASSIUM CHLORIDE 25 MEQ EFFERVESCENT TAB PEG SCH (09:04)
[2017-02-22] MEDS: LIDOCAINE HCL 5% PATCH T-DERMAL SCH (09:05)
[2017-02-22] MEDS: ENOXAPARIN SODIUM 30 MG/0.3 ML SYRINGE SQ SCH ×2 (09:08→20:19)
[2017-02-22] MEDS: POTASSIUM CHLOR 20 MEQ PREMIX 100 ML IV PRN ×2 (09:15→23:32)
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
--- NOTE | 2017-02-22 14:27 | HHI.IDPN ---
Subjective Subjective Remarks Events noted Over the last 2 weeks pt improved, was transferred to [facility], yday ago got back to ICU 2/2 hypoxia She is febrile up to 101F, her WBC went up to 18K, back on vent CTA showed Left lower lobe collapse. she also has liquid stool up to 200 denies abd pain restarted on zosyn urine + for ESBL sp skin grafting Antibiotics zosyn Lines Line sites with no e.o infection. Past Medical History reviewed. Allergies: Coded Allergies: Sulfa (Sulfonamide Antibiotics) (Unverified Allergy, Intermediate, "BLOOD COUNT DROPS", 02/21/17) *MDRO Multi-Drug Resistant Organism (Verified Adverse Reaction, Unknown, ) VRE (urine) 01/19/17 codeine (Unverified Adverse Reaction, Unknown, ITCHING, 02/21/17) Objective . Vital Signs Date Time Temp Pulse Resp B/P Pulse Ox O2 Delivery O2 Flow Rate FiO2 02/22/17 11:19 96 40 02/22/17 07:10 40 02/22/17 07:10 100 40 02/22/17 04:48 100 50 02/22/17 04:00 50 02/22/17 04:00 100.2 92 26 149/65 100 02/22/17 01:15 100 50 02/22/17 00:00 75 02/22/17 00:00 100.8 96 13 134/67 99 02/21/17 23:00 98 02/21/17 22:03 99 75 02/21/17 22:00 75 02/21/17 20:00 100.8 105 23 138/67 94 02/21/17 19:50 97 75 02/21/17 19:00 Mechanical Ventilator 75 02/21/17 18:00 106 27 147/65 97 02/21/17 17:00 97.3 105 23 147/67 94 02/21/17 16:00 97.3 105 23 147/67 94 02/21/17 02/21/17 02/22/17 15:00 23:00 07:00 Intake Total 571 ml 248 ml 467 ml Output Total 100 ml 575 ml 750 ml Balance 471 ml -327 ml -283 ml Intake Oral 0 ml IV Total 248 ml 467 ml Tube Feeding 371 ml Other 200 ml Output Urine Total 100 ml 475 ml 650 ml Stool Total 100 ml 100 ml . Laboratory Tests Test 02/21/17 02/22/17 05:46 04:30 White Blood Count 13.7 TH/MM3 12.6 TH/MM3 Red Blood Count 3.70 MIL/MM3 3.63 MIL/MM3 Hemoglobin 10.9 GM/DL 10.6 GM/DL Hematocrit 34.6 % 33.9 % Mean Corpuscular Volume 93.5 FL 93.5 FL Mean Corpuscular Hemoglobin 29.4 PG 29.3 PG Mean Corpuscular Hemoglobin 31.4 % 31.4 % Concent Red Cell Distribution Width 19.2 % 18.8 % Platelet Count 221 TH/MM3 228 TH/MM3 Mean Platelet Volume 10.7 FL 11.4 FL Neutrophils (%) (Auto) 74.2 % Lymphocytes (%) (Auto) 15.0 % Monocytes (%) (Auto) 10.2 % Eosinophils (%) (Auto) 0.3 % Basophils (%) (Auto) 0.3 % Neutrophils # (Auto) 9.4 TH/MM3 Lymphocytes # (Auto) 1.9 TH/MM3 Monocytes # (Auto) 1.3 TH/MM3 Eosinophils # (Auto) 0.0 TH/MM3 Basophils # (Auto) 0.0 TH/MM3 CBC Comment DIFF FINAL Differential Comment Laboratory Tests Test 02/21/17 02/22/17 05:46 04:30 Sodium Level 141 MEQ/L 143 MEQ/L Potassium Level 3.3 MEQ/L 3.4 MEQ/L Chloride Level 101 MEQ/L 105 MEQ/L Carbon Dioxide Level 31.9 MEQ/L 30.7 MEQ/L Anion Gap 8 MEQ/L 7 MEQ/L Blood Urea Nitrogen 40 MG/DL 38 MG/DL Creatinine 0.47 MG/DL 0.50 MG/DL Estimat Glomerular Filtration 132 ML/MIN 123 ML/MIN Rate Random Glucose 147 MG/DL 144 MG/DL Calcium Level 8.3 MG/DL 8.6 MG/DL Phosphorus Level 3.3 MG/DL Magnesium Level 2.6 MG/DL Total Bilirubin 0.3 MG/DL Aspartate Amino Transf 46 U/L (AST/SGOT) Alanine Aminotransferase 61 U/L (ALT/SGPT) Alkaline Phosphatase 156 U/L Total Protein 6.8 GM/DL Albumin 2.2 GM/DL Microbiology Date/Time Procedure Status Source Growth 02/20/17 13:40 Urine Culture - Final Complete Urine Catheterized Urine Klebsiella Pneumoniae Esbl Pos Imaging Last Impressions Chest X-Ray 02/22/17 0600 Signed Impressions: Service Date/Time: Wednesday, February 22, 2017 03:37 - CONCLUSION: Stable consolidation left lower lung. Avinash Acosta MD CT Angiography 02/21/17 0000 Signed Impressions: Service Date/Time: Tuesday, February 21, 2017 17:32 - CONCLUSION: 1. No pulmonary embolus. 2. Left lower lobe collapse. 3. Mild atelectasis right lower lobe. 4. Right lower lobe pulmonary nodules measuring 6 and 10 mm in size. 6 month followup noncontrast chest CT is recommended. 5. Healing left rib fractures. 6. Left axillary masses, one thought to represent a seroma and the other most likely a mildly enlarged, nonspecific lymph node. 7. Coronary artery calcification. Leonard Cespedes MD Knee X-Ray 02/14/17 0000 Signed Impressions: Service Date/Time: Tuesday, February 14, 2017 16:59 - CONCLUSION: 1. Postoperative left knee as above. Lisandro Hyman MD Head CT 02/01/17 1002 Signed Impressions: Service Date/Time: Wednesday, February 01, 2017 12:58 - CONCLUSION: 1. Stable minimal acute intraventricular hemorrhage with very minimal improvement of the acute subarachnoid hemorrhage within the high parietal regions. 2. Underlying cerebral atrophy. 3. No midline shift identified. 4. Mucosal thickening involving the left maxillary sinus and left facial bone fractures. Tigre Willis MD Lumbar Spine MRI 01/27/17 0000 Signed Impressions: Service Date/Time: Friday, January 27, 2017 17:34 - CONCLUSION: L1 compression fracture with moderate loss of vertebral body height and this is stable. This is acute with marrow edema. No associated canal compromise. Nonacute T11 and T12 superior endplate compression deformities. Bilateral hydronephrosis. Elvis Sexton MD Cervical Spine MRI 01/27/17 0000 Signed Impressions: Service Date/Time: Friday, January 27, 2017 17:34 - CONCLUSION: 1. Degenerative changes are identified. The known C6 vertebral body fracture is not well evaluated on this study. Elvis Sexton MD Brain MRI 01/27/17 0000 Signed Impressions: Service Date/Time: Friday, January 27, 2017 17:34 - CONCLUSION: Subarachnoid and intraventricular hemorrhage as above. Elvis Sexton MD IVC Filter Placement X-Ray 01/20/17 0000 Signed Impressions: Service Date/Time: Friday, January 20, 2017 16:44 - CONCLUSION: Uncomplicated inferior vena cava filter placement as above. This is a retrievable filter and can be retrieved up to one year from today's date. Avinash Santana Jr., MD Neck CTA 01/18/17 0000 Signed Impressions: Service Date/Time: Wednesday, January 18, 2017 10:48 - CONCLUSION: 1. Atherosclerotic plaquing but no hemodynamically significant carotid artery stenosis identified. 2. Parenchymal contusion and consolidation involving the right lung apex. 3. ET tube in satisfactory position. Primo Sierra MD Maxillofacial CT 01/18/17 0000 Signed Impressions: Service Date/Time: Wednesday, January 18, 2017 10:48 - CONCLUSION: Left maxillary sinus fractures. K. Dipak Woods MD Lower Extremity CT 01/18/17 0000 Signed Impressions: Service Date/Time: January 04:26 - CONCLUSION: 1. Comminuted intra-articular fracture of the proximal tibia involving the lateral tibial condyle and intercondylar regions. 2. Lipo hemarthrosis. Sg Nobles MD Femur X-Ray 01/18/17 0000 Signed Impressions: Service Date/Time: Wednesday, January 18, 2017 20:57 - CONCLUSION: Negative for retained surgical isthmus. Other communicated to the operating room. Marques Sierra MD FACR Pelvis X-Ray 01/17/17 0745 Signed Impressions: Service Date/Time: Tuesday, January 17, 2017 07:38 - CONCLUSION: 1. Multiple pelvic fractures, as above. Hermann Arnold MD Upper Extremity CT 01/17/17 0000 Signed Impressions: Service Date/Time: Tuesday, January 17, 2017 10:22 - CONCLUSION: 1. Multiple mildly displaced fractures of the left scapula. 2. Status post ORIF of the proximal left humerus 3. No evidence of fracture dislocation involving the glenohumeral joint. 4. Multiple left-sided rib fractures with associated subcutaneous emphysema. 5. No evidence of significant left-sided pneumothorax. Jayden Aviles MD Tibia/Fibula X-Ray 7/11/17 0000 Signed Impressions: Service Date/Time: Tuesday, January 17, 2017 07:38 - CONCLUSION: No acute fracture identified. Limited single view is provided. Primo Sierra MD Thoracic Spine CT 01/17/17 Signed Impressions: Service Date/Time: Tuesday, January 17, 2017 10:19 - CONCLUSION: Rib fractures, compression fracture of L1 vertebra, transverse fractures of lumbar spine discussed on the patient's prior CT examinations and the thoracic spine appears intact except for scattered degenerative changes. Hilary Woods MD Lumbar Spine CT 01/17/17 Signed Impressions: Service Date/Time: Tuesday, January 17, 2017 10:19 - CONCLUSION: 1. Compression fracture of mid body L1 with approximate 58%% reduction in height. 2. Multiple transverse process fractures, fractures of the sacrum and presacral hematoma discussed on the patient's prior CT pelvis. 3. No appreciable thecal sac stenosis is seen. Hilary Woods MD Foot X-Ray 01/17/17 Signed Impressions: Service Date/Time: Tuesday, January 17, 2017 15:20 - CONCLUSION: No definite fracture is seen for technique. Hilary Woods MD Chest CT 01/17/17 Signed Impressions: Service Date/Time: Tuesday, January 17, 2017 10:22 - CONCLUSION: 1. Bilateral rib fractures, left scapular fractures and tiny bilateral pneumothoraces. 2. Bilateral lung contusions and areas of consolidation right lower lung. Hilary Woods MD Cervical Spine CT 01/17/17 Signed Impressions: Service Date/Time: Tuesday, January 17, 2017 10:21 - CONCLUSION: Fracture of vertebral body of C6 with extension into the right foramen transversarium without any significant compromise to the thecal sac or the exiting nerve roots. Hilary Woods MD Ankle X-Ray 01/17/17 Signed Impressions: Service Date/Time: Tuesday, January 17, 2017 15:25 - CONCLUSION: Soft tissue swelling and no definite fracture for technique. Hilary Woods MD Abdomen/Pelvis CT 01/17/17 Signed Impressions: Service Date/Time: Tuesday, January 17, 2017 10:22 - CONCLUSION: 1. There is nonspecific free fluid within the abdomen and pelvis. No active arterial bleeding is identified. 2. There is a comminuted fracture of L1 which appears to represent a fairly severe compression fracture or possible burst fracture. The lamina and pedicle appear intact. There is no significant bony retropulsion. 3. Mild compression of the superior endplate of T12. 4. Fracture of both sacral ala. 5. Fracture of the anterior aspect of the right iliac wing. 6. Fracture of the superior and inferior sacral ala on the left. 7. Multiple lower rib fractures bilaterally. These will be more definitively assessed on CT imaging through the thorax. 8. Chest tube in place on the left with minimal residual pneumothorax. 9. Minimal pneumothorax on the right. 10. Consolidation/ contusion in both lower lobes. 11. Punctate collections of free air from the patient's laparotomy. Primo Sierra MD Physical Exam CONSTITUTIONAL/GENERAL: This is a thin poorly nourished patient, in no apparent distress. OOB in chair TUBES/LINES/DRAINS: SKIN: No jaundice, rashes, Multiple abrasions, healing Not diaphoretic. HEAD: Multiple extensive facial abrasions, healing Wound L parietal area healing OK, looks clean EYES: Pupils equal and round and reactive. No scleral icterus. No injection or drainage. Fundi not examined. ENT: Hearing OK. Nose without bleeding or purulent drainage. NECK: C collar in place; trach in place OK, no drainage CARDIOVASCULAR: Regular rate and rhythm without murmurs, gallops, or rubs. No JVD. Peripheral pulses symmetric. RESPIRATORY/CHEST: Symmetric, unlabored respirations.fairly clear to auscultation. Breath sounds equal bilaterally. GASTROINTESTINAL: Abdomen soft, not tender to palpation mildly to moderatrely distended. No hepato-splenomegaly, or palpable masses. No guarding. Bowel sounds present. Midline incision healed PEG in palce site OK Inciontinent of liquid light brown stool GENITOURINARY: Without palpable bladder distension. Ochoa catheter in place with clear yellow urine MUSCULOSKELETAL: Extremities without clubbing, cyanosis, no edema. . No mottling or clubbing. L thigh brace, B/l thigh dressings NEUROLOGICAL: fully awake and allert follows commands and communicates apprpprietely PSYCHIATRIC: calm, cooperative Assessment & Plan Remarks Multi trauma LEFT SDH LEFT maxillary wall fx Head laceration LEFT scapula fx BILAT PTX LEFT rib fx (3,4,5 RIGHT rib fx (5,6,7) Bilateral lung contusion Chest degloving C6 vertebral body fx T11, compression fx T12 compression endplate fx L1 compression fx Pelvic fracture consisting of comminuted superior-inferior left ramus fracture, ala sacri fractures, right iliac crest fracture LEFT tibial plateau fx LEFT thigh extensive degloving degloving approximating about 5% total body surface area Sepsis, bacteremia Stenotrophomonas: resolved Port of entry could be her huge degloving injury or PNA Pneumonia Acinetobacter, Enterobacter in the settings of Bilateral lung contusion - also growing Stenotrophomonas VRE UTI sp completed tx Diarrhea New UTI, now ESBL+ Kleb pneumo Recurrent PNA, clx P REcurrent acute VDRF REC's: Check Cdiff PCR sputum clx dc pip/tazo start meropenem Evelyn Moseley MD Feb 22, 2017 14:27
[2017-02-22] MEDS ORDERED: MISCELLANEOUS PHARMACY INFORMATION XX PRN (14:30)
[2017-02-22] MEDS ORDERED: ASP: Documented ESBL, MDR A baumannii or P. aeruginosa PRN (14:30)
--- NOTE | 2017-02-22 17:35 | HHI.HCPN ---
Reason for visit a. To assist with evaluation and management of symptoms including: pain, dyspnea b. To assist medical decision maker(s) with: better understanding of current medical conditions; weighing benefits/burdens of medical treatment options; making medical treatment decisions. Subjective/Interval History Patient seen and examined in ICU. No family at bedside. Patient was transferred back to [facility] on 02/21/17 for increasing oxygen needs placed back on mech vent. Chest x-ray revealed left lobe infiltrates/atelectasis. ID following, making antibiotic recommendations. 02/20/17 urine culture + Klebsiella pneumoniae ESBL + . Patient is awake and alert, she nods yes/no to questions appropriately. She denies pain or shortness of breath today. Repeat CXR stable with consolidation in left lower lung. Tolerating tube feeding. Patient thin and frail. PT/OT following. . Family/friend interactions No family present. Advance Directives Living Will: Never completed Health Care Surrogate: Never completed Durable Power of Sales Promotion Representative: Never completed Advance Directive Specifics Health Care Surrogate(s): Patient is incapacitated, uncertain if she will regain capacity. Per [place] Statutes, Healthcare Proxy falls to her two children. Daughter Shea Ramos: [phone], or [phone] Son-in-law Jc Ramos: [phone] Son: Ryan Palacios: [phone] Documented care wishes: 08/05/13 Patient hand written, notarized note stating this is her last will that includes " I don't want any chemotherapy, or any dialysis or any other thing to keep me alive when my time comes I am ready to go." . Significant change in goals: FULL CODE. Goals remain aggressive. . Objective Vital Signs Date Time Temp Pulse Resp B/P Pulse Ox O2 Delivery O2 Flow Rate FiO2 02/22/17 16:45 94 40 02/22/17 11:19 96 40 02/22/17 07:10 40 02/22/17 07:10 100 40 02/22/17 04:48 100 50 02/22/17 04:00 50 02/22/17 04:00 100.2 92 26 149/65 100 02/22/17 01:15 100 50 02/22/17 00:00 75 02/22/17 00:00 100.8 96 13 134/67 99 02/21/17 23:00 98 02/21/17 22:03 99 75 02/21/17 22:00 75 02/21/17 20:00 100.8 105 23 138/67 94 02/21/17 19:50 97 75 02/21/17 19:00 Mechanical Ventilator 75 02/21/17 18:00 106 27 147/65 97 Intake & Output 02/22/17 02/22/17 07:00 19:00 Intake Total 715 ml Output Total 1325 ml Balance -610 ml IV Total 715 ml Output Urine Total 1125 ml Stool Total 200 ml Physical Exam CONSTITUTIONAL/GENERAL: This is an adequately nourished patient, in no apparent distress. TUBES/LINES/DRAINS: trach, PEG, [place] J collar. SKIN: Dressings bilateral lower extremities. Skin is cool and dry. No diaphoresis. HEAD: Normocephalic. Multiple abrasion, [place] J collar in place. Right head avulsion to skull. NECK: [place] J not removed for inspection. CARDIOVASCULAR: Regular rate and rhythm without murmurs, gallops, or rubs. RESPIRATORY/CHEST: Symmetric, unlabored respirations. Scattered rhonchi in bilateral bases. Breath sounds equal bilaterally. Bilateral chest tubes. GASTROINTESTINAL: Abdomen soft, non-tender, nondistended. Bowel sounds present. Midline incision healing. GENITOURINARY: Without palpable bladder distension. Ochoa catheter in place. MUSCULOSKELETAL: Extremities without clubbing, cyanosis. Foot drop bilaterally. NEUROLOGICAL: Awake, nods yes/no. Follows some simple commands. PSYCHIATRIC: Appears relaxed. . Diagnostic Tests Laboratory Laboratory Tests Test 02/20/17 02/20/17 02/21/17 02/21/17 06:42 13:40 05:46 10:35 White Blood Count 18.1 TH/MM3 13.7 TH/MM3 (4.0-11.0) (4.0-11.0) Red Blood Count 3.57 MIL/MM3 3.70 MIL/MM3 (4.00-5.30) (4.00-5.30) Hemoglobin 10.9 GM/DL 10.9 GM/DL (11.6-15.3) (11.6-15.3) Hematocrit 32.9 % 34.6 % (35.0-46.0) (35.0-46.0) Mean Corpuscular Volume 92.3 FL 93.5 FL (80.0-100.0) (80.0-100.0) Mean Corpuscular Hemoglobin 30.6 PG 29.4 PG (27.0-34.0) (27.0-34.0) Mean Corpuscular Hemoglobin 33.2 % 31.4 % Concent (32.0-36.0) (32.0-36.0) Red Cell Distribution Width 19.1 % 19.2 % (11.6-17.2) (11.6-17.2) Platelet Count 208 TH/MM3 221 TH/MM3 (150-450) (150-450) Mean Platelet Volume 11.7 FL 10.7 FL (7.0-11.0) (7.0-11.0) Sodium Level 139 MEQ/L 141 MEQ/L (136-145) (136-145) Potassium Level 3.4 MEQ/L 3.3 MEQ/L (3.5-5.1) (3.5-5.1) Chloride Level 99 MEQ/L 101 MEQ/L (98-107) (98-107) Carbon Dioxide Level 30.1 MEQ/L 31.9 MEQ/L (21.0-32.0) (21.0-32.0) Anion Gap 10 MEQ/L (5-15) 8 MEQ/L (5-15) Blood Urea Nitrogen 38 MG/DL (7-18) 40 MG/DL (7-18) Creatinine 0.49 MG/DL 0.47 MG/DL (0.50-1.00) (0.50-1.00) Estimat Glomerular Filtration 126 ML/MIN 132 ML/MIN Rate (>89) (>89) Random Glucose 137 MG/DL 147 MG/DL (74-106) (74-106) Calcium Level 8.5 MG/DL 8.3 MG/DL (8.5-10.1) (8.5-10.1) Urine Color YELLOW (YELLW/STRAW) Urine Turbidity HAZY (CLEAR) Urine pH 6.0 (5.0-8.5) Urine Specific [place] 1.020 (1.002-1.035) Urine Protein 30 mg/dL (NEG-TRACE) Urine Glucose (UA) NEG mg/dL (NEG) Urine Ketones NEG mg/dL (NEG) Urine Occult Blood MOD (NEG) Urine Nitrite POS (NEG) Urine Bilirubin NEG (NEG) Urine Urobilinogen LESS THAN 2.0 MG/DL (LESS THAN 2.0) Urine Leukocyte Esterase LARGE (NEG) Urine RBC 15 /hpf (0-3) Urine WBC 48 /hpf (0-5) Urine Squamous Epithelial 1 /hpf (0-5) Cells Urine Bacteria MANY /hpf (NONE) Urine Mucus MOD /lpf (OCC) Microscopic Urinalysis Comment CATH-CULTURE IND Blood Gas Puncture Site RT RADIAL Blood Gas Patient Temperature 98.6 Blood Gas HCO3 30 mmol/L (22-26) Blood Gas Base Excess 6.6 mmol/L (-2-2) Blood Gas Oxygen Saturation 89 % (90-100) Arterial Blood pH 7.47 (7.380-7.420) Arterial Blood Partial 42 mmHg (38-42) Pressure CO2 Arterial Blood Partial 61 mmHg Pressure O2 (61-120) Arterial Blood Oxygen Content 14.0 Vol % (12.0-20.0) Arterial Blood 1.8 % (0-4) Carboxyhemoglobin Arterial Blood Methemoglobin 0.7 % (0-2) Blood Gas Hemoglobin 11.2 G/DL (12.0-16.0) Oxygen Delivery Device TPIECE Blood Gas Liter Flow 6 L/M Blood Gas Inspired Oxygen 98 % Test 02/22/17 04:30 White Blood Count 12.6 TH/MM3 (4.0-11.0) Red Blood Count 3.63 MIL/MM3 (4.00-5.30) Hemoglobin 10.6 GM/DL (11.6-15.3) Hematocrit 33.9 % (35.0-46.0) Mean Corpuscular Volume 93.5 FL (80.0-100.0) Mean Corpuscular Hemoglobin 29.3 PG (27.0-34.0) Mean Corpuscular Hemoglobin 31.4 % Concent (32.0-36.0) Red Cell Distribution Width 18.8 % (11.6-17.2) Platelet Count 228 TH/MM3 (150-450) Mean Platelet Volume 11.4 FL (7.0-11.0) Neutrophils (%) (Auto) 74.2 % (16.0-70.0) Lymphocytes (%) (Auto) 15.0 % (9.0-44.0) Monocytes (%) (Auto) 10.2 % (0.0-8.0) Eosinophils (%) (Auto) 0.3 % (0.0-4.0) Basophils (%) (Auto) 0.3 % (0.0-2.0) Neutrophils # (Auto) 9.4 TH/MM3 (1.8-7.7) Lymphocytes # (Auto) 1.9 TH/MM3 (1.0-4.8) Monocytes # (Auto) 1.3 TH/MM3 (0-0.9) Eosinophils # (Auto) 0.0 TH/MM3 (0-0.4) Basophils # (Auto) 0.0 TH/MM3 (0-0.2) CBC Comment DIFF FINAL Differential Comment Sodium Level 143 MEQ/L (136-145) Potassium Level 3.4 MEQ/L (3.5-5.1) Chloride Level 105 MEQ/L (98-107) Carbon Dioxide Level 30.7 MEQ/L (21.0-32.0) Anion Gap 7 MEQ/L (5-15) Blood Urea Nitrogen 38 MG/DL (7-18) Creatinine 0.50 MG/DL (0.50-1.00) Estimat Glomerular Filtration 123 ML/MIN Rate (>89) Random Glucose 144 MG/DL (74-106) Calcium Level 8.6 MG/DL (8.5-10.1) Phosphorus Level 3.3 MG/DL (2.5-4.9) Magnesium Level 2.6 MG/DL (1.5-2.5) Total Bilirubin 0.3 MG/DL (0.2-1.0) Aspartate Amino Transf 46 U/L (15-37) (AST/SGOT) Alanine Aminotransferase 61 U/L (10-53) (ALT/SGPT) Alkaline Phosphatase 156 U/L (45-117) Total Protein 6.8 GM/DL (6.4-8.2) Albumin 2.2 GM/DL (3.4-5.0) Result Diagram: 02/22/170 02/22/17 0430 Microbiology Microbiology Date/Time Procedure Status Source Growth 02/20/17 13:40 Urine Culture - Final Complete Urine Catheterized Urine Klebsiella Pneumoniae Esbl Pos Imaging Last Impressions Chest X-Ray 02/22/17 0600 Signed Impressions: Service Date/Time: Wednesday, February 22, 2017 03:37 - CONCLUSION: Stable consolidation left lower lung. Avinash Acosta MD CT Angiography 02/21/17 0000 Signed Impressions: Service Date/Time: Tuesday, February 21, 2017 17:32 - CONCLUSION: 1. No pulmonary embolus. 2. Left lower lobe collapse. 3. Mild atelectasis right lower lobe. 4. Right lower lobe pulmonary nodules measuring 6 and 10 mm in size. 6 month followup noncontrast chest CT is recommended. 5. Healing left rib fractures. 6. Left axillary masses, one thought to represent a seroma and the other most likely a mildly enlarged, nonspecific lymph node. 7. Coronary artery calcification. Leonard Cespedes MD Knee X-Ray 02/14/17 0000 Signed Impressions: Service Date/Time: Tuesday, February 14, 2017 16:59 - CONCLUSION: 1. Postoperative left knee as above. Lisandro Hyman MD Head CT 02/01/17 1002 Signed Impressions: Service Date/Time: Wednesday, February 01, 2017 12:58 - CONCLUSION: 1. Stable minimal acute intraventricular hemorrhage with very minimal improvement of the acute subarachnoid hemorrhage within the high parietal regions. 2. Underlying cerebral atrophy. 3. No midline shift identified. 4. Mucosal thickening involving the left maxillary sinus and left facial bone fractures. Tigre Willis MD Lumbar Spine MRI 01/27/17 0000 Signed Impressions: Service Date/Time: Friday, January 27, 2017 17:34 - CONCLUSION: L1 compression fracture with moderate loss of vertebral body height and this is stable. This is acute with marrow edema. No associated canal compromise. Nonacute T11 and T12 superior endplate compression deformities. Bilateral hydronephrosis. Elvis Sexton MD Cervical Spine MRI 01/27/17 0000 Signed Impressions: Service Date/Time: Friday, January 27, 2017 17:34 - CONCLUSION: 1. Degenerative changes are identified. The known C6 vertebral body fracture is not well evaluated on this study. Elvis Sexton MD Brain MRI 01/27/17 0000 Signed Impressions: Service Date/Time: Friday, January 27, 2017 17:34 - CONCLUSION: Subarachnoid and intraventricular hemorrhage as above. Elvis Sexton MD IVC Filter Placement X-Ray 01/20/17 0000 Signed Impressions: Service Date/Time: Friday, January 20, 2017 16:44 - CONCLUSION: Uncomplicated inferior vena cava filter placement as above. This is a retrievable filter and can be retrieved up to one year from today's date. Avinash Santana Jr., MD Neck CTA 01/18/17 0000 Signed Impressions: Service Date/Time: Wednesday, January 18, 2017 10:48 - CONCLUSION: 1. Atherosclerotic plaquing but no hemodynamically significant carotid artery stenosis identified. 2. Parenchymal contusion and consolidation involving the right lung apex. 3. ET tube in satisfactory position. Primo Sierra MD Maxillofacial CT 01/18/17 0000 Signed Impressions: Service Date/Time: Wednesday, January 18, 2017 10:48 - CONCLUSION: Left maxillary sinus fractures. KBetito Woods MD Lower Extremity CT 01/18/17 0000 Signed Impressions: Service Date/Time: January 04:26 - CONCLUSION: 1. Comminuted intra-articular fracture of the proximal tibia involving the lateral tibial condyle and intercondylar regions. 2. Lipo hemarthrosis. Sg Nobles MD Femur X-Ray 01/18/17 Signed Impressions: Service Date/Time: Wednesday, January 18, 2017 20:57 - CONCLUSION: Negative for retained surgical isthmus. Other communicated to the operating room. Marques Sierra MD FACR Pelvis X-Ray 01/17/17 0745 Signed Impressions: Service Date/Time: Tuesday, January 17, 2017 07:38 - CONCLUSION: 1. Multiple pelvic fractures, as above. Hermann Arnold MD Upper Extremity CT 01/17/17 0000 Signed Impressions: Service Date/Time: Tuesday, January 17, 2017 10:22 - CONCLUSION: 1. Multiple mildly displaced fractures of the left scapula. 2. Status post ORIF of the proximal left humerus 3. No evidence of fracture dislocation involving the glenohumeral joint. 4. Multiple left-sided rib fractures with associated subcutaneous emphysema. 5. No evidence of significant left-sided pneumothorax. Jayden Aviles MD Tibia/Fibula X-Ray 01/17/17 0000 Signed Impressions: Service Date/Time: Tuesday, January 17, 2017 07:38 - CONCLUSION: No acute fracture identified. Limited single view is provided. Primo Sierra MD Thoracic Spine CT 01/17/17 Signed Impressions: Service Date/Time: Tuesday, January 17, 2017 10:19 - CONCLUSION: Rib fractures, compression fracture of L1 vertebra, transverse fractures of lumbar spine discussed on the patient's prior CT examinations and the thoracic spine appears intact except for scattered degenerative changes. Hilary Woods MD Lumbar Spine CT 01/17/17 Signed Impressions: Service Date/Time: Tuesday, January 17, 2017 10:19 - CONCLUSION: 1. Compression fracture of mid body L1 with approximate 58%% reduction in height. 2. Multiple transverse process fractures, fractures of the sacrum and presacral hematoma discussed on the patient's prior CT pelvis. 3. No appreciable thecal sac stenosis is seen. Hilary Woods MD Foot X-Ray 01/17/17 Signed Impressions: Service Date/Time: Tuesday, January 17, 2017 15:20 - CONCLUSION: No definite fracture is seen for technique. Hilary Woods MD Chest CT 01/17/17 Signed Impressions: Service Date/Time: Tuesday, January 17, 2017 10:22 - CONCLUSION: 1. Bilateral rib fractures, left scapular fractures and tiny bilateral pneumothoraces. 2. Bilateral lung contusions and areas of consolidation right lower lung. Hilary Woods MD Cervical Spine CT 01/17/17 Signed Impressions: Service Date/Time: Tuesday, January 17, 2017 10:21 - CONCLUSION: Fracture of vertebral body of C6 with extension into the right foramen transversarium without any significant compromise to the thecal sac or the exiting nerve roots. Hilary Woods MD Ankle X-Ray 01/17/17 Signed Impressions: Service Date/Time: Tuesday, January 17, 2017 15:25 - CONCLUSION: Soft tissue swelling and no definite fracture for technique. Hilary Woods MD Abdomen/Pelvis CT 01/17/17 Signed Impressions: Service Date/Time: Tuesday, January 17, 2017 10:22 - CONCLUSION: 1. There is nonspecific free fluid within the abdomen and pelvis. No active arterial bleeding is identified. 2. There is a comminuted fracture of L1 which appears to represent a fairly severe compression fracture or possible burst fracture. The lamina and pedicle appear intact. There is no significant bony retropulsion. 3. Mild compression of the superior endplate of T12. 4. Fracture of both sacral ala. 5. Fracture of the anterior aspect of the right iliac wing. 6. Fracture of the superior and inferior sacral ala on the left. 7. Multiple lower rib fractures bilaterally. These will be more definitively assessed on CT imaging through the thorax. 8. Chest tube in place on the left with minimal residual pneumothorax. 9. Minimal pneumothorax on the right. 10. Consolidation/ contusion in both lower lobes. 11. Punctate collections of free air from the patient's laparotomy. Primo Sierra MD Procedures * 01/24/17: Right chest tube placement. Irrigation and debridement of left leg, application of wound VAC dressing. * 01/20/17: Debridement open complex wound left thigh,washout excisional debridement open wound left chest wall, washout open wound right abdominal wall Application of wound VAC left chest wall wound ,right abdominal wall wound * 01/18/17: Exploration of large left thigh wound with active bleeding, bleeding control, wide excision of necrotic skin * 01/17/17: Exploratory laparotomy, washout of multiple open wounds, closure right scalp wound. Left chest tube thoracostomy, insertion of right Cordis . Assessment and Plan Disease Oriented Problem List: (1) Intracranial bleed (2) Traumatic hemorrhagic shock (3) Traumatic brain injury (4) Closed flail chest Symptom Scale: (1) Pain 0-10 Scale: Unable to quantify (2) Dyspnea 0-10 Scale: Unable to quantify Pertinent Non-Medical Issues Psychosocial: Patient is with two adult children. Spiritual: Unknown Legal:Patient is incapacitated and not likely to regain capacity. Per [place] Statutes, healthcare proxy falls to her two children. Ethical issues impacting care: Patient is incapacitated and not likely to regain capacity. Important Contacts Daughter Shea Ramos: [phone], or [phone] Son-in-law Jc Ramos: [phone] Son: Ryan Palacios: [phone] Prognosis Patient has many injuries that increase her risk of further decline, infections or even . . Code Status: Full Code Plan * Patient is incapacitated to make her own healthcare decisions, uncertain if she will regain capacity. Patient is . According to [place] statutes health care proxy decision-making falls to the majority of adult children. Patient's daughter wishes to participate in health care proxy decision-making. Left message x 2 for patient's son, awaiting return call to determine if he wishes to participate. Son has not returned call, not reasonably available therefore health care proxy decision making falls to daughter. * FULL CODE * Goals remain aggressive. * SYMPTOMS: Pain: secondary to various traumatic injuries, multiple tubes/lines/ drains. PRN [place] available, none since 02/16/17. Denies pain during my visit today. Dyspnea: on mechanical ventilation. Denies dyspnea today. No new medication recommendations at this time. * Palliative care will continue to follow throughout hospital course to assist with symptom management and clarification of goals as needed. . Attestation To help prompt me to consider important information that might be impacting today's encounter and assessment, information from prior notes written by myself or my colleagues may have been "brought forward" into today's note. My signature on this note, however, is an attestation that I personally performed the exam, history, and/or decision-making noted today, and, unless otherwise indicated, the interactions with patient, family, and staff as well as the review of records all occurred today. I also attest that the listed assessment and stated plan reflect my best clinical judgment today based on the combination of historical information, prior notes, and today's exam/ interactions. When time spent is documented, it refers only to time spent today by the signer, or if indicated, combined time spent today by collaborating physician/nurse practitioner. Glenna Anderson Feb 22, 2017 17:35
[2017-02-22] MEDS: MEROPENEM INJ 1,000 MG in SODIUM CHLORIDE 0.9% INJ 100 ML IV SCH ×2 (17:46→23:31)
[2017-02-23] VITALS (9 sets, daily range): BP systolic 136–147; BP diastolic 63–67; PULSE 82–90; RESP 15–37; TEMP 98.3–99.8; O2SAT 98–99
[2017-02-23 04:55] LABS: AUTOMATED NEUTROPHIL # 9.4 TH/MM3 (1.8-7.7); BASOPHIL % 0.3 % (0.0-2.0); EOSINOPHIL % 0.3 % (0.0-4.0); HEMATOCRIT 33.4 % (35.0-46.0); HEMO FLAGS DIFF FINAL; LYMPH % 15.8 % (9.0-44.0); MEAN CELL VOLUME 92.7 FL (80.0-100.0); MEAN CORPUSCULAR HEMOGLOBIN 29.9 PG (27.0-34.0); MEAN CORPUSCULAR HGB CONC 32.3 % (32.0-36.0); MONO % 9.9 % (0.0-8.0); NEUT % 73.7 % (16.0-70.0); PLATELET COUNT 241 TH/MM3 (150-450); RED CELL DISTRIBUTION WIDTH 18.8 % (11.6-17.2); WHITE BLOOD COUNT 12.7 TH/MM3 (4.0-11.0)
[2017-02-23 05:37] LABS: ALKALINE PHOSPHATASE 145 U/L (45-117); ALT (GPT) 71 U/L (10-53); ANION GAP 5 MEQ/L (5-15); AST (GOT) 46 U/L (15-37); BICARBONATE 30.3 MEQ/L (21.0-32.0); BLOOD UREA NITROGEN 33 MG/DL (7-18); CHLORIDE 113 MEQ/L (98-107); GLOMERULAR FILTRATION RATE 129 ML/MIN (>89); POTASSIUM 4.2 MEQ/L (3.5-5.1); SODIUM (NA) 148 MEQ/L (136-145); TOTAL BILIRUBIN ADULT 0.3 MG/DL (0.2-1.0)
[2017-02-23] MEDS: FREE WATER G-TUBE SCH (06:00)
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
[2017-02-23] MEDS: REMOVE OLD LIDOCAINE PATCH T-DERMAL SCH (09:00)
[2017-02-23] MEDS: SODIUM CHLORIDE 0.9% FLUSH 5 ML FLUSH IVF SCH (09:00)
[2017-02-23] MEDS: CHLORHEXIDINE GLUCONATE 0.12% 15 ML CUP SWISH-SPIT SCH (09:00)
[2017-02-23] MEDS: BACITRACIN TOP OINT 15 GM TUBE TOPICAL SCH (09:00)
[2017-02-23] MEDS: LIDOCAINE HCL 5% PATCH T-DERMAL SCH (09:28)
[2017-02-23] MEDS: LACTULOSE SYRUP 20 GM/30 ML CUP PEG SCH (09:28)
[2017-02-23] MEDS: POTASSIUM CHLORIDE 25 MEQ EFFERVESCENT TAB PEG SCH (09:29)
[2017-02-23] MEDS: AMANTADINE HCL SOLN 100 MG/10 ML UDC PEG SCH ×2 (09:29→13:04)
[2017-02-23] MEDS: ENOXAPARIN SODIUM 30 MG/0.3 ML SYRINGE SQ SCH (09:29)
[2017-02-23] MEDS: VALPROIC ACID SYRUP 250 MG/5 ML UDC PEG SCH (09:29)
[2017-02-23] MEDS: SERTRALINE HCL 50 MG TAB PO SCH (09:30)
[2017-02-23] MEDS: CHOLECALCIFEROL (VIT D3) 1000 UNIT TAB PEG SCH (09:30)
[2017-02-23] MEDS: FUROSEMIDE 40 MG/5 ML UNIT DOSE CUP PEG SCH (09:30)
[2017-02-23] MEDS: FAMOTIDINE 20 MG TAB PEG SCH (09:30)
[2017-02-23] MEDS: MEROPENEM INJ 1,000 MG in SODIUM CHLORIDE 0.9% INJ 100 ML IV SCH ×2 (09:31→15:49)
[2017-02-23] MEDS ORDERED: MERO1INJ8 IV (10:26)
[2017-02-23] MEDS ORDERED: ACET650S PEG (10:26)
[2017-02-23] MEDS ORDERED: ENOX30P SQ (10:26)
[2017-02-23] MEDS ORDERED: AMAN100UDC PEG ×2 (10:26)
[2017-02-23] MEDS ORDERED: SENN8.6T15 PEG (10:26)
[2017-02-23] MEDS ORDERED: FAMO20TA2 PEG (10:26)
[2017-02-23] MEDS ORDERED: Lactulose Liq PEG (10:26)
[2017-02-23] MEDS ORDERED: Free Water G-TUBE (10:26)
[2017-02-23] MEDS ORDERED: KLYTECL PEG (10:26)
[2017-02-23] MEDS ORDERED: FURO8SOL PEG (10:26)
[2017-02-23] MEDS ORDERED: HYDR-3580 PEG (10:26)
[2017-02-23] MEDS ORDERED: MAGN400S PEG (10:26)
[2017-02-23] MEDS ORDERED: ZOLO50TA PO (10:26)
[2017-02-23] MEDS ORDERED: HYDR-3583 PEG (10:26)
[2017-02-23] MEDS ORDERED: BISA10R RECTAL (10:26)
[2017-02-23] MEDS ORDERED: VALP250UDC PEG (10:26)
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
--- NOTE | 2017-02-23 12:28 | HHI.IDPN ---
Subjective Subjective Remarks doing OK afebrile Antibiotics meropenem Lines Line sites with no e.o infection. Past Medical History reviewed. Allergies: Coded Allergies: Sulfa (Sulfonamide Antibiotics) (Unverified Allergy, Intermediate, "BLOOD COUNT DROPS", 02/21/17) *MDRO Multi-Drug Resistant Organism (Verified Adverse Reaction, Unknown, ) VRE (urine) 01/19/17 codeine (Unverified Adverse Reaction, Unknown, ITCHING, 02/21/17) Objective . Vital Signs Date Time Temp Pulse Resp B/P Pulse Ox O2 Delivery O2 Flow Rate FiO2 02/23/17 08:08 99 T-piece 6.00 40 02/23/17 04:00 98.9 90 15 143/65 98 02/23/17 04:00 40 02/23/17 03:55 99 40 02/23/17 00:08 98 40 02/23/17 00:00 99.8 87 17 136/63 98 02/23/17 00:00 40 02/22/17 23:00 90 02/22/17 20:00 99.0 88 14 131/59 97 02/22/17 20:00 40 02/22/17 19:42 97 40 02/22/17 19:00 98 Mechanical Ventilator 40 Trach Collar 02/22/17 16:45 94 40 02/22/17 16:00 40 02/22/17 16:00 100.4 88 24 145/63 93 02/22/17 15:00 88 02/22/17 02/22/17 02/23/17 15:00 23:00 07:00 Intake Total 880 ml 836 ml 827 ml Output Total 1200 ml 400 ml 200 ml Balance -320 ml 436 ml 627 ml IV Total 291 ml 230 ml 305 ml Tube Feeding 389 ml 406 ml 322 ml Other 200 ml 200 ml 200 ml Output Urine Total 800 ml Stool Total 400 ml 400 ml 200 ml # Voids 1 3 . Laboratory Tests Test 02/22/17 02/23/17 04:30 04:24 White Blood Count 12.6 TH/MM3 12.7 TH/MM3 Red Blood Count 3.63 MIL/MM3 3.60 MIL/MM3 Hemoglobin 10.6 GM/DL 10.8 GM/DL Hematocrit 33.9 % 33.4 % Mean Corpuscular Volume 93.5 FL 92.7 FL Mean Corpuscular Hemoglobin 29.3 PG 29.9 PG Mean Corpuscular Hemoglobin 31.4 % 32.3 % Concent Red Cell Distribution Width 18.8 % 18.8 % Platelet Count 228 TH/MM3 241 TH/MM3 Mean Platelet Volume 11.4 FL 11.2 FL Neutrophils (%) (Auto) 74.2 % 73.7 % Lymphocytes (%) (Auto) 15.0 % 15.8 % Monocytes (%) (Auto) 10.2 % 9.9 % Eosinophils (%) (Auto) 0.3 % 0.3 % Basophils (%) (Auto) 0.3 % 0.3 % Neutrophils # (Auto) 9.4 TH/MM3 9.4 TH/MM3 Lymphocytes # (Auto) 1.9 TH/MM3 2.0 TH/MM3 Monocytes # (Auto) 1.3 TH/MM3 1.3 TH/MM3 Eosinophils # (Auto) 0.0 TH/MM3 0.0 TH/MM3 Basophils # (Auto) 0.0 TH/MM3 0.0 TH/MM3 CBC Comment DIFF FINAL DIFF FINAL Differential Comment Laboratory Tests Test 02/22/17 02/22/17 02/23/17 02/23/17 04:30 20:52 04:24 07:49 Sodium Level 143 MEQ/L 148 MEQ/L Potassium Level 3.4 MEQ/L 3.5 MEQ/L 4.2 MEQ/L 4.1 MEQ/L Chloride Level 105 MEQ/L 113 MEQ/L Carbon Dioxide Level 30.7 MEQ/L 30.3 MEQ/L Anion Gap 7 MEQ/L 5 MEQ/L Blood Urea Nitrogen 38 MG/DL 33 MG/DL Creatinine 0.50 MG/DL 0.48 MG/DL Estimat Glomerular Filtration 123 ML/MIN 129 ML/MIN Rate Random Glucose 144 MG/DL 143 MG/DL Calcium Level 8.6 MG/DL 8.3 MG/DL Phosphorus Level 3.3 MG/DL Magnesium Level 2.6 MG/DL Total Bilirubin 0.3 MG/DL 0.3 MG/DL Aspartate Amino Transf 46 U/L 46 U/L (AST/SGOT) Alanine Aminotransferase 61 U/L 71 U/L (ALT/SGPT) Alkaline Phosphatase 156 U/L 145 U/L Total Protein 6.8 GM/DL 6.8 GM/DL Albumin 2.2 GM/DL 2.2 GM/DL Microbiology Date/Time Procedure Status Source Growth 02/20/17 13:40 Urine Culture - Final Complete Urine Catheterized Urine Klebsiella Pneumoniae Esbl Pos Imaging Last Impressions Chest X-Ray 02/22/17 0600 Signed Impressions: Service Date/Time: Wednesday, February 22, 2017 03:37 - CONCLUSION: Stable consolidation left lower lung. Avinash Acosta MD CT Angiography 02/21/17 0000 Signed Impressions: Service Date/Time: Tuesday, February 21, 2017 17:32 - CONCLUSION: 1. No pulmonary embolus. 2. Left lower lobe collapse. 3. Mild atelectasis right lower lobe. 4. Right lower lobe pulmonary nodules measuring 6 and 10 mm in size. 6 month followup noncontrast chest CT is recommended. 5. Healing left rib fractures. 6. Left axillary masses, one thought to represent a seroma and the other most likely a mildly enlarged, nonspecific lymph node. 7. Coronary artery calcification. Leonard Cespedes MD Knee X-Ray 02/14/17 0000 Signed Impressions: Service Date/Time: Tuesday, February 14, 2017 16:59 - CONCLUSION: 1. Postoperative left knee as above. Lisandro Hyman MD Head CT 02/01/17 1002 Signed Impressions: Service Date/Time: Wednesday, February 01, 2017 12:58 - CONCLUSION: 1. Stable minimal acute intraventricular hemorrhage with very minimal improvement of the acute subarachnoid hemorrhage within the high parietal regions. 2. Underlying cerebral atrophy. 3. No midline shift identified. 4. Mucosal thickening involving the left maxillary sinus and left facial bone fractures. Tigre Willis MD Lumbar Spine MRI 01/27/17 0000 Signed Impressions: Service Date/Time: Friday, January 27, 2017 17:34 - CONCLUSION: L1 compression fracture with moderate loss of vertebral body height and this is stable. This is acute with marrow edema. No associated canal compromise. Nonacute T11 and T12 superior endplate compression deformities. Bilateral hydronephrosis. Elvis Sexton MD Cervical Spine MRI 01/27/17 0000 Signed Impressions: Service Date/Time: Friday, January 27, 2017 17:34 - CONCLUSION: 1. Degenerative changes are identified. The known C6 vertebral body fracture is not well evaluated on this study. Elvis Sexton MD Brain MRI 01/27/17 0000 Signed Impressions: Service Date/Time: Friday, January 27, 2017 17:34 - CONCLUSION: Subarachnoid and intraventricular hemorrhage as above. Elvis Sexton MD IVC Filter Placement X-Ray 01/20/17 0000 Signed Impressions: Service Date/Time: Friday, January 20, 2017 16:44 - CONCLUSION: Uncomplicated inferior vena cava filter placement as above. This is a retrievable filter and can be retrieved up to one year from today's date. Avinash Santana Jr., MD Neck CTA 01/18/17 0000 Signed Impressions: Service Date/Time: Wednesday, January 18, 2017 10:48 - CONCLUSION: 1. Atherosclerotic plaquing but no hemodynamically significant carotid artery stenosis identified. 2. Parenchymal contusion and consolidation involving the right lung apex. 3. ET tube in satisfactory position. Primo Sierra MD Maxillofacial CT 01/18/17 0000 Signed Impressions: Service Date/Time: Wednesday, January 18, 2017 10:48 - CONCLUSION: Left maxillary sinus fractures. K. Dipak Woods MD Lower Extremity CT 01/18/17 0000 Signed Impressions: Service Date/Time: January 04:26 - CONCLUSION: 1. Comminuted intra-articular fracture of the proximal tibia involving the lateral tibial condyle and intercondylar regions. 2. Lipo hemarthrosis. Sg Nobles MD Femur X-Ray 01/18/17 0000 Signed Impressions: Service Date/Time: Wednesday, January 18, 2017 20:57 - CONCLUSION: Negative for retained surgical isthmus. Other communicated to the operating room. Marques Sierra MD FACR Pelvis X-Ray 01/17/17 0745 Signed Impressions: Service Date/Time: Tuesday, January 17, 2017 07:38 - CONCLUSION: 1. Multiple pelvic fractures, as above. Hermann Arnold MD Upper Extremity CT 01/17/17 0000 Signed Impressions: Service Date/Time: Tuesday, January 17, 2017 10:22 - CONCLUSION: 1. Multiple mildly displaced fractures of the left scapula. 2. Status post ORIF of the proximal left humerus 3. No evidence of fracture dislocation involving the glenohumeral joint. 4. Multiple left-sided rib fractures with associated subcutaneous emphysema. 5. No evidence of significant left-sided pneumothorax. Jayden Aviles MD Tibia/Fibula X-Ray 01/17/17 Signed Impressions: Service Date/Time: Tuesday, January 17, 2017 07:38 - CONCLUSION: No acute fracture identified. Limited single view is provided. Primo Sierra MD Thoracic Spine CT 01/17/17 Signed Impressions: Service Date/Time: Tuesday, January 17, 2017 10:19 - CONCLUSION: Rib fractures, compression fracture of L1 vertebra, transverse fractures of lumbar spine discussed on the patient's prior CT examinations and the thoracic spine appears intact except for scattered degenerative changes. Hilary Woods MD Lumbar Spine CT 01/17/17 Signed Impressions: Service Date/Time: Tuesday, January 17, 2017 10:19 - CONCLUSION: 1. Compression fracture of mid body L1 with approximate 58%% reduction in height. 2. Multiple transverse process fractures, fractures of the sacrum and presacral hematoma discussed on the patient's prior CT pelvis. 3. No appreciable thecal sac stenosis is seen. Hilary Woods MD Foot X-Ray 01/17/17 Signed Impressions: Service Date/Time: Tuesday, January 17, 2017 15:20 - CONCLUSION: No definite fracture is seen for technique. Hilary Woods MD Chest CT 01/17/17 Signed Impressions: Service Date/Time: Tuesday, January 17, 2017 10:22 - CONCLUSION: 1. Bilateral rib fractures, left scapular fractures and tiny bilateral pneumothoraces. 2. Bilateral lung contusions and areas of consolidation right lower lung. Hilary Woods MD Cervical Spine CT 01/17/17 Signed Impressions: Service Date/Time: Tuesday, January 17, 2017 10:21 - CONCLUSION: Fracture of vertebral body of C6 with extension into the right foramen transversarium without any significant compromise to the thecal sac or the exiting nerve roots. Hilary Woods MD Ankle X-Ray 01/17/17 Signed Impressions: Service Date/Time: Tuesday, January 17, 2017 15:25 - CONCLUSION: Soft tissue swelling and no definite fracture for technique. Hilary Woods MD Abdomen/Pelvis CT 01/17/17 Signed Impressions: Service Date/Time: Tuesday, January 17, 2017 10:22 - CONCLUSION: 1. There is nonspecific free fluid within the abdomen and pelvis. No active arterial bleeding is identified. 2. There is a comminuted fracture of L1 which appears to represent a fairly severe compression fracture or possible burst fracture. The lamina and pedicle appear intact. There is no significant bony retropulsion. 3. Mild compression of the superior endplate of T12. 4. Fracture of both sacral ala. 5. Fracture of the anterior aspect of the right iliac wing. 6. Fracture of the superior and inferior sacral ala on the left. 7. Multiple lower rib fractures bilaterally. These will be more definitively assessed on CT imaging through the thorax. 8. Chest tube in place on the left with minimal residual pneumothorax. 9. Minimal pneumothorax on the right. 10. Consolidation/ contusion in both lower lobes. 11. Punctate collections of free air from the patient's laparotomy. Primo Sierra MD Physical Exam CONSTITUTIONAL/GENERAL: This is a thin poorly nourished patient, in no apparent distress. OOB in chair TUBES/LINES/DRAINS: SKIN: No jaundice, rashes, Multiple abrasions, healing Not diaphoretic. HEAD: Multiple extensive facial abrasions, healing Wound L parietal area healing OK, looks clean EYES: Pupils equal and round and reactive. No scleral icterus. No injection or drainage. Fundi not examined. ENT: Hearing OK. Nose without bleeding or purulent drainage. NECK: C collar in place; trach in place OK, no drainage CARDIOVASCULAR: Regular rate and rhythm without murmurs, gallops, or rubs. No JVD. Peripheral pulses symmetric. RESPIRATORY/CHEST: Symmetric, unlabored respirations.fairly clear to auscultation. Breath sounds equal bilaterally. GASTROINTESTINAL: Abdomen soft, not tender to palpation mildly to moderatrely distended. No hepato-splenomegaly, or palpable masses. No guarding. Bowel sounds present. Midline incision healed PEG in palce site OK Inciontinent of liquid light brown stool GENITOURINARY: Without palpable bladder distension. Ochoa catheter in place with clear yellow urine MUSCULOSKELETAL: Extremities without clubbing, cyanosis, no edema. . No mottling or clubbing. L thigh brace, inginal wound was visulised; + some fibrionous dc present but most of it was clean B/l thigh dressings NEUROLOGICAL: fully awake and allert follows commands and communicates apprpprietely PSYCHIATRIC: calm, cooperative Assessment & Plan Remarks Multi trauma LEFT SDH LEFT maxillary wall fx Head laceration LEFT scapula fx BILAT PTX LEFT rib fx (3,4,5 RIGHT rib fx (5,6,7) Bilateral lung contusion Chest degloving C6 vertebral body fx T11, compression fx T12 compression endplate fx L1 compression fx Pelvic fracture consisting of comminuted superior-inferior left ramus fracture, ala sacri fractures, right iliac crest fracture LEFT tibial plateau fx LEFT thigh extensive degloving degloving approximating about 5% total body surface area Sepsis, bacteremia Stenotrophomonas: resolved Port of entry could be her huge degloving injury or PNA Pneumonia Acinetobacter, Enterobacter in the settings of Bilateral lung contusion - also growing Stenotrophomonas VRE UTI sp completed tx Diarrhea New UTI, now ESBL+ Kleb pneumo Recurrent PNA, clx P REcurrent acute VDRF REC's: fu Cdiff PCR fu sputum clx cont meropenem Evelyn Moseley MD Feb 23, 2017 12:28
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
== END 2017-02-23 17:57 | DRG 3 ==
LOC: NEPI 07:44 → NEDA 08:26 → MERGE 08:26 → EDBD 08:26 → N03A 11:05 → N07A 02-10 05:21 → N03B 02-21 12:37
PROVIDERS: ADMIT Surgery Trauma Surgery; ATTEND Surgery Trauma Surgery
PROC: 0WJP0ZZ Inspection of Gastrointestinal Tract, Open Approach (ICD-10-PCS; 2017-01-17)
PROC: 0W9B30Z Drainage of Left Pleural Cavity with Drainage Device, Percutaneous Approach (ICD-10-PCS; 2017-01-17)
PROC: 30233N1 Transfusion of Nonautologous Red Blood Cells into Peripheral Vein, Percutaneous Approach (ICD-10-PCS; 2017-01-17)
PROC: 0HQ0XZZ Repair Scalp Skin, External Approach (ICD-10-PCS; 2017-01-17)
PROC: 0HQKXZZ Repair Right Lower Leg Skin, External Approach (ICD-10-PCS; 2017-01-17)
PROC: 0HQJXZZ Repair Left Upper Leg Skin, External Approach (ICD-10-PCS; 2017-01-17)
PROC: 0BH17EZ Insertion of Endotracheal Airway into Trachea, Via Natural or Artificial Opening (ICD-10-PCS; 2017-01-17)
PROC: 30233L1 Transfusion of Nonautologous Fresh Plasma into Peripheral Vein, Percutaneous Approach (ICD-10-PCS; 2017-01-17)
PROC: 30233R1 Transfusion of Nonautologous Platelets into Peripheral Vein, Percutaneous Approach (ICD-10-PCS; 2017-01-17)
PROC: 0WJG0ZZ Inspection of Peritoneal Cavity, Open Approach (ICD-10-PCS; principal; 2017-01-17 08:19)
PROC: 5A1955Z Respiratory Ventilation, Greater than 96 Consecutive Hours (ICD-10-PCS; 2017-01-17 08:19)
PROC: 04QL0ZZ Repair Left Femoral Artery, Open Approach (ICD-10-PCS; 2017-01-18)
PROC: 0HBJXZZ Excision of Left Upper Leg Skin, External Approach (ICD-10-PCS; 2017-01-18)
PROC: 0JBM0ZZ Excision of Left Upper Leg Subcutaneous Tissue and Fascia, Open Approach (ICD-10-PCS; 2017-01-20)
PROC: 0HB5XZZ Excision of Chest Skin, External Approach (ICD-10-PCS; 2017-01-20)
PROC: 06H03DZ Insertion of Intraluminal Device into Inferior Vena Cava, Percutaneous Approach (ICD-10-PCS; 2017-01-20)
PROC: 0HD7XZZ Extraction of Abdomen Skin, External Approach (ICD-10-PCS; 2017-01-20)
PROC: 0JDM0ZZ Extraction of Left Upper Leg Subcutaneous Tissue and Fascia, Open Approach (ICD-10-PCS; 2017-01-24)
PROC: 0W9930Z Drainage of Right Pleural Cavity with Drainage Device, Percutaneous Approach (ICD-10-PCS; 2017-01-24)
PROC: 0JDM0ZZ Extraction of Left Upper Leg Subcutaneous Tissue and Fascia, Open Approach (ICD-10-PCS; 2017-01-27)
PROC: 0QSH04Z Reposition Left Tibia with Internal Fixation Device, Open Approach (ICD-10-PCS; 2017-01-31)
PROC: 0B113F4 Bypass Trachea to Cutaneous with Tracheostomy Device, Percutaneous Approach (ICD-10-PCS; 2017-01-31 11:30)
PROC: 0DH63UZ Insertion of Feeding Device into Stomach, Percutaneous Approach (ICD-10-PCS; 2017-02-01)
PROC: 0HRJX74 Replacement of Left Upper Leg Skin with Autologous Tissue Substitute, Partial Thickness, External Approach (ICD-10-PCS; 2017-02-03)
PROC: 0JBM0ZZ Excision of Left Upper Leg Subcutaneous Tissue and Fascia, Open Approach (ICD-10-PCS; 2017-02-03)
DX: S22.5XXA Flail chest, initial encounter for closed fracture (principal); A41.59 Other Gram-negative sepsis; T79.4XXA Traumatic shock, initial encounter; S12.500A Unspecified displaced fracture of sixth cervical vertebra, initial encounter for closed fracture; S32.592A Other specified fracture of left pubis, initial encounter for closed fracture; S27.0XXA Traumatic pneumothorax, initial encounter; J15.6 Pneumonia due to other Gram-negative bacteria; S22.089A Unspecified fracture of T11-T12 vertebra, initial encounter for closed fracture; D69.6 Thrombocytopenia, unspecified; S06.6X0A Traumatic subarachnoid hemorrhage without loss of consciousness, initial encounter; S75.002A Unspecified injury of femoral artery, left leg, initial encounter; J96.00 Acute respiratory failure, unspecified whether with hypoxia or hypercapnia; R65.20 Severe sepsis without septic shock; E87.2 Acidosis; D62 Acute posthemorrhagic anemia; S32.019A Unspecified fracture of first lumbar vertebra, initial encounter for closed fracture; S27.322A Contusion of lung, bilateral, initial encounter; S32.301A Unspecified fracture of right ilium, initial encounter for closed fracture; S36.892A Contusion of other intra-abdominal organs, initial encounter; S82.142A Displaced bicondylar fracture of left tibia, initial encounter for closed fracture; N39.0 Urinary tract infection, site not specified; S02.40DA Maxillary fracture, left side, initial encounter for closed fracture; E87.0 Hyperosmolality and hypernatremia; S71.112A Laceration without foreign body, left thigh, initial encounter; R13.10 Dysphagia, unspecified; B95.2 Enterococcus as the cause of diseases classified elsewhere; Z16.21 Resistance to vancomycin; B96.1 Klebsiella pneumoniae [K. pneumoniae] as the cause of diseases classified elsewhere; E83.39 Other disorders of phosphorus metabolism; E83.41 Hypermagnesemia; E83.42 Hypomagnesemia; E83.51 Hypocalcemia; S42.112A Displaced fracture of body of scapula, left shoulder, initial encounter for closed fracture; E87.6 Hypokalemia; V03.10XA Pedestrian on foot injured in collision with car, pick-up truck or van in traffic accident, initial encounter; Y92.410 Unspecified street and highway as the place of occurrence of the external cause; Y93.01 Activity, walking, marching and hiking
CPT/HCPCS: 31500; 32551; 36430; 36556; 36600; 37191; 70450; 70486; 70498; 70551; 71010; 71260; 71275; 72125; 72128; 72131; 72141; 72148; 72170; 73200; 73551; 73552; 73560; 73564; 73590; 73600; 73620; 73700; 74177; 76000; 80048; 80053; 80202; 81001; 82435; 82565; 82652; 82805; 82947; 83605; 83735; 84100; 84132; 84145; 84155; 84295; 84520; 85007; 85014; 85018; 85025; 85027; 85384; 85610; 85730; 86022; 86850; 86900; 86901; 86920; 86927; 87040; 87070; 87077; 87086; 87186; 87205; 87493; 87641; 88305; 93005; 93306; 94002; 94003; 94640; 94664; 94762; 96374; 96375; 99291; A7521; C1713; C1769; C1880; C9113; G0390; J0131; J0330; J0610; J0690; J0692; J1450; J1580; J1644; J1650; J1940; J1956; J2020; J2185; J2250; J2270; J2370; J2543; J2997; J3010; J3260; J3370; J3475; J3480; J7030; J7040; J7050; J7120; L0150; L0172; L0484; L1830; P9016; P9017; P9035; P9045; Q9967